=== PATIENT | male | born 1960 | race Caucasian/White ===

== ENCOUNTER → 2017-07-11 07:56 | Outpatient (CLI) | payer OTHER, SELFPAY ==
--- NOTE | 2017-07-11 07:59 | US_ITS ---
STUDY: ABDOMINAL ULTRASOUND - RIGHT UPPER QUADRANT REASON FOR VISIT: Male, 57 years old. Epigastric pain. History of prior cholecystectomy in 2007. TECHNIQUE: Ultrasound evaluation of the right upper quadrant was performed with real-time and static borden-scale imaging. TECHNICAL QUALITY: Adequate. COMPARISON: None. FINDINGS: Liver: The liver measures 15.4 cm. There is normal echogenicity of the liver. The bile ducts are within normal limits. There is hepatic color flow. The direction of portal flow is hepatopetal. There is no demonstrated mass lesion. Gallbladder: The patient is status post cholecystectomy. Common Bile Duct (C.B.D.): The common bile duct measures 4.1 mm. Pancreas: Normal size of the head, body and tail of the pancreas. Fatty pancreas. There is no demonstrated pancreatic mass or cyst. Right Kidney: Normal size of the right kidney. The right kidney measures 11.6 x 6.0 x 6.2 cm. Normal renal cortex. The right cortex measures 2 cm. There is a 3.1 x 2.7 x 2.5 cm simple cyst of the right kidney. There is no right hydronephrosis. US/Abdomen Limited IMPRESSION: Normal liver. Status post cholecystectomy. Nondistended common bile duct. Normal sized fatty pancreas. 3.1 x 2.7 x 2.5 cm simple cyst of the right kidney. Otherwise normal right kidney. Electronically Signed: Kusum Jc MD at 0:01 EST , Service support ,
== END ==
PROVIDERS: Family Provider Family Medicine; PCP Family Medicine; Visit Provider Family Medicine
DX: R10.13 Epigastric pain (principal)
CPT/HCPCS: 76705

== ENCOUNTER → 2019-04-05 | Outpatient (CLI) | payer OTHER, SELFPAY ==
[2019-04-05 16:24] LABS: Bacteria 0 SEEN /hpf (None Seen); Mucous, Urine 0 SEEN /hpf (<or=2+); Red Blood Cells-Urine 0 SEEN /hpf (0-5); Squamous Epithelial Cells - UA 0 SEEN /hpf (0-5); White Blood Cells 0 SEEN /hpf (0-5)
[2019-04-05 17:39] LABS: Color, Urine Yellow (Yellow); Glucose, Dipstick Normal (Normal); Ketone-Dipstick 5 mg/dl (Negative); Leukocyte Esterase-Dipstick Negative /ul (Negative); Nitrite-Dipstick Negative (Negative); Occult Blood-Urine Negative /ul (Negative); Protein-Dipstick Negative (Negative); Specific Gravity, Urine 1.015 (1.002-1.030); Urine Bilirubin Dipstick Negative (Negative); Urine Clarity Clear (Clear); Urine Urobilinogen Normal (Normal); Urine pH 6.5 (5.0 - 8.0)
[2019-04-05 17:42] LABS: Absolute Lymphocyte Count 1.38 X10^3/uL (0.83-4.51); Absolute Neutrophil Count 4.1 X10^3/uL (2.0-7.7); Basophil# 0.04 X10^3/uL; Basophil% 0.7 % (0-1); Eosinophil# 0.01 X10^3/uL; Eosinophils% 0.2 % (0-5); Hematocrit 41.6 % (40-54); Hemoglobin 13.6 g/dL (13.0-16.5); Lymphocyte # 1.38 X10^3/ul (4.0); Lymphocyte % 22.7 % (19-41); Mean Corp Hgb Conc 32.7 g/dL (32-36); Mean Corpuscular Hgb 30.8 pg (27.0-32.0); Mean Corpuscular Volume 94.1 fL (80-94); Mean Platelet Vol. 11.7 fl (6.2-12.0); Monocyte# 0.57 X10^3/uL; Monocyte% 9.4 % (0-10); NRBC Flagged by Analyzer 0 % (0-5); Neutrophil # 4.07 X10^3/uL (2.7-7.7); Neutrophil % 66.7 % (47-70); Platelet Count 240 K/mm3 (150-450); RBC Distribution Width CV 12.4 % (11.6-14.6); Red Blood Count 4.42 M/mm3 (4.6-6.2); White Blood Count 6.1 K/mm3 (4.4-11.0)
[2019-04-05 18:01] LABS: ALB/GLOB Ratio 1.4 RATIO (0.9-2.4); AST(SGOT) 16 U/L (15-37); Alanine Aminotransfer ALT/SGPT 30 U/L (16-61); Albumin, Serum 4.1 g/dL (3.2-5.0); Alkaline Phosphatase 44 U/L (45-117); Anion Gap 6 (5-15); BUN 17 mg/dL (7-18); BUN/Creat Ratio 16.2 RATIO (10-20); Chloride 108 mmol/L (98-107); Creatinine, Serum 1.05 mg/dL (0.70-1.30); EST Glomerular Filtration Rate 77 mL/min (>60); Est Glom Filt Rate - Afr Amer 93 mL/min (>60); Globulin 2.9 g/dL (2.2-4.2); Glucose 89 mg/dL (74-106); Potassium 3.9 mmol/L (3.5-5.1); Sodium Level 140 mmol/L (136-145); Thyroid Stim Hormone (TSH) 1.15 uIU/mL (0.358-3.74)
== END | disposition home or self-care (01) ==
LOC: MFPLAB 16:21
PROVIDERS: Family Provider Family Medicine; PCP Family Medicine; Visit Provider Family Medicine
DX: I10 Essential (primary) hypertension (principal)
CPT/HCPCS: 36415; 80053; 81001; 84443; 85025

== ENCOUNTER → 2019-04-30 10:33 | Outpatient (CLI) | payer OTHER, SELFPAY ==
[2019-04-30 12:53] LABS: Anion Gap 4 (5-15); BUN 20 mg/dL (7-18); BUN/Creat Ratio 16.9 RATIO (10-20); Calcium,Total 9.1 mg/dL (8.5-10.1); Chloride 105 mmol/L (98-107); Creatinine, Serum 1.18 mg/dL (0.70-1.30); EST Glomerular Filtration Rate 67 mL/min (>60); Est Glom Filt Rate - Afr Amer 82 mL/min (>60); Glucose 88 mg/dL (74-106); Potassium 3.9 mmol/L (3.5-5.1); Sodium Level 140 mmol/L (136-145)
== END ==
PROVIDERS: Family Provider Family Medicine; PCP Family Medicine; Referring Provider Family Medicine; Visit Provider Family Medicine
DX: I10 Essential (primary) hypertension (principal)
CPT/HCPCS: 36415; 80048

== ENCOUNTER → 2019-05-18 11:05 | Outpatient (CLI) | payer OTHER, SELFPAY ==
[2019-05-18 12:21] LABS: Anion Gap 5 (5-15); BUN 25 mg/dL (7-18); BUN/Creat Ratio 27.7 RATIO (10-20); Calcium,Total 8.8 mg/dL (8.5-10.1); Chloride 107 mmol/L (98-107); EST Glomerular Filtration Rate 92 mL/min (>60); Est Glom Filt Rate - Afr Amer 111 mL/min (>60); Glucose 87 mg/dL (74-106); PSA,Total - Annual Screen 2.12 ng/mL (0.00-4.00); Potassium 3.9 mmol/L (3.5-5.1); Sodium Level 140 mmol/L (136-145)
[2019-05-18 12:24] LABS: Hemoglobin A1c 5.4 % (4.2-6.3)
== END ==
PROVIDERS: Family Provider Family Medicine; PCP Family Medicine; Visit Provider Family Medicine
DX: I10 Essential (primary) hypertension (principal); R73.09 Other abnormal glucose; Z12.5 Encounter for screening for malignant neoplasm of prostate
CPT/HCPCS: 36415; 80048; 83036; 84153; G0103

== ENCOUNTER → 2019-09-28 08:57 | Outpatient (CLI) | payer OTHER, SELFPAY ==
[2019-09-28 10:26] LABS: Vitamin D,25 Hydroxy 87.6 ng/mL
[2019-09-28 10:44] LABS: ALB/GLOB Ratio 1.4 RATIO (0.9-2.4); AST(SGOT) 21 U/L (15-37); Alanine Aminotransfer ALT/SGPT 31 U/L (16-61); Albumin, Serum 4.1 g/dL (3.2-5.0); Alkaline Phosphatase 34 U/L (45-117); Anion Gap 6 (5-15); BUN 25 mg/dL (7-18); BUN/Creat Ratio 20.8 RATIO (10-20); Calcium,Total 9.2 mg/dL (8.5-10.1); Chloride 102 mmol/L (98-107); EST Glomerular Filtration Rate 66 mL/min (>60); Est Glom Filt Rate - Afr Amer 80 mL/min (>60); Glucose 104 mg/dL (74-106); Potassium 4.1 mmol/L (3.5-5.1); Protein, Total 7.1 g/dL (6.4-8.2); Sodium Level 138 mmol/L (136-145)
== END ==
PROVIDERS: PCP Family Medicine; Referring Provider Family Medicine; Visit Provider Family Medicine
DX: I10 Essential (primary) hypertension (principal); E55.9 Vitamin D deficiency, unspecified; R73.09 Other abnormal glucose
CPT/HCPCS: 36415; 80053; 82306; 83036

== ENCOUNTER → 2020-04-24 13:40 | Outpatient (CLI) | payer OTHER, SELFPAY ==
[2020-04-24 15:21] LABS: Vitamin D,25 Hydroxy 60.6 ng/mL
[2020-04-24 15:25] LABS: ALB/GLOB Ratio 1.5 RATIO (0.9-2.4); AST(SGOT) 12 U/L (15-37); Alanine Aminotransfer ALT/SGPT 29 U/L (16-61); Albumin, Serum 4.3 g/dL (3.2-5.0); Alkaline Phosphatase 41 U/L (45-117); Anion Gap 5 (5-15); BUN 23 mg/dL (7-18); BUN/Creat Ratio 22.1 RATIO (10-20); Calcium,Total 9.4 mg/dL (8.5-10.1); Chloride 104 mmol/L (98-107); Creatinine, Serum 1.04 mg/dL (0.70-1.30); EST Glomerular Filtration Rate 78 mL/min (>60); Est Glom Filt Rate - Afr Amer 94 mL/min (>60); Globulin 2.9 g/dL (2.2-4.2); Glucose 89 mg/dL (74-106); Potassium 3.8 mmol/L (3.5-5.1); Protein, Total 7.2 g/dL (6.4-8.2); Sodium Level 139 mmol/L (136-145)
== END ==
PROVIDERS: PCP Family Medicine; Referring Provider Family Medicine; Visit Provider Family Medicine
DX: I10 Essential (primary) hypertension (principal); E55.9 Vitamin D deficiency, unspecified
CPT/HCPCS: 36415; 80053; 82306; 87635; U0003

== ENCOUNTER 2020-08-01 11:16 | Outpatient (RCR) | payer OTHER, SELFPAY ==
[2020-08-01] MEDS: COVID-19 VACC, MRNA(PFIZER)/PF 30 MCG/0.3 ML SYRINGE IM (16:14)
[2020-08-22] MEDS: COVID-19 VACC, MRNA(PFIZER)/PF 30 MCG/0.3 ML SYRINGE IM (16:06)
== END 2020-10-24 23:59 ==
LOC: IMMUN 11:16
PROVIDERS: PCP Family Medicine; Visit Provider Family Medicine
DX: Z23 Encounter for immunization (principal)
CPT/HCPCS: 0001A; 0002A; 91300

== ENCOUNTER → 2020-10-26 09:24 | Outpatient (CLI) | payer OTHER, SELFPAY ==
[2020-10-26 09:26] LABS: Bacteria 0 SEEN /hpf (None Seen); Mucous, Urine 0 SEEN /hpf (<or=2+); Red Blood Cells-Urine 0 SEEN /hpf (0-5); Squamous Epithelial Cells - UA 0 SEEN /hpf (0-5); White Blood Cells 0 SEEN /hpf (0-5)
[2020-10-26 10:07] LABS: Color, Urine Yellow (Yellow); Glucose, Dipstick Normal (Normal); Ketone-Dipstick Negative (Negative); Leukocyte Esterase-Dipstick Negative /ul (Negative); Nitrite-Dipstick Negative (Negative); Occult Blood-Urine Negative /ul (Negative); Protein-Dipstick Negative (Negative); Urine Bilirubin Dipstick Negative (Negative); Urine Clarity Clear (Clear); Urine Urobilinogen Normal (Normal)
[2020-10-26 10:12] LABS: Absolute Lymphocyte Count 1.23 X10^3/uL (0.83-4.51); Absolute Neutrophil Count 2.9 X10^3/uL (2.0-7.7); Basophil# 0.04 X10^3/uL; Basophil% 0.9 % (0-1); Eosinophil# 0.04 X10^3/uL; Eosinophils% 0.9 % (0-5); Hematocrit 39.8 % (40-54); Hemoglobin 13.2 g/dL (13.0-16.5); Lymphocyte # 1.23 X10^3/ul (0.83-4.51); Lymphocyte % 26.3 % (19-41); Mean Corp Hgb Conc 33.2 g/dL (32-36); Mean Corpuscular Volume 93.4 fL (80-94); Mean Platelet Vol. 10.8 fl (6.2-12.0); Monocyte# 0.47 X10^3/uL; NRBC Flagged by Analyzer 0 % (0-5); Neutrophil # 2.88 X10^3/uL (2.7-7.7); Neutrophil % 61.5 % (47-70); Platelet Count 247 K/mm3 (150-450); RBC Distribution Width CV 12.8 % (11.6-14.6); RBC Distribution Width SD 43.8 fl (35.1-43.9); Red Blood Count 4.26 M/mm3 (4.6-6.2); White Blood Count 4.7 K/mm3 (4.4-11.0)
[2020-10-26 10:35] LABS: Vitamin D,25 Hydroxy 60.8 ng/mL
[2020-10-26 10:41] LABS: ALB/GLOB Ratio 1.2 RATIO (0.9-2.4); AST(SGOT) 15 U/L (15-37); Alanine Aminotransfer ALT/SGPT 29 U/L (16-61); Alkaline Phosphatase 37 U/L (45-117); Anion Gap 6 (5-15); BUN 38 mg/dL (7-18); BUN/Creat Ratio 30.2 RATIO (10-20); Calcium,Total 9.6 mg/dL (8.5-10.1); Chloride 104 mmol/L (98-107); Cholesterol 191 mg/dL (200); Creatinine, Serum 1.26 mg/dL (0.70-1.30); EST Glomerular Filtration Rate 62 mL/min (>60); Est Glom Filt Rate - Afr Amer 75 mL/min (>60); Globulin 3.2 g/dL (2.2-4.2); Glucose 96 mg/dL (74-106); High Density Lipoprotein 80 mg/dL; PSA,Total - Annual Screen 3.19 ng/mL (0.00-4.00); Potassium 3.8 mmol/L (3.5-5.1); Protein, Total 7.2 g/dL (6.4-8.2); Sodium Level 138 mmol/L (136-145); Triglycerides 50 mg/dL; Very Low Density Lipoprotein 10 mg/dL (5-40)
== END ==
PROVIDERS: PCP Family Medicine; Referring Provider Family Medicine; Visit Provider Family Medicine
DX: I10 Essential (primary) hypertension (principal); E55.9 Vitamin D deficiency, unspecified; Z12.5 Encounter for screening for malignant neoplasm of prostate
CPT/HCPCS: 36415; 80053; 80061; 81001; 82306; 84153; 84443; 85025; G0103

== ENCOUNTER → 2020-11-10 09:44 | Outpatient (CLI) | payer OTHER, SELFPAY ==
[2020-11-10 12:55] LABS: Anion Gap 6 (5-15); BUN 25 mg/dL (7-18); BUN/Creat Ratio 19.2 RATIO (10-20); Calcium,Total 9.6 mg/dL (8.5-10.1); Chloride 104 mmol/L (98-107); EST Glomerular Filtration Rate 60 mL/min (>60); Est Glom Filt Rate - Afr Amer 73 mL/min (>60); Glucose 109 mg/dL (74-106); Sodium Level 139 mmol/L (136-145)
== END ==
PROVIDERS: PCP Family Medicine; Referring Provider Family Medicine; Visit Provider Family Medicine
DX: R94.4 Abnormal results of kidney function studies (principal)
CPT/HCPCS: 36415; 80048

== ENCOUNTER → 2021-05-08 11:22 | Outpatient (CLI) | payer OTHER, SELFPAY ==
[2021-05-08 11:24] LABS: Bacteria 0 SEEN /hpf (None Seen); Mucous, Urine 0 SEEN /hpf (<or=2+); Red Blood Cells-Urine 0 SEEN /hpf (0-5); Squamous Epithelial Cells - UA 0 SEEN /hpf (0-5); White Blood Cells 0 SEEN /hpf (0-5)
[2021-05-08 15:15] LABS: Absolute Lymphocyte Count 1.44 X10^3/uL (0.83-4.51); Absolute Neutrophil Count 3.1 X10^3/uL (2.0-7.7); Basophil# 0.04 X10^3/uL; Basophil% 0.8 % (0-1); Eosinophil# 0.02 X10^3/uL; Eosinophils% 0.4 % (0-5); Hematocrit 39.9 % (40-54); Hemoglobin 13.2 g/dL (13.0-16.5); Lymphocyte # 1.44 X10^3/ul (0.83-4.51); Lymphocyte % 28.6 % (19-41); Mean Corp Hgb Conc 33.1 g/dL (32-36); Mean Corpuscular Hgb 30.8 pg (27.0-32.0); Mean Corpuscular Volume 93.2 fL (80-94); Monocyte# 0.44 X10^3/uL; Monocyte% 8.7 % (0-10); NRBC Flagged by Analyzer 0 % (0-5); Neutrophil # 3.09 X10^3/uL (2.7-7.7); Neutrophil % 61.3 % (47-70); Platelet Count 298 K/mm3 (150-450); RBC Distribution Width CV 12.5 % (11.6-14.6); RBC Distribution Width SD 42.9 fl (35.1-43.9); Red Blood Count 4.28 M/mm3 (4.6-6.2)
[2021-05-08 15:16] LABS: Color, Urine Yellow (Yellow); Glucose, Dipstick Normal (Normal); Ketone-Dipstick Negative (Negative); Leukocyte Esterase-Dipstick Negative /ul (Negative); Nitrite-Dipstick Negative (Negative); Occult Blood-Urine Negative /ul (Negative); Protein-Dipstick Negative (Negative); Specific Gravity, Urine 1.015 (1.002-1.030); Urine Bilirubin Dipstick Negative (Negative); Urine Clarity Clear (Clear); Urine Urobilinogen Normal (Normal)
[2021-05-08 15:31] LABS: Vitamin D,25 Hydroxy 51.6 ng/mL
[2021-05-08 15:35] LABS: ALB/GLOB Ratio 1.3 RATIO (0.9-2.4); AST(SGOT) 16 U/L (15-37); Alanine Aminotransfer ALT/SGPT 36 U/L (16-61); Albumin, Serum 4.3 g/dL (3.2-5.0); Alkaline Phosphatase 42 U/L (45-117); Anion Gap 9 (5-15); BUN 23 mg/dL (7-18); BUN/Creat Ratio 20.2 RATIO (10-20); Calcium,Total 9.8 mg/dL (8.5-10.1); Chloride 100 mmol/L (98-107); Cholesterol 179 mg/dL (200); Creatinine, Serum 1.14 mg/dL (0.70-1.30); EST Glomerular Filtration Rate 70 mL/min (>60); Est Glom Filt Rate - Afr Amer 84 mL/min (>60); Globulin 3.4 g/dL (2.2-4.2); Glucose 103 mg/dL (74-106); High Density Lipoprotein 84 mg/dL; Magnesium 2.2 mg/dL (1.6-2.6); Potassium 3.7 mmol/L (3.5-5.1); Protein, Total 7.7 g/dL (6.4-8.2); Sodium Level 138 mmol/L (136-145); Thyroid Stim Hormone (TSH) 0.93 uIU/mL (0.358-3.74); Triglycerides 49 mg/dL; Very Low Density Lipoprotein 10 mg/dL (5-40)
== END ==
PROVIDERS: PCP Family Medicine; Referring Provider Family Medicine; Visit Provider Family Medicine
DX: I10 Essential (primary) hypertension (principal); E55.9 Vitamin D deficiency, unspecified
CPT/HCPCS: 36415; 80053; 80061; 81001; 82306; 83735; 84443; 85025

== ENCOUNTER 2021-06-07 09:46 | Outpatient (CLI) | payer OTHER, SELFPAY ==
--- NOTE | 2021-06-07 16:56 | PFTCOMP_ITS ---
COMPLETE PULMONARY FUNCTION TEST INTERPRETATION Brief HPI: Patient is a 61 year old male, currently under the care of myself, who presents to [facility] for complete pulmonary function tests secondary to diagnosis of cough. Respiratory therapist reports good effort and reproducible results. Interpretation: Forced expiration spirometry shows no large airways obstructive ventilatory defect with an FEV1 of 108% predicted. There is no significant bronchodilator response by strict ATS criteria. Spirograms are of good quality and plateau normally. The respiratory flow volume loop shows a normal pattern. Lung volumes by body plethysmography show a normal total lung capacity at 6.49 L, 109% predicted. All other lung volumes are within normal limits. Diffusion capacity by carbon monoxide is normal at 116% predicted. The airway resistance is normal. No previous pulmonary function tests were available for review. Impression: These pulmonary function tests are within normal limits
== END 2021-06-07 23:59 | disposition short-term general hospital (02) ==
PROVIDERS: PCP Family Medicine; Referring Provider Internal Medicine Critical Care Medicine; Visit Provider Internal Medicine Critical Care Medicine
DX: R05.3 Chronic cough (principal)
CPT/HCPCS: 94060; 94726; 94729

== ENCOUNTER → 2021-11-20 | Outpatient (CLI) | payer OTHER, SELFPAY ==
[2021-11-20 16:38] LABS: Lyme Ab Screen Interpretation REF LAB
[2021-11-20 18:02] LABS: Absolute Lymphocyte Count 0.82 X10^3/uL (0.83-4.51); Absolute Neutrophil Count 6.2 X10^3/uL (2.0-7.7); Basophil# 0.05 X10^3/uL; Basophil% 0.6 % (0-1); Eosinophil# 0.06 X10^3/uL; Eosinophils% 0.8 % (0-5); Hematocrit 35.9 % (40-54); Hemoglobin 11.6 g/dL (13.0-16.5); Lymphocyte # 0.82 X10^3/ul (0.83-4.51); Lymphocyte % 10.5 % (19-41); Mean Corp Hgb Conc 32.3 g/dL (32-36); Mean Corpuscular Hgb 29.9 pg (27.0-32.0); Mean Corpuscular Volume 92.5 fL (80-94); Mean Platelet Vol. 11.8 fl (6.2-12.0); Monocyte# 0.72 X10^3/uL; Monocyte% 9.2 % (0-10); NRBC Flagged by Analyzer 0 % (0-5); Neutrophil # 6.15 X10^3/uL (2.7-7.7); Neutrophil % 78.4 % (47-70); Platelet Count 311 K/mm3 (150-450); RBC Distribution Width CV 12.4 % (11.6-14.6); RBC Distribution Width SD 42.3 fl (35.1-43.9); Red Blood Count 3.88 M/mm3 (4.6-6.2); White Blood Count 7.8 K/mm3 (4.4-11.0)
[2021-11-20 18:15] LABS: Erythrocyte Sedimentation Rate 20 mm/hr (0-20)
[2021-11-20 18:48] LABS: Vitamin D,25 Hydroxy 52.4 ng/mL
[2021-11-20 18:58] LABS: AST(SGOT) 15 U/L (15-37); Alanine Aminotransfer ALT/SGPT 28 U/L (16-61); Albumin, Serum 3.5 g/dL (3.2-5.0); Alkaline Phosphatase 55 U/L (45-117); Anion Gap 8 (5-15); BUN 13 mg/dL (7-18); BUN/Creat Ratio 13.4 RATIO (10-20); Calcium,Total 9.6 mg/dL (8.5-10.1); Chloride 104 mmol/L (98-107); Creatinine, Serum 0.97 mg/dL (0.70-1.30); EST Glomerular Filtration Rate 84 mL/min (>60); Est Glom Filt Rate - Afr Amer 101 mL/min (>60); Globulin 3.6 g/dL (2.2-4.2); Glucose 87 mg/dL (74-106); Potassium 3.1 mmol/L (3.5-5.1); Protein, Total 7.1 g/dL (6.4-8.2); Sodium Level 140 mmol/L (136-145); Thyroid Stim Hormone (TSH) 1.29 uIU/mL (0.358-3.74)
== END | disposition home or self-care (01) ==
LOC: MFPLAB 16:36
PROVIDERS: PCP Family Medicine; Visit Provider Family Medicine
DX: M79.10 Myalgia, unspecified site (principal); E55.9 Vitamin D deficiency, unspecified
CPT/HCPCS: 36415; 80053; 82306; 83735; 84443; 85025; 85652; 86618

== ENCOUNTER → 2021-11-26 | Outpatient (CLI) | payer OTHER, SELFPAY ==
[2021-11-26 14:49] LABS: Absolute Lymphocyte Count 0.74 X10^3/uL (0.83-4.51); Absolute Neutrophil Count 6.3 X10^3/uL (2.0-7.7); Basophil# 0.04 X10^3/uL; Basophil% 0.5 % (0-1); Eosinophil# 0.04 X10^3/uL; Eosinophils% 0.5 % (0-5); Hematocrit 31.7 % (40-54); Hemoglobin 10.3 g/dL (13.0-16.5); Lymphocyte # 0.74 X10^3/ul (0.83-4.51); Lymphocyte % 9.1 % (19-41); Mean Corp Hgb Conc 32.5 g/dL (32-36); Mean Corpuscular Volume 92.4 fL (80-94); Mean Platelet Vol. 13.2 fl (6.2-12.0); Monocyte% 12.3 % (0-10); NRBC Flagged by Analyzer 0 % (0-5); Neutrophil # 6.32 X10^3/uL (2.7-7.7); Neutrophil % 77.4 % (47-70); Platelet Count 303 K/mm3 (150-450); RBC Distribution Width CV 12.5 % (11.6-14.6); RBC Distribution Width SD 42.6 fl (35.1-43.9); Red Blood Count 3.43 M/mm3 (4.6-6.2); White Blood Count 8.2 K/mm3 (4.4-11.0)
[2021-11-26 15:06] LABS: Vitamin B12 252 pg/mL (211-911)
[2021-11-26 15:14] LABS: Ferritin 258 ng/mL (26-388); Iron 23 ug/dL (65-175); Iron Binding Capacity,Total 274 ug/dL (250-450)
== END | disposition home or self-care (01) ==
LOC: MFPLAB 11:42
PROVIDERS: PCP Family Medicine; Visit Provider Family Medicine
DX: D64.9 Anemia, unspecified (principal)
CPT/HCPCS: 36415; 82607; 82728; 82746; 83540; 83550; 85025

== ENCOUNTER → 2021-12-06 | Outpatient (CLI) | payer OTHER, SELFPAY ==
[2021-12-06 10:10] LABS: Absolute Lymphocyte Count 0.81 X10^3/uL (0.83-4.51); Absolute Neutrophil Count 7.6 X10^3/uL (2.0-7.7); Basophil# 0.04 X10^3/uL; Basophil% 0.4 % (0-1); Eosinophil# 0.09 X10^3/uL; Hematocrit 33.6 % (40-54); Hemoglobin 10.7 g/dL (13.0-16.5); Lymphocyte # 0.81 X10^3/ul (0.83-4.51); Lymphocyte % 8.6 % (19-41); Mean Corp Hgb Conc 31.8 g/dL (32-36); Mean Corpuscular Hgb 29.3 pg (27.0-32.0); Mean Corpuscular Volume 92.1 fL (80-94); Monocyte# 0.86 X10^3/uL; Monocyte% 9.1 % (0-10); NRBC Flagged by Analyzer 0 % (0-5); Neutrophil # 7.62 X10^3/uL (2.7-7.7); Neutrophil % 80.5 % (47-70); Platelet Count 370 K/mm3 (150-450); RBC Distribution Width SD 43.5 fl (35.1-43.9); Red Blood Count 3.65 M/mm3 (4.6-6.2); White Blood Count 9.5 K/mm3 (4.4-11.0)
[2021-12-06 10:35] LABS: Anion Gap 5 (5-15); BUN 20 mg/dL (7-18); BUN/Creat Ratio 18.9 RATIO (10-20); Calcium,Total 9.3 mg/dL (8.5-10.1); Chloride 103 mmol/L (98-107); Creatinine, Serum 1.06 mg/dL (0.70-1.30); EST Glomerular Filtration Rate 76 mL/min (>60); Est Glom Filt Rate - Afr Amer 92 mL/min (>60); Ferritin 197 ng/mL (26-388); Glucose 99 mg/dL (74-106); Iron 30 ug/dL (65-175); Iron Binding Capacity,Total 333 ug/dL (250-450); Potassium 3.5 mmol/L (3.5-5.1); Sodium Level 137 mmol/L (136-145)
== END | disposition home or self-care (01) ==
LOC: MFPLAB 09:31
PROVIDERS: PCP Family Medicine; Referring Provider Family Medicine; Visit Provider Family Medicine
DX: E87.6 Hypokalemia (principal); D50.9 Iron deficiency anemia, unspecified
CPT/HCPCS: 36415; 80048; 82728; 83540; 83550; 85025

== ENCOUNTER → 2022-01-23 | Outpatient (CLI) | payer OTHER, SELFPAY ==
[2022-01-23 08:39] LABS: Bacteria 0 SEEN /hpf (None Seen); Mucous, Urine 0 SEEN /hpf (<or=2+); Red Blood Cells-Urine 0 SEEN /hpf (0-5); Squamous Epithelial Cells - UA 0 SEEN /hpf (0-5); White Blood Cells 0 SEEN /hpf (0-5)
[2022-01-23 10:19] LABS: Absolute Neutrophil Count 4.8 X10^3/uL (2.0-7.7); Basophil# 0.04 X10^3/uL; Basophil% 0.6 % (0-1); Eosinophil# 0.05 X10^3/uL; Eosinophils% 0.8 % (0-5); Hematocrit 39.2 % (40-54); Hemoglobin 12.5 g/dL (13.0-16.5); Lymphocyte % 18.3 % (19-41); Mean Corp Hgb Conc 31.9 g/dL (32-36); Mean Corpuscular Hgb 29.9 pg (27.0-32.0); Mean Corpuscular Volume 93.8 fL (80-94); Mean Platelet Vol. 11.2 fl (6.2-12.0); Monocyte# 0.45 X10^3/uL; Monocyte% 6.9 % (0-10); NRBC Flagged by Analyzer 0 % (0-5); Neutrophil # 4.78 X10^3/uL (2.7-7.7); Neutrophil % 73.1 % (47-70); Platelet Count 313 K/mm3 (150-450); RBC Distribution Width CV 14.7 % (11.6-14.6); RBC Distribution Width SD 50.9 fl (35.1-43.9); Red Blood Count 4.18 M/mm3 (4.6-6.2); White Blood Count 6.5 K/mm3 (4.4-11.0)
[2022-01-23 10:36] LABS: Color, Urine Yellow (Yellow); Glucose, Dipstick Normal (Normal); Ketone-Dipstick Negative (Negative); Leukocyte Esterase-Dipstick Negative /ul (Negative); Nitrite-Dipstick Negative (Negative); Occult Blood-Urine Negative /ul (Negative); Protein-Dipstick Negative (Negative); Urine Bilirubin Dipstick Negative (Negative); Urine Clarity Clear (Clear); Urine Urobilinogen Normal (Normal)
[2022-01-23 10:57] LABS: ALB/GLOB Ratio 1.1 RATIO (0.9-2.4); AST(SGOT) 21 U/L (15-37); Alanine Aminotransfer ALT/SGPT 40 U/L (16-61); Albumin, Serum 3.8 g/dL (3.2-5.0); Alkaline Phosphatase 38 U/L (45-117); Anion Gap 6 (5-15); BUN 24 mg/dL (7-18); BUN/Creat Ratio 21.4 RATIO (10-20); Calcium,Total 9.3 mg/dL (8.5-10.1); Chloride 107 mmol/L (98-107); Cholesterol 185 mg/dL (200); Creatinine, Serum 1.12 mg/dL (0.70-1.30); EST Glomerular Filtration Rate 71 mL/min (>60); Est Glom Filt Rate - Afr Amer 86 mL/min (>60); Ferritin 165 ng/mL (26-388); Globulin 3.4 g/dL (2.2-4.2); Glucose 101 mg/dL (74-106); High Density Lipoprotein 74 mg/dL; Iron 80 ug/dL (65-175); Iron Binding Capacity,Total 323 ug/dL (250-450); PSA,Total - Annual Screen 2.57 ng/mL (0.00-4.00); Potassium 4.1 mmol/L (3.5-5.1); Protein, Total 7.2 g/dL (6.4-8.2); Sodium Level 140 mmol/L (136-145); Triglycerides 50 mg/dL; Very Low Density Lipoprotein 10 mg/dL (5-40)
== END | disposition home or self-care (01) ==
LOC: MFPLAB 08:36
PROVIDERS: PCP Family Medicine; Visit Provider Family Medicine
DX: D50.9 Iron deficiency anemia, unspecified (principal); I10 Essential (primary) hypertension; Z12.5 Encounter for screening for malignant neoplasm of prostate
CPT/HCPCS: 80053; 80061; 81001; 82728; 83540; 83550; 84153; 85025; G0103

== ENCOUNTER → 2022-05-22 | Outpatient (CLI) | payer OTHER, SELFPAY ==
[2022-05-22 08:44] LABS: Bacteria 0 SEEN /hpf (None Seen); Mucous, Urine 0 SEEN /hpf (<or=2+); Red Blood Cells-Urine 0 SEEN /hpf (0-5); Squamous Epithelial Cells - UA 0 SEEN /hpf (0-5); White Blood Cells 0 SEEN /hpf (0-5)
[2022-05-22 10:11] LABS: Absolute Lymphocyte Count 0.99 X10^3/uL (0.83-4.51); Absolute Neutrophil Count 1.8 X10^3/uL (2.0-7.7); Basophil# 0.03 X10^3/uL; Basophil% 0.9 % (0-1); Color, Urine Yellow (Yellow); Eosinophil# 0.07 X10^3/uL; Eosinophils% 2.1 % (0-5); Glucose, Dipstick Normal (Normal); Hematocrit 39.6 % (40-54); Hemoglobin 13.2 g/dL (13.0-16.5); Ketone-Dipstick Negative (Negative); Leukocyte Esterase-Dipstick Negative /ul (Negative); Lymphocyte # 0.99 X10^3/ul (0.83-4.51); Lymphocyte % 30.3 % (19-41); Mean Corp Hgb Conc 33.3 g/dL (32-36); Mean Corpuscular Hgb 31.4 pg (27.0-32.0); Mean Corpuscular Volume 94.1 fL (80-94); Mean Platelet Vol. 11.8 fl (6.2-12.0); Monocyte% 12.2 % (0-10); NRBC Flagged by Analyzer 0 % (0-5); Neutrophil # 1.77 X10^3/uL (2.7-7.7); Neutrophil % 54.2 % (47-70); Nitrite-Dipstick Negative (Negative); Occult Blood-Urine Negative /ul (Negative); Platelet Count 239 K/mm3 (150-450); Protein-Dipstick Negative (Negative); RBC Distribution Width CV 12.9 % (11.6-14.6); RBC Distribution Width SD 44.7 fl (35.1-43.9); Red Blood Count 4.21 M/mm3 (4.6-6.2); Urine Bilirubin Dipstick Negative (Negative); Urine Clarity Clear (Clear); Urine Urobilinogen Normal (Normal); White Blood Count 3.3 K/mm3 (4.4-11.0)
[2022-05-22 10:36] LABS: ALB/GLOB Ratio 1.3 RATIO (0.9-2.4); AST(SGOT) 20 U/L (15-37); Alanine Aminotransfer ALT/SGPT 38 U/L (16-61); Albumin, Serum 3.9 g/dL (3.2-5.0); Alkaline Phosphatase 39 U/L (45-117); Anion Gap 5 (5-15); BUN 24 mg/dL (7-18); BUN/Creat Ratio 20.5 RATIO (10-20); Calcium,Total 9.3 mg/dL (8.5-10.1); Chloride 104 mmol/L (98-107); Cholesterol 177 mg/dL (200); Creatinine, Serum 1.17 mg/dL (0.70-1.30); EST Glomerular Filtration Rate 67 mL/min (>60); Est Glom Filt Rate - Afr Amer 82 mL/min (>60); Ferritin 168 ng/mL (26-388); Globulin 2.9 g/dL (2.2-4.2); Glucose 103 mg/dL (74-106); High Density Lipoprotein 88 mg/dL; Iron 66 ug/dL (65-175); Iron Binding Capacity,Total 296 ug/dL (250-450); Potassium 4.3 mmol/L (3.5-5.1); Protein, Total 6.8 g/dL (6.4-8.2); Sodium Level 139 mmol/L (136-145); Thyroid Stim Hormone (TSH) 1.14 uIU/mL (0.358-3.74); Triglycerides 29 mg/dL; Very Low Density Lipoprotein 6 mg/dL (5-40)
== END | disposition home or self-care (01) ==
LOC: MFPLAB 08:38
PROVIDERS: PCP Family Medicine; Visit Provider Family Medicine
DX: I10 Essential (primary) hypertension (principal); E55.9 Vitamin D deficiency, unspecified; D50.9 Iron deficiency anemia, unspecified
CPT/HCPCS: 36415; 80053; 80061; 81001; 82306; 82728; 83540; 83550; 84443; 85025

== ENCOUNTER → 2022-05-28 | Outpatient (CLI) | payer OTHER, SELFPAY ==
--- NOTE | 2022-05-28 13:51 | ECHOD_ITS ---
Reason For Study: Murmur Procedure This was a 2D Doppler, Color Flow transthoracic echocardiogram. The exam was of adequate technical quality. Exam performed in department. Left Ventricle Normal LV size. Left ventricular systolic function is normal. The estimated ejection fraction is 65 %. No evidence for diastolic dysfunction. No regional wall motion abnormalities noted. Right Ventricle Normal RV size. Normal systolic function. Atria The left atrium is mildly enlarged. Normal right atrium. No doppler evidence for ASD. Mitral Valve There is no mitral annular calcification. Mild focal mitral valve calcification of the anterior leaflet. Mild mitral valve prolapse, posterior leaflet. Mild-Moderate (1-2+) eccentric mitral valve insufficiency. Tricuspid Valve Normal tricuspid valve. Trivial tricuspid valve insufficiency. Right ventricular systolic pressure estimated to be 32 mmHg. Aortic Valve Trisinus/trileaflet aortic valve. Normal aortic valve. Pulmonic Valve The pulmonic valve is not well visualized. Great Vessels Normal sized aortic root. Pericardium/Pleural No pericardial effusion. MMode/2D Measurements & Calculations LVIDd: 5.3 cm IVSd: 1.2 cm Ao root diam: 3.5 cm LVIDs: 3.3 cm LVPWd: 1.0 cm LA dimension: 4.7 cm RVDd: 4.3 cm FS: 37.3 % LAV(MOD-bp): 122.8 ml LA A4 area: 31.1 cm2 LAV(MOD-bp) Indexed: 63.1 ml/m2 LAV(MOD-sp2): 115.4 ml LAV(MOD-sp4): 105.6 ml Time Measurements MV dec time: 0.31 sec Doppler Measurements & Calculations MV E max tonny: 97.0 cm/sec Lat Peak E' Tonny: 13.6 cm/sec Med Peak E' Tonny: 10.3 cm/sec MV A max tonny: 80.2 cm/sec E/E' lat: 7.1 E/E' med: 9.4 MV E/A: 1.2 MV V2 max: 123.4 cm/sec MV P1/2t max tonny: 126.5 cm/sec Ao V2 max: 141.3 cm/sec MV max P.1 mmHg MV P1/2t: 109.7 msec Ao max P.0 mmHg MV V2 mean: 64.5 cm/sec MV dec slope: 337.7 cm/sec2 MV mean P.0 mmHg MVA(P1/2t): 2.0 cm2 MV V2 VTI: 34.7 cm LV V1 max: 109.9 cm/sec MR max tonny: 533.3 cm/sec PA V2 max: 86.6 cm/sec LV V1 max P.8 mmHg MR max P.7 mmHg LV V1 mean P.5 mmHg MR mean tonny: 417.2 cm/sec LV V1 mean: 74.1 cm/sec MR mean P.0 mmHg LV V1 VTI: 19.6 cm MR VTI: 175.8 cm TR max tonny: 267.7 cm/sec TR max P.7 mmHg ECHO/Echo Complete Interpretation Summary Left ventricular systolic function is normal. The estimated ejection fraction is 65 %. The left atrium is mildly enlarged. Mild focal mitral valve calcification of the anterior leaflet. Mild mitral valve prolapse, posterior leaflet Mild-Moderate (1-2+) eccentric mitral valve insufficiency. Trivial tricuspid valve insufficiency. Right ventricular systolic pressure estimated to be 32 mmHg. No evidence for diastolic dysfunction. Ordering Physician: Praful Frankel Referring Physician: Praful Frankel Performed By: Oswaldo Pemberton RCS
== END | disposition home or self-care (01) ==
PROVIDERS: PCP Family Medicine; Referring Provider Family Medicine; Visit Provider Family Medicine
DX: R01.1 Cardiac murmur, unspecified (principal)
CPT/HCPCS: 93306

== ENCOUNTER → 2022-07-02 | Outpatient (CLI) | payer OTHER, SELFPAY ==
[2022-07-02 10:07] LABS: Absolute Lymphocyte Count 1.07 X10^3/uL (0.83-4.51); Basophil# 0.03 X10^3/uL; Basophil% 0.7 % (0-1); Eosinophil# 0.05 X10^3/uL; Eosinophils% 1.1 % (0-5); Hematocrit 40.2 % (40-54); Hemoglobin 12.9 g/dL (13.0-16.5); Lymphocyte # 1.07 X10^3/ul (0.83-4.51); Lymphocyte % 23.2 % (19-41); Mean Corp Hgb Conc 32.1 g/dL (32-36); Mean Corpuscular Hgb 30.4 pg (27.0-32.0); Mean Corpuscular Volume 94.8 fL (80-94); Mean Platelet Vol. 11.5 fl (6.2-12.0); Monocyte# 0.41 X10^3/uL; Monocyte% 8.9 % (0-10); NRBC Flagged by Analyzer 0 % (0-5); Neutrophil # 3.04 X10^3/uL (2.7-7.7); Neutrophil % 65.9 % (47-70); Platelet Count 234 K/mm3 (150-450); RBC Distribution Width CV 12.8 % (11.6-14.6); RBC Distribution Width SD 44.1 fl (35.1-43.9); Red Blood Count 4.24 M/mm3 (4.6-6.2); White Blood Count 4.6 K/mm3 (4.4-11.0)
[2022-07-02 10:50] LABS: Ferritin 183 ng/mL (26-388)
== END | disposition home or self-care (01) ==
LOC: MFPLAB 09:25
PROVIDERS: PCP Family Medicine; Referring Provider Family Medicine; Visit Provider Family Medicine
DX: D50.9 Iron deficiency anemia, unspecified (principal)
CPT/HCPCS: 36415; 82728; 85025

== ENCOUNTER → 2023-06-26 | Outpatient (CLI) | payer OTHER, SELFPAY ==
[2023-06-26 16:00] LABS: Bacteria 0 SEEN /hpf (None Seen); Mucous, Urine 0 SEEN /hpf (<or=2+); Red Blood Cells-Urine 0 SEEN /hpf (0-5); Squamous Epithelial Cells - UA 0 SEEN /hpf (0-5); White Blood Cells 0 SEEN /hpf (0-5)
[2023-06-26 17:37] LABS: Absolute Lymphocyte Count 1.38 X10^3/uL (0.83-4.51); Absolute Neutrophil Count 2.5 X10^3/uL (2.0-7.7); Basophil# 0.03 X10^3/uL; Basophil% 0.7 % (0-1); Eosinophil# 0.03 X10^3/uL; Eosinophils% 0.7 % (0-5); Hematocrit 38.4 % (40-54); Hemoglobin 12.5 g/dL (13.0-16.5); Lymphocyte # 1.38 X10^3/ul (0.83-4.51); Lymphocyte % 31.5 % (19-41); Mean Corp Hgb Conc 32.6 g/dL (32-36); Mean Corpuscular Hgb 30.4 pg (27.0-32.0); Mean Corpuscular Volume 93.4 fL (80-94); Mean Platelet Vol. 12.1 fl (6.2-12.0); Monocyte# 0.42 X10^3/uL; Monocyte% 9.6 % (0-10); NRBC Flagged by Analyzer 0 % (0-5); Neutrophil # 2.52 X10^3/uL (2.7-7.7); Neutrophil % 57.5 % (47-70); Platelet Count 232 K/mm3 (150-450); RBC Distribution Width CV 12.7 % (11.6-14.6); RBC Distribution Width SD 43.5 fl (35.1-43.9); Red Blood Count 4.11 M/mm3 (4.6-6.2); White Blood Count 4.4 K/mm3 (4.4-11.0)
[2023-06-26 18:02] LABS: Color, Urine Yellow (Yellow); Glucose, Dipstick Normal (Normal); Ketone-Dipstick 50 mg/dl (Negative); Leukocyte Esterase-Dipstick Negative /ul (Negative); Nitrite-Dipstick Negative (Negative); Occult Blood-Urine Negative /ul (Negative); Protein-Dipstick Negative (Negative); Urine Bilirubin Dipstick Negative (Negative); Urine Clarity Clear (Clear); Urine Urobilinogen Normal (Normal)
[2023-06-26 18:04] LABS: Vitamin D,25 Hydroxy 51.3 ng/mL
[2023-06-26 18:26] LABS: ALB/GLOB Ratio 1.4 RATIO (0.9-2.4); AST(SGOT) 16 U/L (15-37); Alanine Aminotransfer ALT/SGPT 34 U/L (16-61); Albumin, Serum 4.2 g/dL (3.2-5.0); Alkaline Phosphatase 37 U/L (45-117); Anion Gap 10 (5-15); BUN 17 mg/dL (7-18); BUN/Creat Ratio 14.3 RATIO (10-20); Calcium,Total 9.7 mg/dL (8.5-10.1); Chloride 101 mmol/L (98-107); Cholesterol 191 mg/dL (200); Creatinine, Serum 1.19 mg/dL (0.70-1.30); EST Glomerular Filtration Rate 66 mL/min (>60); Est Glom Filt Rate - Afr Amer 80 mL/min (>60); Ferritin 287 ng/mL (26-388); Globulin 3.1 g/dL (2.2-4.2); Glucose 74 mg/dL (74-106); High Density Lipoprotein 76 mg/dL; Iron 92 ug/dL (65-175); Iron Binding Capacity,Total 277 ug/dL (250-450); PSA,Total - Annual Screen 3.96 ng/mL (0.00-4.00); Protein, Total 7.3 g/dL (6.4-8.2); Sodium Level 138 mmol/L (136-145); Thyroid Stim Hormone (TSH) 0.78 uIU/mL (0.358-3.74); Triglycerides 58 mg/dL; Very Low Density Lipoprotein 12 mg/dL (5-40)
== END | disposition home or self-care (01) ==
LOC: MFPLAB 15:59
PROVIDERS: PCP Family Medicine; Visit Provider Family Medicine
DX: I10 Essential (primary) hypertension (principal); D50.9 Iron deficiency anemia, unspecified; E55.9 Vitamin D deficiency, unspecified; Z12.5 Encounter for screening for malignant neoplasm of prostate
CPT/HCPCS: 36415; 80053; 80061; 81001; 82306; 82728; 83540; 83550; 84153; 84443; 85025; G0103

== ENCOUNTER → 2023-08-08 | Outpatient (CLI) | payer OTHER, SELFPAY ==
--- NOTE | 2023-08-08 15:46 | STRESSREP_ITS ---
Stress Test Report Exercise myocardial perfusion stress test. 63-year-old male with a history of shortness of breath Stress protocol: Resting EKG demonstrates normal sinus rhythm with a rate of 80 bpm resting blood pressure is 134/62 mmHg. The patient exercised according to the regular Nate protocol for a total duration of 9 minutes and 45 seconds attaining a maximum heart rate of 137 bpm which was 86% of maximum predicted heart rate; the maximum workload was 12.5 metabolic equivalents. At rest there were no ST or T wave changes noted to suggest ischemia and at peak exercise upsloping ST changes only were noted which did not meet the criteria for ischemia. No clinical angina was noted the test was terminated due to the target heart rate being achi eved/fatigue. The peak blood pressure was 168/50 mmHg. Rate-pressure product was 21,600. Myocardial perfusion protocol. 11.5 mCi of technetium 99m sestamibi was injected at rest. The patient exerc ised according to regular Nate protocol for total duration of 9 minutes and 45 seconds and at peak exercise 34.5 mCi of technetium 99m sestamibi was injected stress images were obtained stress and rest images were reconstructed in comparing the short axis vertical long and horizontal long axis. Gated images were also obtained. Perfusion SPECT analysis: Review of the stress images demonstrate normal uptake of tracer noted in all areas of the myocardium. The resting images similarly demonstrate normal uptake of tracer noted in all areas of the myocardium. No areas of reversibility are noted to suggest ischemia no previous infarct was noted. Gated SPECT analysis: The gated ejection fraction is 69%. Conclusion: Normal exercise myocardial perfusion stress test at a high workload Preserved ejection fraction.
== END | disposition home or self-care (01) ==
LOC: CVS 06:53
PROVIDERS: PCP Family Medicine; Referring Provider Family Medicine; Visit Provider Family Medicine
DX: R06.02 Shortness of breath (principal); I10 Essential (primary) hypertension
CPT/HCPCS: 78452; 93017; A9500; A4216

== ENCOUNTER → 2024-01-21 | Outpatient (CLI) | payer OTHER, SELFPAY ==
[2024-01-21 10:32] LABS: Bacteria 0 SEEN /hpf (None Seen); Mucous, Urine 0 SEEN /hpf (<or=2+); Red Blood Cells-Urine 0 SEEN /hpf (0-5); Squamous Epithelial Cells - UA 0 SEEN /hpf (0-5); White Blood Cells 0 SEEN /hpf (0-5)
[2024-01-21 12:07] LABS: Color, Urine Yellow (Yellow); Glucose, Dipstick Normal (Normal); Ketone-Dipstick 50 mg/dl (Negative); Leukocyte Esterase-Dipstick Negative /ul (Negative); Nitrite-Dipstick Negative (Negative); Occult Blood-Urine Negative /ul (Negative); Protein-Dipstick Negative (Negative); Specific Gravity, Urine 1.015 (1.002-1.030); Urine Bilirubin Dipstick Negative (Negative); Urine Clarity Clear (Clear); Urine Urobilinogen Normal (Normal)
[2024-01-21 12:19] LABS: Absolute Lymphocyte Count 1.03 X10^3/uL (0.83-4.51); Absolute Neutrophil Count 5.2 X10^3/uL (2.0-7.7); Basophil# 0.03 X10^3/uL; Basophil% 0.4 % (0-1); Eosinophil# 0.03 X10^3/uL; Eosinophils% 0.4 % (0-5); Hematocrit 40.5 % (40-54); Lymphocyte # 1.03 X10^3/ul (0.83-4.51); Lymphocyte % 15.3 % (19-41); Mean Corp Hgb Conc 32.1 g/dL (32-36); Mean Corpuscular Hgb 30.1 pg (27.0-32.0); Mean Corpuscular Volume 93.8 fL (80-94); Mean Platelet Vol. 12.2 fl (6.2-12.0); Monocyte# 0.43 X10^3/uL; Monocyte% 6.4 % (0-10); NRBC Flagged by Analyzer 0 % (0-5); Neutrophil # 5.21 X10^3/uL (2.7-7.7); Neutrophil % 77.2 % (47-70); Platelet Count 226 K/mm3 (150-450); RBC Distribution Width SD 44.4 fl (35.1-43.9); Red Blood Count 4.32 M/mm3 (4.6-6.2); White Blood Count 6.8 K/mm3 (4.4-11.0)
[2024-01-21 12:53] LABS: ALB/GLOB Ratio 1.4 RATIO (0.9-2.4); AST(SGOT) 21 U/L (15-37); Alanine Aminotransfer ALT/SGPT 33 U/L (16-61); Albumin, Serum 4.2 g/dL (3.2-5.0); Alkaline Phosphatase 44 U/L (45-117); Anion Gap 9 (5-15); BUN 23 mg/dL (7-18); BUN/Creat Ratio 18.7 RATIO (10-20); Calcium,Total 9.5 mg/dL (8.5-10.1); Chloride 101 mmol/L (98-107); Cholesterol 184 mg/dL (200); Creatinine, Serum 1.23 mg/dL (0.70-1.30); EST Glomerular Filtration Rate 63 mL/min (>60); Est Glom Filt Rate - Afr Amer 77 mL/min (>60); Ferritin 191 ng/mL (26-388); Globulin 3.1 g/dL (2.2-4.2); Glucose 81 mg/dL (74-106); High Density Lipoprotein 74 mg/dL; Iron 80 ug/dL (65-175); Iron Binding Capacity,Total 367 ug/dL (250-450); Potassium 4.1 mmol/L (3.5-5.1); Protein, Total 7.3 g/dL (6.4-8.2); Sodium Level 136 mmol/L (136-145); Triglycerides 69 mg/dL; Very Low Density Lipoprotein 14 mg/dL (5-40)
[2024-01-21 12:58] LABS: Vitamin D,25 Hydroxy 48.5 ng/mL
[2024-01-22 13:08] LABS: PSA, Free 0.82 ng/mL; PSA, Free % 25.9 % (.)
== END | disposition home or self-care (01) ==
LOC: MFPLAB 10:29
PROVIDERS: PCP Family Medicine; Visit Provider Family Medicine
DX: D50.9 Iron deficiency anemia, unspecified (principal); I10 Essential (primary) hypertension; E55.9 Vitamin D deficiency, unspecified; R97.20 Elevated prostate specific antigen [PSA]
CPT/HCPCS: 36415; 80053; 80061; 81001; 82306; 82728; 83540; 83550; 84153; 84154; 85025

== ENCOUNTER → 2024-01-26 | Outpatient (CLI) | payer OTHER, SELFPAY ==
[2024-01-26 18:21] LABS: PSA,Total- Diagnostic 3.63 ng/mL (0.0-4.0)
== END | disposition home or self-care (01) ==
LOC: MFPLAB 14:52
PROVIDERS: PCP Family Medicine; Visit Provider Nurse Practitioner
DX: R97.20 Elevated prostate specific antigen [PSA] (principal)
CPT/HCPCS: 36415; 84153

== ENCOUNTER 2024-07-12 09:17 | Day surgery (SDC) | payer OTHER, SELFPAY ==
--- NOTE | 2024-06-29 12:48 | EKG12_ITS ---
Test Reason : PRE OP Blood Pressure : */* mmHG Vent. Rate : 76 BPM Atrial Rate : 76 BPM P-R Int : 190 ms QRS Dur : 98 ms QT Int : 380 ms P-R-T Axes : 67 47 30 degrees QTcB Int : 427 ms Normal sinus rhythm Normal ECG Confirmed by Rudy Pickens ([id number]), editor at large LAN GAMINO ([id number]) on 06/30/2024 6:56:29 AM Referred By: Lev Sarah Confirmed By: Rudy Pickens
[2024-06-29 14:22] LABS: Anion Gap 8 (5-15); BUN 26 mg/dL (7-18); BUN/Creat Ratio 21.3 RATIO (10-20); Calcium,Total 9.6 mg/dL (8.5-10.1); Chloride 104 mmol/L (98-107); Creatinine, Serum 1.22 mg/dL (0.70-1.30); EST Glomerular Filtration Rate 64 mL/min (>60); Est Glom Filt Rate - Afr Amer 77 mL/min (>60); Glucose 88 mg/dL (74-106); Potassium 3.5 mmol/L (3.5-5.1); Sodium Level 138 mmol/L (136-145)
--- NOTE | 2024-06-30 10:01 | PAT.ANESEVAL ---
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 When Was Last Pacemaker Check QUESTION #4 FULL TEXT: You/Your Family Experience fever (hyperthermia) with Anesthesia Last Oral Intake Last Oral intake: Last Oral Intake NPO since Meds taken in AM with sips of water? Meds patient instructed to take am of surgery PONV PONV - fire claims adjuster: PONV - fire claims adjuster Female No 06/28/24 10:10 HX of Motion Sickness No 06/28/24 10:10 HX of N/V After Surgery No 06/28/24 10:10 Non-Smoker Yes 06/28/24 10:10 Duration of Surgery greater Yes 06/28/24 10:10 than 60 minutes Number of Risk Factors 2 06/28/24 10:10 PONV Score Moderate Risk 06/28/24 10:10 Height & Weight Height & Weight: Anesthesia: Height & Weight Height 5 ft 7 in 09/08/23 13:11 Respiratory Assessment Respiratory Assessment - fire claims adjuster: Respiratory Tract Infection Hx - fire claims adjuster Hx Respiratory Tract Infection No 06/28/24 10:10 STOP Sleep Apnea STOP Sleep Apnea - fire claims adjuster: STOP Sleep Apnea - fire claims adjuster Hx Hypertension Yes: CONTROLLED ON MED 06/28/24 10:10 Hx Sleep Apnea No 06/28/24 10:10 CPAP BIPAP Do you snore loudly (louder No 06/28/24 10:10 than talking or can be heard Do you often feel tired/ No 06/28/24 10:10 fatigued/ sleepy during daytime? Has anyone observed you stop No 06/28/24 10:10 breathing during sleep? STOP Results Negative 06/28/24 10:10 QUESTION #5 FULL TEXT : Do you snore loudly (louder than talking or can be heard through closed doors)? 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 Specify any problems Hx of Preganancy in last 3 N/A 06/28/24 10:10 Months Nurse Filling Out Transfusion VCHRISTIN 06/28/24 10:10 & Questions: Date: 06/28/24 06/28/24 10:10 Time: 10:11 06/28/24 10:10 Patient unable to answer at this time (ie. confused, unrespo /Reproduction History /Reproductive History - fire claims adjuster: /Reproductive Hx- fire claims adjuster Hx Now Gestational Age (in weeks): EDC: Hx Hx Para Hx Section SAB PFSH Medical History (Updated 06/28/24 @ 10:09 by Laurie Sutherland) Wears glasses Alcohol use Anemia Non-smoker History of echocardiogram History of stress test History of irregular heartbeat HTN (hypertension) Heart murmur Home Medications ?Medication ?Instructions ?Recorded ?Last Taken ?Type ergocalciferol (vitamin D2) 50 mcg 50 mcg PO DAILY 05/30/21 Unknown History (2,000 unit) capsule hydrochlorothiazide 25 mg tablet 25 mg PO DAILY 05/30/21 Unknown History lisinopril 20 mg tablet 20 mg PO BID 09/17/21 Unknown History Allergy/AdvReac Type Severity Reaction Status Date / Time Penicillins Allergy Other Verified 06/28/24 09:59 Family History Grandfather Myocardial infarction Mother Myocardial infarction CVA (cerebral vascular accident) Father Heart disease Surgical History H/O adenoidectomy Hx of tonsillectomy Hx of cholecystectomy Social History (Updated 09/08/23 @ 13:11 by Hazel Dominique) Smoking Status: Never smoker alcohol intake: current substance use type: does not use Audit: Pertinent Findings Pertinent Findings EKG Perinent findings: 06/29/2024 normal sinus rhythm 76 bpm Stress test pertinent findings: 08/08/2023 normal EF 65% Echo (EF%) pertinent findings: 05/28/2022 EF 65% pulmonary artery pressure 32 Recommendation Anesthesia Recommendation Anesthesia recommendation: OPTIMIZED for anesthesia
[2024-07-12] VITALS (9 sets, daily range): BP systolic 122–138; BP diastolic 66–77; PULSE 66–74; RESP 16–18; TEMP 37.1–37.4; O2SAT 94–100; BMI 29.3
--- NOTE | 2024-07-12 09:40 | PCM.HP.BLA ---
History and Physical Date of Admission: 07/12/24 Intake Vital Signs 09/07/2412:11 07/05/2512:03 Height 5 ft 7 in 5 ft 7 in Weight: 189 lb BMI 29.6 BP 158/88 H Blood Pressure Location Rt brachial Position Sitting Respiration 17 Pulse 63 Pulse Source Monitor Temp 97.2 F L Temp Source Temporal Pulse Oximetry (%) 100 Oxygen Delivery Method room air Intake Visit Reasons: UPDATE H&P - HERNIA Chief Complaint: update H&P for hernia Is patient in pain?: No Allergies Penicillins Allergy (Verified 07/05/24 13:05) Other Medications ?Medication ?Instructions ?Recorded ?Confirmed ?Type ergocalciferol (vitamin D2) 50 mcg 50 mcg PO DAILY 05/30/21 07/05/24 History (2,000 unit) capsule hydrochlorothiazide 25 mg tablet 25 mg PO DAILY 05/30/21 07/05/24 History lisinopril 20 mg tablet 20 mg PO BID 09/17/21 07/05/24 History PFSH Medical History Wears glasses Alcohol use Anemia Non-smoker History of echocardiogram History of stress test History of irregular heartbeat HTN (hypertension) Heart murmur Surgical History H/O adenoidectomy Hx of tonsillectomy Hx of cholecystectomy Family History Grandfather Myocardial infarctionMother Myocardial infarction CVA (cerebral vascular accident)Father Heart disease Social History Smoking Status: Never smoker alcohol intake: current substance use type: does not use HPI HPI HPI: Patient is a 64-year-old male with a right inguinal hernia. He is here to update his H&P and is scheduled for surgery next week. He has no changes since the last time he saw me. He reports that the hernia has mildly enlarged. ROS General General: No weight change, appetite, fatigue, colon cancer, breast cancer or weakness HEENT HEENT: No difficulty swallowing, eye injury, eye surgery, swollen glands or hoarseness Endo Endocrine: No thyroid disease, diabetes mellitus, thyroid cancer, Hair loss, heat intolerance or cold intolerance Skin Skin: No rash or changing moles Musc Musculoskeletal: No back problems, arthritis, rheumatoid arthritis, gout or joint pain Cardio Cardiovascular: Yes murmur and high blood pressure; No pacemaker, heart disease, atrial fibrillation, heart attack, heart stent, palpitations, shortness of breat with exertion or chest pain Psych Psychiatric: No depression, anxiety or hearing voices Resp Respiratory: No shortness of breath, No sleep apnea, No cough, No COPD, No asthma, No emphysema and No wheezing Gastro Gastrointestinal: Yes abdominal pain, No nausea or vomiting, No diarrhea, No constipation, No blood in stool, No acid reflux, No hemorrhoids, No ulcers, No gallbladder problem and No black,tarry stools Tay Hematologic: No blood thinners, No blood disorders, No bleeding, No anemia and No blood clots Neuro Neurologic: No system reviewed and no additional complaints, except as documented, No as per HPI, No abnormal gait, No abnormal hearing, No abnormal movements, No abnormal speech, No behavioral changes, No burning sensations, No confusion, No convulsions, No disequilibrium, No dizziness, No localized weakness, No frequent falls, No headache(s), No lack of coordination, No loss of vision, No memory loss, No numbness, No other visual disturbances, No radicular pain, No restless legs, No sensory deficit, No syncope, No tingling, No tremor(s), No weakness and No other Exam Const General: cooperative Orientation: alert and oriented x3 HENIA Head: normal to inspection Neck Neck: normal visual inspection and full ROM Chest Chest palpation & inspection: normal inspection of the chest Resp Effort & Inspection: normal respiratory effort Auscultation: clear to auscultation bilaterally Cardio Rate: regular rate Rhythm: regular rhythm GI Inspection: non-distended Palpation: soft, hernia indirect inguinal on the right and nontender Skin General: no rashes or lesions noted Neuro General: patient alert and patient oriented x3 Extrem General: full ROM Psych Appearance: grossly normal Mental Status: mental status grossly normal Assessment and Plan Assessment and Plan (1) Right inguinal hernia: Status: Acute Plan: Patient has right inguinal hernia. I discussed robotic assisted laparoscopic inguinal hernia repair with mesh. I discussed the procedure as well as the risks of bleeding, infection, chronic groin pain, injury to surrounding vessels or organs. Patient understands the risks and is willing to proceed. Lev Sarah MD Pager: [facility] [address] [place] [address], [address] [place] [address] Office: I have examined the patient and the H&P has been reviewed. There are no clinical changes since date of exam.
--- NOTE | 2024-07-12 10:03 | PCM.PRE.AN2 ---
ASA Classification* ASA Classification ASA Classification: 3 Assessment & Plan Anesthesia* Anesthesia Assessment Anesthesia Assessment: Discussed sedation and/or anesthesia options, risks, benefits, and alternatives with patient/parents/legal guardian/POA. Questions invited. The patient/parents/legal guardian/POA seems to understand and agrees to proceed with anesthesia plan. Reviewed the physical assessment, medical history, allergy history and patient home medications list prior to surgery/procedure/anesthetic and documented any changes. Performed airway and anesthesia risk assessments. Anesthesia Type Anesthesia Type: General (patient with recent viral illness, covid/flu negative, no productive cough, no fevers, patient reporting minor clear nasal discharge. Discussed higher risk of postop pulmonary complications, and discussed with patient and surgeon. Patient agree to move forward with higher risk of pulm complications.) History Source History Obtained from:: Patient and Chart Anesthesia Focused Assessment* Temperature: 99.1 F Pulse Rate: 74 Blood Pressure: 138/72 Respiratory Rate: 16 Pulse Ox: 100 Oxygen Delivery Method: Room Air Airway Assessment Mouth opens: 2 cm Mallampati Score: II Teeth Condition: Intact Neck Range of motion (ROM): Full ROM Focused Labs Anesthesia Preop lab: CBC WBC 6.8 K/mm3 (4.4-11.0) 01/21/24 10:01/21/24 RBC 4.32 M/mm3 (4.6-6.2) L 01/21/24 10:01/21/24 Hgb 13.0 g/dL (13.0-16.5) 01/21/24 10:01/21/24 Hct 40.5 % (40-54) 01/21/24 10:01/21/24 Plt Count 226 K/mm3 (150-450) 01/21/24 10:29 01/21/24 CHEMISTRY Potassium 3.5 mmol/L (3.5-5.1) 06/29/24 12:57 06/29/24 Sodium 138 mmol/L (136-145) 06/29/24 12:57 06/29/24 Magnesium 2.0 mg/dL (1.6-2.6) 11/20/21 16:37 11/20/21 Phosphorus 2.2 mg/dL (2.5-4.9) L 11/05/13 08:48 11/05/13 BUN 26 mg/dL (7-18) H 06/29/24 12:57 06/29/24 Creatinine 1.22 mg/dL (0.70-1.30) 06/29/24 12:57 06/29/24 Glucose 88 mg/dL (74-106) 06/29/24 12:57 06/29/24 TSH 0.78 uIU/mL (0.358-3.74) 06/26/23 15:59 06/26/23 COAG Pre-Assessment Diagnosis/Proposed Procedure Planned Operative Procedure(s): (R) Lap Robotic Inguinal Hernia w/mesh Anesthesia History 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 When Was Last Pacemaker Check QUESTION #4 FULL TEXT: You/Your Family Experience fever (hyperthermia) with Anesthesia Last Oral Intake Last Oral intake: Last Oral Intake NPO since 05:30 07/12/24 09:40 Meds taken in AM with sips of No 07/12/24 09:40 water? Meds patient instructed to take am of surgery PONV PONV - television station manager: PONV - television station manager Female No 06/28/24 10:10 HX of Motion Sickness No 06/28/24 10:10 HX of N/V After Surgery No 06/28/24 10:10 Non-Smoker Yes 06/28/24 10:10 Duration of Surgery greater Yes 06/28/24 10:10 than 60 minutes Number of Risk Factors 2 06/28/24 10:10 PONV Score Moderate Risk 06/28/24 10:10 Height & Weight Height & Weight: Anesthesia: Height & Weight Height 5 ft 7 in 07/12/24 09:40 Weight: 85 kg 07/12/24 09:40 Body Mass Index (BMI) 29.3 07/12/24 09:40 Respiratory Assessment Respiratory Assessment - television station manager: Respiratory Tract Infection Hx - television station manager Hx Respiratory Tract Infection No 06/28/24 10:10 STOP Sleep Apnea STOP Sleep Apnea - television station manager: STOP Sleep Apnea - television station manager Hx Hypertension Yes: CONTROLLED ON MED 06/28/24 10:10 Hx Sleep Apnea No 06/28/24 10:10 CPAP BIPAP Do you snore loudly (louder No 06/28/24 10:10 than talking or can be heard Do you often feel tired/ No 06/28/24 10:10 fatigued/ sleepy during daytime? Has anyone observed you stop No 06/28/24 10:10 breathing during sleep? STOP Results Negative 06/28/24 10:10 QUESTION #5 FULL TEXT : Do you snore loudly (louder than talking or can be heard through closed doors)? 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 Specify any problems Hx of Preganancy in last 3 N/A 06/28/24 10:10 Months Nurse Filling Out Transfusion VCHRISTIN 06/28/24 10:10 & Questions: Date: 06/28/24 06/28/24 10:10 Time: 10:11 06/28/24 10:10 Patient unable to answer at this time (ie. confused, unrespo /Reproduction History /Reproductive History - television station manager: /Reproductive Hx- television station manager Hx Now Gestational Age (in weeks): EDC: Hx Hx Para Hx Section SAB Active Medications Active Medications: Current Medications Generic Name Dose Route Start Last Admin Trade Name Freq PRN Reason Stop Dose Admin Clindamycin Phosphate 900 mg in 50 mls @ 75 mls/hr 07/12/24 11:00 Cleocin IV 07/12/24 11:39 PREOP ONE Sodium Chloride 1,000 mls @ 15 mls/hr 07/12/24 09:25 IV 07/17/24 22:44 .Q48H [facility] Protocol PFSH Medical History Wears glasses Alcohol use Anemia Non-smoker History of echocardiogram History of stress test History of irregular heartbeat HTN (hypertension) Heart murmur Home Medications ?Medication ?Instructions ?Recorded ?Last Taken ?Type ergocalciferol (vitamin D2) 50 mcg 50 mcg PO DAILY 05/30/21 Unknown History (2,000 unit) capsule hydrochlorothiazide 25 mg tablet 25 mg PO DAILY 05/30/21 Unknown History lisinopril 20 mg tablet 20 mg PO BID 09/17/21 Unknown History Allergy/AdvReac Type Severity Reaction Status Date / Time Penicillins Allergy Other Verified 07/12/24 09:39 Family History Grandfather Myocardial infarction Mother Myocardial infarction CVA (cerebral vascular accident) Father Heart disease Surgical History H/O adenoidectomy Hx of tonsillectomy Hx of cholecystectomy Social History Smoking Status: Never smoker alcohol intake: current substance use type: does not use Review of Systems (Anesthesia) ROS Narrative System reviewed and no additional complaints, except as documented. Physical Exam Const alert and oriented x3 HEENT dentition normal Neck full ROM Resp normal respiratory effort, normal air movement and clear to auscultation bilaterally Neuro oriented x3 and moves all extremities
[2024-07-12] MEDS: 0.9% Normal Saline (1000mL) 1,000 ML 15 ML IV (10:12)
[2024-07-12] MEDS: Clindamycin 900 MG/50 ML BAG 75 MG IV (10:40)
[2024-07-12] MEDS: Bupivacaine Mpf 0.5% 30 ML VIAL (11:25)
--- NOTE | 2024-07-12 11:37 | OP.PCM_ITS ---
Operative Report (Standard) Operative Information Date of Procedure: 07/12/24 Pre-Operative Diagnosis: Right inguinal hernia Post-Operative Diagnosis: Right inguinal hernia Surgery/Procedure Performed: Robotic assisted laparoscopic right inguinal hernia repair with mesh publications distribution clerk: Yes Drilling Foreman: Norbert Mcgrath Tasks completed by assistant banquet manager: Opening & closing Type of Anesthesia: General/Regional RN Documented Start/Stop Times: Operation Date: 07/12/24 11:00 Case Time Into Pre-Op 07/12/24 09:21 Out of Pre-Op 07/12/24 10:20 Anesthesia Start 07/12/24 10:23 Into Room 07/12/24 10:23 Procedure Start 07/12/24 10:41 Procedure End 07/12/24 11:29 Procedure Start Time: : Procedure Stop Time: : Select all DRAINS/GRAFTS/IMPLANTS that apply: Implanted device Implanted device details: Progrip mesh Estimated Blood Loss: 5 Specimen collected: No Description of surgery: Patient was brought back to the operating room and general anesthesia was induced. The abdomen was prepped and draped in usual sterile fashion. A midline incision was made superior to the umbilicus and the fascia was grasped and elevated. A Veress needle was placed into the abdomen and a drop test was performed. The abdomen is insufflated to 15 mmHg and the Veress needle was removed. Port was placed in the abdomen and a camera was placed into the abdomen to inspect for injuries and there were none. The patient was placed in steep Trendelenburg position. Next under direct visualization an 8 mm port was placed in the right lateral abdomen and left lateral abdomen and then the robot was docked. Using electrocautery scissors the peritoneum was incised in the right lower quadrant and then dissection was carried inferiorly until the hernia sac was encountered. The hernia was reduced using electrocautery and sharp dissection. Once the hernia was reduced a large piece of ProGrip mesh was placed over the hernia defect and then the peritoneum was reapproximated using a running 3 OV lock suture. This completely covered the mesh at the end of the procedure. Next the abdomen was allowed to desufflate and the ports were rem alix. The incisions were injected with local anesthetic and closed with interrupted 4-0 Monocryl sutures and Steri-Strips and bandages were applied. Patient was taken to PACU in stable condition and tolerated the procedure well. Scrotum was checked at the end of the case contained both testicles. Surgical Findings: Indirect right inguinal hernia Complications Complications: No Admit VTE Documentation VTE Mechan Device Prophylaxis: SCD's
--- NOTE | 2024-07-12 11:41 | DCINST_ITS ---
Discharge Instructions Procedure Hernia Diet Discharge Diet: Light diet - advance as tolerated Activity Discharge Activity: May Not Drive (for 2-3 days or while taking narcotic pain meds.) and May Shower (with the bandage in place 1-2 days after surgery.) Lifting Restrictions: 20 pounds for 4 weeks. Additional Activity Instructions:: Climbing stairs is fine, walking is encouraged. Sitting in bed may be uncomfortable. Sitting up using your lateral muscles (sitting up sideways) is usually more comfortable. Do not drive, work heavy equipment of sign legal documents for 24 hours. If your hernia repair was an inguinal repair, you may have scrotal swelling, an ice pack and/or athletic support can provide more comfort. Pain medications may cause nausea, you should typically eat light foods as you take your pain medications. Pain medications may also cause constipation. If you have difficulty with this, discuss with your doctor. Alternate ibuprofen and Tylenol for pain control, oxycodone for breakthrough pain Dressing / Incision Call your doctor if your incision/area has: Continuous Slow Oozing, Sudden Increased Bleeding, Increased Pain/ Swelling, Increased Redness and Foul Smelling Discharge Call your doctor if you observe: Fever of 101 or Higher Suture Line Care: Avoid Pulling/Pushing and Avoid Pinching/Bending Remove Dressing in: 2 days (Remove clear bandages in 2 days, remove Steri-Strips in 7 to 10 days.) Follow Up Care Please Follow Up With: Lev Sarah MD When: Please call to schedule 2 week follow up appointment. [phone] Test Results: Test results from this visit will be discussed in further detail at your follow- up appointment, if applicable. Discharge Plan Admission Attending Provider: Lev Sarah Primary Care Provider: Praful Frankel Instructions Print Language: Kinyarwanda Discharge Orders/Prescriptions Prescriptions: New oxycodone 5 mg Tablet 5 - 10 mg PO Q4H PRN PRN (Reason: Pain Score 4-10) 5 Days Qty: 10 0RF No Action hydrochlorothiazide 25 mg tablet 25 mg PO DAILY ergocalciferol (vitamin D2) 50 mcg (2,000 unit) capsule 50 mcg PO DAILY lisinopril 20 mg tablet 20 mg PO BID Patient Comments: TAKE ONE TABLET BY MOUTH TWICE DAILY Referrals / Follow Up: Praful Frankel MD [Primary Care Provider] - Disposition Disposition (needs filled in before D/C Order can be placed): Home, Self Care
--- NOTE | 2024-07-12 11:46 | PCM.POST.ANE ---
Anesthesia: Postop Eval I Current Vital Signs Temperature: 99.1 F Pulse Rate: 68 Blood Pressure: 123/66 Respiratory Rate: 18 Pulse Ox: 100 Oxygen Delivery Method: Room Air Assessment Airway patent: Yes Spontaneous unlabored respirations: Yes Mental status: Awake and Calm nausea: No Vomiting: No Anesthesia Complication: No Fluid Hydration Crystalloid volume administer (ml): 700 Total IV fluid infused: 700 Progress Note Anesthesia document: Postop Eval 1 completed: Yes
[2024-07-12] MEDS: Acetaminophen 325 MG Tablet 650 MG PO (12:42)
[2024-07-12] MEDS: oxyCODONE 5 MG Tablet PO (12:42)
--- NOTE | 2024-07-12 15:24 | POSTOPAN2_ITS ---
Anesthesia Postop Eval I Sum Postop Eval Completion status Anesthesia document: Postop Eval 1 completed: Yes Anesthesia Postop Eval I Summary Anesthesia Postop Eval I Summary: Anesthesia Postop Eval I: Assessment Summary Airway patent Yes 07/12/24 11:46 FIBERGLASS INSULATION INSTALLER.JHONNYOBTorsten Spontaneous unlabored Yes 07/12/24 11:46 FIBERGLASS INSULATION INSTALLER.DEVENDRA respirations Mental status Awake,Calm 07/12/24 11:46 FIBERGLASS INSULATION INSTALLER.DEVENDRA nausea No 07/12/24 11:46 FIBERGLASS INSULATION INSTALLER.DEVENDRA Vomiting No 07/12/24 11:46 FIBERGLASS INSULATION INSTALLER.DEVENDRA Anesthesia Postop Eval I: Fluid Summary Crystalloid volume administer 700 07/12/24 11:46 FIBERGLASS INSULATION INSTALLER.JHONNYOBY (ml) Colloids volume administered ( ml) Blood Product volume administered (ml) Total IV fluid infused 700 07/12/24 11:46 FIBERGLASS INSULATION INSTALLER.DEVENDRA Anesthesia Postop Eval I: Summary Notes Anesthesia Complication No 07/12/24 11:46 FIBERGLASS INSULATION INSTALLER.DEVENDRA Anesthesia Complication Comment: Post-operative progress note Anesthesia: Postop Eval II Evaluation Mental status: Awake and Calm Pain Level: 2 nausea: No Vomiting: No Complications Anesthesia Complication: No
--- NOTE | 2024-07-12 15:24 | PCM.POSTANE2 ---
Anesthesia Postop Eval I Sum Postop Eval Completion status Anesthesia document: Postop Eval 1 completed: Yes Anesthesia Postop Eval I Summary Anesthesia Postop Eval I Summary: Anesthesia Postop Eval I: Assessment Summary Airway patent Yes 07/12/24 11:46 PERSONAL INVESTMENT ADVISER.JHONNYOBTorsten Spontaneous unlabored Yes 07/12/24 11:46 PERSONAL INVESTMENT ADVISER.DEVENDRA respirations Mental status Awake,Calm 07/12/24 11:46 PERSONAL INVESTMENT ADVISER.DEVENDRA nausea No 07/12/24 11:46 PERSONAL INVESTMENT ADVISER.DEVENDRA Vomiting No 07/12/24 11:46 PERSONAL INVESTMENT ADVISER.DEVENDRA Anesthesia Postop Eval I: Fluid Summary Crystalloid volume administer 700 07/12/24 11:46 PERSONAL INVESTMENT ADVISER.JHONNYOBY (ml) Colloids volume administered ( ml) Blood Product volume administered (ml) Total IV fluid infused 700 07/12/24 11:46 PERSONAL INVESTMENT ADVISER.DEVENDRA Anesthesia Postop Eval I: Summary Notes Anesthesia Complication No 07/12/24 11:46 PERSONAL INVESTMENT ADVISER.DEVENDRA Anesthesia Complication Comment: Post-operative progress note Anesthesia: Postop Eval II Evaluation Mental status: Awake and Calm Pain Level: 2 nausea: No Vomiting: No Complications Anesthesia Complication: No
== END 2024-07-12 14:14 | disposition home or self-care (01) ==
LOC: SDC 09:18 → AC 09:19
PROVIDERS: PCP Family Medicine; Referring Provider Surgery; Visit Provider Surgery
PROC: (CPT 49650; principal; 2024-07-12 10:40)
DX: K40.90 Unilateral inguinal hernia, without obstruction or gangrene, not specified as recurrent (principal); I10 Essential (primary) hypertension; Z79.899 Other long term (current) drug therapy
CPT/HCPCS: 49650; S2900; 00840; 36415; 80048; 93005; J2405

== ENCOUNTER → 2024-07-20 | Outpatient (CLI) | payer OTHER, SELFPAY ==
[2024-07-20 12:23] LABS: Absolute Neutrophil Count 3.8 X10^3/uL (2.0-7.7); Basophil# 0.08 X10^3/uL; Basophil% 1.3 % (0-1); Eosinophils% 4.7 % (0-5); Hematocrit 37.5 % (40-54); Hemoglobin 12.1 g/dL (13.0-16.5); Lymphocyte % 21.9 % (19-41); Mean Corp Hgb Conc 32.3 g/dL (32-36); Mean Corpuscular Volume 92.8 fL (80-94); Mean Platelet Vol. 11.8 fl (6.2-12.0); Monocyte# 0.73 X10^3/uL; Monocyte% 11.4 % (0-10); NRBC Flagged by Analyzer 0 % (0-5); Neutrophil # 3.82 X10^3/uL (2.7-7.7); Neutrophil % 59.6 % (47-70); Platelet Count 318 K/mm3 (150-450); RBC Distribution Width CV 12.5 % (11.6-14.6); RBC Distribution Width SD 42.5 fl (35.1-43.9); Red Blood Count 4.04 M/mm3 (4.6-6.2); White Blood Count 6.4 K/mm3 (4.4-11.0)
[2024-07-20 13:10] LABS: ALB/GLOB Ratio 1.5 RATIO (0.9-2.4); AST(SGOT) 24 U/L (<=37); Alanine Aminotransfer ALT/SGPT 35 U/L (<=46); Albumin, Serum 4.1 g/dL (3.4-4.8); Alkaline Phosphatase 52 U/L (40-129); Anion Gap 12 (5-15); BUN 27 mg/dL (4-19); BUN/Creat Ratio 21.3 RATIO (10-20); Calcium,Total 9.5 mg/dL (7.6-11.0); Carbon Dioxide 25.9 mmol/L (21.0-32.0); Chloride 101 mmol/L (98-108); Creatinine, Serum 1.26 mg/dL (0.70-1.20); EST Glomerular Filtration Rate 64 (>60); Globulin 2.8 g/dL (2.2-4.2); Glucose 90 mg/dL (70-99); Potassium 4.5 mmol/L (3.3-5.1); Protein, Total 6.9 g/dL (5.9-8.4); Sodium Level 138 mmol/L (133-145); Total Bilirubin 0.41 mg/dL (0.00-1.30)
[2024-07-20 14:36] LABS: Cholesterol 171 mg/dL (<=200); High Density Lipoprotein 61 mg/dL; Low Density Lipoprotein Calc. 100 mg/dL; Triglycerides 50 mg/dL; Very Low Density Lipoprotein 10 mg/dL (5-40); Vitamin D,25 Hydroxy 46.2 ng/mL (30-100); cholesterol:hdl ratio screen 2.83
[2024-07-20 19:29] LABS: Microalbumin,Random Urine < 12.0 mg/L (NO RANGE EST.)
== END | disposition home or self-care (01) ==
LOC: MFPLAB 09:20
PROVIDERS: PCP Family Medicine; Referring Provider Family Medicine; Visit Provider Family Medicine
DX: I10 Essential (primary) hypertension (principal)
CPT/HCPCS: 36415; 80053; 80061; 82043; 82306; 83735; 84443; 85025

== ENCOUNTER → 2025-01-11 | Outpatient (CLI) | payer OTHER, SELFPAY ==
--- NOTE | 2025-01-11 10:56 | ECHOD_ITS ---
Reason For Study Reason For Study: Mitral Valve Prolapse Procedure This was a 2D Doppler, Color Flow transthoracic echocardiogram. Exam performed in department. Left Ventricle Normal LV size. The left ventricular ejection fraction is 65 %. No regional wall motion abnormalities noted. Right Ventricle Normal RV size. Normal systolic function. Atria The left atrium is moderately enlarged. The right atrium is mildly enlarged. Mitral Valve Posterior leaflet mitral valve prolapse. Moderate (2+) anteriorly directed mitral valve insufficiency. Tricuspid Valve Normal tricuspid valve. Mild tricuspid valve insufficiency. Pulmonary artery systolic pressure is 24 mmHg. Aortic Valve Trisinus/trileaflet aortic valve. Pulmonic Valve Normal pulmonic valve. Great Vessels Normal aortic root. The pulmonary artery is normal size. Inferior vena cava collapse with respiration. Pericardium/Pleural No pericardial effusion. MMode/2D Measurements & Calculations LVIDd: 5.8 cm IVSd: 1.2 cm CO(Teich): 7.3 l/min LVIDs: 3.5 cm LVPWd: 1.1 cm RVDd: 3.9 cm FS: 39.6 % Ao root diam: 3.5 cm LAV(MOD-bp): 120.5 ml LVAd ap4: 37.3 cm2 LAV(MOD-bp) Indexed: 62.2 ml/m2 LVLd ap4: 9.3 cm LAV(MOD-sp2): 105.2 ml EDV(MOD-sp4): 126.0 ml LAV(MOD-sp4): 113.9 ml EDV(sp4-el): 126.9 ml LVAs ap4: 19.8 cm2 LVLs ap4: 7.4 cm ESV(MOD-sp4): 45.7 ml ESV(sp4-el): 44.9 ml EF(MOD-sp4): 63.8 % EF(sp4-el): 64.6 % CO(MOD-sp4): 5.1 l/min SV(sp4-el): 82.0 ml LA A4 area: 32.9 cm2 SV(MOD-sp4): 80.3 ml SI(MOD-sp4): 41.4 ml/m2 LA dimension(2D): 4.9 cm RA A4 area: 21.6 cm2 TAPSE: 2.4 cm Time Measurements MV dec time: 0.21 sec Doppler Measurements & Calculations MV E max tonny: 143.1 cm/sec Lat Peak E' Tonny: 11.5 cm/sec Med Peak E' Tonny: 11.4 cm/sec MV A max tonny: 60.3 cm/sec E/E' lat: 12.4 E/E' med: 12.5 MV E/A: 2.4 MV V2 max: 166.9 cm/sec MV P1/2t max tonny: 166.0 cm/sec Ao V2 max: 119.9 cm/sec MV max P.1 mmHg MV P1/2t: 70.6 msec Ao max P.8 mmHg MV V2 mean: 69.8 cm/sec Ao V2 mean: 87.7 cm/sec MV mean P.6 mmHg MV dec slope: 688.6 cm/sec2 Ao mean P.4 mmHg MV V2 VTI: 46.2 cm MVA(P1/2t): 3.1 cm2 Ao V2 VTI: 22.4 cm AV (velocity ratio): 0.74 LV V1 max: 88.4 cm/sec MR max tonny: 503.9 cm/sec PA V2 max: 75.1 cm/sec LV V1 max P.1 mmHg MR max P.5 mmHg LV V1 mean P.6 mmHg MR mean tonny: 389.1 cm/sec LV V1 mean: 58.4 cm/sec MR mean P.8 mmHg LV V1 VTI: 16.6 cm MR VTI: 180.1 cm TR max tonny: 226.9 cm/sec TR max P.6 mmHg ECHO/Echo Complete Interpretation Summary Normal LV size. The left ventricular ejection fraction is 65 %. The left atrium is moderately enlarged. Posterior leaflet mitral valve prolapse. Moderate (2+) anteriorly directed mitral valve insufficiency. Ordering Physician: Jeremi Walters Referring Physician: Jeremi Walters Performed By: Oswaldo Pemberton RCS
== END | disposition home or self-care (01) ==
LOC: CVS 10:55
PROVIDERS: PCP Family Medicine; Referring Provider Internal Medicine Cardiovascular Disease; Visit Provider Internal Medicine Cardiovascular Disease
DX: R01.1 Cardiac murmur, unspecified (principal)
CPT/HCPCS: 93306

== ENCOUNTER 2025-01-27 09:33 | Outpatient (CLI) | payer OTHER, SELFPAY ==
[2025-01-27 09:35] LABS: Mucous, Urine 0 SEEN /hpf (<or=2+); Red Blood Cells-Urine 0 SEEN /hpf (0-5); Squamous Epithelial Cells - UA 0 SEEN /hpf (0-5)
[2025-01-27 12:25] LABS: Color, Urine Yellow (Yellow); Glucose, Dipstick Normal (Normal); Ketone-Dipstick Negative (Negative); Leukocyte Esterase-Dipstick Negative /ul (Negative); Nitrite-Dipstick Negative (Negative); Occult Blood-Urine Negative /ul (Negative); Protein-Dipstick Negative (Negative); Specific Gravity, Urine 1.010 (1.002-1.030); Urine Bilirubin Dipstick Negative (Negative)
[2025-01-27 12:27] LABS: Hematocrit 39.5 % (40-54); Hemoglobin 13.0 g/dL (13.0-16.5); Immature Granulocytes Count 0.020 X10^3/uL (0.0-0.0); Mean Corp Hgb Conc 32.9 g/dL (32-36); Mean Corpuscular Volume 94.3 fL (80-94); Mean Platelet Vol. 13.4 fl (6.2-12.0); NRBC Flagged by Analyzer 0 % (0-5); Platelet Count 190 K/mm3 (150-450); RBC Distribution Width CV 13.0 % (11.6-14.6); RBC Distribution Width SD 44.8 fl (35.1-43.9); Red Blood Count 4.19 M/mm3 (4.6-6.2); White Blood Count 6.4 K/mm3 (4.4-11.0)
[2025-01-27 13:13] LABS: AST(SGOT) 31 U/L (<=37); Alanine Aminotransfer ALT/SGPT 52 U/L (<=46); Albumin, Serum 4.4 g/dL (3.4-4.8); Alkaline Phosphatase 43 U/L (40-129); Anion Gap 12 (5-15); BUN 24 mg/dL (4-19); BUN/Creat Ratio 21.3 RATIO (10-20); Calcium,Total 10.1 mg/dL (7.6-11.0); Carbon Dioxide 26.2 mmol/L (21.0-32.0); Chloride 101 mmol/L (98-108); Cholesterol 145 mg/dL (<=200); Globulin 2.4 g/dL (2.2-4.2); Glucose 93 mg/dL (70-99); Low Density Lipoprotein Calc. 65 mg/dL; PSA,Total - Annual Screen 2.75 ng/mL (0.02-4.00); Potassium 4.6 mmol/L (3.3-5.1); Triglycerides 56 mg/dL; Very Low Density Lipoprotein 11 mg/dL (5-40); Vitamin D,25 Hydroxy 50.6 ng/mL (30-100); cholesterol:hdl ratio screen 2.11
== END 2025-01-27 23:59 | disposition home or self-care (01) ==
LOC: MFPLAB 09:34
PROVIDERS: PCP Family Medicine; Visit Provider Family Medicine
DX: I10 Essential (primary) hypertension (principal); Z12.5 Encounter for screening for malignant neoplasm of prostate; E55.9 Vitamin D deficiency, unspecified
CPT/HCPCS: 36415; 80053; 80061; 81001; 82306; 84153; 85025; G0103

== ENCOUNTER 2025-04-11 10:07 | Observation (INO) | payer OTHER, SELFPAY ==
[2025-03-30 14:09] LABS: Hematocrit 39.3 % (40-54); Hemoglobin 12.9 g/dL (13.0-16.5); Immature Granulocytes Count 0.020 X10^3/uL (0.0-0.0); Mean Corp Hgb Conc 32.8 g/dL (32-36); Mean Corpuscular Volume 90.1 fL (80-94); Mean Platelet Vol. 10.8 fl (6.2-12.0); NRBC Flagged by Analyzer 0 % (0-5); Platelet Count 223 K/mm3 (150-450); RBC Distribution Width CV 12.6 % (11.6-14.6); RBC Distribution Width SD 41.8 fl (35.1-43.9); Red Blood Count 4.36 M/mm3 (4.6-6.2); White Blood Count 7.4 K/mm3 (4.4-11.0)
[2025-03-30 14:51] LABS: Anion Gap 11 (5-15); BUN 23 mg/dL (4-19); BUN/Creat Ratio 21.1 RATIO (10-20); Calcium,Total 9.6 mg/dL (7.6-11.0); Carbon Dioxide 27.1 mmol/L (21.0-32.0); Chloride 103 mmol/L (98-108); Glucose 90 mg/dL (70-99); Potassium 3.8 mmol/L (3.3-5.1)
[2025-04-08 09:18] VITALS: BMI 28.4
--- NOTE | 2025-04-08 10:50 | HP.PCM_ITS ---
History and Physical Pleasant 64-year-old man who is here for evaluation of abnormal diagnostic findings noted on the imaging of the heart. He is here today for a diagnostic heart catheterization to further evaluate his mitral valve for possible mitral valve surgery. He says that he has been proactive about his health due to her family history and underwent a coronary calcium score which demonstrated a total score of 564 with 278 in the LAD distribution, 170 in the left circumflex and 112 in the right coronary artery distribution. He had previously undergone a stress test in 2023 where he exercised to a high metabolic workload with no evidence of ischemia he remains very active denying any chest pain or shortness of breath or paroxysmal nocturnal dyspnea or pedal edema he has had no neck arm or jaw discomfort suggest angina. His most recent lipid profile on no medications demonstrates a total cholesterol 171 HDL of 61 LDL of 100. His most recent electrocardiogram from today demonstrates sinus rhythm with a rate of 72 bpm and no acute changes. His physical exam is significant for a 3/6 holosystolic murmur noted at the apex radiating to the axilla. [facility] Medical History Vitamin D deficiency Abnormal findings diagnostic imaging of heart and coronary circulation Right inguinal hernia Chronic cough Alcohol use Anemia History of irregular heartbeat HTN (hypertension) Heart murmur Surgical History S/P right inguinal hernia repair H/O adenoidectomy Hx of tonsillectomy Hx of cholecystectomy Family History Grandfather Myocardial infarction Mother Myocardial infarction CVA (cerebral vascular accident) Father Heart disease Grandfather Myocardial infarction Social History Smoking Status: Never smoker alcohol intake: current Alcohol type: beer and wine substance use type: does not use ROS Const Const: Negative for fatigue, weakness, daytime sleepiness or difficulty sleeping ENT ENT: Negative for dizziness or Nosebleed/epistaxis Cardio Chest Pain: No Palpitations: No Edema: None Resp Respiratory: Negative for SOB with activity, SOB at rest, SOB orthopnea\SOB lying down or Cough GI GI: Negative nausea, vomiting or heartburn Neuro Neuro: Negative for dizziness, lightheadedness, near syncope or weakness Endo Endo: Negative for fatigue Cardiology Exam Const Appearance: cooperative, healthy appearing, no acute distress, well developed and well groomed Nutritional Appearance: average body habitus and well nourished Orientation: alert, awake and oriented x3 Head Head: normal to inspection, normocephalic and atraumatic Ears: hearing grossly normal bilaterally and external ears normal Nose: external nose normal, nares normal, nasal mucous membranes and turbinates normal, septum normal and no nasal discharge Face and Sinus: face symmetric Mouth: oral mucosae normal, tongue normal, oropharynx normal and moist mucous membranes Teeth and gingiva: dentition normal Throat: posterior oropharynx normal, tonsils normal and uvula midline Eyes General: appearance normal, both eyes and all related structures Eyelids: eyelids normal Conjunctivae: conjunctivae normal Pupils: PERRL, normal by confrontation and accommodation normal EOM: EOM intact bilaterally Neck Neck: normal visual inspection, trachea midline and no JVD JVD: +5 Carotids: normal carotid upstroke and bounding pulses Chest Chest inspection: normal inspection of the chest, symmetric chest movement and normal respiratory effort Auscultation: Bilateral: Clear to Auscultation Cardio Palpation: normal PMI Rate: regular rate Rhythm: regular rhythm Heart sounds: S1 normal, S2 normal, murmur and normal, physiologic split S2; Negative rub or gallop Murmur: Grade 3/6, harsh and holosystolic GI GI: normal to inspection, soft, no hepatosplenomegaly and bowel sounds present Neuro General: patient alert, patient awake, patient oriented x3, gait normal, moves all extremities and no focal sensory deficit Skin Skin: no rashes or lesions noted Extremities Pulses: Normal: Right Femoral Pulse, Left Femoral Pulse, Right Dorsalis Pedis Pulse, Left Dorsalis Pedis Pulse, Right Posterior Tibial Pulse, Left Posterior Tibial Pulse, Right Radial Pulse and Left Radial Pulse Lower Extremity Edema: None: Bilateral Musculoskel Musculoskeletal: No joint tenderness Psych Psychological: normal affect Assessment & Plan Assessment/Plan (1) Abnormal findings diagnostic imaging of heart and coronary circulation: (2) Mitral valve prolapse: PLAN: Plan 1) Abnormal findings diagnostic imaging of heart and coronary circulation: Status: Acute Plan: He does have evidence of elevated coronary calcium of 564 noted on coronary calcium test. You remember he underwent a stress test in July 2023 where he exercised to a high metabolic workload. In addition he is quite active and therefore I do not think that this represents obstructive disease. We will perform a cardiac catheterization prior to him having mitral valve evaluation. (2) Mitral valve prolapse: Status: Acute Plan: He does have evidence of mitral valve prolapse which appears to be in the moderate range. His most recent echocardiogram from December 2024 demonstrates posterior mitral valve leaflet prolapse with moderate anteriorly directed mitral regurgitation. My recommendation is for him to consider mitral valve repair. With his benefits alternatives have been explained to him he understands and agrees to proceed.
[2025-04-11] VITALS (8 sets, daily range): BP systolic 91–139; BP diastolic 69–88; PULSE 68–86; RESP 14–16; TEMP 36.6; O2SAT 96–99; BMI 28.4
--- OUTSIDE RECORDS SUMMARY | 2025-04-11 07:01 | XMS RPT_ITS | CCD ---
Author Organization [facility] Care Team Providers Care Cardiac Care Nurse Name Role Phone Dr. Sven Cotter Primary Care Provider Dr. Sven Cotter Referring Provider Amalia WELDING MACHINE OPERATOR HELPER GAS, WELDING MACHINE OPERATOR HELPER GAS-C Mylene Attending Provider [phone] Dr. Sven Cotter Primary Care Provider [phone] Dr. Raji Coello Attending Provider [phone] Sven Cotter Primary Care Provider Dr. Sven Cotter Referring Provider Dr. Sven Cotter Other Provider Dr. Jeremi Walters Attending Provider Dr. Sven Cotter MD Primary Care Provider Dr. Rudy Pickens MD Attending Provider Dr. Lev Sarah MD Referring Provider Dr. Sven Cotter MD Referring Provider [phone] Dr. Lev Sarah MD Attending Provider [phone] Dr. Lev Sarah MD Other Provider [phone] Dr. Sven Cotter MD Attending Provider [phone] Lan Lama PA-C Attending Provider Cyndee AGUILAR, Sven Calles Primary Care Provider [facility] Primary Care Provider [phone] Dr. Sven Cotter MD Referring Provider Dr. Jeremi Walters MD Attending Provider Selena AGUILAR, Dr. Blood Referring Provider Dr. Sven Cotter MD Primary Care Physician Selena AGUILAR, Dr. Blood Attending Physician Dr. Sven Cotter MD Attending Physician Jeremi Walters Attending Unavailable Schinner, Sven E Referring Unavailable Schinner, Sven E Primary Care Unavailable Schinner, Sven E Primary Care Unavailable CalabrettaLev Attending Unavailable Calabretta, Lev Referring Unavailable Schinner, Sven E Attending Unavailable Schinner, Sven E Referring Unavailable Schinner, Sven E Primary Care Unavailable Selena, Jeremi Referring Unavailable Selena, Jeremi Attending Unavailable Schinner, Sven E Primary Care Unavailable Schinner, Sven E Attending Unavailable Schinner, Sven E Referring Unavailable Schinner, Sven E Primary Care Unavailable Selena, Jeremi Attending Unavailable Selena, Jeremi Referring Unavailable Schinner, Sven E Primary Care Unavailable Schinner, Sven E Attending Unavailable Schinner, Sven E Primary Care Unavailable Selena, Jeremi Attending Unavailable Schinner, Sven E Primary Care Unavailable Schinner, Sven E Primary Care Unavailable Rudy Pickens Attending Unavailable CarlosabrLev morrison Referring Unavailable Lev Sarah Consulting Unavailable Lev Sarah Attending Unavailable CalabrLev morrison Referring Unavailable Schinner, Sven E Primary Care Unavailable Selena, Jeremi Attending Unavailable Schinner, Sven E Referring Unavailable Schinner, Sven E Primary Care Unavailable Schinner, Sven E Primary Care Unavailable CarlosabrLev morrison Attending Unavailable Schinner, Sven E Referring Unavailable Lan Gibbs Attending Unavailable Schinner, Sven E Referring Unavailable Schinner, Sven E Primary Care Unavailable Allergies Allergy Classification Reported Allergen(s) Allergy Type Date of Onset Reaction(s) Facility (15 sources) Penicillins; Translations: [Penicillins] Allergy to substance 2 [facility] Comment on above: unknown (1 source) ALLERGIES NOT ON FILE; Translations: [ALLERGIES NOT ON FILE] Propensity to adverse reactions (disorder) [facility] 2 Repository Medications Current Medications Medication Drug Class(es) Dates Sig (Normalized) Sig (Original) atorvastatin 10 mg oral tablet (3 sources) HMG-CoA Reductase Inhibitor Start: 12-15-2024 take 1 tablet by mouth once daily ergocalciferol 0.05 mg oral capsule (14 sources) Provitamin D2 Compound Start: 05-30-2021 hydroCHLOROthiazide 25 mg oral tablet (14 sources) Thiazide Diuretic Start: 05-30-2021 take 1 tablet by mouth once daily lisinopril 20 mg oral tablet (14 sources) Angiotensin Converting Enzyme Inhibitor Start: 09-17-2021 take 1 tablet by mouth twice daily Completed/Discontinued Medications Medication Drug Class(es) Dates Sig (Normalized) Sig (Original) omeprazole 20 mg delayed release oral capsule (14 sources) Proton Pump Inhibitor Start: 05-30-2021 End: 09-17-2021 take 1 capsule by mouth once daily Omeprazole 20 mg capsule,delayed release(DR/EC) Discontinued 20 mg PO DAILY May 30, 2021 1:00am September 17, 2021 8:49am oxyCODONE hydrochloride 5 mg oral tablet (5 sources) Opioid Agonist Start: 07-12-2024 End: 07-26-2024 take 5-10 mg by mouth every four hours as needed for pain Oxycodone 5 mg Tablet Discontinued 5 - 10 mg PO EVERY 4 HOURS NEEDED as needed for Pain Score 4-10 10 5 0 July 12, 2024 July 26, 2024 2:21pm Right inguinal hernia valsartan 160 mg oral tablet (14 sources) Angiotensin 2 Receptor Fifi Start: 05-30-2021 End: 09-17-2021 take 1 tablet by mouth once daily Valsartan 160 mg tablet Discontinued 160 mg PO DAILY May 30, 2021 1:00am September 17, 2021 8:49am Problems Active Problems Problem Classification Problem Date Documented Date Episodic/Chronic Deficiency and other anemia (4 sources) Anemia; Translations: [Anemia, unspecified] 11-26-2024 Episodic Comment on above: HX OF Essential hypertension (5 sources) Hypertensive disorder; Translations: [Essential (primary) hypertension] Onset: 02-08-2025 11-26-2024 Chronic Comment on above: CONTROLLED ON MED Heart valve disorders (10 sources) Mitral valve prolapse; Translations: [Nonrheumatic mitral (valve) prolapse] Onset: 02-08-2025 5 Chronic Heart valve disorders (5 sources) Heart murmur; Translations: [Cardiac murmur, unspecified] Onset: 01-19-2025 11-26-2024 Episodic Nutritional deficiencies (4 sources) Vitamin D deficiency; Translations: [Vitamin D deficiency, unspecified] 11-26-2024 Chronic Other circulatory disease (4 sources) History of cardiac arrhythmia; Translations: [Personal history of other diseases of the circulatory system] 11-26-2024 Episodic Other lower respiratory disease (17 sources) Chronic cough; Translations: [Chronic cough] Episodic Other screening for suspected conditions (not mental disorders or infectious disease) (1 source) Abnormal findings on diagnostic imaging of other specified body structures; Translations: [Abnormal findings on diagnostic imaging of other specified body structures] Onset: 03-23-2025 Chronic Other screening for suspected conditions (not mental disorders or infectious disease) (10 sources) Abnormal findings diagnostic imaging heart+coronary circulat; Translations: [Abnormal findings on diagnostic imaging of heart and coronary circulation] Onset: 02-08-2025 11-26-2024 Episodic Residual codes; unclassified (3 sources) FH: Cardiovascular disease; Translations: [Family history of ischemic heart disease and other diseases of the circulatory system] Onset: 10-13-2024 10-13-2024 Episodic Residual codes; unclassified (4 sources) Current drinker; Translations: [Other specified health status] 11-26-2024 Episodic Comment on above: WINE COUPLE DRINKS D AILY Past or Other Problems Problem Classification Problem Date Documented Da te Episodic/Chronic Abdominal hernia (9 sources) Right inguinal hernia ; Translations: [Unilateral inguinal hernia, without obstruction or gangrene, not specified as recurrent] Onset: 07-20-2024 09-08-2023 Episodic Other circulatory disease (1 source) Personal history of other diseases of the circulatory system; Translations: [Personal history of other diseases of the circulatory system] Onset: 12-15-2024 Episodic Residual codes; unclassified (2 sources) Family history of ischemic heart disease and other diseases of the circulatory system; Translations: [Family history of ischemic heart disease and other diseases of the circulatory system] Onset: 09-10-2024 Episodic Results Test Name Value Interpretation Reference Range Facility Cardiology Visit Reporton Cardiology Visit Report [facility] [address] [place] [address] OFFICE VISIT Date of Service: 02/08/25 MR#: [id number] Acct: [id number] Name: KRIS MORA Rep #: [id number] : 1960 Provider: Dr. Jeremi Walters MD Age/Sex: 64/M Location: [facility] Status: Signed HPI HPI History of Present Illness Details: Pleasant 64-year-old man who is here for evaluation of abnormal diagnostic findings noted on the imaging of the heart. He says that he has been proactive about his health due to her family history and underwent a coronary calcium score which demonstrated a total score of 564 with 278 in the LAD distribution, 170 in the left circumflex and 112 in the right coronary artery distribution. He had previously undergone a stress test in 2023 where he exercised to a high metabolic workload with no evidence of ischemia he remains very active denying any chest pain or shortness of breath or paroxysmal nocturnal dyspnea or pedal edema he has had no neck arm or jaw discomfort suggest angina. His most recent lipid profile on no medications demonstrates a total cholesterol 171 HDL of 61 LDL of 100. His most recent electrocardiogram from today demonstrates sinus rhythm with a rate of 72 bpm and no acute changes. His physical exam is significant for a 3/6 holosystolic murmur noted at the apex radiating to the axilla. Intake Vital Signs 12/15/24 13:02 02/08/25 09:52 Height 5 ft 7 in 5 ft 7 in Weight: 181 lb 181 lb BMI 28.3 28.3 BP 114/65 127/81 H Blood Pressure Location Lt brachial Lt brachial Position Sitting Sitting Respiration 16 16 Pulse 72 68 Pulse Source Monitor Monitor Intake Visit Reasons: 6-8 W FU Costumed Character Required: No Accompanied by: Self Is patient in pain?: No Allergies Penicillins Allergy (Verified 02/08/25 09:53) Other Medications ???Medication ???Instructions ???Recorded ???Confirmed ???Type ergocalciferol (vitamin D2) 50 mcg 50 mcg PO DAILY 05/30/21 5 History (2,000 unit) capsule hydrochlorothiazide 25 mg tablet 25 mg PO DAILY 05/30/21 02/08/25 H istory lisinopril 20 mg tablet 20 mg PO BID 09/17/21 02/08/25 His tory atorvastatin 10 mg tablet (Lipitor) 10 mg PO QDAY #90 tabs 12/15/24 02/08/25 Rx Ejection fraction %: 65 Have you fallen in the past year?: No PFSH Medical History Vitamin D deficiency Abnormal findings diagnostic imaging of heart and coronary circulation Right inguinal hernia Chronic cough Alcohol use Anemia History of irregular heartbeat HTN (hypertension) Heart murmur Surgical History S/P right inguinal hernia repair H/O adenoidectomy Hx of tonsillectomy Hx of cholecystectomy Family History Grandfather Myocardial infarction Mother Myocardial infarction CVA (cerebral vascular accident) Father Heart disease Grandfather Myocardial infarction Social History Smoking Status: Never smoker alcohol intake: current Alcohol type: beer and wine substance use type: does not use ROS Const Const: Negative for fatigue, weakness, daytime sleepiness or difficulty sleeping ENT ENT: Negative for dizziness or Nosebleed/epistaxis Cardio Chest Pain: No Palpitations: No Edema: None Resp Respiratory: Negative for SOB with activity, SOB at rest, SOB orthopnea SOB lying down or Cough GI GI: Negative nausea, vomiting or heartburn Neuro Neuro: Negative for dizziness, lightheadedness, near syncope or weakness Endo Endo: Negative for fatigue Cardiology Exam Const Appearance: cooperative, healthy appearing, no acute distress, well developed and well groomed Nutritional Appearance: average body habitus and well nourished Orientation: alert, awake and oriented x3 Head Head: normal to inspection, normocephalic and atraumatic Ears: hearing grossly normal bilaterally and external ears normal Nose: external nose normal, nares normal, nasal mucous membranes and turbinates normal, septum normal and no nasal discharge Face and Sinus: face symmetric Mouth: oral mucosae normal, tongue normal, oropharynx normal and moist mucous membranes Teeth and gingiva: dentition normal Throat: posterior oropharynx normal, tonsils normal and uvula midline Eyes General: appearance normal, both eyes and all related structures Eyelids: eyelids normal Conjunctivae: conjunctivae normal Pupils: PERRL, normal by confrontation and accommodation normal EOM: EOM intact bilaterally Neck Neck: normal visual inspection, trachea midline and no JVD JVD: +5 Carotids: normal carotid upstroke and bounding pulses Chest Chest inspection: no (more content not included)... Normal [facility] Absolute lymphocyte countOrd ered By: Sven Cotter on 01-27-2025 Lymphocytes Auto (Unsp spec) [#/Vol] 1.12 10*3/uL 0.83-4.51 [facility] Absolute neutrophil countOrd ered By: Sven Cotter on 01-27-2025 Neutrophils (Bld) [#/Vol] 4.6 10*3/uL 2.0-7.7 [facility] Anion gap in Serum or Plasma Ordered By: Sven Cotter on 01-27-2025 Anion gap [Moles/Vol] 12 mmol/L 5-15 [facility] Automated lymphocyte count a s percentage of total leukocytesOrdered By: Sven Cotter on 01-27-2025 Lymphocytes/100 WBC Auto (Unsp spec) 17.5 % Low 19-41 [facility] BUN/creatinine ratioOrdered By: vSen Cotter on 01-27-2025 Urea nitrogen/Creatinine [Mass ratio] 21.3 mg/mg High 10-20 [facility] Basophil percentageOrdered B y: Sven Cotter on 01-27-2025 Basophils/100 WBC (Bld) 0.6 % 0-1 [facility] Bilirubin Test strip Ql (U)O rdered By: Sven Cotter on 01-27-2025 Bilirubin Ql (U) Negative Negative [facility] Bilirubin, totalOrdered By: Sven Cotter on 01-27-2025 Bilirubin [Mass/Vol] 0.71 mg/dL 0.00-1.30 [facility] CBC W/Diff, Automatedon 01-17 Absolute Lymph 1.12 X10 3/uL Normal 0.83-4.51 [facility] Comment on above: Order Comment: Order Date: 01/27/25 Order Info: 0184-1 - CBCD Performed By: #### L 501.9910, L500.4050, L500.4100, L100.0100 #### [facility] [address] [place], [address] Absolute Neut 4.6 X10 3/uL Normal 2.0-7.7 [facility] Comment on above: Order Comment: Order Date: 01/27/25 Order Info: 0184-1 - CBCD Performed By: #### L 501.9910, L500.4050, L500.4100, L100.0100 #### [facility] [address] [place], [address] Basophils/100 WBC (Bld) 0.6 % Normal 0-1 [facility] Comment on above: Order Comment: Order Date: 01/27/25 Order Info: 0184- - CBCD Performed By: #### L 501.9910, L500.4050, L500.4100, L100.0100 #### [facility] [address] [place], [address] Eosinophils/100 WBC (Bld) 1.6 % Normal 0-5 [facility] Comment on above: Order Comment: Order Date: 01/27/25 Order Info: 0184-1 - CBCD Performed By: #### L 501.9910, L500.4050, L500.4100, L100.0100 #### [facility] [address] [place], [address] Erythrocyte distribution width (RBC) [Ratio] 13.0 % Normal 11.6-14.6 [facility] Comment on above: Order Comment: Order Date: 01/27/25 Order Info: 0184-1 - CBCD Performed By: #### L 501.9910, L500.4050, L500.4100, L100.0100 #### [facility] [address] [place], [address] Hematocrit (Bld) [Volume fraction] 39.5 % Low 40-54 [facility] Comment on above: Order Comment: Order Date: 01/27/25 Order Info: 0184-1 - CBCD Performed By: #### L 501.9910, L500.4050, L500.4100, L100.0100 #### [facility] [address] [place], [address] Hemoglobin (Bld) [Mass/Vol] 13.0 g/dL Normal 13.0-16.5 [facility] Comment on above: Order Comment: Order Date: 01/27/25 Order Info: 0184- - CBCD Performed By: #### L 501.9910, L500.4050, L500.4100, L100.0100 #### [facility] [address] [place], [address] IG% 0.300 Normal 0.0-0.9 [facility] Comment on above: Order Comment: Order Date: 01/27/25 Order Info: 0184- - CBCD Result Comment: IG% - Immature Granulocytes (promyelocytes, myelocytes and metamyelocytes) > 1% indicates that a LEFT SHIFT is Present. Performed By: #### L 501.9910, L500.4050, L500.4100, L100.0100 #### [facility] [address] [place], [address] Lymphocytes/100 WBC (Bld) 17.5 % Low 19-41 [facility] Comment on above: Order Comment: Order Date: 01/27/25 Order Info: 0184-1 - CBCD Performed By: #### L 501.9910, L500.4050, L500.4100, L100.0100 #### [facility] [address] [place], [address] MCH (RBC) [Entitic mass] 31.0 pg Normal 27.0-32.0 [facility] Comment on above: Order Comment: Order Date: 01/27/25 Order Info: 0184-1 - CBCD Performed By: #### L 501.9910, L500.4050, L500.4100, L100.0100 #### [facility] [address] [place], [address] MCHC (RBC) [Mass/Vol] 32.9 g/dL Normal 32-36 [facility] Comment on above: Order Comment: Order Date: 01/27/25 Order Info: 0184-1 - CBCD Performed By: #### L 501.9910, L500.4050, L500.4100, L100.0100 #### [facility] [address] [place], [address] MCV (RBC) [Entitic vol] 94.3 fL High 80-94 [facility] Comment on above: Order Comment: Order Date: 01/27/25 Order Info: 018- - CBCD Performed By: #### L 501.9910, L500.4050, L500.4100, L100.0100 #### [facility] [address] [place], [address] Monocytes/100 WBC (Bld) 7.7 % Normal 0-10 [facility] Comment on above: Order Comment: Order Date: 01/27/25 Order Info: 018- - CBCD Performed By: #### L 501.9910, L500.4050, L500.4100, L100.0100 #### [facility] [address] [place], [address] Neutrophils/100 WBC (Bld) 72.3 % High 47-70 [facility] Comment on above: Order Comment: Order Date: 01/27/25 Order Info: 0184-1 - CBCD Performed By: #### L 501.9910, L500.4050, L500.4100, L100.0100 #### [facility] [address] [place], [address] Nucleated RBC (Bld) [#/Vol] 0 10*3/uL Normal 0-5 [facility] Comment on above: Order Comment: Order Date: 01/27/25 Order Info: 0184-1 - CBCD Performed By: #### L 501.9910, L500.4050, L500.4100, L100.0100 #### [facility] [address] [place], [address] Platelet mean volume (Bld) [Entitic vol] 13.4 fL High 6.2-12.0 [facility] Comment on above: Order Comment: Order Date: 01/27/25 Order Info: 0184- - CBCD Performed By: #### L 501.9910, L500.4050, L500.4100, L100.0100 #### [facility] [address] [place], [address] Platelets (Bld) [#/Vol] 190 10*3/uL Normal 150-450 [facility] Comment on above: Order Comment: Order Date: 01/27/25 Order Info: 0184- - CBCD Performed By: #### L 501.9910, L500.4050, L500.4100, L100.0100 #### [facility] [address] [place], [address] RBC (Bld) [#/Vol] 4.19 10*6/uL Low 4.6-6.2 [facility] Comment on above: Order Comment: Order Date: 01/27/25 Order Info: 0184-1 - CBCD Performed By: #### L 501.9910, L500.4050, L500.4100, L100.0100 #### [facility] [address] [place], [address] RDW SD 44.8 fl High 35.1-43.9 [facility] Comment on above: Order Comment: Order Date: 01/27/25 Order Info: 0184-1 - CBCD Performed By: #### L 501.9910, L500.4050, L500.4100, L100.0100 #### [facility] [address] [place], [address] WBC (Bld) [#/Vol] 6.4 10*3/uL Normal 4.4-11.0 [facility] Comment on above: Order Comment: Order Date: 01/27/25 Order Info: 0184-1 - CBCD Performed By: #### L 501.9910, L500.4050, L500.4100, L100.0100 #### [facility] [address] [place], [address] Calculated very low density lipoprotein (VLDL) cholesterol measurementOrdered By: Sven Cotter on 01-27-2025 Calculated very low density lipoprotein (VLDL) cholesterol measurement 11 mg/dL 5-40 [facility] Carbon dioxide, total [Moles /volume] in Central venous bloodOrdered By: Sven Cotter on 01-27-2025 CO2 [Moles/Vol] 26.2 mmol/L 21.0-32.0 [facility] Chloride assayOrdered By: Jeanine Cotter on 01-27-2025 Chloride [Moles/Vol] 101 mmol/L 98-108 [facility] Comprehensive Metabolic Prof ilon 01-27-2025 Albumin [Mass/Vol] 4.4 g/dL Normal 3.4-4.8 [facility] Comment on above: Order Comment: Order Date: 01/27/25 Order Info: [id number] - CMP Order Info: [id number] - LIPID Order Info: [id number] - PSA Performed By: #### L 501.9910, L500.4050, L500.4100, L100.0100 #### [facility] [address] [place], [address] Albumin/Globulin [Mass ratio] 1.8 {ratio} Normal 0.9-2.4 [facility] Comment on above: Order Comment: Order Date: 01/27/25 Order Info: [id number] - CMP Order Info: [id number] - LIPID Order Info: [id number] - PSA Performed By: #### L 501.9910, L500.4050, L500.4100, L100.0100 #### [facility] [address] [place], [address] ALK PHOS 43 U/L Normal 40-129 [facility] Comment on above: Order Comment: Order Date: 01/27/25 Order Info: 07- - CMP Order Info: [id number] - LIPID Order Info: [id number] - PSA Performed By: #### L 501.9910, L500.4050, L500.4100, L100.0100 #### [facility] [address] [place], [address] ALT [Catalytic activity/Vol] 52 U/L High <=46 [facility] Comment on above: Order Comment: Order Date: 01/27/25 Order Info: 0786 - CMP Order Info: [id number] - LIPID Order Info: [id number] - PSA Performed By: #### L 501.9910, L500.4050, L500.4100, L100.0100 #### [facility] [address] [place], [address] AST [Catalytic activity/Vol] 31 U/L Normal <=37 [facility] Comment on above: Order Comment: Order Date: 01/27/25 Order Info: 0786- - CMP Order Info: [id number] - LIPID Order Info: [id number] - PSA Performed By: #### L 501.9910, L500.4050, L500.4100, L100.0100 #### [facility] [address] [place], [address] Bilirubin [Mass/Vol] 0.71 mg/dL Normal 0.00-1.30 [facility] Comment on above: Order Comment: Order Date: 01/27/25 Order Info: 0786- - CMP Order Info: [id number] - LIPID Order Info: [id number] - PSA Performed By: #### L 501.9910, L500.4050, L500.4100, L100.0100 #### [facility] [address] [place], [address] BUN/CRE 21.3 RATIO High 10-20 [facility] Comment on above: Order Comment: Order Date: 01/27/25 Order Info: 0786- - CMP Order Info: [id number] - LIPID Order Info: [id number] - PSA Performed By: #### L 501.9910, L500.4050, L500.4100, L100.0100 #### [facility] [address] [place], [address] Calcium [Mass/Vol] 10.1 mg/dL Normal 7.6-11.0 [facility] Comment on above: Order Comment: Order Date: 01/27/25 Order Info: 07 - CMP Order Info: [id number] - LIPID Order Info: [id number] - PSA Performed By: #### L 501.9910, L500.4050, L500.4100, L100.0100 #### [facility] [address] [place], [address] Chloride [Moles/Vol] 101 mmol/L Normal 98-108 [facility] Comment on above: Order Comment: Order Date: 01/27/25 Order Info: 0786- - CMP Order Info: [id number] - LIPID Order Info: [id number] - PSA Performed By: #### L 501.9910, L500.4050, L500.4100, L100.0100 #### [facility] [address] [place], [address] CO2 [Moles/Vol] 26.2 mmol/L Normal 21.0-32.0 [facility] Comment on above: Order Comment: Order Date: 01/27/25 Order Info: 0786- - CMP Order Info: [id number] - LIPID Order Info: [id number] - PSA Performed By: #### L 501.9910, L500.4050, L500.4100, L100.0100 #### [facility] [address] [place], [address] Creatinine [Mass/Vol] 1.12 mg/dL Normal 0.70-1.20 [facility] Comment on above: Order Comment: Order Date: 01/27/25 Order Info: 0786- - CMP Order Info: [id number] - LIPID Order Info: [id number] - PSA Performed By: #### L 501.9910, L500.4050, L500.4100, L100.0100 #### [facility] [address] [place], [address] GAP 12 Normal 5-15 [facility] Comment on above: Order Comment: Order Date: 01/27/25 Order Info: 0786 - CMP Order Info: [id number] - LIPID Order Info: [id number] - PSA Performed By: #### L 501.9910, L500.4050, L500.4100, L100.0100 #### [facility] [address] [place], [address] GFR/1.73 sq M.predicted among non-blacks MDRD (S/P/Bld) [Vol rate/Area] 74 mL/min/{1.73_m2} Normal >60 [facility] Comment on above: Order Comment: Order Date: 01/27/25 Order Info: 0786- - CMP Order Info: [id number] - LIPID Order Info: [id number] - PSA Result Comment: mL/m in/1.73m2 CKD-EPI Creatinine Equation (2020) Performed By: #### L 501.9910, L500.4050, L500.4100, L100.0100 #### [facility] [address] [place], [address] Globulin (S) [Mass/Vol] 2.4 g/dL Normal 2.2-4.2 [facility] Comment on above: Order Comment: Order Date: 01/27/25 Order Info: [id number]- - CMP Order Info: [id number] - LIPID Order Info: [id number] - PSA Performed By: #### L 501.9910, L500.4050, L500.4100, L100.0100 #### [facility] [address] [place], [address] Glucose [Mass/Vol] 93 mg/dL Normal 70-99 [facility] Comment on above: Order Comment: Order Date: 01/27/25 Order Info: 0786- - CMP Order Info: [id number] - LIPID Order Info: [id number] - PSA Performed By: #### L 501.9910, L500.4050, L500.4100, L100.0100 #### [facility] [address] [place], [address] Potassium [Moles/Vol] 4.6 mmol/L Normal 3.3-5.1 [facility] Comment on above: Order Comment: Order Date: 01/27/25 Order Info: [id number] - CMP Order Info: [id number] - LIPID Order Info: [id number] - PSA Performed By: #### L 501.9910, L500.4050, L500.4100, L100.0100 #### [facility] [address] [place], [address] Sodium [Moles/Vol] 139 mmol/L Normal 133-145 [facility] Comment on above: Order Comment: Order Date: 01/27/25 Order Info: 0786- - CMP Order Info: [id number] - LIPID Order Info: [id number] - PSA Performed By: #### L 501.9910, L500.4050, L500.4100, L100.0100 #### [facility] [address] [place], [address] T PROT 6.8 g/dL Normal 5.9-8.4 [facility] Comment on above: Order Comment: Order Date: 01/27/25 Order Info: [id number] - CMP Order Info: [id number] - LIPID Order Info: [id number] - PSA Performed By: #### L 501.9910, L500.4050, L500.4100, L100.0100 #### [facility] [address] [place], [place], [address] Urea nitrogen [Mass/Vol] 24 mg/dL High 4-19 [facility] Comment on above: Order Comment: Order Date: 01/27/25 Order Info: [id number] - CMP Order Info: [id number] - LIPID Order Info: [id number] - PSA Performed By: #### L 501.9910, L500.4050, L500.4100, L100.0100 #### [facility] [address] [place], [address] Eosinophil percentageOrdered By: Sven Cotter on 01-27-2025 Eosinophils/100 WBC (Bld) 1.6 % 0-5 [facility] Erythrocyte distribution wid th ratioOrdered By: Sven Cotter on 01-27-2025 Erythrocyte distribution width (RBC) [Ratio] 13.0 % 11.6-14.6 [facility] Erythrocyte distribution wid th standard deviationOrdered By: Sven Cotter on 01-27-2025 Erythrocyte distribution width (RBC) [Ratio] 44.8 fl High 35.1-43.9 [facility] Glomerular filtration rate ( GFR) estimation/1.73 sq m using serum, plasma, or whole bOrdered By: Sven Ctoter on 01-27-2025 GFR/1.73 sq M.predicted among non-blacks MDRD (S/P/Bld) [Vol rate/Area] 74 mL/min/{1.73_m2} >60 [facility] Comment on above: mL/min/1.73m2 CKD-EP I Creatinine Equation (2020) Hematocrit Auto (Bld) [Volum e fraction]Ordered By: Sven Cotter on 01-27-2025 Hematocrit (Bld) [Volume fraction] 39.5 % Low 40-54 [facility] Hemoglobin measurementOrdere d By: Sven Cotter on 01-27-2025 Hemoglobin (Bld) [Mass/Vol] 13.0 g/dL 13.0-16.5 [facility] Immature granulocytes/100 WB C Auto (Bld)Ordered By: Sven Cotter on 01-27-2025 Immature granulocytes/100 WBC (Bld) 0.300 % 0.0-0.9 [facility] Comment on above: IG% - Immature Granu locytes (promyelocytes, myelocytes and metamyelocytes) > 1% indicates that a LEFT SHIFT is Present. Ketones Test strip Ql (U)Ord ered By: Sven Cotter on 01-27-2025 Ketones Ql (U) Negative Negative [facility] LDL calc ser/plasOrdered By: Sven Cotter on 01-27-2025 Cholesterol in LDL [Mass/Vol] 65 mg/dL [facility] Comment on above: Runhkswezb=256-075 m g/dL & Higher Vdbu=442 mg/dL or greaterFriedwald Equation for LDL-C Laboratory - Chemistry and C hemistry - challengeOrdered By: Sven Cotter on 01-27-2025 AST [Catalytic activity/Vol] 31 U/L <38 [facility] Lipid Profileon 01-27-2025 CHOL:HDL 2.11 Normal [facility] Comment on above: Order Comment: Order Date: 01/27/25 Order Info: [id number] - CMP Order Info: [id number] - LIPID Order Info: [id number] - PSA Performed By: #### L 501.9910, L500.4050, L500.4100, L100.0100 #### [facility] [address] [facility] [place], [place], [address] Cholesterol [Mass/Vol] 145 mg/dL Normal <=200 [facility] Comment on above: Order Comment: Order Date: 01/27/25 Order Info: [id number] - CMP Order Info: [id number] - LIPID Order Info: [id number] - PSA Result Comment: Chol esterol level, Desirable <200 mg/dL Borderline high cholesterol 200-239 mg/dL High cholesterol >=240 mg/dL Recommendations of the NCEP Adult Treatment Panel for the following risk-cutoff thresholds for the [place] population. Performed By: #### L 501.9910, L500.4050, L500.4100, L100.0100 #### [facility] [address] [place], [address] Cholesterol in HDL [Mass/Vol] 69 mg/dL Normal [facility] Comment on above: Order Comment: Order Date: 01/27/25 Order Info: [id number] - CMP Order Info: - LIPID Order Info: [id number] - PSA Result Comment: Fior onal Cholesterol Education Program (NCEP) guidelines: <40 mg/dL: Low HDL-cholesterol (major risk factor for CHD) >= 60 mg/dL: High HDL-cholesterol (negative risk factor for CHD) HDL-cholesterol is affected by a number of factors, e.g. smoking, exercise, hormones, sex and age. Performed By: #### L 501.9910, L500.4050, L500.4100, L100.0100 #### [facility] [address] [place], [address] Cholesterol in LDL [Mass/Vol] 65 mg/dL Normal [facility] Comment on above: Order Comment: Order Date: 01/27/25 Order Info: [id number] - CMP Order Info: - LIPID Order Info: [id number] - PSA Result Comment: Bord rovseu=334-900 mg/dL Higher Yfof=256 mg/dL or greater Friedwald Equation for LDL-C Performed By: #### L 501.9910, L500.4050, L500.4100, L100.0100 #### [facility] [address] [place], [address] Cholesterol in VLDL [Mass/Vol] 11 mg/dL Normal 5-40 [facility] Comment on above: Order Comment: Order Date: 01/27/25 Order Info: 07 - CMP Order Info: - LIPID Order Info: [id number] - PSA Performed By: #### L 501.9910, L500.4050, L500.4100, L100.0100 #### [facility] [address] [place], [address] Triglyceride [Mass/Vol] 56 mg/dL Normal [facility] Comment on above: Order Comment: Order Date: 01/27/25 Order Info: [id number] - CMP Order Info: [id number] - LIPID Order Info: [id number] - PSA Result Comment: The drugs N-Acetylcysteine and Metamizole may falsely depress this assay. Normal range: <150 mg/dL Borderline High: 150-199 mg/dL High: 200-499 mg/dL Very High: >500 mg/dL Performed By: #### L 501.9910, L500.4050, L500.4100, L100.0100 #### [facility] [address] [place], [address] MCV (mean corpuscular volume ) determinationOrdered By: Sven Cotter on 01-27-2025 MCV (RBC) [Entitic vol] 94.3 fL High 80-94 [facility] Mean corpuscular hemoglobin (MCH) determinationOrdered By: Sven Cotter on 01-27-2025 MCH (RBC) [Entitic mass] 31.0 pg 27.0-32.0 [facility] Mean corpuscular hemoglobin concentration (MCHC) determinationOrdered By: Sven Cotter on 01-27-2025 MCHC (RBC) [Mass/Vol] 32.9 g/dL 32-36 [facility] Mean platelet volume determi nationOrdered By: Sven Cotter on 01-27-2025 Platelet mean volume (Bld) [Entitic vol] 13.4 fL High 6.2-12.0 [facility] Microscopic analysis of urin e for red blood cells (RBC)Ordered By: Sven Cotter on 01-27-2025 Microscopic analysis of urine for red blood cells (RBC) 0 SEEN /hpf 0-5 [facility] Monocyte percentageOrdered B y: Sven Cotter on 01-27-2025 Monocytes/100 WBC (Bld) 7.7 % 0-10 [facility] Mucus LM Ql (Urine sed)Order ed By: Sven Cotter on 01-27-2025 Mucus Ql (Urine sed) 0 SEEN /hpf [facility] Neutrophil percentageOrdered By: Sven Cotter on 01-27-2025 Neutrophils/100 WBC (Bld) 72.3 % High 47-70 [facility] Nitrite Test strip Ql (U)Ord ered By: Sven Cotter on 01-27-2025 Nitrite Ql (U) Negative Negative [facility] Nucleated red blood cell per centageOrdered By: Sven Cotter on 01-27-2025 Nucleated RBC/100 WBC (Bld) [Ratio] 0 % 0-5 [facility] PSA,Total - Annual Screenon 01-27-2025 PSA,TOT SCREEN 2.75 ng/mL Normal 0.02-4.00 [facility] Comment on above: Order Comment: Order Date: 01/27/25 Order Info: [id number] - CMP Order Info: [id number] - LIPID Order Info: [id number] - PSA Result Comment: This test was performed using the [employer] tPSA method. Measured values of a patient??sample can vary depending on the testing procedure used. PSA values determined on patient samples by different testing procedures cannot be used interchangeably. If there is a change in PSA assays while monitoring therapy, sequential testing should be performed to confirm baseline values. Performed By: #### L 501.9910, L500.4050, L500.4100, L100.0100 #### [facility] [address] [place], [place], [id number] Platelet countOrdered By: Jeanine Cotter on 01-27-2025 Platelets (Bld) [#/Vol] 190 10*3/uL 150-450 [facility] Potassium measurement (mass/ volume)Ordered By: Sven Cotter on 01-27-2025 Potassium (Unsp spec) [Mass/Vol] 4.6 mmol/L 3.3-5.1 [facility] Protein Test strip Ql (U)Ord ered By: Sven Cotter on 01-27-2025 Protein Ql (U) Negative Negative [facility] RBC Auto (Bld) [#/Vol]Ordere d By: Sven Cotter on 01-27-2025 RBC (Bld) [#/Vol] 4.19 10*6/uL Low 4.6-6.2 [facility] Screening total cholesterol/ high density lipoprotein (HDL) cholesterol ratioOrdered By: Sven Cotter on 01-27-2025 Cholesterol.total/Choles terol in HDL [Mass ratio] 2.11 {ratio} [facility] Serum creatinine measurement (mass/volume)Ordered By: Sven Cotter on 01-27-2025 Creatinine [Mass/Vol] 1.12 mg/dL 0.70-1.20 [facility] Serum globulin measurementOr dered By: Sven Cotter on 01-27-2025 Globulin (S) [Mass/Vol] 2.4 g/dL 2.2-4.2 [facility] Serum glucose measurement (m ass/volume)Ordered By: Sven Cotter on 01-27-2025 Glucose [Mass/Vol] 93 mg/dL 70-99 [facility] Serum or plasma alanine zayas otransferase (ALT) measurementOrdered By: Sven Cotter on 01-27-2025 ALT [Catalytic activity/Vol] 52 U/L High <47 [facility] Serum or plasma albumin elaine urement (mass/volume)Ordered By: Sven Cotter on 01-27-2025 Albumin [Mass/Vol] 4.4 g/dL 3.4-4.8 [facility] Serum or plasma albumin/glob ulin mass ratioOrdered By: Sven Cotter on 01-27-2025 Albumin/Globulin [Mass ratio] 1.8 {ratio} 0.9-2.4 [facility] Serum or plasma alkaline zaida sphatase measurementOrdered By: Sven Cotter on 01-27-2025 ALP [Catalytic activity/Vol] 43 U/L 40-129 [facility] Serum or plasma calcium elaine urement (mass/volume)Ordered By: Sven Cotter on 01-27-2025 Calcium [Mass/Vol] 10.1 mg/dL 7.6-11.0 [facility] Serum or plasma cholesterol in HDL measurement (mass/volume)Ordered By: Sven Cotter on 01-27-2025 Cholesterol in HDL [Mass/Vol] 69 mg/dL >40 [facility] Comment on above: National Cholesterol Education Program (NCEP) guidelines:<40 mg/dL: Low HDL-cholesterol (major risk factor for CHD)>= 60 mg/dL: High HDL-cholesterol (negative risk factor for CHD)HDL-cholesterol is affected by a number of factors, e.g. smoking, exercise, hormones, sex and age. Serum or plasma cholesterol measurement (mass/volume)Ordered By: Sven Cotter on 01-27-2025 Cholesterol [Mass/Vol] 145 mg/dL <201 [facility] Comment on above: Cholesterol level, D esirable <200 mg/dLBorderline high cholesterol 200-239 mg/dLHigh cholesterol >=240 mg/dLRecommendations of the NCEP Adult Treatment Panel for the following risk-cutoff thresholds for the [place] population. Serum or plasma urea nitroge n measurement (mass/volume)Ordered By: Sven Cotter on 01-27-2025 Urea nitrogen [Mass/Vol] 24 mg/dL High 4-19 [facility] Sodium levelOrdered By: Sven Cotter on 01-27-2025 Sodium [Moles/Vol] 139 mmol/L 133-145 [facility] Squamous epithelial cells de tection in urine sediment by light microscopyOrdered By: Sven Cotter on 01-27-2025 Epithelial cells.squamous LM Ql (Urine sed) 0 SEEN /hpf 0-5 [facility] Total proteinOrdered By: Sumit Cotter on 01-27-2025 Protein [Mass/Vol] 6.8 g/dL 5.9-8.4 [facility] Triglycerides measurementOrd ered By: Sven Cotter on 01-27-2025 Triglyceride [Mass/Vol] 56 mg/dL <199 [facility] Comment on above: The drugs N-Acetylcy steine and Metamizole may falsely depress this assay. Normal range: <150 mg/dLBorderline High: 150-199 mg/dLHigh: 200-499 mg/dLVery High: >500 mg/dL Urinalysis, Completeon 01-27 BACTERIA 0 SEEN Normal None Seen [facility] Comment on above: Order Comment: Order Date: 01/27/25 Order Info: [id number] - CMP Order Info: [id number] - LIPID Order Info: [id number] - PSA Performed By: #### L 501.9910, L500.4050, L500.4100, L100.0100 #### [facility] [address] [place], [address] EPI,SQUAMOUS 0 SEEN Normal 0-5 [facility] Comment on above: Order Comment: Order Date: 01/27/25 Order Info: [id number] - CMP Order Info: - LIPID Order Info: [id number] - PSA Performed By: #### L 501.9910, L500.4050, L500.4100, L100.0100 #### [facility] [address] [place], [address] Mucus Ql (Urine sed) 0 SEEN Normal [facility] Comment on above: Order Comment: Order Date: 01/27/25 Order Info: [id number] - CMP Order Info: [id number] - LIPID Order Info: [id number] - PSA Performed By: #### L 501.9910, L500.4050, L500.4100, L100.0100 #### [facility] [address] [place], [address] RBC 0 SEEN Normal 0-5 [facility] Comment on above: Order Comment: Order Date: 01/27/25 Order Info: [id number] - CMP Order Info: [id number] - LIPID Order Info: [id number] - PSA Performed By: #### L 501.9910, L500.4050, L500.4100, L100.0100 #### [facility] [address] [place], [address] WBC 0 SEEN Normal 0-5 [facility] Comment on above: Order Comment: Order Date: 01/27/25 Order Info: 07 - CMP Order Info: [id number] - LIPID Order Info: [id number] - PSA Performed By: #### L 501.9910, L500.4050, L500.4100, L100.0100 #### [facility] [address] [place], [address] Urine clarityOrdered By: Sumit Cotter on 01-27-2025 Clarity (U) Clear Clear [facility] Urine color determinationOrd ered By: Sven Cotter on 01-27-2025 Color (U) Yellow Yellow [facility] Urine glucose detectionOrder ed By: Sven Cotter on 01-27-2025 Glucose Ql (U) Normal mg/dl Normal [facility] Urine leukocyte esterase det ection by dipstickOrdered By: Sven Cotter on 01-27-2025 Leukocyte esterase Test strip Ql (U) Negative Negative [facility] Urine pHOrdered By: Sven myers on 01-27-2025 pH (U) 6.0 [pH] 5.0 - 8.0 [facility] Urine sediment bacteria coun t by microscopy (number/high power field)Ordered By: Sven Cotter on 01-27-2025 Bacteria LM.HPF (Urine sed) [#/Area] 0 /[HPF] None Seen [facility] Urine specific gravity measu rementOrdered By: Sven Cotter on 01-27-2025 Specific gravity (U) [Rel density] 1.010 1.002-1.030 [facility] Urine urobilinogen measureme ntOrdered By: Sven Cotter on 01-27-2025 Urobilinogen Ql (U) Normal mg/dl Normal [facility] Vitamin D,25 Hydroxyon 01-27 Vitamin D 25-OH 50.6 ng/mL Normal 30-100 [facility] Comment on above: Order Comment: Order Date: 01/27/25 Order Info: [id number] - CMP Order Info: [id number] - LIPID Order Info: [id number] - PSA Result Comment: Charmaine min D Status Deficiency: <20 ng/mL (50nmol/L) Insufficiency: 20-30 ng/mL (50-75 nmol/L) Sufficiency: 30-100 ng/mL (75-250 nmol/L) Toxicity: >100 ng/mL (>250 nmol/L) Performed By: #### L 501.9910, L500.4050, L500.4100, L100.0100 #### [facility] [address] [place], [address] White blood cell (WBC) count Ordered By: Sven Cotter on 01-27-2025 WBC (Bld) [#/Vol] 6.4 10*3/uL 4.4-11.0 [facility] White blood cell countOrdere d By: Sven Cotter on 01-27-2025 White blood cell count 0 SEEN /hpf 0-5 [facility] Echo Completeon 01-11-2025 Echo Complete [facility] [address] [place] [address] Echo Complete 01/11/25 1057 MR#: [id number] Acct: [id number] Name: KRIS MORA Rep #: [id number] : 1960 64 From: Jeremi Walters MD Attending Dr: Dr. Jeremi Walters MD Status: DAMIEN CARRERO Ordering Dr: Jeremi Walters MD Date: 01/11/25 Location: [facility] Sex: M C Admitted: Reason For Study Reason For Study: Mitral Valve Prolapse Procedure This was a 2D Doppler, Color Flow transthoracic echocardiogram. Exam performed in department. Left Ventricle Normal LV size. The left ventricular ejection fraction is 65 %. No regional wall motion abnormalities noted. Right Ventricle Normal RV size. Normal systolic function. Atria The left atrium is moderately enlarged. The right atrium is mildly enlarged. Mitral Valve Posterior leaflet mitral valve prolapse. Moderate (2+) anteriorly directed mitral valve insufficiency. Tricuspid Valve Normal tricuspid valve. Mild tricuspid valve insufficiency. Pulmonary artery systolic pressure is 24 mmHg. Aortic Valve Trisinus/trileaflet aortic valve. Pulmonic Valve Normal pulmonic valve. Great Vessels Normal aortic root. The pulmonary artery is normal size. Inferior vena cava collapse with respiration. Pericardium/Pleural No pericardial effusion. MMode/2D Measurements Calculations LVIDd: 5.8 cm IVSd: 1.2 cm CO(Teich): 7.3 l/min LVIDs: 3.5 cm LVPWd: 1.1 cm RVDd: 3.9 cm FS: 39.6 % Ao root diam: 3.5 cm LAV(MOD-bp): 120.5 ml LVAd ap4: 37.3 cm2 LAV(MOD-bp) Indexed: 62.2 ml/m2 LVLd ap4: 9.3 cm LAV(MOD-sp2): 105.2 ml EDV(MOD-sp4): 126.0 ml LAV(MOD-sp4): 113.9 ml EDV(sp4-el): 126.9 ml LVAs ap4: 19.8 cm2 LVLs ap4: 7.4 cm ESV(MOD-sp4): 45.7 ml ESV(sp4-el): 44.9 ml EF(MOD-sp4): 63.8 % EF(sp4-el): 64.6 % CO(MOD-sp4): 5.1 l/min SV(sp4-el): 82.0 ml LA A4 area: 32.9 cm2 SV(MOD-sp4): 80.3 ml SI(MOD-sp4): 41.4 ml/m2 LA dimension(2D): 4.9 cm RA A4 area: 21.6 cm2 TAPSE: 2.4 cm Time Measurements MV dec time: 0.21 sec Doppler Measurements Calculations MV E max tonny: 143.1 cm/sec Lat Peak E' Tonny: 11.5 cm/sec Med Peak E' Tonny: 11.4 cm/sec MV A max tonny: 60.3 cm/sec E/E' lat: 12.4 E/E' med: 12.5 MV E/A: 2.4 MV V2 max: 166.9 cm/sec MV P1/2t max tonny: 166.0 cm/sec Ao V2 max: 119.9 cm/sec MV max P.1 mmHg MV P1/2t: 70.6 msec Ao max P.8 mmHg MV V2 mean: 69.8 cm/sec Ao V2 mean: 87.7 cm/sec MV mean P.6 mmHg MV dec slope: 688.6 cm/sec2 Ao mean P.4 mmHg MV V2 VTI: 46.2 cm MVA(P1/2t): 3.1 cm2 Ao V2 VTI: 22.4 cm AV (velocity ratio): 0.74 LV V1 max: 88.4 cm/sec MR max tonny: 503.9 cm/sec PA V2 max: 75.1 cm/sec LV V1 max P.1 mmHg MR max P.5 mmHg LV V1 mean P.6 mmHg MR mean tonny: 389.1 cm/sec LV V1 mean: 58.4 cm/sec MR mean P.8 mmHg LV V1 VTI: 16.6 cm MR VTI: 180.1 cm TR max tonny: 226.9 cm/sec TR max P.6 mmHg ECHO/Echo Complete Interpretation Summary Normal LV size. The left ventricular ejection fraction is 65 %. The left atrium is moderately enlarged. Posterior leaflet mitral valve prolapse. Moderate (2+) anteriorly directed mitral valve insufficiency. Ordering Physician: Jeremi Walters Referring Physician: Jeremi Walters Performed By: Oswaldo Pemberton RCS 01/11/25 1252 Date Jeremi Walters MD CC: Dr. Jeremi Walters MD; Dr. Sven Cotter MD Date Dictated: 01/11/25 1057 Date Transcribed: 01/11/25 125 Market Editor: Signed Normal [facility] Echocardiogram study reportO rdered By: Jeremi Walters on 01-11-2025 Study report [facility] [address] [place] [address] Echo Complete 01/11/25 1057 MR#: [id number] Acct: [id number] Name: KRIS MORA Rep #:[id number] : 1960 64 From: Jeremi Iverson Attending Dr: MD Brionna Hinton tatus: REG CLI Ordering Dr: Jeremi Walters MD Date: Location: [facility] Sex: M C Admitted: Reason For Study Reason For Study: Mitral Valve Prolapse Procedure This was a 2D Doppler, Color Flow transthoracic echocardiogram. Exam performed in department. Left Ventricle Normal LV size. The left ventricular ejection fraction is 65 %. No regional wallmotion abnormalities noted. Right Ventricle Normal RV size. Normal systolic function. Atria The left atrium is moderately enlarged. The right atrium is mildly enlarged. Mitral Valve Posterior leaflet mitral valve prolapse. Moderate (2+) anteriorly directed mitral valve insufficiency. Tricuspid Valve Normal tricuspid valve. Mild tricuspid valve insufficiency. Pulmonary artery systolic pressure is 24 mmHg. Aortic Valve Trisinus/trileaflet aortic valve. Pulmonic Valve Normal pulmonic valve. Great Vessels Normal aortic root. The pulmonary artery is normal size. Inferior vena cava collapse with respiration. Pericardium/Pleural No pericardial effusion. MMode/2D Measurements & Calculations LVIDd: 5.8 cm IVSd: 1.2 cm CO(Teich): 7.3 l/min LVIDs: 3.5 cm LVPWd: 1.1 cm RVDd: 3.9 cm FS: 39.6 % Ao root diam: 3.5 cm LAV(MOD-bp): 120.5 ml LVAd ap4: 37.3 cm2 LAV(MOD-bp) Indexed: 62.2 ml/m2 LVLd ap4: 9.3 cm LAV(MOD-sp2): 105.2 ml EDV(MOD-sp4): 126.0 ml LAV(MOD-sp4): 113.9 ml EDV(sp4-el): 126.9 ml LVAs ap4: 19.8 cm2 LVLs ap4: 7.4 cm ESV(MOD-sp4): 45.7 ml ESV(sp4-el): 44.9 ml EF(MOD-sp4): 63.8 % EF(sp4-el): 64.6 % CO(MOD-sp4): 5.1 l/min SV(sp4-el): 82.0 ml LA A4 area: 32.9 cm2 SV(MOD-sp4): 80.3 ml SI(MOD-sp4): 41.4 ml/m2 LA dimension(2D): 4.9 cm RA A4 area: 21.6 cm2 TAPSE: 2.4 cm Time Measurements MV dec time: 0.21 sec Doppler Measurements & Calculations MV E max tonny: 143.1 cm/sec Lat Peak E' Tonny: 11.5 cm/sec Med Peak E' Tonny: 11.4 cm/sec MV A max tonny: 60.3 cm/sec E/E' lat: 12.4 E/E' med: 12.5 MV E/A: 2.4 MV V2 max: 166.9 cm/sec MV P1/2t max tonny: 166.0 cm/sec Ao V2 max: 119.9 cm/sec MV max P.1 mmHg MV P1/2t: 70.6 msec Ao max P.8 mmHg MV V2 mean: 69.8 cm/sec Ao V2 mean: 87.7 cm/sec MV mean P.6 mmHg MV dec slope: 688.6 cm/sec2 Ao mean P.4 mmHg MV V2 VTI: 46.2 cm MVA(P1/2t): 3.1 cm2 Ao V2 VTI: 22.4 cm AV (velocity ratio): 0.74 LV V1 max: 88.4 cm/sec MR max tonny: 503.9 cm/sec PA V2 max: 75.1 cm/sec LV V1 max P.1 mmHg MR max P.5 mmHg LV V1 mean P.6 mmHg MR mean tonny: 389.1 cm/sec LV V1 mean: 58.4 cm/sec MR mean P.8 mmHg LV V1 VTI: 16.6 cm MR VTI: 180.1 cm TR max tonny: 226.9 cm/sec TR max P.6 mmHg ECHO/Echo Complete Interpretation Summary Normal LV size. The left ventricular ejection fraction is 65 %. The left atrium is moderately enlarged. Posterior leaflet mitral valve prolapse. Moderate (2+) anteriorly directed mitral valve insufficiency. Ordering Physician: Jeremi Walters Referring Physician: Jeremi Walters Performed By: Oswaldo Pemberton RCS 01/11/25 1252 Date _ Jeremi Walters MD CC: Dr. Jeremi Walters MD; Dr. Sven Cotter MD ~ Date Dictated: 01/11/25 1057 Date Transcribed: 01/11/25 125 Market Editor: Signed [facility] Work Phone: Cardiology Visit Reporton Cardiology Visit Report [facility] [address] [place] [address]. [address] [place] [address] OFFICE VISIT Date of Service: 12/15/24 MR#: [id number] Acct: [id number] Name: COOKIEKRIS CALL Rep #: [id number] : 1960 Provider: Dr. Jeremi Walters MD Age/Sex: 64/M Location: [facility] Status: Signed HPI HPI History of Present Illness Details: Pleasant 64-year-old man who is here for evaluation of abnormal diagnostic findings noted on the imaging of the heart. He says that he has been proactive about his health due to her family history and underwent a coronary calcium score which demonstrated a total score of 564 with 278 in the LAD distribution, 170 in the left circumflex and 112 in the right coronary artery distribution. He had previously undergone a stress test in 2023 where he exercised to a high metabolic workload with no evidence of ischemia he remains very active denying any chest pain or shortness of breath or paroxysmal nocturnal dyspnea or pedal edema he has had no neck arm or jaw discomfort suggest angina. His most recent lipid profile on no medications demonstrates a total cholesterol 171 HDL of 61 LDL of 100. His most recent electrocardiogram from today demonstrates sinus rhythm with a rate of 72 bpm and no acute changes. His physical exam is significant for a 3/6 holosystolic murmur noted at the apex radiating to the axilla. Intake Vital Signs 07/12/24 09:40 12/15/24 13:02 Height 5 ft 7 in 5 ft 7 in Weight: 181 lb BMI 28.3 BP 114/65 Blood Pressure Location Lt brachial Position Sitting Respiration 16 Pulse 72 Pulse Source Monitor Intake Visit Reasons: ABN CCTA (CYNDEE) Costumed Character Required: No Accompanied by: Self Is patient in pain?: No Allergies Penicillins Allergy (Verified 12/15/24 13:02) Other Medications ???Medication ???Instructions ???Recorded ???Confirmed ???Type ergocalciferol (vitamin D2) 50 mcg 50 mcg PO DAILY 05/30/21 5 History (2,000 unit) capsule hydrochlorothiazide 25 mg tablet 25 mg PO DAILY 05/30/21 12/15/24 H istory lisinopril 20 mg tablet 20 mg PO BID 09/17/21 12/15/24 His tory atorvastatin 10 mg tablet (Lipitor) 10 mg PO QDAY #90 tabs 12/15/24 12/15/24 Rx Have you fallen in the past year?: No PFSH Medical History Vitamin D deficiency Abnormal findings diagnostic imaging of heart and coronary circulation Right inguinal hernia Chronic cough Alcohol use Anemia History of irregular heartbeat HTN (hypertension) Heart murmur Surgical History S/P right inguinal hernia repair H/O adenoidectomy Hx of tonsillectomy Hx of cholecystectomy Family History Grandfather Myocardial infarction Mother Myocardial infarction CVA (cerebral vascular accident) Father Heart disease Grandfather Myocardial infarction Social History Smoking Status: Never smoker alcohol intake: current Alcohol type: beer and wine substance use type: does not use ROS Const Const: Negative for fatigue or weakness Eyes Eyes: Negative for change in vision ENT ENT: Negative for dizziness or balance problems Cardio Chest Pain: No Palpitations: No Edema: None Resp Respiratory: Negative for SOB with activity, SOB at rest or SOB orthopnea SOB lying down GI GI: Negative nausea or heartburn Musc Musc: Negative for balance problems Neuro Neuro: Negative for dizziness, lightheadedness, near syncope, syncope or weakness Endo Endo: Negative for fatigue Cardiology Exam Const Appearance: cooperative, healthy appearing, no acute distress, well developed and well groomed Nutritional Appearance: average body habitus and well nourished Orientation: alert, awake and oriented x3 Head Head: normal to inspection, normocephalic and atraumatic Ears: hearing grossly normal bilaterally and external ears normal Nose: external nose normal, nares normal, nasal mucous membranes and turbinates normal, septum normal and no nasal discharge Face and Sinus: face symmetric Mouth: oral mucosae normal, tongue normal, oropharynx normal and moist mucous membranes Teeth and gingiva: dentition normal Throat: posterior oropharynx normal, tonsils normal and uvula midline Eyes General: appearance normal, both eyes and all related structures Eyelids: eyelids normal Conjunctivae: conjunctivae normal Pupils: PERRL, normal by confrontation and accommodation normal EOM: EOM intact bilaterally Neck Neck: normal visual inspection, trachea midline and no JVD JVD: +5 Carotids: normal carotid upstroke and bounding pulses Chest Chest inspection: normal inspection of the chest, sy (more content not included)... Normal [facility] CT CARDIAC SCORING WO IV CON TRASTon 10-13-2024 CT CARDIAC SCORING WO IV CONTRAST Interpreted By: Delvis Osei, STUDY: CT CARDIAC SCORING WO IV CONTRAST; 10/13/2024 10:56 am INDICATION: Signs/Symptoms:FAMILY HX OF CAD. PE ,Z82.49 Family history of ischemic heart disease and other diseases of the circulatory system COMPARISON: None. ACCESSION NUMBER(S): [id number] ORDERING CLINICIAN: SVEN COTTER TECHNIQUE: Using prospective ECG gating, CT scan of the coronary arteries was performed without intravenous contrast. Coronary calcium scoring was performed according to the method of Agatston. FINDINGS: The score and distribution of calcium in the coronary arteries is as follows: LM 3.3 LAD 278 LCx 170 RCA 112 Total 564 The visualized mid/lower ascending thoracic aorta measures 3.4 Cm in diameter. The heart is normal in size. No pericardial effusion is present. No gross evidence of mediastinal or hilar lymphadenopathy or masses is identified. The visualized segments of the lungs are normally expanded. The visualized subdiaphragmatic structures appear intact. IMPRESSION: 1. Coronary artery calcium score of 564*. *Coronary artery calcium scoring may be helpful in predicting the risk for future coronary heart disease events. According to the [employer] Clinical Expert Consensus Task Force, such testing provides important prognostic information in patients with more than one coronary heart disease risk factor. The coronary artery calcium score correlates with the annual risk of a non-fatal myocardial infarction or coronary heart disease . Coronary artery score Annual Risk 0-99 0.4% 100-399 1.3% >400 2.4% These three breakpoints correspond to lower, intermediate and high risk states for future coronary events. Such information should be used, along with appropriate clinical judgment, to make decisions regarding the intensity of risk factor management strategies to treat blood lipids and to modify other non-lipid coronary risk factors. Reference: [place] P et al. Circulation. 2007; 115:402-426 MACRO: None Signed by: Delvis Osei 10/14/2024 10:24 AM Dictation workstation: [id number] [facility] Surgery Visit Reporton 07-26 Surgery Visit Report [facility] [address] [place], [place] [address] OFFICE VISIT Date of Service: 07/26/24 MR#: [id number] Acct: [id number] Name: KRIS MORA Rep #: [id number] : [id number] Provider: JERROD carr Age/Sex: 64/M Location: [facility] Status: Signed Intake Vital Signs 07/12/24 09:40 Height 5 ft 7 in Intake Visit Reasons: HERNIA 2-24 Chief Complaint: rih f/u Costumed Character Required: No Is patient in pain?: No Allergies Penicillins Allergy (Verified 07/26/24 14:21) Other Medications ???Medication ???Instructions ???Recorded ???Confirmed ???Type ergocalciferol (vitamin D2) 50 mcg 50 mcg PO DAILY 05/30/21 5 History (2,000 unit) capsule hydrochlorothiazide 25 mg tablet 25 mg PO DAILY 05/30/21 07/26/24 H istory lisinopril 20 mg tablet 20 mg PO BID 09/17/21 07/26/24 His tory Have you fallen in the past year?: No Subjective Details: Patient is a 64 y/o M I am following s/p robotic-assisted laparoscopic right inguinal hernia repair with mesh by Dr. Sarah on 07/12/24. Patient tolerated the procedure. He denies any incisional discomfort or pain. He noted overdoing it on Friday which caused a little more generalized abdomen discomfort. Objective Details: Abdomen- soft, nontender. Incisions c/d/i. No erythema or infection noted. Coding Level of Care Code Global Post Op Diagnoses Right inguinal hernia K40.90 [facility] Medical History Wears glasses Alcohol use Anemia Non-smoker History of echocardiogram History of stress test History of irregular heartbeat HTN (hypertension) Heart murmur Surgical History (Updated 07/26/24 @ 14:23 by Tatiana Wei) S/P right inguinal hernia repair H/O adenoidectomy Hx of tonsillectomy Hx of cholecystectomy Family History Grandfather Myocardial infarction Mother Myocardial infarction CVA (cerebral vascular accident) Father Heart disease Social History Smoking Status: Never smoker alcohol intake: current substance use type: does not use Assessment and Plan (No Qualifiers) Assessment and Plan (1) Right inguinal hernia: Status: Acute Plan: Recommend no lifting greater than 20 pounds for an additional 4 weeks Discussed signs of infection Follow-up as needed 07/27/24 1435 Date Lan Daina Cheung Signature: Date (if applicable) CC: Dr. Sven Cotter MD Normal [facility] Absolute neutrophil countOrd ered By: Sven Cotter on 07-20-2024 Neutrophils (Bld) [#/Vol] 3.8 10*3/uL 2.0-7.7 [facility] Albumin DL <= 20 mg/L (U) [M ass/Vol]Ordered By: Sven Cotter on 07-20-2024 Urine Random Microalbumin < 12.0 mg/L NO RANGE EST. [facility] Anion gap in Serum or Plasma Ordered By: Sven Cotter on 07-20-2024 Anion gap [Moles/Vol] 12 mmol/L 5-15 [facility] BUN/creatinine ratioOrdered By: Sven Cotter on 07-20-2024 Urea nitrogen/Creatinine [Mass ratio] 21.3 mg/mg High 10-20 [facility] Basophil percentageOrdered B y: Sven Cotter on 07-20-2024 Basophils/100 WBC (Bld) 1.3 % High 0-1 [facility] Bilirubin, totalOrdered By: Sven Cotter on 07-20-2024 Bilirubin [Mass/Vol] 0.41 mg/dL 0.00-1.30 [facility] CBC W/Diff, Automatedon Absolute Lymph 1.40 X10 3/uL Normal 0.83-4.51 [facility] Comment on above: Order Comment: Order Date: 01/27/25 Order Info: [id number] - CBCD Performed By: #### L 501.9910, L500.4050, L500.4100, L100.0100 #### [facility] [address] [place], [address] Absolute Neut 3.8 X10 3/uL Normal 2.0-7.7 [facility] Comment on above: Order Comment: Order Date: 01/27/25 Order Info: 0184-1 - CBCD Performed By: #### L 501.9910, L500.4050, L500.4100, L100.0100 #### [facility] [address] [place], [address] Basophils/100 WBC (Bld) 1.3 % High 0-1 [facility] Comment on above: Order Comment: Order Date: 01/27/25 Order Info: 0184-1 - CBCD Performed By: #### L 501.9910, L500.4050, L500.4100, L100.0100 #### [facility] [address] [place], [address] Eosinophils/100 WBC (Bld) 4.7 % Normal 0-5 [facility] Comment on above: Order Comment: Order Date: 01/27/25 Order Info: 0184-1 - CBCD Performed By: #### L 501.9910, L500.4050, L500.4100, L100.0100 #### [facility] [address] [place], [address] Erythrocyte distribution width (RBC) [Ratio] 12.5 % Normal 11.6-14.6 [facility] Comment on above: Order Comment: Order Date: 01/27/25 Order Info: 0184-1 - CBCD Performed By: #### L 501.9910, L500.4050, L500.4100, L100.0100 #### [facility] [address] [place], [address] Hematocrit (Bld) [Volume fraction] 37.5 % Low 40-54 [facility] Comment on above: Order Comment: Order Date: 01/27/25 Order Info: 0184-1 - CBCD Performed By: #### L 501.9910, L500.4050, L500.4100, L100.0100 #### [facility] [address] [place], [address] Hemoglobin (Bld) [Mass/Vol] 12.1 g/dL Low 13.0-16.5 [facility] Comment on above: Order Comment: Order Date: 01/27/25 Order Info: 018- - CBCD Performed By: #### L 501.9910, L500.4050, L500.4100, L100.0100 #### [facility] [address] [place], [address] IG% 1.100 High 0.0-0.9 [facility] Comment on above: Order Comment: Order Date: 01/27/25 Order Info: [id number] - CBCD Result Comment: IG% - Immature Granulocytes (promyelocytes, myelocytes and metamyelocytes) > 1% indicates that a LEFT SHIFT is Present. Performed By: #### L 501.9910, L500.4050, L500.4100, L100.0100 #### [facility] [address] [place], [address] Lymphocytes/100 WBC (Bld) 21.9 % Normal 19-41 [facility] Comment on above: Order Comment: Order Date: 01/27/25 Order Info: [id number] - CBCD Performed By: #### L 501.9910, L500.4050, L500.4100, L100.0100 #### [facility] [address] [place], [address] MCH (RBC) [Entitic mass] 30.0 pg Normal 27.0-32.0 [facility] Comment on above: Order Comment: Order Date: 01/27/25 Order Info: [id number] - CBCD Performed By: #### L 501.9910, L500.4050, L500.4100, L100.0100 #### [facility] [address] [place], [address] MCHC (RBC) [Mass/Vol] 32.3 g/dL Normal 32-36 [facility] Comment on above: Order Comment: Order Date: 01/27/25 Order Info: 0184-1 - CBCD Performed By: #### L 501.9910, L500.4050, L500.4100, L100.0100 #### [facility] [address] [place], [address] MCV (RBC) [Entitic vol] 92.8 fL Normal 80-94 [facility] Comment on above: Order Comment: Order Date: 01/27/25 Order Info: 0184-1 - CBCD Performed By: #### L 501.9910, L500.4050, L500.4100, L100.0100 #### [facility] [address] [place], [address] Monocytes/100 WBC (Bld) 11.4 % High 0-10 [facility] Comment on above: Order Comment: Order Date: 01/27/25 Order Info: 0184- - CBCD Performed By: #### L 501.9910, L500.4050, L500.4100, L100.0100 #### [facility] [address] [place], [address] Neutrophils/100 WBC (Bld) 59.6 % Normal 47-70 [facility] Comment on above: Order Comment: Order Date: 01/27/25 Order Info: 0184-1 - CBCD Performed By: #### L 501.9910, L500.4050, L500.4100, L100.0100 #### [facility] [address] [place], [address] Nucleated RBC (Bld) [#/Vol] 0 10*3/uL Normal 0-5 [facility] Comment on above: Order Comment: Order Date: 01/27/25 Order Info: 0184-1 - CBCD Performed By: #### L 501.9910, L500.4050, L500.4100, L100.0100 #### [facility] [address] [place], [address] Platelet mean volume (Bld) [Entitic vol] 11.8 fL Normal 6.2-12.0 [facility] Comment on above: Order Comment: Order Date: 01/27/25 Order Info: 0184-1 - CBCD Performed By: #### L 501.9910, L500.4050, L500.4100, L100.0100 #### [facility] [address] [place], [address] Platelets (Bld) [#/Vol] 318 10*3/uL Normal 150-450 [facility] Comment on above: Order Comment: Order Date: 01/27/25 Order Info: 0184- - CBCD Performed By: #### L 501.9910, L500.4050, L500.4100, L100.0100 #### [facility] [address] [place], [address] RBC (Bld) [#/Vol] 4.04 10*6/uL Low 4.6-6.2 [facility] Comment on above: Order Comment: Order Date: 01/27/25 Order Info: 0184-1 - CBCD Performed By: #### L 501.9910, L500.4050, L500.4100, L100.0100 #### [facility] [address] [place], [address] RDW SD 42.5 fl Normal 35.1-43.9 [facility] Comment on above: Order Comment: Order Date: 01/27/25 Order Info: 0184-1 - CBCD Performed By: #### L 501.9910, L500.4050, L500.4100, L100.0100 #### [facility] [address] [place], [place], [address] WBC (Bld) [#/Vol] 6.4 10*3/uL Normal 4.4-11.0 [facility] Comment on above: Order Comment: Order Date: 01/27/25 Order Info: 0184-1 - CBCD Performed By: #### L 501.9910, L500.4050, L500.4100, L100.0100 #### [facility] [address] [place], [place], [id number] Calculated very low density lipoprotein (VLDL) cholesterol measurementOrdered By: Sven Cotter on 07-20-2024 VLDL Cholesterol 10 mg/dL 5-40 [facility] Carbon dioxide, total [Moles /volume] in Central venous bloodOrdered By: Sven Cotter on 07-20-2024 CO2 [Moles/Vol] 25.9 mmol/L 21.0-32.0 [facility] Chloride assayOrdered By: Jeanine Cotter on 07-20-2024 Chloride [Moles/Vol] 101 mmol/L 98-108 [facility] Comprehensive Metabolic Prof ilon 07-20-2024 Albumin [Mass/Vol] 4.1 g/dL Normal 3.4-4.8 [facility] Comment on above: Order Comment: Order Date: 01/27/25 Order Info: 0786-1 - CMP Order Info: [id number] - LIPID Order Info: [id number] - PSA Performed By: #### L 501.9910, L500.4050, L500.4100, L100.0100 #### [facility] [address] [place], [place], [id number] Albumin/Globulin [Mass ratio] 1.5 {ratio} Normal 0.9-2.4 [facility] Comment on above: Order Comment: Order Date: 01/27/25 Order Info: [id number] - CMP Order Info: [id number] - LIPID Order Info: [id number] - PSA Performed By: #### L 501.9910, L500.4050, L500.4100, L100.0100 #### [facility] [address] [place], [address] ALK PHOS 52 U/L Normal 40-129 [facility] Comment on above: Order Comment: Order Date: 01/27/25 Order Info: [id number] - CMP Order Info: [id number] - LIPID Order Info: [id number] - PSA Performed By: #### L 501.9910, L500.4050, L500.4100, L100.0100 #### [facility] [address] [place], [address] ALT [Catalytic activity/Vol] 35 U/L Normal <=46 [facility] Comment on above: Order Comment: Order Date: 01/27/25 Order Info: [id number] - CMP Order Info: [id number] - LIPID Order Info: [id number] - PSA Performed By: #### L 501.9910, L500.4050, L500.4100, L100.0100 #### [facility] [address] [place], [address] AST [Catalytic activity/Vol] 24 U/L Normal <=37 [facility] Comment on above: Order Comment: Order Date: 01/27/25 Order Info: [id number] - CMP Order Info: [id number] - LIPID Order Info: [id number] - PSA Performed By: #### L 501.9910, L500.4050, L500.4100, L100.0100 #### [facility] [address] [place], [address] Bilirubin [Mass/Vol] 0.41 mg/dL Normal 0.00-1.30 [facility] Comment on above: Order Comment: Order Date: 01/27/25 Order Info: 0786 - CMP Order Info: [id number] - LIPID Order Info: [id number] - PSA Performed By: #### L 501.9910, L500.4050, L500.4100, L100.0100 #### [facility] [address] [place], [address] BUN/CRE 21.3 RATIO High 10-20 [facility] Comment on above: Order Comment: Order Date: 01/27/25 Order Info: 0786- - CMP Order Info: [id number] - LIPID Order Info: [id number] - PSA Performed By: #### L 501.9910, L500.4050, L500.4100, L100.0100 #### [facility] [address] [place], [address] Calcium [Mass/Vol] 9.5 mg/dL Normal 7.6-11.0 [facility] Comment on above: Order Comment: Order Date: 01/27/25 Order Info: 07 - CMP Order Info: [id number] - LIPID Order Info: [id number] - PSA Performed By: #### L 501.9910, L500.4050, L500.4100, L100.0100 #### [facility] [address] [place], [address] Chloride [Moles/Vol] 101 mmol/L Normal 98-108 [facility] Comment on above: Order Comment: Order Date: 01/27/25 Order Info: 0786- - CMP Order Info: [id number] - LIPID Order Info: [id number] - PSA Performed By: #### L 501.9910, L500.4050, L500.4100, L100.0100 #### [facility] [address] [place], [address] CO2 [Moles/Vol] 25.9 mmol/L Normal 21.0-32.0 [facility] Comment on above: Order Comment: Order Date: 01/27/25 Order Info: 0786- - CMP Order Info: [id number] - LIPID Order Info: [id number] - PSA Performed By: #### L 501.9910, L500.4050, L500.4100, L100.0100 #### [facility] [address] [place], [address] Creatinine [Mass/Vol] 1.26 mg/dL High 0.70-1.20 [facility] Comment on above: Order Comment: Order Date: 01/27/25 Order Info: 785- - CMP Order Info: [id number] - LIPID Order Info: [id number] - PSA Performed By: #### L 501.9910, L500.4050, L500.4100, L100.0100 #### [facility] [address] [place], [address] GAP 12 Normal 5-15 [facility] Comment on above: Order Comment: Order Date: 01/27/25 Order Info: [id number] - CMP Order Info: - LIPID Order Info: [id number] - PSA Performed By: #### L 501.9910, L500.4050, L500.4100, L100.0100 #### [facility] [address] [place], [address] GFR/1.73 sq M.predicted among non-blacks MDRD (S/P/Bld) [Vol rate/Area] 64 mL/min/{1.73_m2} Normal >60 [facility] Comment on above: Order Comment: Order Date: 01/27/25 Order Info: [id number] - CMP Order Info: [id number] - LIPID Order Info: [id number] - PSA Result Comment: mL/m in/1.73m2 CKD-EPI Creatinine Equation (2020) Performed By: #### L 501.9910, L500.4050, L500.4100, L100.0100 #### [facility] [address] [place], [address] Globulin (S) [Mass/Vol] 2.8 g/dL Normal 2.2-4.2 [facility] Comment on above: Order Comment: Order Date: 01/27/25 Order Info: [id number] - CMP Order Info: [id number] - LIPID Order Info: [id number] - PSA Performed By: #### L 501.9910, L500.4050, L500.4100, L100.0100 #### [facility] [address] [place], [address] Glucose [Mass/Vol] 90 mg/dL Normal 70-99 [facility] Comment on above: Order Comment: Order Date: 01/27/25 Order Info: 0786- - CMP Order Info: [id number] - LIPID Order Info: [id number] - PSA Performed By: #### L 501.9910, L500.4050, L500.4100, L100.0100 #### [facility] [address] [place], [address] Potassium [Moles/Vol] 4.5 mmol/L Normal 3.3-5.1 [facility] Comment on above: Order Comment: Order Date: 01/27/25 Order Info: 07 - CMP Order Info: [id number] - LIPID Order Info: [id number] - PSA Performed By: #### L 501.9910, L500.4050, L500.4100, L100.0100 #### [facility] [address] [place], [address] Sodium [Moles/Vol] 138 mmol/L Normal 133-145 [facility] Comment on above: Order Comment: Order Date: 01/27/25 Order Info: 0786 - CMP Order Info: [id number] - LIPID Order Info: [id number] - PSA Performed By: #### L 501.9910, L500.4050, L500.4100, L100.0100 #### [facility] [address] [place], [address] T PROT 6.9 g/dL Normal 5.9-8.4 [facility] Comment on above: Order Comment: Order Date: 01/27/25 Order Info: 0786- - CMP Order Info: [id number] - LIPID Order Info: [id number] - PSA Performed By: #### L 501.9910, L500.4050, L500.4100, L100.0100 #### [facility] [address] [place], [place], [address] Urea nitrogen [Mass/Vol] 27 mg/dL High 4-19 [facility] Comment on above: Order Comment: Order Date: 01/27/25 Order Info: [id number] - CMP Order Info: [id number] - LIPID Order Info: [id number] - PSA Performed By: #### L 501.9910, L500.4050, L500.4100, L100.0100 #### [facility] [address] [place], [place], [address] Eosinophil percentageOrdered By: Sven Cotter on 07-20-2024 Eosinophils/100 WBC (Bld) 4.7 % 0-5 [facility] Erythrocyte distribution wid th ratioOrdered By: Sven Cotter on 07-20-2024 Erythrocyte distribution width (RBC) [Ratio] 12.5 % 11.6-14.6 [facility] Erythrocyte distribution wid th standard deviationOrdered By: Sven Cotter on 07-20-2024 Erythrocyte distribution width (RBC) [Entitic vol] 42.5 fL 35.1-43.9 [facility] GFR/1.73 sq M.predicted ignacio g non-blacks MDRD (S/P/Bld) [Vol rate/Area]Ordered By: Sven Cotter on 07-20-2024 Estimated GFR (MDRD) Non-Af Amer 64 >60 [facility] Comment on above: mL/min/1.73m2 CKD-EP I Creatinine Equation (2020) Hematocrit Auto (Bld) [Volum e fraction]Ordered By: Sven Cotter on 07-20-2024 Hematocrit (Bld) [Volume fraction] 37.5 % Low 40-54 [facility] Hemoglobin measurementOrdere d By: Sven Cotter on 07-20-2024 Hemoglobin (Bld) [Mass/Vol] 12.1 g/dL Low 13.0-16.5 [facility] Immature granulocytes/100 WB C Auto (Bld)Ordered By: Sven Cotter on 07-20-2024 Immature granulocytes/100 WBC (Bld) 1.100 % High 0.0-0.9 [facility] Comment on above: IG% - Immature Granu locytes (promyelocytes, myelocytes and metamyelocytes) > 1% indicates that a LEFT SHIFT is Present. L506.1001on 07-20-2024 Vitamin D 25-OH 46.2 ng/mL Normal 30-100 [facility] Comment on above: Order Comment: Order Date: 01/27/25 Order Info: [id number] - CBCD Result Comment: Charmaine min D Status Deficiency: <20 ng/mL (50nmol/L) Insufficiency: 20-30 ng/mL (50-75 nmol/L) Sufficiency: 30-100 ng/mL (75-250 nmol/L) Toxicity: >100 ng/mL (>250 nmol/L) Performed By: #### L 501.9910, L500.4050, L500.4100, L100.0100 #### [facility] [address] [place], [address] LDL calc ser/plasOrdered By: Sven Cotter on 07-20-2024 LDL Cholesterol, Calculated 100 mg/dL [facility] Comment on above: Kerooukbnb=747-629 m g/dL & Higher Yety=791 mg/dL or greater Laboratory - Chemistry and C hemistry - challengeOrdered By: Sven Cotter on 07-20-2024 AST [Catalytic activity/Vol] 24 U/L <38 [facility] Lipid Profileon 07-20-2024 CHOL:HDL 2.83 Normal [facility] Comment on above: Order Comment: Order Date: 01/27/25 Order Info: 0786-1 - CMP Order Info: [id number] - LIPID Order Info: [id number] - PSA Performed By: #### L 501.9910, L500.4050, L500.4100, L100.0100 #### [facility] [address] [place], [address] Cholesterol [Mass/Vol] 171 mg/dL Normal <=200 [facility] Comment on above: Order Comment: Order Date: 01/27/25 Order Info: 0786- - CMP Order Info: [id number] - LIPID Order Info: [id number] - PSA Result Comment: Chol esterol level, Desirable <200 mg/dL Borderline high cholesterol 200-239 mg/dL High cholesterol >=240 mg/dL Recommendations of the NCEP Adult Treatment Panel for the following risk-cutoff thresholds for the [place] population. Performed By: #### L 501.9910, L500.4050, L500.4100, L100.0100 #### [facility] [address] [place], [address] Cholesterol in HDL [Mass/Vol] 61 mg/dL Normal [facility] Comment on above: Order Comment: Order Date: 01/27/25 Order Info: 0786 - CMP Order Info: [id number] - LIPID Order Info: [id number] - PSA Result Comment: Fior onal Cholesterol Education Program (NCEP) guidelines: <40 mg/dL: Low HDL-cholesterol (major risk factor for CHD) >= 60 mg/dL: High HDL-cholesterol (negative risk factor for CHD) HDL-cholesterol is affected by a number of factors, e.g. smoking, exercise, hormones, sex and age. Performed By: #### L 501.9910, L500.4050, L500.4100, L100.0100 #### [facility] [address] [place], [address] Cholesterol in LDL [Mass/Vol] 100 mg/dL Normal [facility] Comment on above: Order Comment: Order Date: 01/27/25 Order Info: 0786- - CMP Order Info: [id number] - LIPID Order Info: [id number] - PSA Result Comment: Bord dsmwft=715-776 mg/dL Higher Htxi=721 mg/dL or greater Performed By: #### L 501.9910, L500.4050, L500.4100, L100.0100 #### [facility] [address] [place], [address] Cholesterol in VLDL [Mass/Vol] 10 mg/dL Normal 5-40 [facility] Comment on above: Order Comment: Order Date: 01/27/25 Order Info: 0786- - CMP Order Info: [id number] - LIPID Order Info: [id number] - PSA Performed By: #### L 501.9910, L500.4050, L500.4100, L100.0100 #### [facility] [address] [place], [address] Triglyceride [Mass/Vol] 50 mg/dL Normal [facility] Comment on above: Order Comment: Order Date: 01/27/25 Order Info: 07 - CMP Order Info: [id number] - LIPID Order Info: [id number] - PSA Result Comment: The drugs N-Acetylcysteine and Metamizole may falsely depress this assay. Normal range: <150 mg/dL Borderline High: 150-199 mg/dL High: 200-499 mg/dL Very High: >500 mg/dL Performed By: #### L 501.9910, L500.4050, L500.4100, L100.0100 #### [facility] [address] [place], [address] Lymphocytes Auto (Unsp spec) [#/Vol]Ordered By: Sven Cotter on 07-20-2024 Lymphocytes (Bld) [#/Vol] 1.40 10*3/uL 0.83-4.51 [facility] Lymphocytes/100 WBC Auto (Un sp spec)Ordered By: Sven Cotter on 07-20-2024 Lymphocytes/100 WBC (Bld) 21.9 % 19-41 [facility] MCV (mean corpuscular volume ) determinationOrdered By: Sven Cotter on 07-20-2024 MCV (RBC) [Entitic vol] 92.8 fL 80-94 [facility] Magnesiumon 07-20-2024 Magnesium [Mass/Vol] 2.0 mg/dL Normal 1.5-2.2 [facility] Comment on above: Order Comment: Order Date: 01/27/25 Order Info: 0786- - CMP Order Info: [id number] - LIPID Order Info: [id number] - PSA Performed By: #### L 501.9910, L500.4050, L500.4100, L100.0100 #### [facility] [address] [place], [place], [id number] Magnesium (Unsp spec) [Mass/ Vol]Ordered By: Sven Cotter on 07-20-2024 Magnesium [Mass/Vol] 2.0 mg/dL 1.5-2.2 [facility] Mean corpuscular hemoglobin (MCH) determinationOrdered By: Sven Cotter on 07-20-2024 MCH (RBC) [Entitic mass] 30.0 pg 27.0-32.0 [facility] Mean corpuscular hemoglobin concentration (MCHC) determinationOrdered By: Sven Cotter on 07-20-2024 MCHC (RBC) [Mass/Vol] 32.3 g/dL 32-36 [facility] Mean platelet volume determi nationOrdered By: Sven Cotter on 07-20-2024 Platelet mean volume (Bld) [Entitic vol] 11.8 fL 6.2-12.0 [facility] Microalbumin,Random Urineon 07-20-2024 MICROALBUMIN,UR < 12.0 Normal NO RANGE EST. [facility] Comment on above: Performed By: #### L 501.9910, L500.4050, L500.4100, L100.0100 #### [facility] [address] [place], [place], [id number] Monocyte percentageOrdered B y: Sven Cotter on 07-20-2024 Monocytes/100 WBC (Bld) 11.4 % High 0-10 [facility] Neutrophil percentageOrdered By: Sven Cotter on 07-20-2024 Neutrophils/100 WBC (Bld) 59.6 % 47-70 [facility] Nucleated red blood cell per centageOrdered By: Sven Cotter on 07-20-2024 Nucleated RBC/100 WBC (Bld) [Ratio] 0 % 0-5 [facility] Platelet countOrdered By: Jeanine Cotter on 07-20-2024 Platelets (Bld) [#/Vol] 318 10*3/uL 150-450 [facility] Potassium (Unsp spec) [Mass/ Vol]Ordered By: Sven Cotter on 07-20-2024 Potassium [Moles/Vol] 4.5 mmol/L 3.3-5.1 [facility] RBC Auto (Bld) [#/Vol]Ordere d By: Sven Cotter on 07-20-2024 RBC (Bld) [#/Vol] 4.04 10*6/uL Low 4.6-6.2 [facility] Screening total cholesterol/ high density lipoprotein (HDL) cholesterol ratioOrdered By: Sven Cotter on 07-20-2024 Cholesterol.total/Choles terol in HDL [Mass ratio] 2.83 {ratio} [facility] Serum creatinine measurement (mass/volume)Ordered By: Sven Cotter on 07-20-2024 Creatinine [Mass/Vol] 1.26 mg/dL High 0.70-1.20 [facility] Serum globulin measurementOr dered By: Sven Cotter on 07-20-2024 Globulin (S) [Mass/Vol] 2.8 g/dL 2.2-4.2 [facility] Serum glucose measurement (m ass/volume)Ordered By: Sven Cotter on 07-20-2024 Glucose [Mass/Vol] 90 mg/dL 70-99 [facility] Serum or plasma alanine zayas otransferase (ALT) measurementOrdered By: Sven Cotter on 07-20-2024 ALT [Catalytic activity/Vol] 35 U/L <47 [facility] Serum or plasma albumin elaine urement (mass/volume)Ordered By: Sven Cotter on 07-20-2024 Albumin [Mass/Vol] 4.1 g/dL 3.4-4.8 [facility] Serum or plasma albumin/glob ulin mass ratioOrdered By: Sven Cotter on 07-20-2024 Albumin/Globulin [Mass ratio] 1.5 {ratio} 0.9-2.4 [facility] Serum or plasma alkaline zaida sphatase measurementOrdered By: Sven Cotter on 07-20-2024 ALP [Catalytic activity/Vol] 52 U/L 40-129 [facility] Serum or plasma calcium elaine urement (mass/volume)Ordered By: Sven Cotter on 07-20-2024 Calcium [Mass/Vol] 9.5 mg/dL 7.6-11.0 [facility] Serum or plasma cholesterol in HDL measurement (mass/volume)Ordered By: Sven Cotter on 07-20-2024 Cholesterol in HDL [Mass/Vol] 61 mg/dL >40 [facility] Comment on above: National Cholesterol Education Program (NCEP) guidelines:<40 mg/dL: Low HDL-cholesterol (major risk factor for CHD)>= 60 mg/dL: High HDL-cholesterol (negative risk factor for CHD)HDL-cholesterol is affected by a number of factors, e.g. smoking, exercise, hormones, sex and age. Serum or plasma cholesterol measurement (mass/volume)Ordered By: Sven Cotter on 07-20-2024 Cholesterol [Mass/Vol] 171 mg/dL <201 [facility] Comment on above: Cholesterol level, D esirable <200 mg/dLBorderline high cholesterol 200-239 mg/dLHigh cholesterol >=240 mg/dLRecommendations of the NCEP Adult Treatment Panel for the following risk-cutoff thresholds for the [place] population. Serum or plasma urea nitroge n measurement (mass/volume)Ordered By: Sven Cotter on 07-20-2024 Urea nitrogen [Mass/Vol] 27 mg/dL High 4-19 [facility] Sodium levelOrdered By: Sven Cotter on 07-20-2024 Sodium [Moles/Vol] 138 mmol/L 133-145 [facility] TSH DL <= 0.005 mIU/L QnOrde red By: Sven Cotter on 07-20-2024 Thyroid Stimulating Hormone (TSH) 1.410 uIU/mL 0.300-4.200 [facility] Thyroid Stim Hormone (TSH)on 07-20-2024 TSH 1.410 uIU/mL Normal 0.300-4.200 [facility] Comment on above: Order Comment: Order Date: 01/27/25 Order Info: [id number] - CMP Order Info: [id number] - LIPID Order Info: [id number] - PSA Performed By: #### L 501.9910, L500.4050, L500.4100, L100.0100 #### [facility] [address] [place], [address] Total proteinOrdered By: Sumit Cotter on 07-20-2024 Protein [Mass/Vol] 6.9 g/dL 5.9-8.4 [facility] Triglycerides measurementOrd ered By: Sven Cotter on 07-20-2024 Triglyceride [Mass/Vol] 50 mg/dL <199 [facility] Comment on above: The drugs N-Acetylcy steine and Metamizole may falsely depress this assay. Normal range: <150 mg/dLBorderline High: 150-199 mg/dLHigh: 200-499 mg/dLVery High: >500 mg/dL Vitamin D, 25-hydroxyOrdered By: Sven Cotter on 07-20-2024 Vitamin D 25-Hydroxy 46.2 ng/mL 30-100 [facility] Comment on above: Vitamin D StatusDefi ciency: <20 ng/mL (50nmol/L)Insufficiency: 20-30 ng/mL (50-75 nmol/L)Sufficiency: 30-100 ng/mL (75-250 nmol/L)Toxicity: >100 ng/mL (>250 nmol/L) White blood cell (WBC) count Ordered By: Sven Cotter on 07-20-2024 WBC (Bld) [#/Vol] 6.4 10*3/uL 4.4-11.0 [facility] Discharge Instructionon 06-20 Discharge Instruction [facility] Medical Records Department [address] [place] [address] Instructions for Home/Discharge Instructions 07/12/24 1141 MR#: [id number] Acct: [id number] Name: KRIS MORA Rep #: [id number] : 1960 64 From: Lev Sarah MD PCP: Dr. Sven Cotter MD Status:REG [facility] Discharge Instructions Procedure Hernia Diet Discharge Diet: Light diet - advance as tolerated Activity Discharge Activity: May Not Drive (for 2-3 days or while taking narcotic pain meds.) and May Shower (with the bandage in place 1-2 days after surgery.) Lifting Restrictions: 20 pounds for 4 weeks. Additional Activity Instructions:: Climbing stairs is fine, walking is encouraged. Sitting in bed may be uncomfortable. Sitting up using your lateral muscles (sitting up sideways) is usually more comfortable. Do not drive, work heavy equipment of sign legal documents for 24 hours. If your hernia repair was an inguinal repair, you may have scrotal swelling, an ice pack and/or athletic support can provide more comfort. Pain medications may cause nausea, you should typically eat light foods as you take your pain medications. Pain medications may also cause constipation. If you have difficulty with this, discuss with your doctor. Alternate ibuprofen and Tylenol for pain control, oxycodone for breakthrough pain Dressing / Incision Call your doctor if your incision/area has: Continuous Slow Oozing, Sudden Increased Bleeding, Increased Pain/ Swelling, Increased Redness and Foul Smelling Discharge Call your doctor if you observe: Fever of 101 or Higher Suture Line Care: Avoid Pulling/Pushing and Avoid Pinching/Bending Remove Dressing in: 2 days (Remove clear bandages in 2 days, remove Steri-Strips in 7 to 10 days.) Follow Up Care Please Follow Up With: Lev Sarah MD When: Please call to schedule 2 week follow up appointment. [phone] Test Results: Test results from this visit will be discussed in further detail at your follow-up appointment, if applicable. Discharge Plan Admission Attending Provider: Lev Sarah Primary Care Provider: Sven Cotter Instructions Print Language: Indonesian Discharge Orders/Prescriptions Prescriptions: New oxycodone 5 mg Tablet 5 - 10 mg PO Q4H PRN PRN (Reason: Pain Score 4-10) 5 Days Qty: 10 0RF No Action hydrochlorothiazide 25 mg tablet 25 mg PO DAILY ergocalciferol (vitamin D2) 50 mcg (2,000 unit) capsule 50 mcg PO DAILY lisinopril 20 mg tablet 20 mg PO BID Patient Comments: TAKE ONE TABLET BY MOUTH TWICE DAILY Referrals / Follow Up: Sven Cotter MD [Primary Care Provider] - Disposition Disposition (needs filled in before D/C Order can be placed): Home, Self Care 07/12/24 3294 Lev Sarah MD CC: Dr. Sven Cotter MD Signed Normal [facility] MR/POSTOP.ANEon 07-12-2024 MR/POSTOP.[facility] Medical Records Department [address] [place] [address] Anesthesia Postop Eval I 07/12/24 1146 MR#: [id number] Acct: [id number] Name: KRIS MORA Rep #: [id number] : 1960 64 From: Magi Samuel CRNA PCP: Dr. Sven Cotter MD Status:[facility] Y Race: C Location: [place] [address] Anesthesia: Postop Eval I Current Vital Signs Temperature: 99.1 F Pulse Rate: 68 Blood Pressure: 123/66 Respiratory Rate: 18 Pulse Ox: 100 Oxygen Delivery Method: Room Air Assessment Airway patent: Yes Spontaneous unlabored respirations: Yes Mental status: Awake and Calm nausea: No Vomiting: No Anesthesia Complication: No Fluid Hydration Crystalloid volume administer (ml): 700 Total IV fluid infused: 700 Progress Note Anesthesia document: Postop Eval 1 completed: Yes 07/12/24 1146 Date Magi Frankignaguila Signature: Date CC: Signed Normal [facility] MR/[id number] 07-12-2024 [facility] Medical Records Department [facility] [place] [address] Anesthesia Postop Eval II 07/12/24 1524 MR#: [id number] Acct: [id number] Name: KRIS MORA Rep #: [id number] : 1960 64 From: Louie Dallas MD PCP: Dr. 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.JHONNYOBY Spontaneous unlabored Yes 07/12/24 11:46 FLAVORING OIL FILTERER.JHONNYOBDiana respirations Mental status Awake,Calm 07/12/24 11:46 FLAVORING OIL FILTERER.SKOBY nausea No 07/12/24 11:46 FLAVORING OIL FILTERER.SKOBY Vomiting No 07/12/24 11:46 FLAVORING OIL FILTERER.SKOBY Anesthesia Postop Eval I: Fluid Summary Crystalloid volume administer 700 07/12/24 11:46 FLAVORING OIL FILTERER.SKOBY (ml) Colloids volume administered ( ml) Blood Product volume administered (ml) Total IV fluid infused 700 07/12/24 11:46 FLAVORING OIL FILTERER.JHONNYOBDiana Anesthesia Postop Eval I: Summary Notes Anesthesia Complication No 07/12/24 11:46 FLAVORING OIL FILTERER.JHONNYOBDiana Anesthesia Complication Comment: Post-operative progress note Anesthesia: Postop Eval II Evaluation Mental status: Awake and Calm Pain Level: 2 nausea: No Vomiting: No Complications Anesthesia Complication: No 07/12/24 1524 Date Louie Dallas MD Cosigner Signature: Date CC: Signed Normal [facility] Operative Reporton 5 Operative Report [facility] Medical Records Department [address] [place] [address] Operative Report 07/12/24 1137 MR#: [id number] Acct: [id number] Name: COOKIE,DAVID HARLAN Rep #: [id number] : 1960 64 From: Lev Sarah MD PCP: Dr. Sven Cotter MD Status:REG [facility] Location: [place] [address] Operative Report (Standard) Operative Information Date of Procedure: 07/12/24 Pre-Operative Diagnosis: Right inguinal hernia Post-Operative Diagnosis: Right inguinal hernia Surgery/Procedure Performed: Robotic assisted laparoscopic right inguinal hernia repair with mesh hand mexican food maker: Yes Plateman: Norbert Mcgrath Tasks completed by medical office assistant: Opening closing Type of Anesthesia: General/Regional RN Documented Start/Stop Times: Operation Date: 07/12/24 11:00 Case Time Into Pre-Op 07/12/24 09:21 Out of Pre-Op 07/12/24 10:20 Anesthesia Start 07/12/24 10:23 Into Room 07/12/24 10:23 Procedure Start 07/12/24 10:41 Procedure End 07/12/24 11:29 Procedure Start Time: 10:41 Procedure Stop Time: 11: Select all DRAINS/GRAFTS/IMPLANT S that apply: Implanted device Implanted device details: Progrip mesh Estimated Blood Loss: 5 Specimen collected: No Description of surgery: Patient was brought back to the operating room and general anesthesia was induced. The abdomen was prepped and draped in usual sterile fashion. A midline incision was made superior to the umbilicus and the fascia was grasped and elevated. A Veress needle was placed into the abdomen and a drop test was performed. The abdomen is insufflated to 15 mmHg and the Veress needle was removed. Port was placed in the abdomen and a camera was placed into the abdomen to inspect for injuries and there were none. The patient was placed in steep Trendelenburg position. Next under direct visualization an 8 mm port was placed in the right lateral abdomen and left lateral abdomen and then the robot was docked. Using electrocautery scissors the peritoneum was incised in the right lower quadrant and then dissection was carried inferiorly until the hernia sac was encountered. The hernia was reduced using electrocautery and sharp dissection. Once the hernia was reduced a large piece of ProGrip mesh was placed over the hernia defect and then the peritoneum was reapproximated using a running 3 OV lock suture. This completely covered the mesh at the end of the procedure. Next the abdomen was allowed to desufflate and the ports were removed. The incisions were injected with local anesthetic and closed with interrupted 4-0 Monocryl sutures and Steri-Strips and bandages were applied. Patient was taken to PACU in stable condition and tolerated the procedure well. Scrotum was checked at the end of the case contained both testicles. Surgical Findings: Indirect right inguinal hernia Complications Complications: No Admit VTE Documentation VTE Mechan Device Prophylaxis: SCD's 07/12/24 1141 Cosigner Signature (if applicable): CC: Dr. Lev Sarah MD; Dr. Sven Cotter MD Signed Normal [facility] Surgery Visit Reporton 07-05 Surgery Visit Report [facility] [address] [place] [address] OFFICE VISIT Date of Service: 07/05/24 MR#: [id number] Acct: [id number] Name: KRIS MORA Rep #: [id number] : 1960 Provider: Dr. Lev gordon MD Age/Sex: 64/M Location: [facility] Status: Signed Intake Vital Signs 09/08/23 13:11 07/05/24 13:03 Height 5 ft 7 in 5 ft 7 in Weight: 189 lb BMI 29.6 BP 158/88 H Blood Pressure Location Rt brachial Position Sitting Respiration 17 Pulse 63 Pulse Source Monitor Temp 97.2 F L Temp Source Temporal Pulse Oximetry (%) 100 Oxygen Delivery Method room air Intake Visit Reasons: UPDATE H P - HERNIA Chief Complaint: update H P for hernia Is patient in pain?: No Allergies Penicillins Allergy (Verified 07/05/24 13:05) Other Medications ???Medication ???Instructions ???Recorded ???Confirmed ???Type ergocalciferol (vitamin D2) 50 mcg 50 mcg PO DAILY 05/30/21 5 History (2,000 unit) capsule hydrochlorothiazide 25 mg tablet 25 mg PO DAILY 05/30/21 07/05/24 H istory lisinopril 20 mg tablet 20 mg PO BID 09/17/21 07/05/24 His tory PFSH Medical History Wears glasses Alcohol use Anemia Non-smoker History of echocardiogram History of stress test History of irregular heartbeat HTN (hypertension) Heart murmur Surgical History H/O adenoidectomy Hx of tonsillectomy Hx of cholecystectomy Family History Grandfather Myocardial infarction Mother Myocardial infarction CVA (cerebral vascular accident) Father Heart disease Social History Smoking Status: Never smoker alcohol intake: current substance use type: does not use HPI HPI HPI: Patient is a 64-year-old male with a right inguinal hernia. He is here to update his H P and is scheduled for surgery next week. He has no changes since the last time he saw me. He reports that the hernia has mildly enlarged. ROS General General: No weight change, appetite, fatigue, colon cancer, breast cancer or weakness HEENT HEENT: No difficulty swallowing, eye injury, eye surgery, swollen glands or hoarseness Endo Endocrine: No thyroid disease, diabetes mellitus, thyroid cancer, Hair loss, heat intolerance or cold intolerance Skin Skin: No rash or changing moles Musc Musculoskeletal: No back problems, arthritis, rheumatoid arthritis, gout or joint pain Cardio Cardiovascular: Yes murmur and high blood pressure; No pacemaker, heart disease, atrial fibrillation, heart attack, heart stent, palpitations, shortness of breat with exertion or chest pain Psych Psychiatric: No depression, anxiety or hearing voices Resp Respiratory: No shortness of breath, No sleep apnea, No cough, No COPD, No asthma, No emphysema and No wheezing Gastro Gastrointestinal: Yes abdominal pain, No nausea or vomiting, No diarrhea, No constipation, No blood in stool, No acid reflux, No hemorrhoids, No ulcers, No gallbladder problem and No black,tarry stools Tay Hematologic: No blood thinners, No blood disorders, No bleeding, No anemia and No blood clots Neuro Neurologic: No system reviewed and no additional complaints, except as documented, No as per HPI, No abnormal gait, No abnormal hearing, No abnormal movements, No abnormal speech, No behavioral changes, No burning sensations, No confusion, No convulsions, No disequilibrium, No dizziness, No localized weakness, No frequent falls, No headache(s), No lack of coordination, No loss of vision, No memory loss, No numbness, No other visual disturbances, No radicular pain, No restless legs, No sensory deficit, No syncope, No tingling, No tremor(s), No weakness and No other Exam Const General: cooperative Orientation: alert and oriented x3 HENMT Head: normal to inspection Neck Neck: normal visual inspection and full ROM Chest Chest palpation inspection: normal inspection of the chest Resp Effort Inspection: normal respiratory effort Auscultation: clear to auscultation bilaterally Cardio Rate: regular rate Rhythm: regular rhythm GI Inspection: non-distended Palpation: soft, hernia indirect inguinal on the right and nontender Skin General: no rashes or lesions noted Neuro General: patient alert and patient oriented x3 Extrem General: full ROM Psych Appearance: grossly normal Mental Status: mental status grossly normal Assessment and Plan Assessment and Plan (1) Right inguinal hernia: Status: Acute Plan: Patient has right inguinal hernia. I discussed robotic assisted laparoscopic inguinal hernia repair with mesh. I discussed the p (more content not included)... Normal [facility] MR/PAT.ANEon 06-30-2024 MR/PAT.ANE [facility] Medical Records Department [address] [place] [address] PAT - Anesthesia 06/30/24 1001 MR#: [id number] Acct: [id number] Name: KRIS MORA Rep #: [id number] : 1960 64 From: Leoncio Loya MD PCP: Dr. Sven Cotter MD Status:PRE [facility] Y Race: C Location: [facility] Pre-Assessment Diagnosis/Proposed Procedure Planned Operative Procedure(s): (R) Lap Robotic Inguinal Hernia w/mesh Anesthesia History Anesthesia History - cma: Anesthesia History - cma Hx Hospitalization No 06/28/24 10:10 Any Problems With Anesthesia No 06/28/24 10:10 Cholinesterase deficiency No 06/28/24 10:10 You/Your Family Experience No 06/28/24 10:10 fever (hyperthermia) with Relationship Recent Exposure to Contagious Disease Does patient have nerve No 06/28/24 10:10 stimulator Patient instructed to have device shut off --Does patient have Pacemaker or ICD? When Was Last Pacemaker Check QUESTION #4 FULL TEXT: You/Your Family Experience fever (hyperthermia) with Anesthesia Last Oral Intake Last Oral intake: Last Oral Intake NPO since Meds taken in AM with sips of water? Meds patient instructed to take am of surgery PONV PONV - cma: PONV - cma Female No 06/28/24 10:10 HX of Motion Sickness No 06/28/24 10:10 HX of N/V After Surgery No 06/28/24 10:10 Non-Smoker Yes 06/28/24 10:10 Duration of Surgery greater Yes 06/28/24 10:10 than 60 minutes Number of Risk Factors 2 06/28/24 10:10 PONV Score Moderate Risk 06/28/24 10:10 Height Weight Height Weight: Anesthesia: Height Weight Height 5 ft 7 in 09/08/23 13:11 Respiratory Assessment Respiratory Assessment - cma: Respiratory Tract Infection Hx - cma Hx Respiratory Tract Infection No 06/28/24 10:10 STOP Sleep Apnea STOP Sleep Apnea - cma: STOP Sleep Apnea - cma Hx Hypertension Yes: CONTROLLED ON MED 06/28/24 10:10 Hx Sleep Apnea No 06/28/24 10:10 CPAP BIPAP Do you snore loudly (louder No 06/28/24 10:10 than talking or can be heard Do you often feel tired/ No 06/28/24 10:10 fatigued/ sleepy during daytime? Has anyone observed you stop No 06/28/24 10:10 breathing during sleep? STOP Results Negative 06/28/24 10:10 QUESTION #5 FULL TEXT : Do you snore loudly (louder than talking or can be heard through closed doors)? 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 Specify any problems Hx of Preganancy in last 3 N/A 06/28/24 10:10 Months Nurse Filling Out Transfusion VCHRISTIN 06/28/24 10:10 Questions: Date: 06/28/24 06/28/24 10:10 Time: 10:11 06/28/24 10:10 Patient unable to answer at this time (ie. confused, unrespo /Reproductio n History /Reproductiv e History - cma: /Reproductiv e Hx- cma Hx Now Gestational Age (in weeks): EDC: Hx Hx Para [facility] History (Updated 06/28/24 @ 10:09 by Laurie Sutherland) Wears glasses Alcohol use Anemia Non-smoker History of echocardiogram History of stress test History of irregular heartbeat HTN (hypertension) Heart murmur Home Medications ???Medication ???Instructions ???Recorded ???Last Taken ???Type ergocalciferol (vitamin D2) 50 mcg 50 mcg PO DAILY 05/30/21 Unknown History (2,000 unit) capsule hydrochlorothiazide 25 mg tablet 25 mg PO DAILY 05/30/21 Unknown Hi story lisinopril 20 mg tablet 20 mg PO BID 09/17/21 Unknown Hist ory Allergy/AdvReac Type Severity Reaction Status Date / Time Penicillins Allergy Other Verified 06/28/24 09:59 Family History Grandfather Myocardial infarction Mother Myocardial infarction CVA (cerebral vascular accident) Father Heart disease Surgical History H/O adenoidectomy Hx of tonsi (more content not included)... Normal [facility] 12 Lead EKGon 06-29-2024 12 Lead EKG [facility] Cardi[facility] [address] [place] [address] 12 Lead EKG 06/29/24 1250 MR#: [id number] Acct: [id number] Name: KRIS MORA Rep #: [id number] : 1960 64 From: Rudy Pickens MD Attending Dr: Dr. Lev Sarah MD Status: PRE PAC Ordering Dr: Leoncio Loya MD Date: 06/29/24 Location: [facility] Sex: M C Admitted: Test Reason : PRE OP Blood Pressure : */* mmHG Vent. Rate : 76 BPM Atrial Rate : 76 BPM P-R Int : 190 ms QRS Dur : 98 ms QT Int : 380 ms P-R-T Axes : 67 47 30 degrees QTcB Int : 427 ms Normal sinus rhythm Normal ECG Confirmed by Rudy Pickens ([id number]), loan expeditor LAN GAMINO ([id number]) on 06/30/2024 6:56:29 AM Referred By: Lev Sarah Confirmed By: Rudy Pickens 06/30/24 0656 Date Rudy Pickens MD CC: Dr. Lev Sarah MD; Dr. Leoncio Loya MD; Dr. Sven Cotter MD Signed Normal [facility] Basic Metabolic Profile (BMP )on 06-29-2024 BUN/CRE 21.3 RATIO High 10-20 [facility] Comment on above: Performed By: #### L 500.2500 #### [facility] [address] [place], [address] CA,Total 9.6 mg/dL Normal 8.5-10.1 [facility] Comment on above: Performed By: #### L [id number] #### [facility] [address] [place], [address] Chloride [Moles/Vol] 104 mmol/L Normal 98-107 [facility] Comment on above: Performed By: #### L [id number] #### [facility] [address] [place], [address] CO2 [Moles/Vol] 27.0 mmol/L Normal 21.0-32.0 [facility] Comment on above: Performed By: #### L [id number] #### [facility] [address] [place], [address] Creatinine [Mass/Vol] 1.22 mg/dL Normal 0.70-1.30 [facility] Comment on above: Result Comment: The validity of the calculated GFR GFRAA in patients over 70 years has not been determined. Clinical correlation is essential. Performed By: #### L 500.2500 #### [facility] [address] [place], [address] EST GFR - AA 77 mL/min Normal >60 [facility] Comment on above: Result Comment: Afri can [place] GFR Calc Performed By: #### L [id number] #### [facility] [address] [place], [address] GAP 8 Normal 5-15 [facility] Comment on above: Performed By: #### L [id number] #### [facility] [address] [place], [address] GFR/1.73 sq M.predicted among non-blacks MDRD (S/P/Bld) [Vol rate/Area] 64 mL/min/{1.73_m2} Normal >60 [facility] Comment on above: Result Comment: Non- GFR Calc Performed By: #### L 500.2500 #### [facility] [address] [place], [address] Glucose [Mass/Vol] 88 mg/dL Normal 74-106 [facility] Comment on above: Performed By: #### L [id number] #### [facility] [address] [place], [address] Potassium [Moles/Vol] 3.5 mmol/L Normal 3.5-5.1 [facility] Comment on above: Performed By: #### L [id number] #### [facility] [address] [place], [address] Sodium [Moles/Vol] 138 mmol/L Normal 136-145 [facility] Comment on above: Performed By: #### L [id number] #### [facility] [address] [place], [address] Urea nitrogen [Mass/Vol] 26 mg/dL High 7-18 [facility] Comment on above: Performed By: #### L [id number] #### [facility] [address] [place], [address] Blood urea nitrogen (BUN)/cr eatinine ratioOrdered By: Lev Sarah on 06-29-2024 Urea nitrogen/Creatinine [Mass ratio] 21.3 mg/mg High 10-20 [facility] Carbon dioxide measurementOr dered By: Lev Sarah on 06-29-2024 CO2 [Moles/Vol] 27.0 mmol/L 21.0-32.0 [facility] Chloride measurementOrdered By: Lev Sarah on 06-29-2024 Chloride [Moles/Vol] 104 mmol/L 98-107 [facility] Estimated glomerular filtrat ion rate (GFR) AmericanOrdered By: Lev Sarah on 06-29-2024 Estimated GFR (MDRD) Amer 77 mL/min >60 [facility] Comment on above: GFR Calc Glomerular filtration rate ( GFR) estimationOrdered By: Lev Sarah on 06-29-2024 Estimated GFR (MDRD) Non-Af Amer 64 mL/min >60 [facility] Comment on above: Non- GFR Calc Glucose measurementOrdered B y: Lev Sarah on 06-29-2024 Glucose [Mass/Vol] 88 mg/dL 74-106 [facility] Potassium measurementOrdered By: Lev Sarah on 06-29-2024 Potassium [Moles/Vol] 3.5 mmol/L 3.5-5.1 [facility] Serum anion gap measurementO rdered By: Lev Sarah on 06-29-2024 Anion gap [Moles/Vol] 8 mmol/L 5-15 [facility] Serum or plasma calcium elaine urement (mass/volume)Ordered By: Lev Sarah on 06-29-2024 Calcium [Mass/Vol] 9.6 mg/dL 8.5-10.1 [facility] Serum or plasma creatinine m easurement (mass/volume)Ordered By: Lev Sarah on 06-29-2024 Creatinine [Mass/Vol] 1.22 mg/dL 0.70-1.30 [facility] Comment on above: The validity of the calculated GFR & GFRAA in patients over 70 years has not been determined. Clinical correlation is essential. Serum or plasma urea nitroge n measurement (mass/volume)Ordered By: Lev Sarah on 06-29-2024 Urea nitrogen [Mass/Vol] 26 mg/dL High 7-18 [facility] Sodium levelOrdered By: Greg lakshmidiana Sarah on 06-29-2024 Sodium [Moles/Vol] 138 mmol/L 136-145 [facility] Absolute lymphocyte countOrd ered By: Sven Cotter on 06-26-2023 Lymphocytes Auto (Unsp spec) [#/Vol] 1.38 10*3/uL 0.83-4.51 [facility] Automated lymphocyte count a s percentage of total leukocytesOrdered By: Sven Cotter on 06-26-2023 Lymphocytes/100 WBC Auto (Unsp spec) 31.5 % 19-41 [facility] Basophil percentageOrdered B y: Sven Cotter on 06-26-2023 Basophil percentage 0 SEEN /hpf 0-5 [facility] Basophils/100 WBC (Bld) 0.7 % 0-1 [facility] Bilirubin [Mass/Vol] 1.00 mg/dL 0.20-1.00 [facility] Comment on above: For patients on eltr ombopag therapy, use of Dimension [place] TBIL is not recommended. Chloride [Moles/Vol] 101 mmol/L 98-107 [facility] Cholesterol [Mass/Vol] 191 mg/dL <200 [facility] Comment on above: <200 mg/dL Desirable 200-240 mg/dL Borderline >240 mg/dL High Risk Eosinophils/100 WBC (Bld) 0.7 % 0-5 [facility] Glucose [Mass/Vol] 74 mg/dL 74-106 [facility] Hemoglobin (Bld) [Mass/Vol] 12.5 g/dL 13.0-16.5 [facility] Monocytes/100 WBC (Bld) 9.6 % 0-10 [facility] Neutrophils (Bld) [#/Vol] 2.5 10*3/uL 2.0-7.7 [facility] Neutrophils/100 WBC (Bld) 57.5 % 47-70 [facility] Potassium [Moles/Vol] 4.0 mmol/L 3.5-5.1 [facility] Protein [Mass/Vol] 7.3 g/dL 6.4-8.2 [facility] Sodium [Moles/Vol] 138 mmol/L 136-145 [facility] Triglyceride [Mass/Vol] 58 mg/dL <199 [facility] Comment on above: The drugs N-Acetylcy steine and Metamizole may falsely depress this assay.Serum Triglycerides Reference Interval Normal <150 mg/dL Borderline high 150 - 199 mg/dL High 200 - 499 mg/dL Very High > or = 500 mg/dL WBC (Bld) [#/Vol] 4.4 10*3/uL 4.4-11.0 [facility] Bilirubin Test strip Ql (U)O rdered By: Sven Cotter on 06-26-2023 Bilirubin Ql (U) Negative Negative [facility] Determination of erythrocyte mean corpuscular volume (MCV)Ordered By: Sven Cotter on 06-26-2023 MCV (RBC) [Entitic vol] 93.4 fL 80-94 [facility] Erythrocyte distribution wid th ratioOrdered By: Sven Cotter on 06-26-2023 Erythrocyte distribution width (RBC) [Ratio] 12.7 % 11.6-14.6 [facility] Erythrocyte distribution wid th standard deviationOrdered By: Sven Cotter on 06-26-2023 Erythrocyte distribution width (RBC) [Entitic vol] 43.5 fL 35.1-43.9 [facility] Hematocrit Auto (Bld) [Volum e fraction]Ordered By: Sven Cotter on 06-26-2023 Hematocrit (Bld) [Volume fraction] 38.4 % 40-54 [facility] Immature granulocytes/100 WB C Auto (Bld)Ordered By: Sven Cotter on 06-26-2023 Immature granulocytes/100 WBC (Bld) 0.000 % 0.0-0.9 [facility] Comment on above: IG% - Immature Granu locytes (promyelocytes, myelocytes and metamyelocytes) > 1% indicates that a LEFT SHIFT is Present. Iron measurement (mass/mass) Ordered By: Sven Cotter on 06-26-2023 Iron (Unsp spec) [Mass/Mass] 92 ug/dL 65-175 [facility] Ketones Test strip Ql (U)Ord ered By: Sven Cotter on 06-26-2023 Ketones Ql (U) 50 mg/dl Negative [facility] Laboratory - Chemistry and C hemistry - challengeOrdered By: Sven Cotter on 06-26-2023 Albumin/Globulin [Mass ratio] 1.4 {ratio} 0.9-2.4 [facility] ALP [Catalytic activity/Vol] 37 U/L 45-117 [facility] ALT [Catalytic activity/Vol] 34 U/L 16-61 [facility] Cholesterol in HDL [Mass/Vol] 76 mg/dL >40 [facility] Comment on above: The drugs N-Acetylcy steine and Metamizole may falsely depress this assay. Reference Range HDL <40 mg/dL Low HDL Cholesterol HDL >or= 60 mg/dL High HDL Cholesterol Cholesterol in LDL [Mass/Vol] 103 mg/dL 0-130 [facility] CO2 [Moles/Vol] 27.0 mmol/L 21.0-32.0 [facility] Ferritin [Mass/Vol] 287 ng/mL 26-388 [facility] Globulin (S) [Mass/Vol] 3.1 g/dL 2.2-4.2 [facility] Urea nitrogen/Creatinine [Mass ratio] 14.3 mg/mg 10-20 [facility] - Hematology and Cell countsOrdered By: Sven Cotter on 06-26-2023 MCH (RBC) [Entitic mass] 30.4 pg 27.0-32.0 [facility] MCHC (RBC) [Mass/Vol] 32.6 g/dL 32-36 [facility] Nucleated RBC/100 WBC (Bld) [Ratio] 0 % 0-5 [facility] Platelet mean volume (Bld) [Entitic vol] 12.1 fL 6.2-12.0 [facility] Platelets (Bld) [#/Vol] 232 10*3/uL 150-450 [facility] Mucus LM Ql (Urine sed)Order ed By: Sven Cotter on 06-26-2023 Mucus Ql (Urine sed) 0 SEEN /hpf [facility] Nitrite Test strip Ql (U)Ord ered By: Sven Cotter on 06-26-2023 Nitrite Ql (U) Negative Negative [facility] No Panel InformationOrdered By: Sven Cotter on 06-26-2023 Urine RBC 0 SEEN /hpf 0-5 [facility] Estimated GFR (MDRD) Amer 80 mL/min >60 [facility] Comment on above: GFR Calc Estimated GFR (MDRD) Non-Af Amer 66 mL/min >60 [facility] Comment on above: Non- GFR Calc Prostate Specific Antigen Screen 3.96 ng/mL 0.00-4.00 [facility] Comment on above: This test was perfor med using the TPSA assay method for theDuolingo chemistry system. Values obtained with differentassay methods cannot be used interchangably.When changing PSA assays in the course of monitoring apatient, additional sequential testing should be carriedout to confirm baseline values. Total Iron Binding Capacity 277 ug/dL 250-450 [facility] Vitamin D 25-Hydroxy 51.3 ng/mL [facility] Comment on above: Vitamin D 25(OH) Sta tus Range Deficiency <20 ng/mL (50nmol/L) Insufficiency 20 - 30 ng/mL (50 - 75 nmol/L) Sufficiency 30 - 100 ng/mL (75 - 250 nmol/L) Toxicity >100 ng/mL (>250 nmol/L) VLDL Cholesterol 12 mg/dL 5-40 [facility] Protein Test strip Ql (U)Ord ered By: Sven Cotter on 06-26-2023 Protein Ql (U) Negative Negative [facility] RBC Auto (Bld) [#/Vol]Ordere d By: Sven Cotter on 06-26-2023 RBC (Bld) [#/Vol] 4.11 10*6/uL 4.6-6.2 [facility] Serum or plasma calcium elaine urement (mass/volume)Ordered By: Sven Cotter on 06-26-2023 Calcium [Mass/Vol] 9.7 mg/dL 8.5-10.1 [facility] Serum or plasma creatinine m easurement (mass/volume)Ordered By: Sven Cotter on 06-26-2023 Creatinine [Mass/Vol] 1.19 mg/dL 0.70-1.30 [facility] Comment on above: The validity of the calculated GFR & GFRAA in patients over 70 years has not been determined. Clinical correlation is essential. Serum or plasma thyroid stim ulating hormone (TSH) measurement (units/volume)Ordered By: Sven Cotter on 06-26-2023 TSH Qn 0.78 uIU/mL 0.358-3.74 [facility] Serum or plasma urea nitroge n measurement (mass/volume)Ordered By: Sven Cotter on 06-26-2023 Urea nitrogen [Mass/Vol] 17 mg/dL 7-18 [facility] Squamous epithelial cells de tection in urine sediment by light microscopyOrdered By: Sven Cotter on 06-26-2023 Epithelial cells.squamous LM Ql (Urine sed) 0 SEEN /hpf 0-5 [facility] Thin prep Papanicolaou smear with manual screeningOrdered By: Sven Cotter on 06-26-2023 Thin prep Papanicolaou smear with manual screening 4.2 g/dL 3.2-5.0 [facility] Thin prep Papanicolaou smear with manual screening 16 U/L 15-37 [facility] Thin prep Papanicolaou smear with manual screening 10 5-15 [facility] Urine blood detectionOrdered By: Sven Cotter on 06-26-2023 RBC Ql (U) Negative Negative [facility] Urine clarityOrdered By: Sumit Cotter on 06-26-2023 Clarity (U) Clear Clear [facility] Urine color determinationOrd ered By: Sven Cotter on 06-26-2023 Color (U) Yellow Yellow [facility] Urine glucose detectionOrder ed By: Sven Cotter on 06-26-2023 Glucose Ql (U) Normal mg/dl Normal [facility] Urine leukocyte esterase det ection by dipstickOrdered By: Sven Cotter on 06-26-2023 Leukocyte esterase Test strip Ql (U) Negative Negative [facility] Urine pHOrdered By: Sven myers on 06-26-2023 pH (U) 5.0 [pH] 5.0 - 8.0 [facility] Urine sediment bacteria coun t by microscopy (number/high power field)Ordered By: Sven Cotter on 06-26-2023 Bacteria LM.HPF (Urine sed) [#/Area] 0 /[HPF] None Seen [facility] Urine specific gravity measu rementOrdered By: Sven Cotter on 06-26-2023 Specific gravity (U) [Rel density] 1.020 1.002-1.030 [facility] Urine urobilinogen measureme ntOrdered By: Sven Cotter on 06-26-2023 Urobilinogen Ql (U) Normal mg/dl Normal [facility] Absolute lymphocyte countOrd ered By: Dr. Cotter on 07-02-2022 Lymphocytes Auto (Unsp spec) [#/Vol] 1.07 10*3/uL 0.83-4.51 [facility] Basophil percentageOrdered B y: Dr. Cotter on 07-02-2022 Basophils/100 WBC (Bld) 0.7 % 0-1 [facility] Eosinophils/100 WBC (Bld) 1.1 % 0-5 [facility] Neutrophils (Bld) [#/Vol] 3.0 10*3/uL 2.0-7.7 [facility] Neutrophils/100 WBC (Bld) 65.9 % 47-70 [facility] WBC (Bld) [#/Vol] 4.6 10*3/uL 4.4-11.0 [facility] Blood erythrocytes count (nu mber/volume)Ordered By: Dr. Cotter on 07-02-2022 RBC (Bld) [#/Vol] 4.24 10*6/uL 4.6-6.2 [facility] Blood hemoglobin measurement (mass/volume)Ordered By: Dr. Cotter on 07-02-2022 Hemoglobin (Bld) [Mass/Vol] 12.9 g/dL 13.0-16.5 [facility] Blood lymphocytes/100 leukoc ytesOrdered By: Dr. Cotter on 07-02-2022 Lymphocytes/100 WBC (Bld) 23.2 % 19-41 [facility] Blood monocytes/100 leukocyt esOrdered By: Dr. Cotter on 07-02-2022 Monocytes/100 WBC (Bld) 8.9 % 0-10 [facility] Blood platelet mean volumeOr dered By: Dr. Cotter on 07-02-2022 Platelet mean volume (Bld) [Entitic vol] 11.5 fL 6.2-12.0 [facility] Determination of erythrocyte mean corpuscular volume (MCV)Ordered By: Dr. Cotter on 07-02-2022 MCV (RBC) [Entitic vol] 94.8 fL 80-94 [facility] Hematocrit Auto (Bld) [Volum e fraction]Ordered By: Dr. Cotter on 07-02-2022 Hematocrit (Bld) [Volume fraction] 40.2 % 40-54 [facility] - Hematology and Cell countsOrdered By: Dr. Cotter on 07-02-2022 Erythrocyte distribution width (RBC) [Entitic vol] 44.1 fL 35.1-43.9 [facility] Erythrocyte distribution width (RBC) [Ratio] 12.8 % 11.6-14.6 [facility] Immature granulocytes/100 WBC (Bld) 0.200 % 0.0-0.9 [facility] Comment on above: IG% - Immature Granu locytes (promyelocytes, myelocytes and metamyelocytes) > 1% indicates that a LEFT SHIFT is Present. MCH (RBC) [Entitic mass] 30.4 pg 27.0-32.0 [facility] Nucleated RBC/100 WBC (Bld) [Ratio] 0 % 0-5 [facility] MCHC Auto (RBC) [Mass/Vol]Or dered By: Dr. Cotter on 07-02-2022 MCHC (RBC) [Mass/Vol] 32.1 g/dL 32-36 [facility] Platelets bldOrdered By: Dr. Cotter on 07-02-2022 Platelets (Bld) [#/Vol] 234 10*3/uL 150-450 [facility] Serum or plasma ferritin ric surement (mass/volume)Ordered By: Dr. Cotter on 07-02-2022 Ferritin [Mass/Vol] 183 ng/mL 26-388 [facility] Absolute lymphocyte countOrd ered By: Dr. Cotter on 2022 Lymphocytes Auto (Unsp spec) [#/Vol] 0.99 10*3/uL 0.83-4.51 [facility] Basophil percentageOrdered B y: Dr. Cotter on 2022 Basophil percentage 0 SEEN /hpf 0-5 [facility] Basophils/100 WBC (Bld) 0.9 % 0-1 [facility] Bilirubin [Mass/Vol] 0.60 mg/dL 0.20-1.00 [facility] Comment on above: For patients on eltr ombopag therapy, use of Dimension [place] TBIL is not recommended. Chloride [Moles/Vol] 104 mmol/L 98-107 [facility] Cholesterol [Mass/Vol] 177 mg/dL <200 [facility] Comment on above: <200 mg/dL Desirable 200-240 mg/dL Borderline >240 mg/dL High Risk Eosinophils/100 WBC (Bld) 2.1 % 0-5 [facility] Glucose [Mass/Vol] 103 mg/dL 74-106 [facility] Comment on above: Fasting Glucose resu lt from 100 to 125 mg/dL suggests IMPAIRED HOMEOSTASIS per A.D.A. criteria. Neutrophils (Bld) [#/Vol] 1.8 10*3/uL 2.0-7.7 [facility] Neutrophils/100 WBC (Bld) 54.2 % 47-70 [facility] Potassium [Moles/Vol] 4.3 mmol/L 3.5-5.1 [facility] Protein [Mass/Vol] 6.8 g/dL 6.4-8.2 [facility] Sodium [Moles/Vol] 139 mmol/L 136-145 [facility] Triglyceride [Mass/Vol] 29 mg/dL <199 [facility] Comment on above: The drugs N-Acetylcy steine and Metamizole may falsely depress this assay.Serum Triglycerides Reference Interval Normal <150 mg/dL Borderline high 150 - 199 mg/dL High 200 - 499 mg/dL Very High > or = 500 mg/dL WBC (Bld) [#/Vol] 3.3 10*3/uL 4.4-11.0 [facility] Bilirubin Test strip Ql (U)O rdered By: Dr. Cotter on 2022 Bilirubin Ql (U) Negative Negative [facility] Blood erythrocytes count (nu mber/volume)Ordered By: Dr. Cotter on 2022 RBC (Bld) [#/Vol] 4.21 10*6/uL 4.6-6.2 [facility] Blood hemoglobin measurement (mass/volume)Ordered By: Dr. Cotter on 2022 Hemoglobin (Bld) [Mass/Vol] 13.2 g/dL 13.0-16.5 [facility] Blood lymphocytes/100 leukoc ytesOrdered By: Dr. Cotter on 2022 Lymphocytes/100 WBC (Bld) 30.3 % 19-41 [facility] Blood monocytes/100 leukocyt esOrdered By: Dr. Cotter on 2022 Monocytes/100 WBC (Bld) 12.2 % 0-10 [facility] Blood platelet mean volumeOr dered By: Dr. Cotter on 2022 Platelet mean volume (Bld) [Entitic vol] 11.8 fL 6.2-12.0 [facility] Determination of erythrocyte mean corpuscular volume (MCV)Ordered By: Dr. Cotter on 2022 MCV (RBC) [Entitic vol] 94.1 fL 80-94 [facility] Hematocrit Auto (Bld) [Volum e fraction]Ordered By: Dr. Cotter on 2022 Hematocrit (Bld) [Volume fraction] 39.6 % 40-54 [facility] Iron measurement (mass/mass) Ordered By: Dr. Cotter on 2022 Iron (Unsp spec) [Mass/Mass] 66 ug/dL 65-175 [facility] Ketones Test strip Ql (U)Ord ered By: Dr. Cotter on 2022 Ketones Ql (U) Negative Negative [facility] Laboratory - Chemistry and C hemistry - challengeOrdered By: Dr. Cotter on 2022 ALP [Catalytic activity/Vol] 39 U/L 45-117 [facility] ALT [Catalytic activity/Vol] 38 U/L 16-61 [facility] CO2 [Moles/Vol] 30.0 mmol/L 21.0-32.0 [facility] Globulin (S) [Mass/Vol] 2.9 g/dL 2.2-4.2 [facility] Urea nitrogen/Creatinine [Mass ratio] 20.5 mg/mg 10-20 [facility] - Hematology and Cell countsOrdered By: Dr. Cotter on 2022 Erythrocyte distribution width (RBC) [Entitic vol] 44.7 fL 35.1-43.9 [facility] Erythrocyte distribution width (RBC) [Ratio] 12.9 % 11.6-14.6 [facility] Immature granulocytes/100 WBC (Bld) 0.300 % 0.0-0.9 [facility] Comment on above: IG% - Immature Granu locytes (promyelocytes, myelocytes and metamyelocytes) > 1% indicates that a LEFT SHIFT is Present. MCH (RBC) [Entitic mass] 31.4 pg 27.0-32.0 [facility] Nucleated RBC/100 WBC (Bld) [Ratio] 0 % 0-5 [facility] MCHC Auto (RBC) [Mass/Vol]Or dered By: Dr. Cotter on 2022 MCHC (RBC) [Mass/Vol] 33.3 g/dL 32-36 [facility] Mucus LM Ql (Urine sed)Order ed By: Dr. Cotter on 2022 Mucus Ql (Urine sed) 0 SEEN /hpf [facility] Nitrite Test strip Ql (U)Ord ered By: Dr. Cotter on 2022 Nitrite Ql (U) Negative Negative [facility] No Panel InformationOrdered By: Dr. Cotter on 2022 Estimated GFR (MDRD) Amer 82 mL/min >60 [facility] Comment on above: GFR Calc Estimated GFR (MDRD) Non-Af Amer 67 mL/min >60 [facility] Comment on above: Non- GFR Calc Thyroid Stimulating Hormone (TSH) 1.14 uIU/mL 0.358-3.74 [facility] Total Iron Binding Capacity 296 ug/dL 250-450 [facility] Vitamin D 25-Hydroxy 50.0 ng/mL [facility] Comment on above: Vitamin D 25(OH) Sta tus Range Deficiency <20 ng/mL (50nmol/L) Insufficiency 20 - 30 ng/mL (50 - 75 nmol/L) Sufficiency 30 - 100 ng/mL (75 - 250 nmol/L) Toxicity >100 ng/mL (>250 nmol/L) Platelets bldOrdered By: Dr. Cotter on 2022 Platelets (Bld) [#/Vol] 239 10*3/uL 150-450 [facility] Protein Test strip Ql (U)Ord ered By: Dr. Cotter on 2022 Protein Ql (U) Negative Negative [facility] Serum or plasma albumin elaine urement (mass/volume)Ordered By: Dr. Cotter on 2022 Albumin [Mass/Vol] 3.9 g/dL 3.2-5.0 [facility] Serum or plasma albumin/glob ulin mass ratioOrdered By: Dr. Cotter on 2022 Albumin/Globulin [Mass ratio] 1.3 {ratio} 0.9-2.4 [facility] Serum or plasma calcium elaine urement (mass/volume)Ordered By: Dr. Cotter on 2022 Calcium [Mass/Vol] 9.3 mg/dL 8.5-10.1 [facility] Serum or plasma cholesterol in HDL measurement (mass/volume)Ordered By: Dr. Cotter on 2022 Cholesterol in HDL [Mass/Vol] 88 mg/dL >40 [facility] Comment on above: The drugs N-Acetylcy steine and Metamizole may falsely depress this assay. Reference Range HDL <40 mg/dL Low HDL Cholesterol HDL >or= 60 mg/dL High HDL Cholesterol Serum or plasma cholesterol in VLDL measurement (mass/volume)Ordered By: Dr. Cotter on 2022 Cholesterol in VLDL [Mass/Vol] 6 mg/dL 5-40 [facility] Serum or plasma creatinine m easurement (mass/volume)Ordered By: Dr. Cotter on 2022 Creatinine [Mass/Vol] 1.17 mg/dL 0.70-1.30 [facility] Comment on above: The validity of the calculated GFR & GFRAA in patients over 70 years has not been determined. Clinical correlation is essential. Serum or plasma ferritin ric surement (mass/volume)Ordered By: Dr. Cotter on 2022 Ferritin [Mass/Vol] 168 ng/mL 26-388 [facility] Serum or plasma low density lipoprotein (LDL) cholesterol measurement (mass/volume)Ordered By: Dr. Cotter on 2022 Cholesterol in LDL [Mass/Vol] 83 mg/dL 0-130 [facility] Serum or plasma urea nitroge n measurement (mass/volume)Ordered By: Dr. Cotter on 2022 Urea nitrogen [Mass/Vol] 24 mg/dL 7-18 [facility] Squamous epithelial cells de tection in urine sediment by light microscopyOrdered By: Dr. Cotter on 2022 Epithelial cells.squamous LM Ql (Urine sed) 0 SEEN /hpf 0-5 [facility] Thin prep Papanicolaou smear with manual screeningOrdered By: Dr. Cotter on 2022 Thin prep Papanicolaou smear with manual screening 20 U/L 15-37 [facility] Thin prep Papanicolaou smear with manual screening 5 5-15 [facility] Urine blood detectionOrdered By: Dr. Cotter on 2022 RBC Ql (U) Negative Negative [facility] RBC Ql (U) 0 SEEN /hpf 0-5 [facility] Urine clarityOrdered By: Dr. Cotter on 2022 Clarity (U) Clear Clear [facility] Urine color determinationOrd ered By: Dr. Cotter on 2022 Color (U) Yellow Yellow [facility] Urine glucose detectionOrder ed By: Dr. Cotter on 2022 Glucose Ql (U) Normal mg/dl Normal [facility] Urine leukocyte esterase det ection by dipstickOrdered By: Dr. Cotter on 2022 Leukocyte esterase Test strip Ql (U) Negative Negative [facility] Urine pHOrdered By: Dr. William villa on 2022 pH (U) 6.0 [pH] 5.0 - 8.0 [facility] Urine sediment bacteria coun t by microscopy (number/high power field)Ordered By: Dr. Cotter on 2022 Bacteria LM.HPF (Urine sed) [#/Area] 0 /[HPF] None Seen [facility] Urine specific gravity measu rementOrdered By: Dr. Cotter on 2022 Specific gravity (U) [Rel density] 1.020 1.002-1.030 [facility] Urobilinogen Auto test strip Ql (U)Ordered By: Dr. Cotter on 2022 Urobilinogen Ql (U) Normal mg/dl Normal [facility] Absolute lymphocyte counton 01-23-2022 Lymphocytes Auto (Unsp spec) [#/Vol] 1.20 10*3/uL 0.83-4.51 [facility] Work Phone: Basophil percentageon 2021 Basophil percentage 0 SEEN /hpf 0-5 [facility] Work Phone: Basophils/100 WBC (Bld) 0.6 % 0-1 [facility] Work Phone: Bilirubin [Mass/Vol] 0.50 mg/dL 0.20-1.00 [facility] Work Phone: Comment on above: For patients on eltr ombopag therapy, use of Dimension [place] TBIL is not recommended. Chloride [Moles/Vol] 107 mmol/L 98-107 [facility] Work Phone: Cholesterol [Mass/Vol] 185 mg/dL <200 [facility] Work Phone: Comment on above: <200 mg/dL Desirable 200-240 mg/dL Borderline >240 mg/dL High Risk Eosinophils/100 WBC (Bld) 0.8 % 0-5 [facility] Work Phone: Glucose [Mass/Vol] 101 mg/dL 74-106 [facility] Work Phone: Comment on above: Fasting Glucose resu lt from 100 to 125 mg/dL suggests IMPAIRED HOMEOSTASIS per A.D.A. criteria. Neutrophils (Bld) [#/Vol] 4.8 10*3/uL 2.0-7.7 [facility] Work Phone: Neutrophils/100 WBC (Bld) 73.1 % 47-70 [facility] Work Phone: Potassium [Moles/Vol] 4.1 mmol/L 3.5-5.1 [facility] Work Phone: Protein [Mass/Vol] 7.2 g/dL 6.4-8.2 [facility] Work Phone: Sodium [Moles/Vol] 140 mmol/L 136-145 [facility] Work Phone: Triglyceride [Mass/Vol] 50 mg/dL <199 [facility] Work Phone: Comment on above: The drugs N-Acetylcy steine and Metamizole may falsely depress this assay.Serum Triglycerides Reference Interval Normal <150 mg/dL Borderline high 150 - 199 mg/dL High 200 - 499 mg/dL Very High > or = 500 mg/dL WBC (Bld) [#/Vol] 6.5 10*3/uL 4.4-11.0 [facility] Work Phone: Bilirubin Test strip Ql (U)o n 01-23-2022 Bilirubin Ql (U) Negative Negative [facility] Work Phone: Blood erythrocytes count (nu mber/volume)on 01-23-2022 RBC (Bld) [#/Vol] 4.18 10*6/uL 4.6-6.2 [facility] Work Phone: Blood hemoglobin measurement (mass/volume)on 01-23-2022 Hemoglobin (Bld) [Mass/Vol] 12.5 g/dL 13.0-16.5 [facility] Work Phone: Blood lymphocytes/100 leukoc yteson 01-23-2022 Lymphocytes/100 WBC (Bld) 18.3 % 19-41 [facility] Work Phone: Blood monocytes/100 leukocyt eson 01-23-2022 Monocytes/100 WBC (Bld) 6.9 % 0-10 [facility] Work Phone: Blood platelet mean volumeon 01-23-2022 Platelet mean volume (Bld) [Entitic vol] 11.2 fL 6.2-12.0 [facility] Work Phone: Determination of erythrocyte mean corpuscular volume (MCV)on 01-23-2022 MCV (RBC) [Entitic vol] 93.8 fL 80-94 [facility] Work Phone: Hematocrit Auto (Bld) [Volum e fraction]on 01-23-2022 Hematocrit (Bld) [Volume fraction] 39.2 % 40-54 [facility] Work Phone: Iron measurement (mass/mass) on 01-23-2022 Iron (Unsp spec) [Mass/Mass] 80 ug/dL 65-175 [facility] Work Phone: Ketones Test strip Ql (U)on 01-23-2022 Ketones Ql (U) Negative Negative [facility] Work Phone: Laboratory - Chemistry and C hemistry - challengeon 01-23-2022 ALP [Catalytic activity/Vol] 38 U/L 45-117 [facility] Work Phone: ALT [Catalytic activity/Vol] 40 U/L 16-61 [facility] Work Phone: CO2 [Moles/Vol] 27.0 mmol/L 21.0-32.0 [facility] Work Phone: Globulin (S) [Mass/Vol] 3.4 g/dL 2.2-4.2 [facility] Work Phone: Urea nitrogen/Creatinine [Mass ratio] 21.4 mg/mg 10-20 [facility] Work Phone: Laboratory - Hematology and Cell countson 01-23-2022 Erythrocyte distribution width (RBC) [Entitic vol] 50.9 fL 35.1-43.9 [facility] Work Phone: Erythrocyte distribution width (RBC) [Ratio] 14.7 % 11.6-14.6 [facility] Work Phone: Immature granulocytes/100 WBC (Bld) 0.300 % 0.0-0.9 [facility] Work Phone: Comment on above: IG% - Immature Granu locytes (promyelocytes, myelocytes and metamyelocytes) > 1% indicates that a LEFT SHIFT is Present. MCH (RBC) [Entitic mass] 29.9 pg 27.0-32.0 [facility] Work Phone: Nucleated RBC/100 WBC (Bld) [Ratio] 0 % 0-5 [facility] Work Phone: MCHC Auto (RBC) [Mass/Vol]on 01-23-2022 MCHC (RBC) [Mass/Vol] 31.9 g/dL 32-36 [facility] Work Phone: Mucus LM Ql (Urine sed)on Mucus Ql (Urine sed) 0 SEEN /hpf [facility] Work Phone: Nitrite Test strip Ql (U)on 01-23-2022 Nitrite Ql (U) Negative Negative [facility] Work Phone: No Panel Informationon 01-23 Estimated GFR (MDRD) Amer 86 mL/min >60 [facility] Work Phone: Comment on above: GFR Calc Estimated GFR (MDRD) Non-Af Amer 71 mL/min >60 [facility] Work Phone: Comment on above: Non- GFR Calc Prostate Specific Antigen Screen 2.57 ng/mL 0.00-4.00 [facility] Work Phone: Comment on above: This test was perfor med using the TPSA assay method for the[facility] chemistry [facility]. Values obtained with differentassay methods cannot be used interchangably.When changing PSA assays in the course of monitoring apatient, additional sequential testing should be carriedout to confirm baseline values. Total Iron Binding Capacity 323 ug/dL 250-450 [facility] Work Phone: Platelets bldon 01-23-2022 Platelets (Bld) [#/Vol] 313 10*3/uL 150-450 [facility] Work Phone: Protein Test strip Ql (U)on 01-23-2022 Protein Ql (U) Negative Negative [facility] Work Phone: Serum or plasma albumin elaine urement (mass/volume)on 01-23-2022 Albumin [Mass/Vol] 3.8 g/dL 3.2-5.0 [facility] Work Phone: Serum or plasma albumin/glob ulin mass ratioon 01-23-2022 Albumin/Globulin [Mass ratio] 1.1 {ratio} 0.9-2.4 [facility] Work Phone: Serum or plasma calcium elaine urement (mass/volume)on 01-23-2022 Calcium [Mass/Vol] 9.3 mg/dL 8.5-10.1 [facility] Work Phone: Serum or plasma cholesterol in HDL measurement (mass/volume)on 01-23-2022 Cholesterol in HDL [Mass/Vol] 74 mg/dL >40 [facility] Work Phone: Comment on above: The drugs N-Acetylcy steine and Metamizole may falsely depress this assay. Reference Range HDL <40 mg/dL Low HDL Cholesterol HDL >or= 60 mg/dL High HDL Cholesterol Serum or plasma cholesterol in VLDL measurement (mass/volume)on 01-23-2022 Cholesterol in VLDL [Mass/Vol] 10 mg/dL 5-40 [facility] Work Phone: Serum or plasma creatinine m easurement (mass/volume)on 01-23-2022 Creatinine [Mass/Vol] 1.12 mg/dL 0.70-1.30 [facility] Work Phone: Comment on above: The validity of the calculated GFR & GFRAA in patients over 70 years has not been determined. Clinical correlation is essential. Serum or plasma ferritin ric surement (mass/volume)on 01-23-2022 Ferritin [Mass/Vol] 165 ng/mL 26-388 [facility] Work Phone: Serum or plasma low density lipoprotein (LDL) cholesterol measurement (mass/volume)on 01-23-2022 Cholesterol in LDL [Mass/Vol] 101 mg/dL 0-130 [facility] Work Phone: Serum or plasma urea nitroge n measurement (mass/volume)on 01-23-2022 Urea nitrogen [Mass/Vol] 24 mg/dL 7-18 [facility] Work Phone: Squamous epithelial cells de tection in urine sediment by light microscopyon 01-23-2022 Epithelial cells.squamous LM Ql (Urine sed) 0 SEEN /hpf 0-5 [facility] Work Phone: Thin prep Papanicolaou smear with manual screeningon 01-23-2022 Thin prep Papanicolaou smear with manual screening 21 U/L 15-37 [facility] Work Phone: Thin prep Papanicolaou smear with manual screening 6 5-15 [facility] Work Phone: Urine blood detectionon RBC Ql (U) Negative Negative [facility] Work Phone: RBC Ql (U) 0 SEEN /hpf 0-5 [facility] Work Phone: Urine clarityon 01-23-2022 Clarity (U) Clear Clear [facility] Work Phone: Urine color determinationon 01-23-2022 Color (U) Yellow Yellow [facility] Work Phone: Urine glucose detectionon Glucose Ql (U) Normal mg/dl Normal [facility] Work Phone: Urine leukocyte esterase det ection by dipstickon 01-23-2022 Leukocyte esterase Test strip Ql (U) Negative Negative [facility] Work Phone: Urine pHon 01-23-2022 pH (U) 5.0 [pH] 5.0 - 8.0 [facility] Work Phone: Urine sediment bacteria coun t by microscopy (number/high power field)on 01-23-2022 Bacteria LM.HPF (Urine sed) [#/Area] 0 /[HPF] None Seen [facility] Work Phone: Urine specific gravity measu rementon 01-23-2022 Specific gravity (U) [Rel density] 1.020 1.002-1.030 [facility] Work Phone: Urobilinogen Auto test strip Ql (U)on 01-23-2022 Urobilinogen Ql (U) Normal mg/dl Normal [facility] Work Phone: Absolute lymphocyte counton 12-06-2021 Lymphocytes Auto (Unsp spec) [#/Vol] 0.81 10*3/uL 0.83-4.51 [facility] Work Phone: [phone] Basophil percentageon 2021 Basophils/100 WBC (Bld) 0.4 % 0-1 [facility] Work Phone: Chloride [Moles/Vol] 103 mmol/L 98-107 [facility] Work Phone: Eosinophils/100 WBC (Bld) 1.0 % 0-5 [facility] Work Phone: Glucose [Mass/Vol] 99 mg/dL 74-106 [facility] Work Phone: [phone] Neutrophils (Bld) [#/Vol] 7.6 10*3/uL 2.0-7.7 [facility] Work Phone: Neutrophils/100 WBC (Bld) 80.5 % 47-70 [facility] Work Phone: Potassium [Moles/Vol] 3.5 mmol/L 3.5-5.1 [facility] Work Phone: Sodium [Moles/Vol] 137 mmol/L 136-145 [facility] Work Phone: [phone] WBC (Bld) [#/Vol] 9.5 10*3/uL 4.4-11.0 [facility] Work Phone: Blood erythrocytes count (nu mber/volume)on 12-06-2021 RBC (Bld) [#/Vol] 3.65 10*6/uL 4.6-6.2 [facility] Work Phone: Blood hemoglobin measurement (mass/volume)on 12-06-2021 Hemoglobin (Bld) [Mass/Vol] 10.7 g/dL 13.0-16.5 [facility] Work Phone: Blood lymphocytes/100 leukoc yteson 12-06-2021 Lymphocytes/100 WBC (Bld) 8.6 % 19-41 [facility] Work Phone: Blood monocytes/100 leukocyt eson 12-06-2021 Monocytes/100 WBC (Bld) 9.1 % 0-10 [facility] Work Phone: Blood platelet mean volumeon 12-06-2021 Platelet mean volume (Bld) [Entitic vol] 11.0 fL 6.2-12.0 [facility] Work Phone: Determination of erythrocyte mean corpuscular volume (MCV)on 12-06-2021 MCV (RBC) [Entitic vol] 92.1 fL 80-94 [facility] Work Phone: Hematocrit Auto (Bld) [Volum e fraction]on 12-06-2021 Hematocrit (Bld) [Volume fraction] 33.6 % 40-54 [facility] Work Phone: Iron measurement (mass/mass) on 12-06-2021 Iron (Unsp spec) [Mass/Mass] 30 ug/dL 65-175 [facility] Work Phone: Laboratory - Chemistry and C hemistry - challengeon 12-06-2021 CO2 [Moles/Vol] 29.0 mmol/L 21.0-32.0 [facility] Work Phone: Urea nitrogen/Creatinine [Mass ratio] 18.9 mg/mg 10-20 [facility] Work Phone: Laboratory - Hematology and Cell countson 12-06-2021 Erythrocyte distribution width (RBC) [Entitic vol] 43.5 fL 35.1-43.9 [facility] Work Phone: Erythrocyte distribution width (RBC) [Ratio] 13.0 % 11.6-14.6 [facility] Work Phone: Immature granulocytes/100 WBC (Bld) 0.400 % 0.0-0.9 [facility] Work Phone: Comment on above: IG% - Immature Granu locytes (promyelocytes, myelocytes and metamyelocytes) > 1% indicates that a LEFT SHIFT is Present. MCH (RBC) [Entitic mass] 29.3 pg 27.0-32.0 [facility] Work Phone: Nucleated RBC/100 WBC (Bld) [Ratio] 0 % 0-5 [facility] Work Phone: MCHC Auto (RBC) [Mass/Vol]on 12-06-2021 MCHC (RBC) [Mass/Vol] 31.8 g/dL 32-36 [facility] Work Phone: No Panel Informationon 12-06 Estimated GFR (MDRD) Amer 92 mL/min >60 [facility] Work Phone: Comment on above: GFR Calc Estimated GFR (MDRD) Non-Af Amer 76 mL/min >60 [facility] Work Phone: Comment on above: Non- GFR Calc Total Iron Binding Capacity 333 ug/dL 250-450 [facility] Work Phone: Platelets bldon 12-06-2021 Platelets (Bld) [#/Vol] 370 10*3/uL 150-450 [facility] Work Phone: Serum or plasma calcium elaine urement (mass/volume)on 12-06-2021 Calcium [Mass/Vol] 9.3 mg/dL 8.5-10.1 [facility] Work Phone: Serum or plasma creatinine m easurement (mass/volume)on 12-06-2021 Creatinine [Mass/Vol] 1.06 mg/dL 0.70-1.30 [facility] Work Phone: Comment on above: The validity of the calculated GFR & GFRAA in patients over 70 years has not been determined. Clinical correlation is essential. Serum or plasma ferritin ric surement (mass/volume)on 12-06-2021 Ferritin [Mass/Vol] 197 ng/mL 26-388 [facility] Work Phone: Serum or plasma urea nitroge n measurement (mass/volume)on 12-06-2021 Urea nitrogen [Mass/Vol] 20 mg/dL 7-18 [facility] Work Phone: Thin prep Papanicolaou smear with manual screeningon 12-06-2021 Thin prep Papanicolaou smear with manual screening 5 5-15 [facility] Work Phone: Basophil percentageon 2021 Cholesterol [Mass/Vol] 106 mg/dL <200 [facility] Work Phone: Comment on above: <200 mg/dL Desirable 200-240 mg/dL Borderline >240 mg/dL High Risk Glucose [Mass/Vol] 116 mg/dL 74-106 [facility] Work Phone: Comment on above: Fasting Glucose resu lt from 100 to 125 mg/dL suggests IMPAIRED HOMEOSTASIS per A.D.A. criteria. Triglyceride [Mass/Vol] 117 mg/dL <199 [facility] Work Phone: Comment on above: The drugs N-Acetylcy steine and Metamizole may falsely depress this assay.Serum Triglycerides Reference Interval Normal <150 mg/dL Borderline high 150 - 199 mg/dL High 200 - 499 mg/dL Very High > or = 500 mg/dL Serum or plasma cholesterol in HDL measurement (mass/volume)on 11-27-2021 Cholesterol in HDL [Mass/Vol] 21 mg/dL >40 [facility] Work Phone: Comment on above: The drugs N-Acetylcy steine and Metamizole may falsely depress this assay. Reference Range HDL <40 mg/dL Low HDL Cholesterol HDL >or= 60 mg/dL High HDL Cholesterol Serum or plasma cholesterol in VLDL measurement (mass/volume)on 11-27-2021 Cholesterol in VLDL [Mass/Vol] 23 mg/dL 5-40 [facility] Work Phone: Serum or plasma low density lipoprotein (LDL) cholesterol measurement (mass/volume)on 11-27-2021 Cholesterol in LDL [Mass/Vol] 62 mg/dL 0-130 [facility] Work Phone: Absolute lymphocyte counton 11-26-2021 Lymphocytes Auto (Unsp spec) [#/Vol] 0.74 10*3/uL 0.83-4.51 [facility] Work Phone: Basophil percentageon 2021 Basophils/100 WBC (Bld) 0.5 % 0-1 [facility] Work Phone: Eosinophils/100 WBC (Bld) 0.5 % 0-5 [facility] Work Phone: Neutrophils (Bld) [#/Vol] 6.3 10*3/uL 2.0-7.7 [facility] Work Phone: [phone] Neutrophils/100 WBC (Bld) 77.4 % 47-70 [facility] Work Phone: WBC (Bld) [#/Vol] 8.2 10*3/uL 4.4-11.0 [facility] Work Phone: Blood erythrocytes count (nu mber/volume)on 11-26-2021 RBC (Bld) [#/Vol] 3.43 10*6/uL 4.6-6.2 [facility] Work Phone: Blood hemoglobin measurement (mass/volume)on 11-26-2021 Hemoglobin (Bld) [Mass/Vol] 10.3 g/dL 13.0-16.5 [facility] Work Phone: Blood lymphocytes/100 leukoc yteson 11-26-2021 Lymphocytes/100 WBC (Bld) 9.1 % 19-41 [facility] Work Phone: Blood monocytes/100 leukocyt eson 11-26-2021 Monocytes/100 WBC (Bld) 12.3 % 0-10 [facility] Work Phone: Blood platelet mean volumeon 11-26-2021 Platelet mean volume (Bld) [Entitic vol] 13.2 fL 6.2-12.0 [facility] Work Phone: Determination of erythrocyte mean corpuscular volume (MCV)on 11-26-2021 MCV (RBC) [Entitic vol] 92.4 fL 80-94 [facility] Work Phone: Hematocrit Auto (Bld) [Volum e fraction]on 11-26-2021 Hematocrit (Bld) [Volume fraction] 31.7 % 40-54 [facility] Work Phone: Iron measurement (mass/mass) on 11-26-2021 Iron (Unsp spec) [Mass/Mass] 23 ug/dL 65-175 [facility] Work Phone: Laboratory - Chemistry and C hemistry - challengeon 11-26-2021 Cobalamin (Vitamin B12) [Mass/Vol] 252 pg/mL 211-911 [facility] Work Phone: Laboratory - Hematology and Cell countson 11-26-2021 Erythrocyte distribution width (RBC) [Entitic vol] 42.6 fL 35.1-43.9 [facility] Work Phone: Erythrocyte distribution width (RBC) [Ratio] 12.5 % 11.6-14.6 [facility] Work Phone: Immature granulocytes/100 WBC (Bld) 0.200 % 0.0-0.9 [facility] Work Phone: Comment on above: IG% - Immature Granu locytes (promyelocytes, myelocytes and metamyelocytes) > 1% indicates that a LEFT SHIFT is Present. MCH (RBC) [Entitic mass] 30.0 pg 27.0-32.0 [facility] Work Phone: Nucleated RBC/100 WBC (Bld) [Ratio] 0 % 0-5 [facility] Work Phone: MCHC Auto (RBC) [Mass/Vol]on 11-26-2021 MCHC (RBC) [Mass/Vol] 32.5 g/dL 32-36 [facility] Work Phone: No Panel Informationon 11-26 Total Iron Binding Capacity 274 ug/dL 250-450 [facility] Work Phone: Platelets bldon 11-26-2021 Platelets (Bld) [#/Vol] 303 10*3/uL 150-450 [facility] Work Phone: [phone] Serum or plasma ferritin ric surement (mass/volume)on 11-26-2021 Ferritin [Mass/Vol] 258 ng/mL 26-388 [facility] Work Phone: Serum or plasma folate measu rement (mass/volume)on 11-26-2021 Folate [Mass/Vol] 7.80 ng/mL 3.1-55.4 [facility] Work Phone: Absolute lymphocyte counton 11-20-2021 Lymphocytes Auto (Unsp spec) [#/Vol] 0.82 10*3/uL 0.83-4.51 [facility] Work Phone: Basophil percentageon 2021 Basophils/100 WBC (Bld) 0.6 % 0-1 [facility] Work Phone: Bilirubin [Mass/Vol] 0.80 mg/dL 0.20-1.00 [facility] Work Phone: Comment on above: For patients on eltr ombopag therapy, use of Dimension [place] TBIL is not recommended. Chloride [Moles/Vol] 104 mmol/L 98-107 [facility] Work Phone: Eosinophils/100 WBC (Bld) 0.8 % 0-5 [facility] Work Phone: [phone] Glucose [Mass/Vol] 87 mg/dL 74-106 [facility] Work Phone: Neutrophils (Bld) [#/Vol] 6.2 10*3/uL 2.0-7.7 [facility] Work Phone: Neutrophils/100 WBC (Bld) 78.4 % 47-70 [facility] Work Phone: Potassium [Moles/Vol] 3.1 mmol/L 3.5-5.1 [facility] Work Phone: Protein [Mass/Vol] 7.1 g/dL 6[facility]4-[facility]: Sodium [Moles/Vol] 140 mmol/L 136-145 [facility] Work Phone: WBC (Bld) [#/Vol] 7.8 10*3/uL 4.4-11.0 [facility] Work Phone: Blood erythrocytes count (nu mber/volume)on 11-20-2021 RBC (Bld) [#/Vol] 3.88 10*6/uL 4.6[facility] Phone: Blood hemoglobin measurement (mass/volume)on 11-20-2021 Hemoglobin (Bld) [Mass/Vol] 11.6 g/dL 13.0-16.5 [facility] Work Phone: Blood lymphocytes/100 leukoc yteson 11-20-2021 Lymphocytes/100 WBC (Bld) 10.5 % 19-41 [facility] Work Phone: Blood monocytes/100 leukocyt eson 11-20-2021 Monocytes/100 WBC (Bld) 9.2 % 0-10 [facility] Work Phone: Blood platelet mean volumeon 11-20-2021 Platelet mean volume (Bld) [Entitic vol] 11.8 fL 6.2-12.0 [facility] Work Phone: Determination of erythrocyte mean corpuscular volume (MCV)on 11-20-2021 MCV (RBC) [Entitic vol] 92.5 fL 80-94 [facility] Work Phone: Erythrocyte sedimentation ra ruth 11-20-2021 ESR (Bld) [Velocity] 20 mm/h 0-20 [facility] Work Phone: [phone] Hematocrit Auto (Bld) [Volum e fraction]on 11-20-2021 Hematocrit (Bld) [Volume fraction] 35.9 % 40-54 [facility] Work Phone: Interpretation of Borrelia b urgdorferi antibody assayon 11-20-2021 B. burgdorferi Ab (S) [Interp] REF LAB [facility] Work Phone: [phone] Laboratory - Chemistry and C hemistry - challengeon 11-20-2021 ALP [Catalytic activity/Vol] 55 U/L 45-117 [facility] Work Phone: [phone] ALT [Catalytic activity/Vol] 28 U/L 16-61 [facility] Work Phone: CO2 [Moles/Vol] 28.0 mmol/L 21.0-32.0 [facility] Work Phone: [phone] Globulin (S) [Mass/Vol] 3.6 g/dL 2.2-4.2 [facility] Work Phone: [phone] Magnesium [Mass/Vol] 2.0 mg/dL 1.6-2.6 [facility] Work Phone: [phone] Urea nitrogen/Creatinine [Mass ratio] 13.4 mg/mg 10-20 [facility] Work Phone: Laboratory - Hematology and Cell countson 11-20-2021 Erythrocyte distribution width (RBC) [Entitic vol] 42.3 fL 35.1-43.9 [facility] Work Phone: [phone] Erythrocyte distribution width (RBC) [Ratio] 12.4 % 11.6-14.6 [facility] Work Phone: Immature granulocytes/100 WBC (Bld) 0.500 % 0.0-0.9 [facility] Work Phone: [phone] Comment on above: IG% - Immature Granu locytes (promyelocytes, myelocytes and metamyelocytes) > 1% indicates that a LEFT SHIFT is Present. MCH (RBC) [Entitic mass] 29.9 pg 27.0-32.0 [facility] Work Phone: Nucleated RBC/100 WBC (Bld) [Ratio] 0 % 0-5 [facility] Work Phone: MCHC Auto (RBC) [Mass/Vol]on 11-20-2021 MCHC (RBC) [Mass/Vol] 32.3 g/dL 32-36 [facility] Work Phone: No Panel Informationon 11-20 Estimated GFR (MDRD) Amer 101 mL/min >60 [facility] Work Phone: Comment on above: GFR Calc Estimated GFR (MDRD) Non-Af Amer 84 mL/min >60 [facility] Work Phone: Comment on above: Non- GFR Calc Thyroid Stimulating Hormone (TSH) 1.29 uIU/mL 0.358-3.74 [facility] Work Phone: Vitamin D 25-Hydroxy 52.4 ng/mL [facility] Work Phone: Comment on above: Vitamin D 25(OH) Sta tus Range Deficiency <20 ng/mL (50nmol/L) Insufficiency 20 - 30 ng/mL (50 - 75 nmol/L) Sufficiency 30 - 100 ng/mL (75 - 250 nmol/L) Toxicity >100 ng/mL (>250 nmol/L) Platelets bldon 11-20-2021 Platelets (Bld) [#/Vol] 311 10*3/uL 150-450 [facility] Work Phone: Serum or plasma albumin elaine urement (mass/volume)on 11-20-2021 Albumin [Mass/Vol] 3.5 g/dL 3.2-5.0 [facility] Work Phone: Serum or plasma albumin/glob ulin mass ratioon 11-20-2021 Albumin/Globulin [Mass ratio] 1.0 {ratio} 0.9-2.4 [facility] Work Phone: Serum or plasma calcium elaine urement (mass/volume)on 11-20-2021 Calcium [Mass/Vol] 9.6 mg/dL 8.5-10.1 [facility] Work Phone: Serum or plasma creatinine m easurement (mass/volume)on 11-20-2021 Creatinine [Mass/Vol] 0.97 mg/dL 0.70-1.30 [facility] Work Phone: Comment on above: The validity of the calculated GFR & GFRAA in patients over 70 years has not been determined. Clinical correlation is essential. Serum or plasma urea nitroge n measurement (mass/volume)on 11-20-2021 Urea nitrogen [Mass/Vol] 13 mg/dL 7-18 [facility] Work Phone: Thin prep Papanicolaou smear with manual screeningon 11-20-2021 Thin prep Papanicolaou smear with manual screening 15 U/L 15-37 [facility] Work Phone: Thin prep Papanicolaou smear with manual screening 8 5-15 [facility] Work Phone: Thin prep Papanicolaou smear with manual screening See comment [facility] Work Phone: Comment on above: TEST RESULT LIMITSLy me Disease Serology w/ReflexLyme Total Antibody EIA Positive NegativeLyme IgG EIA Positive NegativeLyme IgM EIA Positive NegativeLyme Interpretation AbnormalLyme IgM/IgG Abs DetectedResults are consistent with B. burgdorferi infection (Lyme disease)in the recent or remote past. IgG-class antibodies may remain detectable for months to years following resolution of infection.Results should not be used to monitor or establish adequate response to therapy. Response to therapy is confirmed through resolution of clinical symptoms; additional laboratory testing should not be performed. If both tests are equivocal consider repeat testing in 7 to 14 days if clinically warranted. TESTING PERFORMED AT [facility]. ORIGINAL REPORT ON FILE IN LAB CONTAINS ADDITIONAL TEST SITE INFORMATION. Vital Signs Date Time Vital Sign Value Performing Clinician Faci lity 02-08-2025 09:52-0400 Body height 170.[address] Sven Cotter MD Work Phone: [facility] 02-08-2025 09:52-0400 Body mass index (BMI) [Ratio] 28.3 kg/m2 Dr. Sven Cotter MD Work Phone: [facility] 02-08-2025 09:52-0400 Body weight 82.[address] Sven Cotter MD Work Phone: [facility] 02-08-2025 09:52-0400 Diastolic blood pressure 81 mm[Hg] Dr. Sven Cotter MD Work Phone: [facility] 02-08-2025 09:52-0400 Heart rate 68 /min Dr. Sven Cotter MD Work Phone: [facility] 02-08-2025 09:52-0400 Respiratory rate 16 /min Dr. Sven Cotter MD Work Phone: [facility] 02-08-2025 09:52-0400 Systolic blood pressure 127 mm[Hg] Dr. Sven Cotter MD Work Phone: [facility] 12-15-2024 13:02-0400 Body height 170.[address] Sven Cottre MD Work Phone: [facility] 12-15-2024 13:02-0400 Body mass index (BMI) [Ratio] 28.3 kg/m2 Dr. Sven Cotter MD Work Phone: [facility] 12-15-2024 13:02-0400 Body weight 82.[address] Sven Cotter MD Work Phone: [facility] 12-15-2024 13:02-0400 Diastolic blood pressure 65 mm[Hg] Dr. Sven Cotter MD Work Phone: [facility] 12-15-2024 13:02-0400 Heart rate 72 /min Dr. Sven Cotter MD Work Phone: [facility] 12-15-2024 13:02-0400 Respiratory rate 16 /min Dr. Sven Cotter MD Work Phone: [facility] 12-15-2024 13:02-0400 Systolic blood pressure 114 mm[Hg] Dr. Sven Cotter MD Work Phone: [phone] [address] 07-12-2024 13:58-0500 Body temperature 99.3 [degF] Dr. Sven Cotter MD Work Phone: [phone] [address] 07-12-2024 13:58-0500 Diastolic blood pressure 73 mm[Hg] Dr. Sven Cotter MD Work Phone: [facility] 07-12-2024 13:58-0500 Heart rate 73 /min Dr. Sven Cotter MD Work Phone: [phone] [place] [address] 07-12-2024 13:58-0500 Respiratory rate 16 /min Dr. Sven Cotter MD Work Phone: [phone] [place] [address] 07-12-2024 13:58-0500 SaO2% (BldA) [Mass fraction] 97 % Dr. Sven Cotter MD Work Phone: [facility] 07-12-2024 13:58-0500 Systolic blood pressure 133 mm[Hg] Dr. Sven Cotter MD Work Phone: [facility] 07-12-2024 09:40-0500 Body height 170.[address] Sven Cotter MD Work Phone: [facility] 07-12-2024 09:40-0500 Body mass index (BMI) [Ratio] 29.3 kg/m2 Dr. Sven Cotter MD Work Phone: [facility] 07-12-2024 09:40-0500 Body weight [address] Sven Cotter MD Work Phone: [facility] 07-05-2024 13:03-0500 Body mass index (BMI) [Ratio] 29.6 kg/m2 Dr. Sven Cotter MD Work Phone: [facility] 07-05-2024 13:03-0500 Body temperature 97.2 [degF] Dr. Sven Cotter MD Work Phone: [facility] 07-05-2024 13:03-0500 Body weight 85.[address] Sven Cotter MD Work Phone: [facility] 07-05-2024 13:03-0500 Diastolic blood pressure 88 mm[Hg] Dr. Sven Cotter MD Work Phone: [facility] 07-05-2024 13:03-0500 Heart rate 63 /min Dr. Sven Cotter MD Work Phone: [facility] 07-05-2024 13:03-0500 Respiratory rate 17 /min Dr. Sven Cotter MD Work Phone: [facility] 07-05-2024 13:03-0500 SaO2% (BldA) [Mass fraction] 100 % Dr. Sven Cotter MD Work Phone: [facility] 07-05-2024 13:03-0500 Systolic blood pressure 158 mm[Hg] Dr. Sven Cotter MD Work Phone: [facility] 09-17-2021 08:46-0400 Body height 170.[address] Sven Cotter Work Phone: [facility] Work Phone: 09-17-2021 08:46-0400 Body mass index (BMI) [Ratio] 28.6 kg/m2 Dr. Sven Cotter Work Phone: [facility] Work Phone: 09-17-2021 08:46-0400 Body temperature 98.2 [degF] Dr. Sven Cotter Work Phone: [facility] Work Phone: 09-17-2021 08:46-0400 Body weight [address] Sven Cotter Work Phone: [facility] Work Phone: 09-17-2021 08:46-0400 Diastolic blood pressure 77 mm[Hg] Dr. Sven Cotter Work Phone: [facility] Work Phone: 09-17-2021 08:46-0400 Heart rate 73 /min Dr. Sven Cotter Work Phone: [facility] Work Phone: 09-17-2021 08:46-0400 Respiratory rate 17 /min Dr. Sven Cotter Work Phone: [facility] Work Phone: 09-17-2021 08:46-0400 SaO2% (BldA) [Mass fraction] 99 % Dr. Sven Cotter Work Phone: [facility] Work Phone: 09-17-2021 08:46-0400 Systolic blood pressure 160 mm[Hg] Dr. Sven Cotter Work Phone: [facility] Work Phone: Encounters Encounter Date Encounter Type Care Provider Facility Start: 04-11-2025 ambulatory Jeremi Walters Facility:[facility] Start: 02-08-2025 End: 02-08-[address] Jeremi Walters MD -[facility] Work Phone: Start: 02-08-2025 End: 02-08-[address] Sven Cotter MD Work Phone: -[facility] Start: 01-27-2025 End: 01-27-[address] Sven Cotter MD Work Phone: -Laboratory [facility] Start: 01-27-2025 End: 01-27-[address] Sven Cotter MD -Laboratory [facility] Start: 01-27-2025 End: 01-27-2025 ambulatory vSen Cotter Facility:[facility] Start: 01-11-2025 Non-patient / Non-visit Dr. Mason AGUILAR -[facility] Start: 01-11-2025 End: 01-11-[address] Sven Cotter MD Work Phone: -Cardiovascular Services Start: 01-11-2025 End: 01-11-[address] Jeremi Walters MD -Card[facility]ovascular Services Work Phone: Start: 01-11-2025 End: 01-11-2025 ambulatory Jeremi Walters Facility:[facility] Start: 12-15-2024 End: 12-15-[address] Jeremi Walters MD -[facility] Work Phone: Start: 12-15-2024 End: 12-15-[address] Sven Cotter MD Work Phone: -[facility] Start: 10-13-2024 End: 10-13-2024 Subsequent hospital visit by physician [address] Comment on above: Family history of is chemic heart disease and other diseases of the circulatory system Start: 10-13-2024 End: 10-13-2024 ambulatory SVEN COTTER [facility] Start: 09-07-2024 ambulatory Sven Cotter Facilit y:[facility] Start: 07-26-2024 End: 07-26-2024 Patient encounter procedure Lan Lama PA-C -[facility] Work Phone: Start: 07-26-2024 End: 07-26-2024 ambulatory Lan KRISHNAN Facility:[facility] Start: 07-20-2024 Encounter for other preprocedural examination Lev Sarah [facility] Start: 07-20-2024 End: 07-20-[address] Sven Cotter MD Work Phone: [facility] Work Phone: Start: 07-20-2024 End: 07-20-[address] Sven Cotter MD -Laboratory, [facility] Start: 07-20-2024 End: 07-20-2024 ambulatory Sven Cotter Facility:[facility] Start: 07-12-2024 Non-patient / Non-visit Dr. Ana Sarah MD -[facility] Start: 07-12-2024 End: 07-12-2024 Admission to same day surgery center Dr. Lev Sarah MD -[facility] Start: 07-12-2024 End: 07-12-2024 ambulatory Sven Cotter Facility:[facility] Start: 07-05-2024 End: 07-05-[address] Lev Sarah MD -[facility] Work Phone: Start: 07-05-2024 End: 07-05-2024 ambulatory Sven Cotter Facility:[facility] Start: 06-29-2024 End: 06-29-2024 ambulatory Sven Cotter Facility:[facility] Start: 06-29-2024 End: 06-29-2024 Non-patient / Non-visit Dr. Rudy Pickens MD -[facility] Work Phone: Start: 08-08-2023 Non-patient / Non-visit Dr. Jeanine Cotter Work Phone: [facility] Start: 08-08-2023 End: 08-08-[address] Sven Cotter Work Phone: [facility] Work Phone: Start: 08-08-2023 End: 08-08-[address] Sven Cotter Work Phone: [facility] Work Phone: Start: 06-26-2023 End: 06-26-2023 ambulatory [facility] Work Phone: Start: 06-26-2023 End: 06-26-2023 Patient encounter procedure [facility] Start: 07-02-2022 End: 07-02-[address] Sven Cotter Work Phone: [facility] Work Phone: Start: 07-02-2022 End: 07-02-[address] Sven Cotter Work Phone: [facility] Start: 05-28-2022 Non-patient / Non-visit Dr. Jeanine Cotter Work Phone: [facility] Start: 05-28-2022 End: 05-28-[address] Sven Cotter Work Phone: [facility] Work Phone: Start: 05-28-2022 End: 05-28-[address] Sven Cotter Work Phone: [facility] Start: 2022 End: [address] Sven Cotter Work Phone: [facility] Work Phone: Start: 2022 End: [address] Sven Cotter Work Phone: [facility] Start: 01-23-2022 End: 01-23-2022 ambulatory [facility] Work Phone: Start: 01-23-2022 End: 01-23-2022 Patient encounter procedure [facility] Start: 12-06-2021 End: 12-06-[address] Sven Cotter Work Phone: [facility] Start: 11-27-[address] Sven quintero Work Phone: [facility] Start: 11-26-2021 End: 11-26-[address] [facility] Start: 11-20-2021 End: 11-20-[address] Sven Cotter Work Phone: [facility] Start: 09-17-2021 End: 09-17-[address] Sven Cotter Work Phone: [facility]-Pulmonary [facility] Procedures Date Procedure Procedure Detail Performing Clinician Start: 01-27-2025 Urnls dip stick/tabl et reagent auto microscopy Dr. Sven Cotter MD Work Phone: Start: 01-27-2025 Prostate specific an tigen measurement Dr. Sven Cotter MD Work Phone: Comment on above: This test was perfor med using the [employer] tPSA method. Measured values of a patient sample can vary depending on the testing procedure used. PSA values determined on patient samples by different testing procedures cannot be used interchangeably. If there is a change in PSA assays while monitoring therapy, sequential testing should be performed to confirm baseline values. Start: 01-27-2025 Vitamin D, 25-hydrox y measurement Dr. Sven Cotter MD Work Phone: Comment on above: Vitamin D StatusDefi ciency: <20 ng/mL (50nmol/L)Insufficiency: 20-30 ng/mL (50-75 nmol/L)Sufficiency: 30-100 ng/mL (75-250 nmol/L)Toxicity: >100 ng/mL (>250 nmol/L) Start: 08-08-2023 Radionuclide imaging of perfusion of myocardium under exercise stress Dr. Sven Cotter Work Phone: Plan of Treatment Date Care Activity Detail Author Start: 2036 RSV High Risk: (Elde rly (60+) or Population) (1 - 1-dose 75+ series) RSV High Risk: (Elderly (60+) or Population) (1 - 1-dose 75+ series) [facility] Start: 05-18-2029 DTaP/Tdap/Td Vaccine s (2 - Td or Tdap) DTaP/Tdap/Td Vaccines (2 - Td or Tdap) [facility] Start: 04-11-2025 Catheterization of l eft heart [facility] Start: 01-17-2025 Influenza vaccination Influenz a Vaccine (Season Ended) [facility] Start: 12-15-2024 End: 12-15-2024 Evaluation of diagnostic study results [facility] Start: 07-12-2024 Anesthesia intraperitoneal lower abd w/laps nos ANESTH SURG LOWER ABDOMEN [facility] Start: 07-12-2024 Laparoscopy surg rpr initial inguinal hernia LAP ING HERNIA REPAIR INIT [facility] Start: 07-12-2024 Patient discharge [facility] Start: 01-18-2024 COVID-19 Vaccine ( season) COVID-19 Vaccine ( season) [facility] Start: 2011 Pneumococcal vaccination Pneum ococcal Vaccine (1 of 1 - PCV) [facility] Start: 05-25-2007 IPV Vaccines (2 of 3 - Adult catch-up series) IPV Vaccines (2 of 3 - Adult catch-up series) [facility] Start: 1979 Hepatitis C screening Hepatitis C Sc [facility] Start: 1962 MMR Vaccines (1 of 1 - Standard series) MMR Vaccines (1 of 1 - Standard series) [facility] Start: 1961 HIV screening HIV Screening [facility] Start: 1961 Lipid panel Lipid Panel [facility] Start: 1961 Screening for malign ant neoplasm of colon [facility] Start: 1961 Yearly Adult Physical Yearly Adult P hysical [facility] Basic metabolic 2008 panel with ionized calcium - Serum or Plasma [facility] CBC W Auto Different ial panel - Blood [facility] End: 10-13-2024 CT for calcium scoring WO contrast and CTA W contrast IV Heart and coronary arteries [facility] Service Area Work Phone: Comment on above: Once for 1 Occurrenc es starting 10/13/2024 until 10/13/2024 Laboratory data interpretation [facility] Work Phone: Measurement of Borre zhou burgdorferi antibody [facility] Work Phone: Patient referral [facility] Work Phone: Immunizations Immunization Date Immunization Notes Care Provider Jamar dueñas 05-10-2021 influenza virus vaccine, unspecified formulation [address] Work Phone: 08-22-2020 Covid (Pfizer) [facility] Work Phone: [facility] 08-01-2020 Covid (Pfizer) Dr. [facility] Work Phone: [facility] 04-27-2007 poliovirus vaccine, unspecified formulation [address] Work Phone: Payers Date Payer Category Payer Unknown [id number] 2024 Managed Care (Private) [employer] H[employer] [id number] 2024 Unknown [id number] 2024 Self-pay [id number] 2014 Unknown [id number] 1961 Unknown [id number] Unknown [id number]. 462 Unknown [id number]. 462 Unknown [id number]. 462 Unknown [id number] [id number]. 462 Unknown [id number] [id number]. 462 Unknown [id number] [id number]. 462 Unknown [id number] [id number]. 462 Unknown [id number] [id number]. 462 Unknown [id number] [id number]. 462 Unknown [id number] [id number]. 462 Unknown [id number] [id number]. 462 Unknown [id number]. 462 Unknown [id number]. 462 Social History Date Type Detail Facility Start: 09-17-2021 End: 09-17-2021 Tobacco smoking status NHIS Unknown if ever smoked [facility] Start: 1960 Sex Assigned At Male [facility] Start: 06-28-2024 End: 11-26-2024 Tobacco smoking status NHIS Never smoked tobacco (finding) [facility] Start: 07-30-2024 Sex Male (finding) [facility] Start: 1960 Sex assigned at Not on file [facility] Work Phone: Gender identity Not on file [facility] Start: 10-03-2024 End: 10-13-2024 Exposure to SARS-CoV-2 (event) Not sure [facility] Medical Equipment Procedure Code Equipment Code Equipment Origin al Text Equipment Identifier Dates Extra-gynaecolog ical surgical mesh, composite-polymer [id number] FDA Start: 07-12-2024 Goals Date Patient Goal Desired Activity /State Mental Status Date Assessment Result Facility 07-12-2024 Cognitive function Voice/Name [facility] Work Phone: Clinical Notes 07-05-2024 to 02-08-2025 Note Date & Type Note Facility 02-08-2025 Progress note [facility] 12-15-2024 Evaluation note Diagnosis Onset Date Resolution Abnormal findings diagnostic imaging of heart and coronary circulation acute December 15, 2024 12:57pm Mitral valve prolapse acute Nov 12:57pm [facility] Work Phone: 1(422) 358-235007-30-2025 Evaluation note* Diagnosis Onset Date Resolution Status Admit Date Abnormal findings diagnostic imaging of heart and coronary circulation acute December 15, 2024 12:57pm Mitral valve prolapse acute Nov 12:57pm Abnormal findings diagnostic imaging of heart and coronary circulation acute February 08, 2025 9:42am Mitral valve prolapse acute Jan 9:42am [facility] Work Phone: 1(207) 214-913002-24-2025 [facility] Medical Records Department [address] [place] [address] History Physical Exam 07/12/24 0940 MR#: [id number] Acct: [id number] Name: KRIS MORA Rep #: [id number] : 1960 64 From: Lev Sarah MD PCP: Dr. Sven Cotter MD Status:[facility] Location: [place] [address] History and Physical Date of Admission: 07/12/24 Intake Vital Signs 09/07/2412:11 07/05/2512:03 Height 5 ft 7 in 5 ft 7 in Weight: 189 lb BMI 29.6 BP 158/88 H Blood Pressure Location Rt brachial Position Sitting Respiration 17 Pulse 63 Pulse Source Monitor Temp 97.2 F L Temp Source Temporal Pulse Oximetry (%) 100 Oxygen Delivery Method room air Intake Visit Reasons: UPDATE H P - HERNIA Chief Complaint: update H P for hernia Is patient in pain?: No Allergies Penicillins Allergy (Verified 07/05/24 13:05) Other Medications ???Medication ???Instructions ???Recorded ???Confirmed ???Type ergocalciferol (vitamin D2) 50 mcg 50 mcg PO DAILY 05/30/21 07/05/24 History (2,000 unit) capsule hydrochlorothiazide 25 mg tablet 25 mg PO DAILY 05/30/21 07/05/24 History lisinopril 20 mg tablet 20 mg PO BID 09/17/21 07/05/24 History PFSH Medical History Wears glasses Alcohol use Anemia Non-smoker History of echocardiogram History of stress test History of irregular heartbeat HTN (hypertension) Heart murmur Surgical History H/O adenoidectomy Hx of tonsillectomy Hx of cholecystectomy Family History Grandfather Myocardial infarctionMother Myocardial infarction CVA (cerebral vascular accident)Father Heart disease Social History Smoking Status: Never smoker alcohol intake: current substance use type: does not use HPI HPI HPI: Patient is a 64-year-old male with a right inguinal hernia. He is here to update his H P and is scheduled for surgery next week. He has no changes since the last time he saw me. He reports that the hernia has mildly enlarged. ROS General General: No weight change, appetite, fatigue, colon cancer, breast cancer or weakness HEENT HEENT: No difficulty swallowing, eye injury, eye surgery, swollen glands or hoarseness Endo Endocrine: No thyroid disease, diabetes mellitus, thyroid cancer, Hair loss, heat intolerance or cold intolerance Skin Skin: No rash or changing moles Musc Musculoskeletal: No back problems, arthritis, rheumatoid arthritis, gout or joint pain Cardio Cardiovascular: Yes murmur and high blood pressure; No pacemaker, heart disease, atrial fibrillation, heart attack, heart stent, palpitations, shortness of breat with exertion or chest pain Psych Psychiatric: No depression, anxiety or hearing voices Resp Respiratory: No shortness of breath, No sleep apnea, No cough, No COPD, No asthma, No emphysema and No wheezing Gastro Gastrointestinal: Yes abdominal pain, No nausea or vomiting, No diarrhea, No constipation, No blood in stool, No acid reflux, No hemorrhoids, No ulcers, No gallbladder problem and No black,tarry stools Tay Hematologic: No blood thinners, No blood disorders, No bleeding, No anemia and No blood clots Neuro Neurologic: No system reviewed and no additional complaints, except as documented, No as per HPI, No abnormal gait, No abnormal hearing, No abnormal movements, No abnormal speech, No behavioral changes, No burning sensations, No confusion, No convulsions, No disequilibrium, No dizziness, No localized weakness, No frequent falls, No headache(s), No lack of coordination, No loss of vision, No memory loss, No numbness, No other visual disturbances, No radicular pain, No restless legs, No sensory deficit, No syncope, No tingling, No tremor(s), No weakness and No other Exam Const General: cooperative Orientation: alert and oriented x3 HENMT Head: normal to inspection Neck Neck: normal visual inspection and full ROM Chest Chest palpation inspection: normal inspection of the chest Resp Effort Inspection: normal respiratory effort Auscultation: clear to auscultation bilaterally Cardio Rate: regular rate Rhythm: regular rhythm GI Inspection: non-distended Palpation: soft, hernia indirect inguinal on the right and nontender Skin General: no rashes or lesions noted Neuro General: patient alert and patient oriented x3 Extrem General: full ROM Psych Appearance: grossly normal Mental Status: mental status grossly normal Assessment and Plan Assessment and Plan (1) Right inguinal hernia: Status: Acute Plan: Patient has right inguinal hernia. I discussed robotic assisted laparoscopic inguinal hernia repair with mesh. I juan (more content not included)...[facility] 07-05-2024 Evaluation note* Diagnosis Onset Date Resolution Status Admit Date Right inguinal hernia acute Feb ruary 2024 12:55pm Right inguinal hernia acute Mar ch 2024 1:59pm [facility] Work Phone: Evaluation note* Diagnosis Onset Date Resolution Status Chronic cough chronic [facility] Work Phone: Evaluation noteNo assessment information available [facility] Work Phone: Evaluation note* Diagnosis Family history of ischemic heart disease and other diseases of the circulatory system documented in this encounter [facility] Work Phone: Progress note Author Jeremi Walters [facility] Services Note Date/Time February 08, 2025 10:19am [facility] [address] [place] [address] OFFICE VISIT Date of Service: 02/08/25 MR#: [id number] Acct: [id number] Name: KRIS MORA Rep #: [id number] : 1960 Provider: Dr. Clarence Walters MD Age/Sex: 64/M Location: [facility] Status: Signed HPI HPI History of Present Illness Details: Pleasant 64-year-old man who is here for evaluation of abnormal diagnostic findings noted on the imaging of the heart. He says that he has been proactive about his health due to her family history and underwent a coronary calcium score which demonstrated a total score of 564 with 278 in the LAD distribution, 170 in the left circumflex and 112 in the right coronary artery distribution. He had previously undergone a stress test in 2023 where he exercised to a high metabolic workload with no evidence of ischemia he remains very active denying any chest pain or shortness of breath or paroxysmal nocturnal dyspnea or pedal edema he has had no neck arm or jaw discomfort suggest angina. His most recent lipid profile on no medications demonstrates a total cholesterol 171 HDL of 61 LDL of 100. His most recent electrocardiogram from today demonstrates sinus rhythm with a rate of 72 bpm and no acute changes. His physical exam is significant for a 3/6 holosystolic murmur noted at the apex radiating to the axilla. Intake Vital Signs 12/15/24 13:02 02/08/25 09:52 Height 5 ft 7 in 5 ft 7 in Weight: 181 lb 181 lb BMI 28.3 28.3 BP 114/65 127/81 H Blood Pressure Location Lt brachial Lt brachial Position Sitting Sitting Respiration 16 16 Pulse 72 68 Pulse Source Monitor Monitor Intake Visit Reasons: 6-8 W FU Costumed Character Required: No Accompanied by: Self Is patient in pain?: No Allergies Penicillins Allergy (Verified 02/08/25 09:53) Other Medications ?Medication ?Instructions ?Recorded ?Confirmed ?Type ergocalciferol (vitamin D2) 50 mcg 50 mcg PO DAILY 05/0902/08/25 History (2,000 unit) capsule hydrochlorothiazide 25 mg tablet 25 mg PO DAILY 02/08/25 History lisinopril 20 mg tablet 20 mg PO BID 09/17/21 History atorvastatin 10 mg tablet (Lipitor) 10 mg PO QDAY #90 tabs 12/15/24 02/08/25 Rx Ejection fraction %: 65 Have you fallen in the past year?: No PFSH Medical History Vitamin D deficiency Abnormal findings diagnostic imaging of heart and coronary circulation Right inguinal hernia Chronic cough Alcohol use Anemia History of irregular heartbeat HTN (hypertension) Heart murmur Surgical History S/P right inguinal hernia repair H/O adenoidectomy Hx of tonsillectomy Hx of cholecystectomy Family History Grandfather Myocardial infarction Mother Myocardial infarction CVA (cerebral vascular accident) Father Heart disease Grandfather Myocardial infarction Social History Smoking Status: Never smoker alcohol intake: current Alcohol type: beer and wine substance use type: does not use ROS Const Const: Negative for fatigue, weakness, daytime sleepiness or difficulty sleeping ENT ENT: Negative for dizziness or Nosebleed/epistaxis Cardio Chest Pain: No Palpitations: No Edema: None Resp Respiratory: Negative for SOB with activity, SOB at rest, SOB orthopnea\SOB lying down or Cough GI GI: Negative nausea, vomiting or heartburn Neuro Neuro: Negative for dizziness, lightheadedness, near syncope or weakness Endo Endo: Negative for fatigue Cardiology Exam Const Appearance: cooperative, healthy appearing, no acute distress, well developed and well groomed Nutritional Appearance: average body habitus and well nourished Orientation: alert, awake and oriented x3 Head Head: normal to inspection, normocephalic and atraumatic Ears: hearing grossly normal bilaterally and external ears normal Nose: external nose normal, nares normal, nasal mucous membranes and turbinates normal, septum normal and no nasal discharge Face and Sinus: face symmetric Mouth: oral mucosae normal, tongue normal, oropharynx normal and moist mucous membranes Teeth and gingiva: dentition normal Throat: posterior oropharynx normal, tonsils normal and uvula midline Eyes General: appearance normal, both eyes and all related structures Eyelids: eyelids normal Conjunctivae: conjunctivae normal Pupils: PERRL, normal by confrontation and accommodation normal EOM: EOM intact bilaterally Neck Neck: normal visual inspection, trachea midline and no JVD JVD: +5 Carotids: normal carotid upstroke and bounding pulses Chest Chest inspection: normal inspection of the chest, symmetric chest movement and normal respiratory effort Auscultation: Bilateral: Clear to Auscultation Cardio Palpation: normal PMI Rate: regular rate Rhythm: regular rhythm Heart sounds: S1 normal, S2 normal, murmur and normal, physiologic split S2; Negative rub or gallop Murmur: Grade 3/6, harsh and holosystolic GI GI: normal to inspection, soft, no hepatosplenomegaly and bowel sounds present Neuro General: patient alert, patient awake, patient oriented x3, gait normal, moves all extremities and no focal sensory deficit Skin Skin: no rashes or lesions noted Extremities Pulses: Normal: Right Femoral Pulse, Left Femoral Pulse, Right Dorsalis Pedis Pulse, Left Dorsalis Pedis Pulse, Right Posterior Tibial Pulse, Left Posterior Tibial Pulse, Right Radial Pulse and Left Radial Pulse Lower Extremity Edema: None: Bilateral Musculoskel Musculoskeletal: No joint tenderness Psych Psychological: normal affect Supplemental Info Supplemental Information Echo Complete 01/11/2025 Interpretation Summary Normal LV size. The left ventricular ejection fraction is 65 %. The left atrium is moderately enlarged. Posterior leaflet mitral valve prolapse. Moderate (2+) anteriorly directed mitral valve insufficiency. Echocardiogram 05/28/22 Interpretation Summary Left ventricular systolic function is normal. The estimated ejection fraction is 65 %. The left atrium is mildly enlarged. Mild focal mitral valve calcification of the anterior leaflet. Mild mitral valve prolapse, posterior leaflet Mild-Moderate (1-2+) eccentric mitral valve insufficiency. Trivial tricuspid valve insufficiency. Right ventricular systolic pressure estimated to be 32 mmHg. No evidence for diastolic dysfunction. Stress Test 08/08/23 Conclusion: Normal exercise myocardial perfusion stress test at a high workload Preserved ejection fraction. CT Cardiac Scoring 10/13/24 Findings LM 3.3 LAD 278 LCx 170 RCA 112 Total: 564 Labs: LDL Cholesterol, (0-130) 96 mg/dL HDL Cholesterol, (40-) 69 mg/dL Cholesterol, (<=200) 145 mg/dL Triglycerides, (-199) 56 mg/dL Diagnostics: Electrocardiogram Echocardiogram Stress Test Stress Test Nuclear Medicine Abdomen Ultrasound Pulmonary: Pulmonary Function Test Past Visits: Cardiology Visit Today Assessment and Plan Assessment and Plan (1) Abnormal findings diagnostic imaging of heart and coronary circulation: Status: Acute Plan: He does have evidence of elevated coronary calcium of 564 noted on coronary calcium test. You remember he underwent a stress test in July 2023 where he exercised to a high metabolic workload. In addition he is quite active and therefore I do not think that this represents obstructive disease. At some point we will perform a cardiac catheterization prior to him having mitral valveevaluation. He is going on a trip and after he gets back we will perform the above. (2) Mitral valve prolapse: Status: Acute Plan: He does have evidence of mitral valve prolapse which appears to be in the moderate range. His most recent echocardiogram from December 2024 demonstrates posterior mitral valve leaflet prolapse with moderate anteriorly directed mitralregurgitation. My recommendation is for him to consider mitral valve repair. He will undergo an angiogram prior to the above and will do this after he returns from his trip to [place]. With his benefits alternatives have been explained to him he understands and agrees to proceed. Thank you for allowing me to participate in the care of your patient. Please don't hesitate to call if any issues arise. Coding Level of Care Code Off vis,est,level 4 Diagnoses Abnormal findings diagnostic imaging of heart and coronary circulation R93.1 Mitral valve prolapse I34.1 Coding Level of Care Code Off vis,est,level 4 Diagnoses Abnormal findings diagnostic imaging of heart and coronary circulation R93.1 Mitral valve prolapse I34.1 Clinical Quality Measures Falls Risk Screening/Assistive Devices Have you fallen in the past year?: No Cardiac Ejection fraction %: 65 02/08/25 1019 <Electronically signed by Jeremi Iverson> Date _ Jeremi Cheung Signature: Date (if applicable) CC: Dr. Sven Cotter MD ~ [facility] Work Phone: Reason for referral (narrative)No reason for referral information [facility]er[facility] Work Phone: Reason for visit Narrative* Imaging (Routine) - Pending Review Specialty Diagnoses / Procedures Referred By Brad jones Referred To Contact Radiology Diagnoses Family history of ischemic heart disease and other diseases of the circulatory system Procedures CT cardiac scoring wo IV contrast [address] [address] Phone: tel: fax: Referral ID Status Reason Start Date Expiration Date Visits Requested Visits Authorized [id number] Pending Review Perform Procedure 09/07/2024 09/07/2025 1 1 [facility] Work Phone: Chief Complaint and Reason for Visit Chief Complaint 3 M FU Reason for Visit Chronic cough Chief Complaint MURMUR Chief Complaint SOB Shortness of breath Chief Complaint Admit Date PREOP June 29, 2024 12:50pm UPDATE H&P - HERNIA July 05, 2024 12:55pm Lap Robotic Inguinal Hernia w/mesh Febru [email or web address] 9:17am Lap Robotic Inguinal Hernia w/mesh Febru [email or web address] 9:40am HERNIA 2-July 26, 2024 1:5 9pm Reason for Visit Admit Date Right inguinal hernia July 05 12:55pm Right inguinal hernia July 26, 2024 1 :59pm Chief Complaint Admit Date ABN CCTA (CYNDEE) December 15, 2024 12:5 7pm Chief Complaint Admit Date ABN CCTA (CYNDEE) December 15, 2024 12:5 7pm CARDIAC MURMUR, UNSPECIFIED January 11, 2025 10:50am Reason for Visit Admit Date Abnormal findings diagnostic imaging of heart and coronary circulation December 15, 2024 12:57pm Mitral valve prolapse December 15, 2024 12 :57pm Chief Complaint Admit Date ABN CCTA (CYNDEE) December 15, 2024 12:5 7pm CARDIAC MURMUR, UNSPECIFIED January 11, 2025 10:50am 6-8 W FU February 08, 2025 9:42am Reason for Visit Admit Date Abnormal findings diagnostic imaging of heart and coronary circulation December 15, 2024 12:57pm Mitral valve prolapse December 15, 2024 12 :57pm Abnormal findings diagnostic imaging of heart and coronary circulation February 08, 2025 9:42am Mitral valve prolapse February 08 9:42am Family History No Family History Records Found Relationship Condition Age at Onset Recorded Date/T cesia grandfather Myocardial infarction Unknown mother Myocardial infarction Unknown Cerebrovascular accident (CVA) Unknown Relationship Condition Age at Onset Recorded Date/T cesia grandfather Myocardial infarction Unknown mother Myocardial infarction Unknown Cerebrovascular accident (CVA) Unknown father Cardiac disease Unknown Advance Directives No Advanced Directives Records Found Advance Directive Response Recorded Date/ Time Living Will No June 28 025 11:10am Power of Transit Mechanic No June 28, 2024 11:10am Summary Purpose Additional Source Comments Goals (unrecognized section and content) Goals may be documented in a n alternate sectionGoals may be documented in an alternate sectionGoals may be documented in an alternate sectionGoals may be documented in an alternate sectionGoals may be documented in an alternate sectionGoals may be documented in an alternate sectionGoals may be documented in an alternate sectionGoals may be documented in an alternate sectionGoals may be documented in an alternate sectionGoals may be documented in an alternate sectionGoals may be documented in an alternate sectionGoals may be documented in an alternate sectionGoals may be documented in an alternate section Care Teams (unrecognized sec tion and content) Team Status: Active Member Role Status Dates Dr. Sven Cotter MD Family Provider Active Dr. Sven Cotter MD Primary Care Provider Active Team Status: Active Member Role Status Dates Dr. Sven Cotter MD Primary Care Provider Active Dr. Raji Coello MD Attending Provider Active Team Status: Inactive Member Role Status Dates Dr. Sven Cotter MD Primary Care Provider, Attend ing Provider Active Team Status: Active Member Role Status Dates Dr. Sven Cotter MD Primary Care Pr ovider, Attending Provider, Referring Provider Active Team Status: Inactive Member Role Status Dates Dr. Sven Cotter MD Primary Care Pr ovider, Attending Provider, Referring Provider Active Team Status: Active Member Role Status Dates Dr. Sven Cotter MD Primary Care Pr ovider, Referring Provider, Other Provider Active Dr. Jeremi Walters MD Attending Provider Active Team Status: Active Member Role Status Dates Dr. Sven Cotter MD Primary Care Provider Active Team Status: Active Member Role Status Dates Dr. Sven Cotter MD Primary Care Provider Active Start: June 29, 2024 End: June 29, 2024 Dr. Rudy Pickens MD Attending Provider Active Start: June 29, 2024 End: June 29, 2024 Dr. Lev Sarah MD Referring Provider Active Start: June 29, 2024 End: June 29, 2024 Team Status: Inactive Member Role Status Dates Dr. Sven Cotter MD Primary Care Provider Active Start: July 05, 2024 End: July 05, 2024 Dr. Sven Cotter MD Referring Provider Active Start: July 05, 2024 End: July 05, 2024 Dr. Lev Sarah MD Attending Provider Active Start: July 05, 2024 End: July 05, 2024 Team Status: Inactive Member Role Status Dates Dr. Sven Cotter MD Primary Care Provider Active Start: July 12, 2024 End: July 12, 2024 Dr. Lev Sarah MD Attending Provider Active Start: July 12, 2024 End: July 12, 2024 Dr. Lev Sarah MD Referring Provider Active Start: July 12, 2024 End: July 12, 2024 Team Status: Active Member Role Status Dates Dr. Sven Cotter MD Primary Care Provider Active Start: July 12, 2024 Dr. Lev Sarah MD Attending Provider Active Start: July 12, 2024 Dr. Lev Sarah MD Referring Provider Active Start: July 12, 2024 Dr. Lev Sarah MD Other Provider Active Start: July 12, 2024 Team Status: Inactive Member Role Status Dates Dr. Sven Cotter MD Primary Care Provider Active Start: July 20, 2024 End: July 20, 2024 Dr. Sven Cotter MD Attending Provider Active Start: July 20, 2024 End: July 20, 2024 Dr. Sven Cotter MD Referring Provider Active Start: July 20, 2024 End: July 20, 2024 Team Status: Inactive Member Role Status Dates Dr. Sven Cotter MD Primary Care Provider Active Start: July 26, 2024 End: July 26, 2024 Dr. Sven Cotter MD Referring Provider Active Start: July 26, 2024 End: July 26, 2024 Lan KRISHNAN PA-C Attending Provider Active Start: July 26, 2024 End: July 26, 2024 Cardiac Care Nurse Relationship Specialty Start Date End Date Sven Cotter MD [address] [place] [address] PCP - General Family Medicine 10/13/24 Team Status: Active Member Role/Relationship Status Dates Dr. Sven Cotter MD Primary Care Provider Active Team Status: Inactive Member Role/Relationship Status Dates Dr. Sven Cotter MD Primary Care Provider Active Start: December 15, 2024 End: December 15, 2024 Dr. Sven Cotter MD Referring Provider Active Start: December 15, 2024 End: December 15, 2024 Dr. Jeremi Walters MD Attending Provider Active S tart: December 15, 2024 End: December 15, 2024 Team Status: Inactive Member Role/Relationship Status Dates Dr. Sven Cotter MD Primary Care Provider Active Start: January 11, 2025 End: January 11, 2025 Dr. Jeremi Walters MD Attending Provider Active S tart: January 11, 2025 End: January 11, 2025 Dr. Jeremi Walters MD Referring Provider Active S tart: January 11, 2025 End: January 11, 2025 Team Status: Active Member Role/Relationship Status Dates Dr. Sven Cotter MD Primary Care Provider Active Start: January 11, 2025 Dr. Jeremi Walters MD Attending Provider Active S tart: January 11, 2025 Team Status: Active Member Role/Relationship Status Dates Dr. Sven Cotter MD Primary care physician Active Team Status: Inactive Member Role/Relationship Status Dates Dr. Sven Cotter MD Primary care physician Active Start: December 15, 2024 End: December 15, 2024 Dr. Sven Cotter MD Referring Provider Active Start: December 15, 2024 End: December 15, 2024 Dr. Jeremi Walters MD Attending physician Active Start: December 15, 2024 End: December 15, 2024 Team Status: Inactive Member Role/Relationship Status Dates Dr. Sven Cotter MD Primary care physician Active Start: January 11, 2025 End: January 11, 2025 Dr. Jeremi Walters MD Attending physician Active Start: January 11, 2025 End: January 11, 2025 Dr. Jeremi Walters MD Referring Provider Active S tart: January 11, 2025 End: January 11, 2025 Team Status: Active Member Role/Relationship Status Dates Dr. Sven Cotter MD Primary care physician Active Start: January 11, 2025 Dr. Jeremi Walters MD Attending physician Active Start: January 11, 2025 Team Status: Inactive Member Role/Relationship Status Dates Dr. Sven Cotter MD Primary care physician Active Start: January 27, 2025 End: January 27, 2025 Dr. Sven Cotter MD Attending physician Active Start: January 27, 2025 End: January 27, 2025 Team Status: Inactive Member Role/Relationship Status Dates Dr. Sven Cotter MD Primary care physician Active Start: February 08, 2025 End: February 08, 2025 Dr. Sven Cotter MD Referring Provider Active Start: February 08, 2025 End: February 08, 2025 Dr. Jeremi Walters MD Attending physician Active Start: February 08, 2025 End: February 08, 2025 (unrecognized sect ion and content) No Status Records FoundNo Status Records Found INFORMATION SOURCE (unrecogn ized section and content) DATE CREATED AUTHOR 10/19/2024 [facility] DATE CREATED AUTHOR AUTHOR'S ORGANIZ ATION 03/24/2025 [facility] FOR RECORDS PERTAINING TO PATIENTS WHO ARE OR HAVE BEEN ENROLLED IN A CHEMICAL DEPENDENCY/SUBSTANCEABUSE PROGRAM, SOME INFORMATION MAY BE OMITTED. This clinical summary was aggregated from multiple sources. Caution should be exercised in using it in the provision of clinical care. This summary normalizes information from multiple sources, and as a consequence, information in this document may materially change the coding, format and clinical context of patient data. In addition, data may be omitted in some cases. CLINICAL DECISIONS SHOULD BE BASED ON THE PRIMARY CLINICAL RECORDS. [facility] [facility]. provides no warranty or guarantee of the accuracy or completeness of information in this document.
--- NOTE | 2025-04-11 08:30 | CL.D_ITS ---
Patient Name: KRIS GARY Study Date: 04/11/2025 Performing: Jeremi Walters MD Ht: 66.92 inches 170 cm : 1960 Wt: 181 lbs 82.1 kg Age: 64 Gender: male BSA: 1.94 PROCEDURE(S) PERFORMED DC01-(80289)LHC/COR/LV CLINICAL PROFILE AND INDICATIONS Indications: Valvular Disease, Suspected CAD Heart Failure: None Stress/Imaging Coronary Calcium Score: Yes Calcium Score: 500Calcium Score: 500 CONCLUSIONS Moderately severe disease involving an obtuse marginal branch, moderate disease of the posterior descending artery, mitral valve prolapse with 3+ regurgitation and preserved ejection fraction. RECOMMENDATIONS Referred for immediate PCI Will eventually refer for mitral valve surgery. DESCRIPTION OF PROCEDURE The patient arrived to the procedure lab. The risks and benefits of the procedure as well as a full description of our services here and current unavailability of surgical backup were fully explained to the patient and/or their significant other prior to the catheterization. The Timeout was completed, verifying the correct patient and procedure. The patient's procedural site was prepped and draped in the usual fashion. Local anesthetic was given subcutaneously to right radial region with Lidocaine 2%. Using a modified Seldinger technique, arterial access was obtained via the right radial artery, a 6Fr sheath was inserted. han garza Left Coronary Artery selective angiography was performed in multiple views using a 5 Fr. 4.0 [place] catheter. Right Coronary Artery selective angiography was then performed in multiple views using a 5 Fr. 4.0 [place] catheter. Left Ventriculography was performed in THOMASON projection using a 5 Fr. Pigtail catheter. CORONARY ANGIOGRAPHY DOMINANCE: Right Dominant LEFT HEART ASSESSMENT Left Ventricular Ejection Fraction: by LV Gram 60 % Normal LV wall motion Normal Left Ventricular systolic function LEFT MAIN: Angiographically normal LEFT ANTERIOR DESCENDING ARTERY: Moderate calcification, Mild luminal irregularities less than 30% CIRCUMFLEX ARTERY: No significant disease noted OM 2: Proximal - 80 % Stenosis RIGHT CORONARY ARTERY: Mild calcification PROX RCA: Mild luminal irregularities less than 30% RT PDA: Proximal - Moderate luminal irregularities up to 50% VALVE FINDINGS: Mitral Valve Prolapse Moderate Mitral Valve Insufficiency - Grade 3 COMPLICATIONS No Complications PROCEDURE MEDICATIONS Fentanyl 50 mcg IV Versed 1 mg IV Versed 1 mg IV Versed 1 mg IV Oxygen: 2 L/min via nasal cannula Brilinta 180 mg PO @ 04/11/2025 08:22:07 Heparin given IA 04/11/2025 08:04:27 Verapamil 2.5mg, Ntg 200mcgs, 2000 units of Heparin given IA 04/11/2025 08:04:27 SUMMARY OF HEMODYNAMIC DATA Time AIR REST ECG 07:26:11 AO 119/67 (89) SA 08:07:41 LV 127/23, 36 08:14:36 LV 124/25, 35 08:14:43 Signed By Jeremi Walters MD On 04/11/2025 08:29:07 Jeremi Walters MD
--- NOTE | 2025-04-11 09:42 | CL.I_ITS ---
Patient Name: KRIS GARY Study Date: 04/11/2025 Performing: Luis Enrique Arndt MD Ht: 67 inches 170 cm : 1960 Wt: 181.2 lbs 82.1 kg Age: 64 Gender: male BSA: 1.94 PROCEDURE(S) PERFORMED IC12-(50621/[id number])ZENIA W/WO PTCA, SINGLE CORONARY ARTERY CLINICAL PROFILE AND CO-MORBIDITIES Indications: Valvular Disease, Suspected CAD Heart Failure: None Stress/Imaging Coronary Calcium Score: Yes Calcium Score: 500 Calcium Score: 500 CONCLUSIONS Successful ZENIA to pOM2 RECOMMENDATIONS DESCRIPTION OF PROCEDURE The patient arrived to the procedure lab. The risks and benefits of the procedure as well as a full description of our services here and current unavailability of surgical backup were fully explained to the patient and/or their significant other prior to the catheterization. The Timeout was completed, verifying the correct patient and procedure. The patient's procedural site was prepped and draped in the usual fashion. Local anesthetic was given subcutaneously to right radial region with Lidocaine 2% Using a modified Seldinger technique,arterial access was obtained via the right radial artery, a 6Fr sheath was inserted. han garza Left Coronary Artery selective angiography was performed in multiple views using a 5 Fr. 4.0 [place] catheter. Right Coronary Artery selective angiography was then performed in multiple views using a 5 Fr. 4.0 [place] catheter. Left Ventriculography was performed in THOMASON projection using a 5 Fr. Pigtail catheter.The images were reviewed and options discussed. A decision was then made to proceed with an Intervention, IVUS or other adjunct procedure. xb3 Guide catheter was inserted and engaged into the LCA. bmw Guide wire was advanced to the 2nd OM. emerge 2.5 x 12 Balloon catheter was advanced across lesion in the second obtuse marginal, proximal PTCA balloon inflated at 6 atms for 8 secs. PTCA balloon inflated at 8 atms for 11 secs. finesse 2.5 x 15 Drug Eluting stent was advanced across the lesion in the second obtuse marginal, proximal Angiogram performed post stent deployment. The arterial sheath was pulled and a TR Band was applied for hemostasis INTERVENTION INFORMATION LESION SITE: 2nd OM (Proximal) Lesion Complexity: High/C, chronic total occlusion: No, lesion at bifurcation: No, thrombus present: No, lesion length: 12 mm, culprit lesion: Yes, Previously treated lesion: No Pre Stenosis: 85 % Pre intervention ZAY flow: 3 PROCEDURE: Drug Eluting Stent with pre dilatation. Post Stenosis: 0 % Post intervention ZAY flow: 3 Lesion Devices: [place] .014 190cm BMW [place] Straight Cordis 6 Fr XB3.0 100cm Guide Catheter Hayes Sci EMERGE MR 2.50x12 BALLOON Medtronic 2.50 x 15 FINESSE FRONTIER ZENIA COMPLICATIONS No Complications PROCEDURE MEDICATIONS Fentanyl 50 mcg IV Versed 1 mg IV Versed 1 mg IV Versed 1 mg IV Oxygen: 2 L/min via nasal cannula Brilinta 180 mg PO @ 04/11/2025 08:22:07 Heparin given IA 04/11/2025 08:04:27 Heparin 5000 unit(s) IV 04/11/2025 08:58:10 Verapamil 2.5mg, Ntg 200mcgs, 2000 units of Heparin given IA 04/11/2025 08:04:27 SUMMARY OF HEMODYNAMIC DATA Time AIR REST ECG 07:26:11 AO 119/67 (89) SA 08:07:41 LV 127/23, 36 08:14:36 LV 124/25, 35 08:14:43 Signed By Luis Enrique Arndt MD On 04/11/2025 09:41:30 Luis Enrique Arndt MD
--- NOTE | 2025-04-11 10:15 | EKG12_ITS ---
Test Reason : POST PCI Blood Pressure : */* mmHG Vent. Rate : 70 BPM Atrial Rate : 70 BPM P-R Int : 214 ms QRS Dur : 94 ms QT Int : 386 ms P-R-T Axes : 43 -2 48 degrees QTcB Int : 416 ms Sinus rhythm with 1st degree A-V block Otherwise normal ECG When compared with ECG of 11-Apr-2025 07:18, MANUAL COMPARISON REQUIRED DATA IS UNCONFIRMED Confirmed by MARY JO AGUILAR, JEREMI ([id number]), editorial intern LAN GAMINO ([id number]) on 04/12/2025 10:23:03 AM Referred By: Jeremi Walters Confirmed By: JEREMI WALTERS MD
[2025-04-11] MEDS: 0.9% Normal Saline (1000mL) 1,000 ML 150 ML IV (11:48)
--- NOTE | 2025-04-11 14:37 | CRPHASE1 ---
Patient Communication Patient Information PHII Cardiac Rehab Discussed with Patient:: Yes Guide to Cardiac Rehab Given to Patient:: Yes Cardiac Rehab Facility Choice List Given to Patient:: Yes Communication to Cardiac Rehab Choice Program [facility] CR PHII:: Communication Given to CR Spout Liner Helper:: Kavya Arndt Phase II Cardiac Rehab:: Yes Sessions:: 36 sessions - 3 days/wk, 12 weeks Cardiac Rehabilitation Info Program Information Cardiac Rehabilitation Program Information: Cardiac Rehab The cardiac rehab team at [facility] consists of highly skilled exercise physiologists, nurses, respiratory therapists and physicians working together with you. Our purpose is to help you have a full recovery and achieve the goals you set for yourself. Over the years many of our patients have returned to activities they assumed they would never do again! We can help restore your confidence and motivation to make lifestyle changes that can have a significant impact on your health and quality of life! We can help answer questions and concerns you may have about exercise, lifestyle, medications, diet, stress and anxiety which are common following a hospitalization. WE monitor ECG and vital signs during exercise and discuss your progress with you and report to your physician(s). Cardiac Rehab is proven to help reduce readmissions, improve functional capacity and lower recurrence of problems with your heart. Our Cardiac Rehab program is Certified by the [place] [employer]-Vascular [employer] Pulmonary [employer] (AACVPR) and Accredited by the [place] [employer] through our [facility]. You can contact us at . We invite you to call us with your questions or to get started in our program. If you have other questions or concerns be sure to ask your physician/provider during your follow-up visit. WE look forward to seeing you!
--- NOTE | 2025-04-11 14:37 | CRPH1.INSTRU ---
General Education Discussed with Patient CAD and cardiac anatomy and function:: Patient communicates acknowledgment Explanation of diagnoses and procedures:: Patient communicates acknowledgment Sign/Symptoms of SC:: Patient communicates acknowledgment Antiplatelet therapy: Patient communicates acknowledgment Proper use of NTG-SL: Patient communicates acknowledgment Emergency procedures and activation of EMS: Patient communicates acknowledgment Compliance of all prescribed medications: Patient communicates acknowledgment Smoking Risk Factors Patient Nicotine/Smoking Risk Factors Are:: Never smoked Dyslipidemia Risk Factors Patient Dyslipidemia Risk Factors Are:: Total Cholesterol, Triglycerides and LDL Recommendations Recommendations Include:: Lipid profile provided, Reviewed NCEP/ATP guidelines and Therapeutic Lifestyle Change dietary guidelines Response Code Dyslipidemia Response Code:: Patient communicates acknowledgment Overweight/Obesity Risk Factors Patient Overweight/Obesity Risk Factors Are:: Overweight = 26-29 Recommendations Recommendations Include:: Weight loss of 5-10%, Reduced calorie diet and Exercise 5-7 times/week Response Code Overweight/Obesity:: Patient communicates acknowledgment Hypertension Recommendations Recommendations Include:: Maintain BP <130/85, DASH dietary guidelines, Decrease/maintain normal body weight and Moderation of ETOH Response Code Hypertension:: Patient communicates acknowledgment Diabetes Risk Factors Patient Diabetes Risk Factors Are:: No documented hx of diabetes Metabolic Syndrome Risk Factors Patient Metabolic Syndrome Risk Factors Are [3 of 5]:: Fasting blood sugar > 100 mg/dL, Waist circumference > 35 [female] or 40 [male], High triglyceride >150, Hypertension and Low HDL <40 [male] or < 50 [female] Recommendations Recommendations Include:: Reinforce compliance to risk factor modifications and Encouraged follow-up with Primary Care Physician Response Code Metabolic Syndrome Response Code:: Patient communicates acknowledgment Stress Recommendations Recommendations Include:: Identification of stressors, and assessment of coping skills and Stress management techniques Response Code Stress Response Code:: Patient communicates acknowledgment
[2025-04-11] MEDS: TICAGRELOR 90 MG TABLET PO (22:06)
[2025-04-12 04:00] VITALS: BP 139/84; PULSE 71; RESP 16; TEMP 36.6; O2SAT 99
[2025-04-12 06:09] LABS: Hematocrit 36.4 % (40-54); Hemoglobin 12.0 g/dL (13.0-16.5); Mean Corp Hgb Conc 33.0 g/dL (32-36); Mean Corpuscular Volume 91.2 fL (80-94); Mean Platelet Vol. 11.1 fl (6.2-12.0); Platelet Count 202 K/mm3 (150-450); RBC Distribution Width CV 13.1 % (11.6-14.6); RBC Distribution Width SD 43.5 fl (35.1-43.9); Red Blood Count 3.99 M/mm3 (4.6-6.2); White Blood Count 6.0 K/mm3 (4.4-11.0)
[2025-04-12 06:38] LABS: AST(SGOT) 25 U/L (<=37); Alanine Aminotransfer ALT/SGPT 30 U/L (<=46); Albumin, Serum 3.9 g/dL (3.4-4.8); Alkaline Phosphatase 38 U/L (40-129); Anion Gap 11 (5-15); BUN 20 mg/dL (4-19); BUN/Creat Ratio 18.7 RATIO (10-20); Calcium,Total 9.1 mg/dL (7.6-11.0); Carbon Dioxide 22.3 mmol/L (21.0-32.0); Chloride 104 mmol/L (98-108); Estimated Creatinine Clearance 72.44 ml/min (50-250); Globulin 2.1 g/dL (2.2-4.2); Glucose 86 mg/dL (70-99); Potassium 3.6 mmol/L (3.3-5.1)
--- NOTE | 2025-04-12 07:48 | PCM.PN.CARD ---
Subjective Subjective Patient seen and evaluated. No complaints Objective Data Vital Signs: Vital Signs Temp Pulse Resp BP Pulse Ox O2 Del Method 97.9 F 71 16 139/84 H 99 Room Air 04/12/25 04:00 04/12/25 04:00 04/12/25 04:00 04/12/25 04:00 04/12/25 04:00 04/12/25 04:01 Oxygen Delivery Method Room Air Weight: 181 lb Body Mass Index (BMI) 28.4 Intake & Output: Intake and Output for Last 24 Hours 04/10/25 04/11/25 04/12/25 23:59 23:59 23:59 Intake Total 1500 / 1500 Balance 1500 / 1500 Lab / Micro Data 04/12/25 05:23 04/12/25 05:23 Labs: Laboratory Results - last 24 hr 04/12/25 05:23: WBC 6.0, RBC 3.99 L, Hgb 12.0 L, Hct 36.4 L, MCV 91.2, MCH 30.1, MCHC 33.0, RDW Std Deviation 43.5, RDW Coeff of Jenniffer 13.1, Plt Count 202, MPV 11.1, Sodium 138, Potassium 3.6, Chloride 104, Carbon Dioxide 22.3, Anion Gap 11, BUN 20 H, Creatinine 1.05, Estim Creat Clear Calc 72.44, Est GFR (MDRD) Non-Af 80, BUN/Creatinine Ratio 18.7, Glucose 86, Calcium 9.1, Total Bilirubin 0.77, AST 25, ALT 30, Alkaline Phosphatase 38 L, Total Protein 6.0, Albumin 3.9, Globulin 2.1 L, Albumin/Globulin Ratio 1.9 Cardiology Labs/Tests 04/12/25 05:23: WBC 6.0, RBC 3.99 L, Hgb 12.0 L, Hct 36.4 L, MCV 91.2, MCH 30.1, MCHC 33.0, Plt Count 202, MPV 11.1, Sodium 138, Potassium 3.6, Chloride 104, Carbon Dioxide 22.3, Anion Gap 11, BUN 20 H, Creatinine 1.05, Est GFR (MDRD) Non-Af 80, BUN/Creatinine Ratio 18.7, Glucose 86, Calcium 9.1, Total Bilirubin 0.77 Rhythm: EKG: ECHO: Stress Test: Cardiac Cath: PCI: CT Surgery: Holter monitor: EPS: PPM: CXR: Chest CT Scan: Physical Exam Const alert and oriented x3 Eyes PERRL Neck Carotids: normal carotid upstroke Cardio regular rate and regular rhythm Extremity normal to inspection Assessment & Plan Assessment/Plan (1) Coronary artery disease: PLAN: Patient is status post PCI of the left circumflex artery. Patient is doing well. Be discharged for outpatient follow-up and also to follow-up for an appointment regarding his mitral valve. (2) Mitral valve prolapse: PLAN: Patient has mitral valve prolapse with moderate regurgitation. Arrangements will be made to send the patient to the [facility] for eventual surgery on the above.
--- NOTE | 2025-04-12 07:52 | PCM.DC ---
Discharge Instructions DC O2, CPAP, BIPAP needs Home O2 Discharge instructions: No Dressing / Incision Discharge Activity: Return to Normal Activity Lifting Restrictions: 10 pounds and also avoid any pushing or pulling for 3 days after your test. Additional Activity Instructions:: You must have someone drive you home. Do not drive until instructed by your doctor. You must have someone stay with you all night after your test. Rest in bed or on the couch until the next morning. Limit the number of times you go up and down stairs the day of your test. Apply pressure to the puncture site if you sneeze or cough. Dressing / Incision Call your doctor if your incision/area has: Increased Pain/ Swelling, Increased Redness, Foul Smelling Discharge and Swelling at the incision site Call your doctor if you observe: Fever of 101 or Higher Additional Dressing/Incision Instructions:: Keep the dressing (bandage) on until the next morning. You may then shower, but do not take a tub bath for 5 days after your test. It is normal to have some tenderness and discomfort at the puncture site. Sometimes bruising also occurs. However, if pain, numbness, or coldness occurs below the puncture site (in your leg, toes, arms or fingers) call your doctor at once. You may have a small, marble sized knot at the puncture site. This is normal. Do not rub it. It will go away in 4-6 weeks. Bleeding can occur from the area where the puncture was done. Blood may spurt or drip from the site. If blood spurts, apply pressure right away to stop bleeding and call 911. Although rare, bleeding into the tissue (hematoma) can also occur. If this happens, a large, firm area goose egg under the skin will appear. If any of these occur, lie down as flat as you can and have someone apply firm pressure to the cath site with a gauze pad or a clean washcloth for 10-15 minutes. Call 911 or go to the Emergency Department. Follow Up Care Test Results: Test results from this visit will be discussed in further detail at your follow-up appointment, if applicable. Patient will have an appointment at the [facility] Discharge Plan Admission Admit Date/Time: 04/11/25 10:07 Attending Provider: Jeremi Walters Primary Care Provider: Praful Frankel Discharge Orders/Prescriptions Prescriptions: New ticagrelor 90 mg Tablet 90 mg PO BID Qty: 180 3RF Continued hydrochlorothiazide 25 mg tablet 25 mg PO DAILY ergocalciferol (vitamin D2) 50 mcg (2,000 unit) capsule 50 mcg PO DAILY lisinopril 20 mg tablet 20 mg PO BID Patient Comments: TAKE ONE TABLET BY MOUTH TWICE DAILY atorvastatin [Lipitor] 10 mg tablet 10 mg PO QDAY Qty: 90 4RF Referrals / Follow Up: Praful Frankel MD [Primary Care Provider, Family Practice] Disposition Disposition (needs filled in before D/C Order can be placed): Home, Self Care
[2025-04-12 08:37] VITALS: BP 136/83; PULSE 67; RESP 14; TEMP 36.3; O2SAT 97
[2025-04-12] MEDS: FLU VACCINE 2025-26(6MOS UP) 45 MCG/0.5 ML SYRINGE IM (08:46)
[2025-04-12] MEDS: Cholecalciferol (VIT D3) 25 MCG TABLET (1,000 UNITS) 50 MCG PO (08:47)
[2025-04-12] MEDS: Aspirin E.C. 81 MG Tablet PO (08:47)
[2025-04-12] MEDS: TICAGRELOR 90 MG TABLET PO (08:48)
--- NOTE | 2025-04-12 10:00 | EKG12_ITS ---
Test Reason : pre-procedure Blood Pressure : */* mmHG Vent. Rate : 72 BPM Atrial Rate : 72 BPM P-R Int : 196 ms QRS Dur : 106 ms QT Int : 400 ms P-R-T Axes : 46 20 67 degrees QTcB Int : 438 ms Normal sinus rhythm Low voltage QRS Borderline ECG When compared with ECG of 15-Dec-2024 13:13, Nonspecific T wave abnormality no longer evident in Inferior leads Confirmed by MARY JO AGUILAR, JEREMI ([id number]), index editor LAN GAMINO ([id number]) on 04/13/2025 9:25:17 AM Referred By: Jeremi Walters Confirmed By: JEREMI WALTERS MD
--- NOTE | 2025-04-12 11:09 | PHA.DC_ITS ---
Pharmacy [facility] Counseling Pharmacy Service has performed discharge medication reconciliation and counseling for this patient. The patient's discharge medication list was reviewed for discrepancies and discrepancies were resolved. The patient was counseled on the following discharge medications and changes in medications for homegoing were reviewed. 1. ALEXANDRA The Reason for Use, instructions for use, and potential side effects were reviewed for all new medications. The patient's questions regarding all of their medications were answered. The patient was able to verbally demonstrate an understanding of their discharge medications. The patient was counselled by Richard Jordan PharmD Candidate Medications at Discharge Home Medications ergocalciferol (vitamin D2) 50 mcg (2,000 unit) capsule 50 mcg PO DAILY vitamin 05/30/21 hydrochlorothiazide 25 mg tablet 25 mg PO DAILY diuretic 05/30/21 lisinopril 20 mg tablet 20 mg PO BID blood pressure 09/17/21 atorvastatin 10 mg tablet (Lipitor) 10 mg PO QDAY cholesterol #90 tabs 12/15/24 ticagrelor 90 mg tablet 90 mg PO BID #180 tabs 04/12/25
--- NOTE | 2025-04-12 11:25 | CASEMGMT ---
Addendum entered by Kalpana Lion 04/12/25 12:11: Pt states he received a call from [facility], they have the Brilinta ready to be picked up, and he states there is no charge. Pt and deny having other discharge needs or concerns. Original Note: GEORGE WEI NOTE: Rx for Brilinta was e-scribed to [facility] in [place]. Call to [facility]. They state pt is not contracted w/pt's insurance plan. GEORGE WEI spoke w/pt and . They would like to try [facility] [place]. [facility] [place] They were made aware to transfer script to them from [facility]. After script transferred, [facility] in [place] informed this RN ERIBERTO they do not have any Brilinta in stock and will not be able to get it in until tomorrow. Pt and had informed this RN ERIBERTO that they would be interested [facility] retail pharmacy if unable to get from [facility]. Call to [facility] retail pharmacy. They only have enough in stock to do partial fill. Call placed to [facility]. They have plenty in stock and are pretty sure they are in-network w/pt's insurance. Pt and made aware and are okay with having Rx sent to [facility]. [facility] to call and transfer Rx from [facility] in [place] and they will call pt or pt's when it is ready to be picked up. Pt and made aware and voice appreciation. Sherwin DAVALOS RN, CM
== END 2025-04-12 07:51 | disposition home or self-care (01) ==
LOC: CLSP 10:11 → PCU 10:11
PROVIDERS: Specialist; Admitting Provider Internal Medicine Cardiovascular Disease; PCP Family Medicine; Referring Provider Internal Medicine Cardiovascular Disease; Visit Provider Internal Medicine Cardiovascular Disease
DX: I25.10 Atherosclerotic heart disease of native coronary artery without angina pectoris (principal); I34.1 Nonrheumatic mitral (valve) prolapse; I10 Essential (primary) hypertension; R94.39 Abnormal result of other cardiovascular function study; Z79.899 Other long term (current) drug therapy; R01.1 Cardiac murmur, unspecified; I34.0 Nonrheumatic mitral (valve) insufficiency; I44.0 Atrioventricular block, first degree
CPT/HCPCS: 36415; 80048; 80053; 85025; 85027; 92928; 93005; 93458; 96360; 96361; 99152; 99153; 99221; C1725; C1769; C1887; Q9967; C1874; C1894; C9600; G0378

== ENCOUNTER → 2025-04-22 | Outpatient (CLI) | payer OTHER, SELFPAY ==
--- OUTSIDE RECORDS SUMMARY | 2025-04-22 12:46 | XMS RPT_ITS | CCD ---
Author Organization [facility] Providers Care Re Recording Mixer Name Role Phone Dr. Sven Cotter Primary Care Provider [phone] Dr. Sven Cotter Referring Provider Amalia VERTICAL CONTOUR BAND SAW OPERATOR, VERTICAL CONTOUR BAND SAW OPERATOR-C Mylene Attending Provider [phone] Dr. Sven Cotter Primary Care Provider Dr. Raji Coello Attending Provider [phone] Sven Cotter Primary Care Provider Dr. Sven Cotter Referring Provider Dr. Sven Cotter Other Provider Dr. Jeremi Walters Attending Provider Dr. Sven Cotter MD Primary Care Provider [phone] Dr. Rudy Pickens MD Attending Provider Dr. Lev Sarah MD Referring Provider [phone] Dr. Sven Cotter MD Referring Provider Dr. Lev Sarah MD Attending Provider Dr. Lev Sarah MD Other Provider [phone] Dr. Sven Cotter MD Attending Provider [phone] Lan Lama PA-C Attending Provider Cyndee AGUILAR, Sven Calles Primary Care Provider [facility] Primary Care Provider [phone] Dr. Sven Cotter MD Referring Provider Dr. [...] Care Unavailable Selena, Jeremi Referring Unavailable Selena, Joppa Attending Unavailable Schinner, Sven E Primary Care Unavailable Schinner, Sven E Attending Unavailable Schinner, Sven E Referring Unavailable Schinner, Sven E Primary Care Unavailable Selena, Joppa Attending Unavailable Selena, Joppa Referring Unavailable Schinner, Sven E Primary Care Unavailable Schinner, Sven E Attending Unavailable Schinner, Sven E Primary Care Unavailable Selena, Jeremi Attending Unavailable Schinner, Sven E Primary Care Unavailable Schinner, Sven E Primary Care Unavailable Rudy Pickens Attending Unavailable CarlosabrLev morrison Referring Unavailable Lev Sarah Consulting Unavailable Lev Sarah Attending Unavailable CalabrLev morrison Referring Unavailable Schinner, Sven E Primary Care Unavailable Selena, Joppa Attending Unavailable Schinner, Sven E Referring Unavailable [...] Penicillins; Translations: [Penicillins] Allergy to substance 2 [facility] Comment on above: unknown (1 source) ALLERGIES NOT ON FILE; Translations: [ALLERGIES NOT ON FILE] Propensity to adverse reactions (disorder) [facility] 2 Repository Medications Current Medications Medication Drug [...] Facility Cardiology Visit Reporton Cardiology Visit Report [facility] [address] [place] [address] OFFICE VISIT Date of Service: 02/08/25 MR#: [id number] Acct: [id number] Name: KRIS MORA Rep #: [id number] : 1960 Provider: Dr. Jeremi Walters MD Age/Sex: 64/M Location: [facility] Status: Signed HPI HPI History of Present [...] Monitor Intake Visit Reasons: 6-8 W FU Group Counselor Required: No Accompanied by: Self Is patient [...] inspection: no (more content not included)... Normal [facility] Absolute lymphocyte countOrd ered By: Sven Cotter on 01-27-2025 Lymphocytes Auto (Unsp spec) [#/Vol] 1.12 10*3/uL 0.83-4.51 [facility] Absolute neutrophil countOrd ered By: Sven Cotter on 01-27-2025 Neutrophils (Bld) [#/Vol] 4.6 10*3/uL 2.0-7.7 [facility] Anion gap in Serum or Plasma Ordered By: Sven Cotter on 01-27-2025 Anion gap [Moles/Vol] 12 mmol/L 5-15 [facility] Automated lymphocyte count a s percentage of total leukocytesOrdered By: Sven Cotter on 01-27-2025 Lymphocytes/100 WBC Auto (Unsp spec) 17.5 % Low 19-41 [facility] BUN/creatinine ratioOrdered By: Sven Cotter on 01-27-2025 Urea nitrogen/Creatinine [Mass ratio] 21.3 mg/mg High 10-20 [facility] Basophil percentageOrdered B y: Sven Cotter on 01-27-2025 Basophils/100 WBC (Bld) 0.6 % 0-1 [facility] Bilirubin Test strip Ql (U)O rdered By: Sven Cotter on 01-27-2025 Bilirubin Ql (U) Negative Negative [facility] Bilirubin, totalOrdered By: Sven Cotter on 01-27-2025 Bilirubin [Mass/Vol] 0.71 mg/dL 0.00-1.30 [facility] CBC W/Diff, Automatedon 01-17 Absolute Lymph 1.12 X10 3/uL Normal 0.83-4.51 [facility] Comment on above: Order Comment: Order Date: 01/27/25 Order Info: 0184-1 - CBCD Performed By: #### L 501.9910, L500.4050, L500.4100, L100.0100 #### [facility] [address] [place], [address] Absolute Neut 4.6 X10 3/uL Normal 2.0-7.7 [facility] Comment on above: Order Comment: Order Date: 01/27/25 Order Info: 0184-1 - CBCD Performed By: #### L 501.9910, L500.4050, L500.4100, L100.0100 #### [facility] [address] [place], [address] Basophils/100 WBC (Bld) 0.6 % Normal 0-1 [facility] Comment on above: Order Comment: Order Date: 01/27/25 Order Info: 0184- - CBCD Performed By: #### L 501.9910, L500.4050, L500.4100, L100.0100 #### [facility] [address] [place], [address] Eosinophils/100 WBC (Bld) 1.6 % Normal 0-5 [facility] Comment on above: Order Comment: Order Date: 01/27/25 Order Info: 0184-1 - CBCD Performed By: #### L 501.9910, L500.4050, L500.4100, L100.0100 #### [facility] [address] [place], [address] Erythrocyte distribution width (RBC) [Ratio] 13.0 % Normal 11.6-14.6 [facility] Comment on above: Order Comment: Order Date: 01/27/25 Order Info: 0184-1 - CBCD Performed By: #### L 501.9910, L500.4050, L500.4100, L100.0100 #### [facility] [address] [place], [address] Hematocrit (Bld) [Volume fraction] 39.5 % Low 40-54 [facility] Comment on above: Order Comment: Order Date: 01/27/25 Order Info: 0184-1 - CBCD Performed By: #### L 501.9910, L500.4050, L500.4100, L100.0100 #### [facility] [address] [place], [address] Hemoglobin (Bld) [Mass/Vol] 13.0 g/dL Normal 13.0-16.5 [facility] Comment on above: Order Comment: Order Date: 01/27/25 Order Info: 0184- - CBCD Performed By: #### L 501.9910, L500.4050, L500.4100, L100.0100 #### [facility] [address] [place], [address] IG% 0.300 Normal 0.0-0.9 [facility] Comment on above: Order Comment: Order Date: 01/27/25 Order Info: 0184- - CBCD Result Comment: IG% - Immature Granulocytes (promyelocytes, myelocytes and metamyelocytes) > 1% indicates that a LEFT SHIFT is Present. Performed By: #### L 501.9910, L500.4050, L500.4100, L100.0100 #### [facility] [address] [place], [address] Lymphocytes/100 WBC (Bld) 17.5 % Low 19-41 [facility] Comment on above: Order Comment: Order Date: 01/27/25 Order Info: 0184-1 - CBCD Performed By: #### L 501.9910, L500.4050, L500.4100, L100.0100 #### [facility] [address] [place], [address] MCH (RBC) [Entitic mass] 31.0 pg Normal 27.0-32.0 [facility] Comment on above: Order Comment: Order Date: 01/27/25 Order Info: 0184-1 - CBCD Performed By: #### L 501.9910, L500.4050, L500.4100, L100.0100 #### [facility] [address] [place], [address] MCHC (RBC) [Mass/Vol] 32.9 g/dL Normal 32-36 [facility] Comment on above: Order Comment: Order Date: 01/27/25 Order Info: 0184-1 - CBCD Performed By: #### L 501.9910, L500.4050, L500.4100, L100.0100 #### [facility] [address] [place], [address] MCV (RBC) [Entitic vol] 94.3 fL High 80-94 [facility] Comment on above: Order Comment: Order Date: 01/27/25 Order Info: 018- - CBCD Performed By: #### L 501.9910, L500.4050, L500.4100, L100.0100 #### [facility] [address] [place], [address] Monocytes/100 WBC (Bld) 7.7 % Normal 0-10 [facility] Comment on above: Order Comment: Order Date: 01/27/25 Order Info: 018- - CBCD Performed By: #### L 501.9910, L500.4050, L500.4100, L100.0100 #### [facility] [address] [place], [address] Neutrophils/100 WBC (Bld) 72.3 % High 47-70 [facility] Comment on above: Order Comment: Order Date: 01/27/25 Order Info: 0184-1 - CBCD Performed By: #### L 501.9910, L500.4050, L500.4100, L100.0100 #### [facility] [address] [place], [address] Nucleated RBC (Bld) [#/Vol] 0 10*3/uL Normal 0-5 [facility] Comment on above: Order Comment: Order Date: 01/27/25 Order Info: 0184-1 - CBCD Performed By: #### L 501.9910, L500.4050, L500.4100, L100.0100 #### [facility] [address] [place], [address] Platelet mean volume (Bld) [Entitic vol] 13.4 fL High 6.2-12.0 [facility] Comment on above: Order Comment: Order Date: 01/27/25 Order Info: 0184- - CBCD Performed By: #### L 501.9910, L500.4050, L500.4100, L100.0100 #### [facility] [address] [place], [address] Platelets (Bld) [#/Vol] 190 10*3/uL Normal 150-450 [facility] Comment on above: Order Comment: Order Date: 01/27/25 Order Info: 0184- - CBCD Performed By: #### L 501.9910, L500.4050, L500.4100, L100.0100 #### [facility] [address] [place], [address] RBC (Bld) [#/Vol] 4.19 10*6/uL Low 4.6-6.2 [facility] Comment on above: Order Comment: Order Date: 01/27/25 Order Info: 0184-1 - CBCD Performed By: #### L 501.9910, L500.4050, L500.4100, L100.0100 #### [facility] [address] [place], [address] RDW SD 44.8 fl High 35.1-43.9 [facility] Comment on above: Order Comment: Order Date: 01/27/25 Order Info: 0184-1 - CBCD Performed By: #### L 501.9910, L500.4050, L500.4100, L100.0100 #### [facility] [address] [place], [address] WBC (Bld) [#/Vol] 6.4 10*3/uL Normal 4.4-11.0 [facility] Comment on above: Order Comment: Order Date: 01/27/25 Order Info: 0184-1 - CBCD Performed By: #### L 501.9910, L500.4050, L500.4100, L100.0100 #### [facility] [address] [place], [address] Calculated very low density lipoprotein (VLDL) cholesterol measurementOrdered By: Sven Cotter on 01-27-2025 Calculated very low density lipoprotein (VLDL) cholesterol measurement 11 mg/dL 5-40 [facility] Carbon dioxide, total [Moles /volume] in Central venous bloodOrdered By: Sven Cotter on 01-27-2025 CO2 [Moles/Vol] 26.2 mmol/L 21.0-32.0 [facility] Chloride assayOrdered By: Jeanine Cotter on 01-27-2025 Chloride [Moles/Vol] 101 mmol/L 98-108 [facility] Comprehensive Metabolic Prof ilon 01-27-2025 Albumin [Mass/Vol] 4.4 g/dL Normal 3.4-4.8 [facility] Comment on above: Order Comment: Order Date: 01/27/25 Order Info: 0786-1 - CMP Order Info: [id number] - LIPID Order Info: [id number] - PSA Performed By: #### L 501.9910, L500.4050, L500.4100, L100.0100 #### [facility] [address] [place], [address] Albumin/Globulin [Mass ratio] 1.8 {ratio} Normal 0.9-2.4 [facility] Comment on above: Order Comment: Order Date: 01/27/25 Order Info: 0786-1 - CMP Order Info: [id number] - LIPID Order Info: 2851 - PSA Performed By: #### L 501.9910, L500.4050, L500.4100, L100.0100 #### [facility] [address] [place], [address] ALK PHOS 43 U/L Normal 40-129 [facility] Comment on above: Order Comment: Order Date: 01/27/25 Order Info: 07- - CMP Order Info: [id number] - LIPID Order Info: [id number] - PSA Performed By: #### L 501.9910, L500.4050, L500.4100, L100.0100 #### [facility] [address] [place], [address] ALT [Catalytic activity/Vol] 52 U/L High <=46 [facility] Comment on above: Order Comment: Order Date: 01/27/25 Order Info: 0786 - CMP Order Info: [id number] - LIPID Order Info: [id number] - PSA Performed By: #### L 501.9910, L500.4050, L500.4100, L100.0100 #### [facility] [address] [place], [address] AST [Catalytic activity/Vol] 31 U/L Normal <=37 [facility] Comment on above: Order Comment: Order Date: 01/27/25 Order Info: 0786- - CMP Order Info: [id number] - LIPID Order Info: [id number] - PSA Performed By: #### L 501.9910, L500.4050, L500.4100, L100.0100 #### [facility] [address] [place], [address] Bilirubin [Mass/Vol] 0.71 mg/dL Normal 0.00-1.30 [facility] Comment on above: Order Comment: Order Date: 01/27/25 Order Info: 0786- - CMP Order Info: [id number] - LIPID Order Info: [id number] - PSA Performed By: #### L 501.9910, L500.4050, L500.4100, L100.0100 #### [facility] [address] [place], [address] BUN/CRE 21.3 RATIO High 10-20 [facility] Comment on above: Order Comment: Order Date: 01/27/25 Order Info: 0786- - CMP Order Info: [id number] - LIPID Order Info: [id number] - PSA Performed By: #### L 501.9910, L500.4050, L500.4100, L100.0100 #### [facility] [address] [place], [address] Calcium [Mass/Vol] 10.1 mg/dL Normal 7.6-11.0 [facility] Comment on above: Order Comment: Order Date: 01/27/25 Order Info: 07 - CMP Order Info: [id number] - LIPID Order Info: [id number] - PSA Performed By: #### L 501.9910, L500.4050, L500.4100, L100.0100 #### [facility] [address] [place], [address] Chloride [Moles/Vol] 101 mmol/L Normal 98-108 [facility] Comment on above: Order Comment: Order Date: 01/27/25 Order Info: 0786- - CMP Order Info: [id number] - LIPID Order Info: [id number] - PSA Performed By: #### L 501.9910, L500.4050, L500.4100, L100.0100 #### [facility] [address] [place], [address] CO2 [Moles/Vol] 26.2 mmol/L Normal 21.0-32.0 [facility] Comment on above: Order Comment: Order Date: 01/27/25 Order Info: 0786- - CMP Order Info: [id number] - LIPID Order Info: [id number] - PSA Performed By: #### L 501.9910, L500.4050, L500.4100, L100.0100 #### [facility] [address] [place], [address] Creatinine [Mass/Vol] 1.12 mg/dL Normal 0.70-1.20 [facility] Comment on above: Order Comment: Order Date: 01/27/25 Order Info: 0786- - CMP Order Info: [id number] - LIPID Order Info: 2851 - PSA Performed By: #### L 501.9910, L500.4050, L500.4100, L100.0100 #### [facility] [address] [place], [address] GAP 12 Normal 5-15 [facility] Comment on above: Order Comment: Order Date: 01/27/25 Order Info: 0786 - CMP Order Info: [id number] - LIPID Order Info: [id number] - PSA Performed By: #### L 501.9910, L500.4050, L500.4100, L100.0100 #### [facility] [address] [place], [address] GFR/1.73 sq M.predicted among non-blacks MDRD (S/P/Bld) [Vol rate/Area] 74 mL/min/{1.73_m2} Normal >60 [facility] Comment on above: Order Comment: Order Date: 01/27/25 Order Info: 0786- - CMP Order Info: [id number] - LIPID Order Info: 2851 - PSA Result Comment: mL/m in/1.73m2 CKD-EPI Creatinine Equation (2020) Performed By: #### L 501.9910, L500.4050, L500.4100, L100.0100 #### [facility] [address] [place], [address] Globulin (S) [Mass/Vol] 2.4 g/dL Normal 2.2-4.2 [facility] Comment on above: Order Comment: Order Date: 01/27/25 Order Info: 0786- - CMP Order Info: [id number] - LIPID Order Info: [id number] - PSA Performed By: #### L 501.9910, L500.4050, L500.4100, L100.0100 #### [facility] [address] [place], [address] Glucose [Mass/Vol] 93 mg/dL Normal 70-99 [facility] Comment on above: Order Comment: Order Date: 01/27/25 Order Info: 0786- - CMP Order Info: [id number] - LIPID Order Info: [id number] - PSA Performed By: #### L 501.9910, L500.4050, L500.4100, L100.0100 #### [facility] [address] [place], [address] Potassium [Moles/Vol] 4.6 mmol/L Normal 3.3-5.1 [facility] Comment on above: Order Comment: Order Date: 01/27/25 Order Info: 0786 - CMP Order Info: [id number] - LIPID Order Info: [id number] - PSA Performed By: #### L 501.9910, L500.4050, L500.4100, L100.0100 #### [facility] [address] [place], [address] Sodium [Moles/Vol] 139 mmol/L Normal 133-145 [facility] Comment on above: Order Comment: Order Date: 01/27/25 Order Info: 0786- - CMP Order Info: [id number] - LIPID Order Info: [id number] - PSA Performed By: #### L 501.9910, L500.4050, L500.4100, L100.0100 #### [facility] [address] [place], [address] T PROT 6.8 g/dL Normal 5.9-8.4 [facility] Comment on above: Order Comment: Order Date: 01/27/25 Order Info: 0786-1 - CMP Order Info: [id number] - LIPID Order Info: [id number] - PSA Performed By: #### L 501.9910, L500.4050, L500.4100, L100.0100 #### [facility] [address] [place], [place], [address] Urea nitrogen [Mass/Vol] 24 mg/dL High 4-19 [facility] Comment on above: Order Comment: Order Date: 01/27/25 Order Info: 0786-1 - CMP Order Info: [id number] - LIPID Order Info: [id number] - PSA Performed By: #### L 501.9910, L500.4050, L500.4100, L100.0100 #### [facility] [address] [place], [address] Eosinophil percentageOrdered By: Sven Cotter on 01-27-2025 Eosinophils/100 WBC (Bld) 1.6 % 0-5 [facility] Erythrocyte distribution wid th ratioOrdered By: Sven Cotter on 01-27-2025 Erythrocyte distribution width (RBC) [Ratio] 13.0 % 11.6-14.6 [facility] Erythrocyte distribution wid th standard deviationOrdered By: Sven Cotter on 01-27-2025 Erythrocyte distribution width (RBC) [Ratio] 44.8 fl High 35.1-43.9 [facility] Glomerular filtration rate ( GFR) estimation/1.73 sq m using serum, plasma, or whole bOrdered By: Sven Cotter on 01-27-2025 GFR/1.73 sq M.predicted among non-blacks MDRD (S/P/Bld) [Vol rate/Area] 74 mL/min/{1.73_m2} >60 [facility] Comment on above: mL/min/1.73m2 CKD-EP I Creatinine Equation (2020) Hematocrit Auto (Bld) [Volum e fraction]Ordered By: Sven Cotter on 01-27-2025 Hematocrit (Bld) [Volume fraction] 39.5 % Low 40-54 [facility] Hemoglobin measurementOrdere d By: Sven Cotter on 01-27-2025 Hemoglobin (Bld) [Mass/Vol] 13.0 g/dL 13.0-16.5 [facility] Immature granulocytes/100 WB C Auto (Bld)Ordered By: Sven Cotter on 01-27-2025 Immature granulocytes/100 WBC (Bld) 0.300 % 0.0-0.9 [facility] Comment on above: IG% - Immature Granu locytes (promyelocytes, myelocytes and metamyelocytes) > 1% indicates that a LEFT SHIFT is Present. Ketones Test strip Ql (U)Ord ered By: Sven Cotter on 01-27-2025 Ketones Ql (U) Negative Negative [facility] LDL calc ser/plasOrdered By: Sven Cotter on 01-27-2025 Cholesterol in LDL [Mass/Vol] 65 mg/dL [facility] Comment on above: Frpiuicavv=685-790 m g/dL & Higher Mznw=890 mg/dL or greaterFriedwald Equation for LDL-C Laboratory - Chemistry and C hemistry - challengeOrdered By: Sven Cotter on 01-27-2025 AST [Catalytic activity/Vol] 31 U/L <38 [facility] Lipid Profileon 01-27-2025 CHOL:HDL 2.11 Normal [facility] Comment on above: Order Comment: Order Date: 01/27/25 Order Info: 0786-1 - CMP Order Info: [id number] - LIPID Order Info: [id number] - PSA Performed By: #### L 501.9910, L500.4050, L500.4100, L100.0100 #### [facility] [address] [facility] [place], [place], [address] Cholesterol [Mass/Vol] 145 mg/dL Normal <=200 [facility] Comment on above: Order Comment: Order Date: 01/27/25 Order Info: 0786-1 - CMP Order Info: [id number] - LIPID Order Info: [id number] - PSA Result Comment: Chol esterol level, Desirable <200 mg/dL Borderline high cholesterol 200-239 mg/dL High cholesterol >=240 mg/dL Recommendations of the NCEP Adult Treatment Panel for the following risk-cutoff thresholds for the [place] population. Performed By: #### L 501.9910, L500.4050, L500.4100, L100.0100 #### [facility] [address] [place], [address] Cholesterol in HDL [Mass/Vol] 69 mg/dL Normal [facility] Comment on above: Order Comment: Order [...] #### L 501.9910, L500.4050, L500.4100, L100.0100 #### [facility] [address] [place], [address] Cholesterol in LDL [Mass/Vol] 65 mg/dL Normal [facility] Comment on above: Order Comment: Order Date: 01/27/25 Order Info: [id number] - CMP Order Info: - LIPID Order Info: [id number] - PSA Result Comment: Bord qiesuy=758-783 mg/dL Higher Iixp=432 mg/dL or greater Friedwald Equation for LDL-C Performed By: #### L 501.9910, L500.4050, L500.4100, L100.0100 #### [facility] [address] [place], [address] Cholesterol in VLDL [Mass/Vol] 11 mg/dL Normal 5-40 [facility] Comment on above: Order Comment: Order Date: 01/27/25 Order Info: 07 - CMP Order Info: - LIPID Order Info: [id number] - PSA Performed By: #### L 501.9910, L500.4050, L500.4100, L100.0100 #### [facility] [address] [place], [address] Triglyceride [Mass/Vol] 56 mg/dL Normal [facility] Comment on above: Order Comment: Order Date: 01/27/25 Order Info: 0786-1 - CMP Order Info: [id number] - LIPID Order Info: [id number] - PSA Result Comment: The drugs N-Acetylcysteine and Metamizole may falsely depress this assay. Normal range: <150 mg/dL Borderline High: 150-199 mg/dL High: 200-499 mg/dL Very High: >500 mg/dL Performed By: #### L 501.9910, L500.4050, L500.4100, L100.0100 #### [facility] [address] [place], [address] MCV (mean corpuscular volume ) determinationOrdered By: Sven Cotter on 01-27-2025 MCV (RBC) [Entitic vol] 94.3 fL High 80-94 [facility] Mean corpuscular hemoglobin (MCH) determinationOrdered By: Sven Cotter on 01-27-2025 MCH (RBC) [Entitic mass] 31.0 pg 27.0-32.0 [facility] Mean corpuscular hemoglobin concentration (MCHC) determinationOrdered By: Sven Cotter on 01-27-2025 MCHC (RBC) [Mass/Vol] 32.9 g/dL 32-36 [facility] Mean platelet volume determi nationOrdered By: Sven Cotter on 01-27-2025 Platelet mean volume (Bld) [Entitic vol] 13.4 fL High 6.2-12.0 [facility] Microscopic analysis of urin e for red blood cells (RBC)Ordered By: Sven Cotter on 01-27-2025 Microscopic analysis of urine for red blood cells (RBC) 0 SEEN /hpf 0-5 [facility] Monocyte percentageOrdered B y: Sven Cotter on 01-27-2025 Monocytes/100 WBC (Bld) 7.7 % 0-10 [facility] Mucus LM Ql (Urine sed)Order ed By: Sven Cotter on 01-27-2025 Mucus Ql (Urine sed) 0 SEEN /hpf [facility] Neutrophil percentageOrdered By: Sven Cotter on 01-27-2025 Neutrophils/100 WBC (Bld) 72.3 % High 47-70 [facility] Nitrite Test strip Ql (U)Ord ered By: Sven Cotter on 01-27-2025 Nitrite Ql (U) Negative Negative [facility] Nucleated red blood cell per centageOrdered By: Sven Cotter on 01-27-2025 Nucleated RBC/100 WBC (Bld) [Ratio] 0 % 0-5 [facility] PSA,Total - Annual Screenon 01-27-2025 PSA,TOT SCREEN 2.75 ng/mL Normal 0.02-4.00 [facility] Comment on above: Order Comment: Order Date: 01/27/25 Order Info: 0786-1 - CMP Order Info: [id number] - LIPID Order Info: [id number] - PSA [...] #### L 501.9910, L500.4050, L500.4100, L100.0100 #### [facility] [address] [place], [place], [id number] Platelet countOrdered By: Jeanine Cotter on 01-27-2025 Platelets (Bld) [#/Vol] 190 10*3/uL 150-450 [facility] Potassium measurement (mass/ volume)Ordered By: Sven Cotter on 01-27-2025 Potassium (Unsp spec) [Mass/Vol] 4.6 mmol/L 3.3-5.1 [facility] Protein Test strip Ql (U)Ord ered By: Sven Cotter on 01-27-2025 Protein Ql (U) Negative Negative [facility] RBC Auto (Bld) [#/Vol]Ordere d By: Sven Cotter on 01-27-2025 RBC (Bld) [#/Vol] 4.19 10*6/uL Low 4.6-6.2 [facility] Screening total cholesterol/ high density lipoprotein (HDL) cholesterol ratioOrdered By: Sven Cotter on 01-27-2025 Cholesterol.total/Choles terol in HDL [Mass ratio] 2.11 {ratio} [facility] Serum creatinine measurement (mass/volume)Ordered By: Sven Cotter on 01-27-2025 Creatinine [Mass/Vol] 1.12 mg/dL 0.70-1.20 [facility] Serum globulin measurementOr dered By: Sven Cotter on 01-27-2025 Globulin (S) [Mass/Vol] 2.4 g/dL 2.2-4.2 [facility] Serum glucose measurement (m ass/volume)Ordered By: Sven Cotter on 01-27-2025 Glucose [Mass/Vol] 93 mg/dL 70-99 [facility] Serum or plasma alanine zayas otransferase (ALT) measurementOrdered By: Sven Cotter on 01-27-2025 ALT [Catalytic activity/Vol] 52 U/L High <47 [facility] Serum or plasma albumin elaine urement (mass/volume)Ordered By: Sven Cotter on 01-27-2025 Albumin [Mass/Vol] 4.4 g/dL 3.4-4.8 [facility] Serum or plasma albumin/glob ulin mass ratioOrdered By: Sven Cotter on 01-27-2025 Albumin/Globulin [Mass ratio] 1.8 {ratio} 0.9-2.4 [facility] Serum or plasma alkaline zaida sphatase measurementOrdered By: Sven Cotter on 01-27-2025 ALP [Catalytic activity/Vol] 43 U/L 40-129 [facility] Serum or plasma calcium elaine urement (mass/volume)Ordered By: Sven Cotter on 01-27-2025 Calcium [Mass/Vol] 10.1 mg/dL 7.6-11.0 [facility] Serum or plasma cholesterol in HDL measurement (mass/volume)Ordered By: Sven Cotter on 01-27-2025 Cholesterol in HDL [Mass/Vol] 69 mg/dL >40 [facility] Comment on above: National Cholesterol Education Program (NCEP) guidelines:<40 mg/dL: Low HDL-cholesterol (major risk factor for CHD)>= 60 mg/dL: High HDL-cholesterol (negative risk factor for CHD)HDL-cholesterol is affected by a number of factors, e.g. smoking, exercise, hormones, sex and age. Serum or plasma cholesterol measurement (mass/volume)Ordered By: Sven Cotter on 01-27-2025 Cholesterol [Mass/Vol] 145 mg/dL <201 [facility] Comment on above: Cholesterol level, D esirable <200 mg/dLBorderline high cholesterol 200-239 mg/dLHigh cholesterol >=240 mg/dLRecommendations of the NCEP Adult Treatment Panel for the following risk-cutoff thresholds for the [place] population. Serum or plasma urea nitroge n measurement (mass/volume)Ordered By: Sven Cotter on 01-27-2025 Urea nitrogen [Mass/Vol] 24 mg/dL High 4-19 [facility] Sodium levelOrdered By: Sven Cotter on 01-27-2025 Sodium [Moles/Vol] 139 mmol/L 133-145 [facility] Squamous epithelial cells de tection in urine sediment by light microscopyOrdered By: Sven Cotter on 01-27-2025 Epithelial cells.squamous LM Ql (Urine sed) 0 SEEN /hpf 0-5 [facility] Total proteinOrdered By: Sumit Cotter on 01-27-2025 Protein [Mass/Vol] 6.8 g/dL 5.9-8.4 [facility] Triglycerides measurementOrd ered By: Sven Cotter on 01-27-2025 Triglyceride [Mass/Vol] 56 mg/dL <199 [facility] Comment on above: The drugs N-Acetylcy steine and Metamizole may falsely depress this assay. Normal range: <150 mg/dLBorderline High: 150-199 mg/dLHigh: 200-499 mg/dLVery High: >500 mg/dL Urinalysis, Completeon 01-27 BACTERIA 0 SEEN Normal None Seen [facility] Comment on above: Order Comment: Order Date: 01/27/25 Order Info: 0786-1 - CMP Order Info: [id number] - LIPID Order Info: [id number] - PSA Performed By: #### L 501.9910, L500.4050, L500.4100, L100.0100 #### [facility] [address] [place], [address] EPI,SQUAMOUS 0 SEEN Normal 0-5 [facility] Comment on above: Order Comment: Order Date: 01/27/25 Order Info: [id number] - CMP Order Info: - LIPID Order Info: [id number] - PSA Performed By: #### L 501.9910, L500.4050, L500.4100, L100.0100 #### [facility] [address] [place], [address] Mucus Ql (Urine sed) 0 SEEN Normal [facility] Comment on above: Order Comment: Order Date: 01/27/25 Order Info: 785-05 - CMP Order Info: [id number] - LIPID Order Info: [id number] - PSA Performed By: #### L 501.9910, L500.4050, L500.4100, L100.0100 #### [facility] [address] [place], [address] RBC 0 SEEN Normal 0-5 [facility] Comment on above: Order Comment: Order Date: 01/27/25 Order Info: 785-05 - CMP Order Info: [id number] - LIPID Order Info: [id number] - PSA Performed By: #### L 501.9910, L500.4050, L500.4100, L100.0100 #### [facility] [address] [place], [address] WBC 0 SEEN Normal 0-5 [facility] Comment on above: Order Comment: Order Date: 01/27/25 Order Info: 07 - CMP Order Info: [id number] - LIPID Order Info: [id number] - PSA Performed By: #### L 501.9910, L500.4050, L500.4100, L100.0100 #### [facility] [address] [place], [address] Urine clarityOrdered By: Sumit Cotter on 01-27-2025 Clarity (U) Clear Clear [facility] Urine color determinationOrd ered By: Sven Cotter on 01-27-2025 Color (U) Yellow Yellow [facility] Urine glucose detectionOrder ed By: Sven Cotter on 01-27-2025 Glucose Ql (U) Normal mg/dl Normal [facility] Urine leukocyte esterase det ection by dipstickOrdered By: Sven Cotter on 01-27-2025 Leukocyte esterase Test strip Ql (U) Negative Negative [facility] Urine pHOrdered By: Sven myers on 01-27-2025 pH (U) 6.0 [pH] 5.0 - 8.0 [facility] Urine sediment bacteria coun t by microscopy (number/high power field)Ordered By: Sven Cotter on 01-27-2025 Bacteria LM.HPF (Urine sed) [#/Area] 0 /[HPF] None Seen [facility] Urine specific gravity measu rementOrdered By: Sven Cotter on 01-27-2025 Specific gravity (U) [Rel density] 1.010 1.002-1.030 [facility] Urine urobilinogen measureme ntOrdered By: Sven Cotter on 01-27-2025 Urobilinogen Ql (U) Normal mg/dl Normal [facility] Vitamin D,25 Hydroxyon 01-27 Vitamin D 25-OH 50.6 ng/mL Normal 30-100 [facility] Comment on above: Order Comment: Order Date: 01/27/25 Order Info: 0786-1 - CMP Order Info: [id number] - LIPID Order Info: [id number] - PSA Result Comment: Charmaine min D Status Deficiency: <20 ng/mL (50nmol/L) Insufficiency: 20-30 ng/mL (50-75 nmol/L) Sufficiency: 30-100 ng/mL (75-250 nmol/L) Toxicity: >100 ng/mL (>250 nmol/L) Performed By: #### L 501.9910, L500.4050, L500.4100, L100.0100 #### [facility] [address] [place], [address] White blood cell (WBC) count Ordered By: Sven Cotter on 01-27-2025 WBC (Bld) [#/Vol] 6.4 10*3/uL 4.4-11.0 [facility] White blood cell countOrdere d By: Sven Cotter on 01-27-2025 White blood cell count 0 SEEN /hpf 0-5 [facility] Echo Completeon 01-11-2025 Echo Complete [facility] [address] [place] [address] Echo Complete 01/11/25 1057 MR#: [id number] Acct: [id number] Name: KRIS MORA Rep #: [id number] : 1960 64 From: Jeremi Walters MD [...] Dictated: 01/11/25 1057 Date Transcribed: 01/11/25 125 [employer]: Signed Normal [facility] Echocardiogram study reportO rdered By: Jeremi Waletrs on 01-11-2025 Study report [facility] [address] [place] [address] Echo Complete 01/11/25 1057 MR#: [id number] Acct: [id number] Name: KRIS MORA Rep #:[id number] : 1960 64 From: Jeremi Iverson Attending [...] Dictated: 01/11/25 1057 Date Transcribed: 01/11/25 125 [employer]: Signed [facility] Work Phone: Cardiology Visit Reporton Cardiology Visit Report [facility] [address] [place] [address]. [address] [place] [address] OFFICE VISIT Date of Service: 12/15/24 MR#: [id number] Acct: [id number] Name: COOKIEKRIS CALL Rep #: [id number] : 1960 Provider: Dr. Jeremi Walters MD Age/Sex: 64/M Location: [facility] Status: Signed HPI HPI History of Present [...] Monitor Intake Visit Reasons: ABN CCTA (CYNDEE) Group Counselor Required: No Accompanied by: Self Is patient [...] chest, sy (more content not included)... Normal [facility] CT CARDIAC SCORING WO IV CON TRASTon 10-13-2024 CT CARDIAC SCORING WO IV CONTRAST Interpreted By: Delvis Osei, STUDY: CT CARDIAC SCORING WO IV CONTRAST; 10/13/2024 10:56 am INDICATION: Signs/Symptoms:FAMILY HX OF CAD. PE ,Z82.49 Family history of ischemic heart disease and other diseases of the circulatory system COMPARISON: None. ACCESSION NUMBER(S): [id number] ORDERING CLINICIAN: SVEN COTTER TECHNIQUE: Using prospective [...] coronary heart disease events. According to the [employer] [employer] Clinical Expert Consensus [...] modify other non-lipid coronary risk factors. Reference: Elsmore P et al. Circulation. 2007; 115:402-426 MACRO: None Signed by: Delvis Osei 10/14/2024 10:24 AM Dictation workstation: [id number] [facility] Surgery Visit Reporton 07-26 Surgery Visit Report [facility] [address] [place], [place] [address] OFFICE VISIT Date of Service: 07/26/24 MR#: [id number] Acct: [id number] Name: KRIS MORA Rep #: [id number] : 1960 Provider: JERROD carr Age/Sex: 64/M Location: [facility] Status: Signed Intake Vital Signs 07/12/24 09:40 Height 5 ft 7 in Intake Visit Reasons: HERNIA 2-24 Chief Complaint: rih f/u Group Counselor Required: No Is patient in pain?: No [...] Post Op Diagnoses Right inguinal hernia K40.90 [facility] Medical History Wears glasses Alcohol use Anemia [...] applicable) CC: Dr. Sven Cotter MD Normal [facility] Absolute neutrophil countOrd ered By: Sven Cotter on 07-20-2024 Neutrophils (Bld) [#/Vol] 3.8 10*3/uL 2.0-7.7 [facility] Albumin DL <= 20 mg/L (U) [M ass/Vol]Ordered By: Sven Cotter on 07-20-2024 Urine Random Microalbumin < 12.0 mg/L NO RANGE EST. [facility] Anion gap in Serum or Plasma Ordered By: Sven Cotter on 07-20-2024 Anion gap [Moles/Vol] 12 mmol/L 5-15 [facility] BUN/creatinine ratioOrdered By: Sven Cotter on 07-20-2024 Urea nitrogen/Creatinine [Mass ratio] 21.3 mg/mg High 10-20 [facility] Basophil percentageOrdered B y: Sven Cotter on 07-20-2024 Basophils/100 WBC (Bld) 1.3 % High 0-1 [facility] Bilirubin, totalOrdered By: Sven Cotter on 07-20-2024 Bilirubin [Mass/Vol] 0.41 mg/dL 0.00-1.30 [facility] CBC W/Diff, Automatedon Absolute Lymph 1.40 X10 3/uL Normal 0.83-4.51 [facility] Comment on above: Order Comment: Order Date: 01/27/25 Order Info: 0184-1 - CBCD Performed By: #### L 501.9910, L500.4050, L500.4100, L100.0100 #### [facility] [address] [place], [address] Absolute Neut 3.8 X10 3/uL Normal 2.0-7.7 [facility] Comment on above: Order Comment: Order Date: 01/27/25 Order Info: 0184-1 - CBCD Performed By: #### L 501.9910, L500.4050, L500.4100, L100.0100 #### [facility] [address] [place], [address] Basophils/100 WBC (Bld) 1.3 % High 0-1 [facility] Comment on above: Order Comment: Order Date: 01/27/25 Order Info: 0184-1 - CBCD Performed By: #### L 501.9910, L500.4050, L500.4100, L100.0100 #### [facility] [address] [place], [address] Eosinophils/100 WBC (Bld) 4.7 % Normal 0-5 [facility] Comment on above: Order Comment: Order Date: 01/27/25 Order Info: 0184-1 - CBCD Performed By: #### L 501.9910, L500.4050, L500.4100, L100.0100 #### [facility] [address] [place], [address] Erythrocyte distribution width (RBC) [Ratio] 12.5 % Normal 11.6-14.6 [facility] Comment on above: Order Comment: Order Date: 01/27/25 Order Info: 0184-1 - CBCD Performed By: #### L 501.9910, L500.4050, L500.4100, L100.0100 #### [facility] [address] [place], [address] Hematocrit (Bld) [Volume fraction] 37.5 % Low 40-54 [facility] Comment on above: Order Comment: Order Date: 01/27/25 Order Info: 0184-1 - CBCD Performed By: #### L 501.9910, L500.4050, L500.4100, L100.0100 #### [facility] [address] [place], [address] Hemoglobin (Bld) [Mass/Vol] 12.1 g/dL Low 13.0-16.5 [facility] Comment on above: Order Comment: Order Date: 01/27/25 Order Info: 018- - CBCD Performed By: #### L 501.9910, L500.4050, L500.4100, L100.0100 #### [facility] [address] [place], [address] IG% 1.100 High 0.0-0.9 [facility] Comment on above: Order Comment: Order Date: 01/27/25 Order Info: [id number] - CBCD Result Comment: IG% - Immature Granulocytes (promyelocytes, myelocytes and metamyelocytes) > 1% indicates that a LEFT SHIFT is Present. Performed By: #### L 501.9910, L500.4050, L500.4100, L100.0100 #### [facility] [address] [place], [address] Lymphocytes/100 WBC (Bld) 21.9 % Normal 19-41 [facility] Comment on above: Order Comment: Order Date: 01/27/25 Order Info: [id number] - CBCD Performed By: #### L 501.9910, L500.4050, L500.4100, L100.0100 #### [facility] [address] [place], [address] MCH (RBC) [Entitic mass] 30.0 pg Normal 27.0-32.0 [facility] Comment on above: Order Comment: Order Date: 01/27/25 Order Info: [id number] - CBCD Performed By: #### L 501.9910, L500.4050, L500.4100, L100.0100 #### [facility] [address] [place], [address] MCHC (RBC) [Mass/Vol] 32.3 g/dL Normal 32-36 [facility] Comment on above: Order Comment: Order Date: 01/27/25 Order Info: 0184-1 - CBCD Performed By: #### L 501.9910, L500.4050, L500.4100, L100.0100 #### [facility] [address] [place], [address] MCV (RBC) [Entitic vol] 92.8 fL Normal 80-94 [facility] Comment on above: Order Comment: Order Date: 01/27/25 Order Info: 0184-1 - CBCD Performed By: #### L 501.9910, L500.4050, L500.4100, L100.0100 #### [facility] [address] [place], [address] Monocytes/100 WBC (Bld) 11.4 % High 0-10 [facility] Comment on above: Order Comment: Order Date: 01/27/25 Order Info: 0184- - CBCD Performed By: #### L 501.9910, L500.4050, L500.4100, L100.0100 #### [facility] [address] [place], [address] Neutrophils/100 WBC (Bld) 59.6 % Normal 47-70 [facility] Comment on above: Order Comment: Order Date: 01/27/25 Order Info: 0184-1 - CBCD Performed By: #### L 501.9910, L500.4050, L500.4100, L100.0100 #### [facility] [address] [place], [address] Nucleated RBC (Bld) [#/Vol] 0 10*3/uL Normal 0-5 [facility] Comment on above: Order Comment: Order Date: 01/27/25 Order Info: 0184-1 - CBCD Performed By: #### L 501.9910, L500.4050, L500.4100, L100.0100 #### [facility] [address] [place], [address] Platelet mean volume (Bld) [Entitic vol] 11.8 fL Normal 6.2-12.0 [facility] Comment on above: Order Comment: Order Date: 01/27/25 Order Info: 0184-1 - CBCD Performed By: #### L 501.9910, L500.4050, L500.4100, L100.0100 #### [facility] [address] [place], [address] Platelets (Bld) [#/Vol] 318 10*3/uL Normal 150-450 [facility] Comment on above: Order Comment: Order Date: 01/27/25 Order Info: 0184- - CBCD Performed By: #### L 501.9910, L500.4050, L500.4100, L100.0100 #### [facility] [address] [place], [address] RBC (Bld) [#/Vol] 4.04 10*6/uL Low 4.6-6.2 [facility] Comment on above: Order Comment: Order Date: 01/27/25 Order Info: 0184-1 - CBCD Performed By: #### L 501.9910, L500.4050, L500.4100, L100.0100 #### [facility] [address] [place], [address] RDW SD 42.5 fl Normal 35.1-43.9 [facility] Comment on above: Order Comment: Order Date: 01/27/25 Order Info: 0184-1 - CBCD Performed By: #### L 501.9910, L500.4050, L500.4100, L100.0100 #### [facility] [address] [place], [place], [address] WBC (Bld) [#/Vol] 6.4 10*3/uL Normal 4.4-11.0 [facility] Comment on above: Order Comment: Order Date: 01/27/25 Order Info: 0184-1 - CBCD Performed By: #### L 501.9910, L500.4050, L500.4100, L100.0100 #### [facility] [address] [place], [place], [address] Calculated very low density lipoprotein (VLDL) cholesterol measurementOrdered By: Sven Cotter on 07-20-2024 VLDL Cholesterol 10 mg/dL 5-40 [facility] Carbon dioxide, total [Moles /volume] in Central venous bloodOrdered By: Sven Cotter on 07-20-2024 CO2 [Moles/Vol] 25.9 mmol/L 21.0-32.0 [facility] Chloride assayOrdered By: Jeanine Cotter on 07-20-2024 Chloride [Moles/Vol] 101 mmol/L 98-108 [facility] Comprehensive Metabolic Prof ilon 07-20-2024 Albumin [Mass/Vol] 4.1 g/dL Normal 3.4-4.8 [facility] Comment on above: Order Comment: Order Date: 01/27/25 Order Info: 0786-1 - CMP Order Info: [id number] - LIPID Order Info: [id number] - PSA Performed By: #### L 501.9910, L500.4050, L500.4100, L100.0100 #### [facility] [address] [place], [place], [address] Albumin/Globulin [Mass ratio] 1.5 {ratio} Normal 0.9-2.4 [facility] Comment on above: Order Comment: Order Date: 01/27/25 Order Info: 0786-1 - CMP Order Info: [id number] - LIPID Order Info: [id number] - PSA Performed By: #### L 501.9910, L500.4050, L500.4100, L100.0100 #### [facility] [address] [place], [address] ALK PHOS 52 U/L Normal 40-129 [facility] Comment on above: Order Comment: Order Date: 01/27/25 Order Info: 785-05 - CMP Order Info: [id number] - LIPID Order Info: [id number] - PSA Performed By: #### L 501.9910, L500.4050, L500.4100, L100.0100 #### [facility] [address] [place], [address] ALT [Catalytic activity/Vol] 35 U/L Normal <=46 [facility] Comment on above: Order Comment: Order Date: 01/27/25 Order Info: 785-05 - CMP Order Info: [id number] - LIPID Order Info: [id number] - PSA Performed By: #### L 501.9910, L500.4050, L500.4100, L100.0100 #### [facility] [address] [place], [address] AST [Catalytic activity/Vol] 24 U/L Normal <=37 [facility] Comment on above: Order Comment: Order Date: 01/27/25 Order Info: 785-05 - CMP Order Info: [id number] - LIPID Order Info: [id number] - PSA Performed By: #### L 501.9910, L500.4050, L500.4100, L100.0100 #### [facility] [address] [place], [address] Bilirubin [Mass/Vol] 0.41 mg/dL Normal 0.00-1.30 [facility] Comment on above: Order Comment: Order Date: 01/27/25 Order Info: 0786 - CMP Order Info: [id number] - LIPID Order Info: [id number] - PSA Performed By: #### L 501.9910, L500.4050, L500.4100, L100.0100 #### [facility] [address] [place], [address] BUN/CRE 21.3 RATIO High 10-20 [facility] Comment on above: Order Comment: Order Date: 01/27/25 Order Info: 0786- - CMP Order Info: [id number] - LIPID Order Info: [id number] - PSA Performed By: #### L 501.9910, L500.4050, L500.4100, L100.0100 #### [facility] [address] [place], [address] Calcium [Mass/Vol] 9.5 mg/dL Normal 7.6-11.0 [facility] Comment on above: Order Comment: Order Date: 01/27/25 Order Info: 07 - CMP Order Info: [id number] - LIPID Order Info: [id number] - PSA Performed By: #### L 501.9910, L500.4050, L500.4100, L100.0100 #### [facility] [address] [place], [address] Chloride [Moles/Vol] 101 mmol/L Normal 98-108 [facility] Comment on above: Order Comment: Order Date: 01/27/25 Order Info: 0786- - CMP Order Info: [id number] - LIPID Order Info: [id number] - PSA Performed By: #### L 501.9910, L500.4050, L500.4100, L100.0100 #### [facility] [address] [place], [address] CO2 [Moles/Vol] 25.9 mmol/L Normal 21.0-32.0 [facility] Comment on above: Order Comment: Order Date: 01/27/25 Order Info: 0786- - CMP Order Info: [id number] - LIPID Order Info: [id number] - PSA Performed By: #### L 501.9910, L500.4050, L500.4100, L100.0100 #### [facility] [address] [place], [address] Creatinine [Mass/Vol] 1.26 mg/dL High 0.70-1.20 [facility] Comment on above: Order Comment: Order Date: 01/27/25 Order Info: 785- - CMP Order Info: [id number] - LIPID Order Info: [id number] - PSA Performed By: #### L 501.9910, L500.4050, L500.4100, L100.0100 #### [facility] [address] [place], [address] GAP 12 Normal 5-15 [facility] Comment on above: Order Comment: Order Date: 01/27/25 Order Info: 785-05 - CMP Order Info: - LIPID Order Info: [id number] - PSA Performed By: #### L 501.9910, L500.4050, L500.4100, L100.0100 #### [facility] [address] [place], [address] GFR/1.73 sq M.predicted among non-blacks MDRD (S/P/Bld) [Vol rate/Area] 64 mL/min/{1.73_m2} Normal >60 [facility] Comment on above: Order Comment: Order Date: 01/27/25 Order Info: 785-05 - CMP Order Info: [id number] - LIPID Order Info: [id number] - PSA Result Comment: mL/m in/1.73m2 CKD-EPI Creatinine Equation (2020) Performed By: #### L 501.9910, L500.4050, L500.4100, L100.0100 #### [facility] [address] [place], [address] Globulin (S) [Mass/Vol] 2.8 g/dL Normal 2.2-4.2 [facility] Comment on above: Order Comment: Order Date: 01/27/25 Order Info: 785-05 - CMP Order Info: [id number] - LIPID Order Info: [id number] - PSA Performed By: #### L 501.9910, L500.4050, L500.4100, L100.0100 #### [facility] [address] [place], [address] Glucose [Mass/Vol] 90 mg/dL Normal 70-99 [facility] Comment on above: Order Comment: Order Date: 01/27/25 Order Info: 0786- - CMP Order Info: [id number] - LIPID Order Info: 2851 - PSA Performed By: #### L 501.9910, L500.4050, L500.4100, L100.0100 #### [facility] [address] [place], [address] Potassium [Moles/Vol] 4.5 mmol/L Normal 3.3-5.1 [facility] Comment on above: Order Comment: Order Date: 01/27/25 Order Info: 07 - CMP Order Info: [id number] - LIPID Order Info: [id number] - PSA Performed By: #### L 501.9910, L500.4050, L500.4100, L100.0100 #### [facility] [address] [place], [address] Sodium [Moles/Vol] 138 mmol/L Normal 133-145 [facility] Comment on above: Order Comment: Order Date: 01/27/25 Order Info: 0786 - CMP Order Info: [id number] - LIPID Order Info: [id number] - PSA Performed By: #### L 501.9910, L500.4050, L500.4100, L100.0100 #### [facility] [address] [place], [address] T PROT 6.9 g/dL Normal 5.9-8.4 [facility] Comment on above: Order Comment: Order Date: 01/27/25 Order Info: 0786- - CMP Order Info: [id number] - LIPID Order Info: [id number] - PSA Performed By: #### L 501.9910, L500.4050, L500.4100, L100.0100 #### [facility] [address] [place], [place], [address] Urea nitrogen [Mass/Vol] 27 mg/dL High 4-19 [facility] Comment on above: Order Comment: Order Date: 01/27/25 Order Info: 0786-1 - CMP Order Info: [id number] - LIPID Order Info: [id number] - PSA Performed By: #### L 501.9910, L500.4050, L500.4100, L100.0100 #### [facility] [address] [place], [place], [address] Eosinophil percentageOrdered By: Sven Cotter on 07-20-2024 Eosinophils/100 WBC (Bld) 4.7 % 0-5 [facility] Erythrocyte distribution wid th ratioOrdered By: Sven Cotter on 07-20-2024 Erythrocyte distribution width (RBC) [Ratio] 12.5 % 11.6-14.6 [facility] Erythrocyte distribution wid th standard deviationOrdered By: Sven Cotter on 07-20-2024 Erythrocyte distribution width (RBC) [Entitic vol] 42.5 fL 35.1-43.9 [facility] GFR/1.73 sq M.predicted ignacio g non-blacks MDRD (S/P/Bld) [Vol rate/Area]Ordered By: Sven Cotter on 07-20-2024 Estimated GFR (MDRD) Non-Af Amer 64 >60 [facility] Comment on above: mL/min/1.73m2 CKD-EP I Creatinine Equation (2020) Hematocrit Auto (Bld) [Volum e fraction]Ordered By: Sven Cotter on 07-20-2024 Hematocrit (Bld) [Volume fraction] 37.5 % Low 40-54 [facility] Hemoglobin measurementOrdere d By: Sven Cotter on 07-20-2024 Hemoglobin (Bld) [Mass/Vol] 12.1 g/dL Low 13.0-16.5 [facility] Immature granulocytes/100 WB C Auto (Bld)Ordered By: Sven Cotter on 07-20-2024 Immature granulocytes/100 WBC (Bld) 1.100 % High 0.0-0.9 [facility] Comment on above: IG% - Immature Granu locytes (promyelocytes, myelocytes and metamyelocytes) > 1% indicates that a LEFT SHIFT is Present. L506.1001on 07-20-2024 Vitamin D 25-OH 46.2 ng/mL Normal 30-100 [facility] Comment on above: Order Comment: Order Date: 01/27/25 Order Info: 0184-1 - CBCD Result Comment: Charmaine min D Status Deficiency: <20 ng/mL (50nmol/L) Insufficiency: 20-30 ng/mL (50-75 nmol/L) Sufficiency: 30-100 ng/mL (75-250 nmol/L) Toxicity: >100 ng/mL (>250 nmol/L) Performed By: #### L 501.9910, L500.4050, L500.4100, L100.0100 #### [facility] [address] [place], [address] LDL calc ser/plasOrdered By: Sven Cotter on 07-20-2024 LDL Cholesterol, Calculated 100 mg/dL [facility] Comment on above: Vbsijavomb=570-753 m g/dL & Higher Xgrn=503 mg/dL or greater Laboratory - Chemistry and C hemistry - challengeOrdered By: Sven Cotter on 07-20-2024 AST [Catalytic activity/Vol] 24 U/L <38 [facility] Lipid Profileon 07-20-2024 CHOL:HDL 2.83 Normal [facility] Comment on above: Order Comment: Order Date: 01/27/25 Order Info: 0786-1 - CMP Order Info: [id number] - LIPID Order Info: [id number] - PSA Performed By: #### L 501.9910, L500.4050, L500.4100, L100.0100 #### [facility] [facility] [address] [place], [address] Cholesterol [Mass/Vol] 171 mg/dL Normal <=200 [facility] Comment on above: Order Comment: Order Date: 01/27/25 Order Info: 0786- - CMP Order Info: [id number] - LIPID Order Info: [id number] - PSA Result Comment: Chol esterol level, Desirable <200 mg/dL Borderline high cholesterol 200-239 mg/dL High cholesterol >=240 mg/dL Recommendations of the NCEP Adult Treatment Panel for the following risk-cutoff thresholds for the [place]ron[place] population. Performed By: #### L 501.9910, L500.4050, L500.4100, L100.0100 #### [facility] [address] [place], [address] Cholesterol in HDL [Mass/Vol] 61 mg/dL Normal [facility] Comment on above: Order Comment: Order Date: 01/27/25 Order Info: 0786 - CMP Order Info: [id number] - LIPID Order Info: [id number] - PSA Result Comment: [place] on[place] Cholesterol Education Program (NCEP) guidelines: <40 mg/dL: Low HDL-cholesterol (major risk factor for CHD) >= 60 mg/dL: High HDL-cholesterol (negative risk factor for CHD) HDL-cholesterol is affected by a number of factors, e.g. smoking, exercise, hormones, sex and age. Performed By: #### L 501.9910, L500.4050, L500.4100, L100.0100 #### [facility] [address] [place], [address] Cholesterol in LDL [Mass/Vol] 100 mg/dL Normal [facility] Comment on above: Order Comment: Order Date: 01/27/25 Order Info: 0786- - CMP Order Info: [id number] - LIPID Order Info: [id number] - PSA Result Comment: Bord izwyra=626-966 mg/dL Higher Sihi=290 mg/dL or greater Performed By: #### L 501.9910, L500.4050, L500.4100, L100.0100 #### [facility] [address] [place], [address] Cholesterol in VLDL [Mass/Vol] 10 mg/dL Normal 5-40 [facility] Comment on above: Order Comment: Order Date: 01/27/25 Order Info: 0786- - CMP Order Info: [id number] - LIPID Order Info: [id number] - PSA Performed By: #### L 501.9910, L500.4050, L500.4100, L100.0100 #### [facility] [address] [place], [address] Triglyceride [Mass/Vol] 50 mg/dL Normal [facility] Comment on above: Order Comment: Order Date: 01/27/25 Order Info: 07 - CMP Order Info: [id number] - LIPID Order Info: [id number] - PSA Result Comment: The drugs N-Acetylcysteine and Metamizole may falsely depress this assay. Normal range: <150 mg/dL Borderline High: 150-199 mg/dL High: 200-499 mg/dL Very High: >500 mg/dL Performed By: #### L 501.9910, L500.4050, L500.4100, L100.0100 #### [facility] [address] [place], [address] Lymphocytes Auto (Unsp spec) [#/Vol]Ordered By: Sven Cotter on 07-20-2024 Lymphocytes (Bld) [#/Vol] 1.40 10*3/uL 0.83-4.51 [facility] Lymphocytes/100 WBC Auto (Un sp spec)Ordered By: Sven Cotter on 07-20-2024 Lymphocytes/100 WBC (Bld) 21.9 % 19-41 [facility] MCV (mean corpuscular volume ) determinationOrdered By: Sven Cotter on 07-20-2024 MCV (RBC) [Entitic vol] 92.8 fL 80-94 [facility] Magnesiumon 07-20-2024 Magnesium [Mass/Vol] 2.0 mg/dL Normal 1.5-2.2 [facility] Comment on above: Order Comment: Order Date: 01/27/25 Order Info: 0786- - CMP Order Info: [id number] - LIPID Order Info: [id number] - PSA Performed By: #### L 501.9910, L500.4050, L500.4100, L100.0100 #### [facility] [address] [place], [place], [id number] Magnesium (Unsp spec) [Mass/ Vol]Ordered By: Sven Cotter on 07-20-2024 Magnesium [Mass/Vol] 2.0 mg/dL 1.5-2.2 [facility] Mean corpuscular hemoglobin (MCH) determinationOrdered By: Sven Cotter on 07-20-2024 MCH (RBC) [Entitic mass] 30.0 pg 27.0-32.0 [facility] Mean corpuscular hemoglobin concentration (MCHC) determinationOrdered By: Sven Cotter on 07-20-2024 MCHC (RBC) [Mass/Vol] 32.3 g/dL 32-36 [facility] Mean platelet volume determi nationOrdered By: Sven Cotter on 07-20-2024 Platelet mean volume (Bld) [Entitic vol] 11.8 fL 6.2-12.0 [facility] Microalbumin,Random Urineon 07-20-2024 MICROALBUMIN,UR < 12.0 Normal NO RANGE EST. [facility] Comment on above: Performed By: #### L 501.9910, L500.4050, L500.4100, L100.0100 #### [facility] [address] [place], [place], [id number] Monocyte percentageOrdered B y: Sven Cotter on 07-20-2024 Monocytes/100 WBC (Bld) 11.4 % High 0-10 [facility] Neutrophil percentageOrdered By: Sven Cotter on 07-20-2024 Neutrophils/100 WBC (Bld) 59.6 % 47-70 [facility] Nucleated red blood cell per centageOrdered By: Sven Cotter on 07-20-2024 Nucleated RBC/100 WBC (Bld) [Ratio] 0 % 0-5 [facility] Platelet countOrdered By: Jeanine Cotter on 07-20-2024 Platelets (Bld) [#/Vol] 318 10*3/uL 150-450 [facility] Potassium (Unsp spec) [Mass/ Vol]Ordered By: Sven Cotter on 07-20-2024 Potassium [Moles/Vol] 4.5 mmol/L 3.3-5.1 [facility] RBC Auto (Bld) [#/Vol]Ordere d By: Sven Cotter on 07-20-2024 RBC (Bld) [#/Vol] 4.04 10*6/uL Low 4.6-6.2 [facility] Screening total cholesterol/ high density lipoprotein (HDL) cholesterol ratioOrdered By: Sven Cotter on 07-20-2024 Cholesterol.total/Choles terol in HDL [Mass ratio] 2.83 {ratio} [facility] Serum creatinine measurement (mass/volume)Ordered By: Sven Cotter on 07-20-2024 Creatinine [Mass/Vol] 1.26 mg/dL High 0.70-1.20 [facility] Serum globulin measurementOr dered By: Sven Cotter on 07-20-2024 Globulin (S) [Mass/Vol] 2.8 g/dL 2.2-4.2 [facility] Serum glucose measurement (m ass/volume)Ordered By: Sven Cotter on 07-20-2024 Glucose [Mass/Vol] 90 mg/dL 70-99 [facility] Serum or plasma alanine zayas otransferase (ALT) measurementOrdered By: Sven Cotter on 07-20-2024 ALT [Catalytic activity/Vol] 35 U/L <47 [facility] Serum or plasma albumin elaine urement (mass/volume)Ordered By: Sven Cotter on 07-20-2024 Albumin [Mass/Vol] 4.1 g/dL 3.4-4.8 [facility] Serum or plasma albumin/glob ulin mass ratioOrdered By: Sven Cotter on 07-20-2024 Albumin/Globulin [Mass ratio] 1.5 {ratio} 0.9-2.4 [facility] Serum or plasma alkaline zaida sphatase measurementOrdered By: Sven Cotter on 07-20-2024 ALP [Catalytic activity/Vol] 52 U/L 40-129 [facility] Serum or plasma calcium elaine urement (mass/volume)Ordered By: Svne Cotter on 07-20-2024 Calcium [Mass/Vol] 9.5 mg/dL 7.6-11.0 [facility] Serum or plasma cholesterol in HDL measurement (mass/volume)Ordered By: Sven Cotter on 07-20-2024 Cholesterol in HDL [Mass/Vol] 61 mg/dL >40 [facility] Comment on above: National Cholesterol Education Program (NCEP) guidelines:<40 mg/dL: Low HDL-cholesterol (major risk factor for CHD)>= 60 mg/dL: High HDL-cholesterol (negative risk factor for CHD)HDL-cholesterol is affected by a number of factors, e.g. smoking, exercise, hormones, sex and age. Serum or plasma cholesterol measurement (mass/volume)Ordered By: Sven Cotter on 07-20-2024 Cholesterol [Mass/Vol] 171 mg/dL <201 [facility] Comment on above: Cholesterol level, D esirable <200 mg/dLBorderline high cholesterol 200-239 mg/dLHigh cholesterol >=240 mg/dLRecommendations of the NCEP Adult Treatment Panel for the following risk-cutoff thresholds for the [place] population. Serum or plasma urea nitroge n measurement (mass/volume)Ordered By: Sven Cotter on 07-20-2024 Urea nitrogen [Mass/Vol] 27 mg/dL High 4-19 [facility] Sodium levelOrdered By: Sven Cotter on 07-20-2024 Sodium [Moles/Vol] 138 mmol/L 133-145 [facility] TSH DL <= 0.005 mIU/L QnOrde red By: Sven Cotter on 07-20-2024 Thyroid Stimulating Hormone (TSH) 1.410 uIU/mL 0.300-4.200 [facility] Thyroid Stim Hormone (TSH)on 07-20-2024 TSH 1.410 uIU/mL Normal 0.300-4.200 [facility] Comment on above: Order Comment: Order Date: 01/27/25 Order Info: [id number] - CMP Order Info: [id number] - LIPID Order Info: [id number] - PSA Performed By: #### L 501.9910, L500.4050, L500.4100, L100.0100 #### [facility] [address] [place], [address] Total proteinOrdered By: Sumit Cotter on 07-20-2024 Protein [Mass/Vol] 6.9 g/dL 5.9-8.4 [facility] Triglycerides measurementOrd ered By: Sven Cotter on 07-20-2024 Triglyceride [Mass/Vol] 50 mg/dL <199 [facility] Comment on above: The drugs N-Acetylcy steine and Metamizole may falsely depress this assay. Normal range: <150 mg/dLBorderline High: 150-199 mg/dLHigh: 200-499 mg/dLVery High: >500 mg/dL Vitamin D, 25-hydroxyOrdered By: Sven Cotter on 07-20-2024 Vitamin D 25-Hydroxy 46.2 ng/mL 30-100 [facility] Comment on above: Vitamin D StatusDefi ciency: <20 ng/mL (50nmol/L)Insufficiency: 20-30 ng/mL (50-75 nmol/L)Sufficiency: 30-100 ng/mL (75-250 nmol/L)Toxicity: >100 ng/mL (>250 nmol/L) White blood cell (WBC) count Ordered By: Sven Cotter on 07-20-2024 WBC (Bld) [#/Vol] 6.4 10*3/uL 4.4-11.0 [facility] Discharge Instructionon 06-20 Discharge Instruction [facility] Medical Records Department [address] [place] [address] Instructions for Home/Discharge Instructions 07/12/24 1141 MR#: [id number] Acct: [id number] Name: KRIS MORA Rep #: [id number] : 1960 64 From: Lev Sarah MD PCP: Dr. Sven Cotter MD Status:REG [facility] Discharge Instructions Procedure Hernia Diet Discharge Diet: [...] to schedule 2 week follow up appointment. [phone] Test Results: Test results from this visit will be discussed in further detail at your follow-up appointment, if applicable. Discharge Plan Admission Attending Provider: Lev Sarah Primary Care Provider: Sven Cotter Instructions Print Language: Yi Discharge Orders/Prescriptions Prescriptions: New oxycodone 5 mg [...] can be placed): Home, Self Care 07/12/24 2658 Lev Sarah MD CC: Dr. Sven Cotter MD Signed Normal [facility] MR/POSTOP.ANEon 07-12-2024 MR/POSTOP.[facility] Medical Records Department [address] [place] [address] Anesthesia Postop Eval I 07/12/24 1146 MR#: [id number] Acct: [id number] Name: KRIS MORA Rep #: [id number] : 1960 64 From: Magi Samuel CRNA PCP: Dr. Sven Cotter MD Status:[facility] Y Race: C Location: [place] [address] Anesthesia: Postop Eval I Current Vital Signs [...] Magi Frankignaguila Signature: Date CC: Signed Normal [facility] MR/[id number] 07-12-2024 [facility] Medical Records Department [facility] [place] [address] Anesthesia Postop Eval II 07/12/24 1524 MR#: [id number] Acct: [id number] Name: KRIS MORA Rep #: [id number] : 1960 64 From: Louie Dallas MD PCP: Dr. Sven Cotter MD Status:[facility] Y Race: C Location: [facility] Anesthesia Postop Eval I Sum Postop Eval Completion status Anesthesia document: Postop Eval 1 completed: Yes Anesthesia Postop Eval I Summary Anesthesia Postop Eval I Summary: Anesthesia Postop Eval I: Assessment Summary Airway patent Yes 07/12/24 11:46 [place] ATTENDANT.JHONNYOBY Spontaneous unlabored Yes 07/12/24 11:46 [place] ATTENDANT.JHONNYOBDiana respirations Mental status Awake,Calm 07/12/24 11:46 [place] ATTENDANT.SKOBY nausea No 07/12/24 11:46 [place] ATTEND[employer].SKOBY Vomiting No 07/12/24 11:46 [place] [employer]END[employer].SKOBY Anesthesia Postop Eval I: Fluid Summary Crystalloid volume administer 700 07/12/24 11:46 [place] ATTENDANT.SKOBY (ml) Colloids volume administered ( ml) Blood Product volume administered (ml) Total IV fluid infused 700 07/12/24 11:46 [place] ATTENDANT.JHONNYOBDiana Anesthesia Postop Eval I: Summary Notes Anesthesia Complication No 07/12/24 11:46 [place] ATTENDANT.JHONNYOBDiana Anesthesia Complication Comment: Post-operative progress note Anesthesia: Postop Eval II Evaluation Mental status: Awake and Calm Pain Level: 2 nausea: No Vomiting: No Complications Anesthesia Complication: No 07/12/24 1524 Date Louie Dallas MD Cosigner Signature: Date CC: Signed Normal [facility] Operative Reporton 5 Operative Report [facility] Medical Records Department [address] [place] [address] Operative Report 07/12/24 1137 MR#: [id number] Acct: [id number] Name: COOKIE,DAVID HARLAN Rep #: [id number] : 1960 64 From: Lev Sarah MD PCP: Dr. Sven Cotter MD Status:REG [facility] Location: [place] [address] Operative Report (Standard) Operative Information Date of Procedure: 07/12/24 Pre-Operative Diagnosis: Right inguinal hernia Post-Operative Diagnosis: Right inguinal hernia Surgery/Procedure Performed: Robotic assisted laparoscopic right inguinal hernia repair with mesh oncology pharmacist: Yes Obstetrics Tech: Norbert Mcgrath Tasks completed by nurse's assistant: Opening closing Type of Anesthesia: General/Regional [...] MD; Dr. Sven Cotter MD Signed Normal [facility] Surgery Visit Reporton 07-05 Surgery Visit Report [facility] [address] [place] [address] OFFICE VISIT Date of Service: 07/05/24 MR#: [id number] Acct: [id number] Name: KRIS MORA Rep #: [id number] : 1960 Provider: Dr. Lev gordon MD Age/Sex: 64/M Location: [facility] Status: Signed Intake Vital Signs 09/08/23 13:11 [...] the p (more content not included)... Normal [facility] MR/PAT.ANEon 06-30-2024 MR/PAT.ANE [facility] Medical Records Department [address] [place] [address] PAT - Anesthesia 06/30/24 1001 MR#: [id number] Acct: [id number] Name: KRIS MORA Rep #: [id number] : 1960 64 From: Leoncio Loya MD PCP: Dr. 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 History - launching pad mechanic Hx Hospitalization No 06/28/24 10:10 Any Problems [...] take am of surgery PONV PONV - launching pad mechanic: PONV - launching pad mechanic Female No 06/28/24 10:10 HX of Motion [...] 09/08/23 13:11 Respiratory Assessment Respiratory Assessment - launching pad mechanic: Respiratory Tract Infection Hx - launching pad mechanic Hx Respiratory Tract Infection No 06/28/24 10:10 STOP Sleep Apnea STOP Sleep Apnea - launching pad mechanic: STOP Sleep Apnea - launching pad mechanic Hx Hypertension Yes: CONTROLLED ON MED 06/28/24 [...] 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 Use History - launching pad mechanic: Tobacco Use History - launching pad mechanic Tobacco Use Smoking Status Never smoker 06/28/24 10:10 Hx Tobacco Use No 06/28/24 10:10 Years Smoking Packs Smoked per Day Smoking Cessation Date was within the last 15 years Hx Smoking Cessation Date Hx Smoking Cessation Counseling Hematologic Medial History Hematologic Hx - launching pad mechanic: 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 Normal [facility] 12 Lead EKGon 06-29-2024 12 Lead EKG [facility] Cardiovascular Services [address] [place] [address] 12 Lead EKG 06/29/24 1250 MR#: [id number] Acct: [id number] Name: KRIS MORA Rep #: [id number] : 1960 64 From: Rudy Pickens MD Attending Dr: Dr. Lev Sarah MD Status: PRE PAC Ordering Dr: Leoncio Loya MD Date: 06/29/24 Location: [facility] Sex: M C Admitted: Test Reason : PRE OP Blood Pressure : */* mmHG Vent. Rate : 76 BPM Atrial Rate : 76 BPM P-R Int : 190 ms QRS Dur : 98 ms QT Int : 380 ms P-R-T Axes : 67 47 30 degrees QTcB Int : 427 ms Normal sinus rhythm Normal ECG Confirmed by Rudy Pickens ([id number]), purchase request editor LAN GAMINO ([id number]) on 06/30/2024 6:56:29 AM Referred By: Lev Sarah Confirmed By: Rudy Pickens 06/30/24 0656 Date Rudy Pickens MD CC: Dr. Lev Sarah MD; Dr. Leoncio Loya MD; Dr. Sven Cotter MD Signed Normal [facility] Basic Metabolic Profile (BMP )on 06-29-2024 BUN/CRE 21.3 RATIO High 10-20 [facility] Comment on above: Performed By: #### L 500.2500 #### [facility] [address] [place], [address] CA,Total 9.6 mg/dL Normal 8.5-10.1 [facility] Comment on above: Performed By: #### L 500.2500 #### [facility] [address] [place], [address] Chloride [Moles/Vol] 104 mmol/L Normal 98-107 [facility] Comment on above: Performed By: #### L 500.2500 #### [facility] [address] [place], [address] CO2 [Moles/Vol] 27.0 mmol/L Normal 21.0-32.0 [facility] Comment on above: Performed By: #### L 500.2500 #### [facility] [address] [place], [address] Creatinine [Mass/Vol] 1.22 mg/dL Normal 0.70-1.30 [facility] Comment on above: Result Comment: The validity of the calculated GFR GFRAA in patients over 70 years has not been determined. Clinical correlation is essential. Performed By: #### L 500.2500 #### [facility] [address] [place], [address] EST GFR - AA 77 mL/min Normal >60 [facility] Comment on above: Result Comment: Afri can Micronesian GFR Calc Performed By: #### L 500.2500 #### [facility] [address] [place], [address] GAP 8 Normal 5-15 [facility] Comment on above: Performed By: #### L 500.2500 #### [facility] [address] [place], [address] GFR/1.73 sq M.predicted among non-blacks MDRD (S/P/Bld) [Vol rate/Area] 64 mL/min/{1.73_m2} Normal >60 [facility] Comment on above: Result Comment: Non- GFR Calc Performed By: #### L 500.2500 #### [facility] [address] [place], [address] Glucose [Mass/Vol] 88 mg/dL Normal 74-106 [facility] Comment on above: Performed By: #### L 500.2500 #### [facility] [address] [place], [address] Potassium [Moles/Vol] 3.5 mmol/L Normal 3.5-5.1 [facility] Comment on above: Performed By: #### L 500.2500 #### [facility] [address] [place], [address] Sodium [Moles/Vol] 138 mmol/L Normal 136-145 [facility] Comment on above: Performed By: #### L 500.2500 #### [facility] [address] [place], [address] Urea nitrogen [Mass/Vol] 26 mg/dL High 7-18 [facility] Comment on above: Performed By: #### L 500.2500 #### [facility] [address] [place], [address] Blood urea nitrogen (BUN)/cr eatinine ratioOrdered By: Lev Sarah on 06-29-2024 Urea nitrogen/Creatinine [Mass ratio] 21.3 mg/mg High 10-20 [facility] Carbon dioxide measurementOr dered By: Lev Sarah on 06-29-2024 CO2 [Moles/Vol] 27.0 mmol/L 21.0-32.0 [facility] Chloride measurementOrdered By: Lev Sarah on 06-29-2024 Chloride [Moles/Vol] 104 mmol/L 98-107 [facility] Estimated glomerular filtrat ion rate (GFR) AmericanOrdered By: Lev Sarah on 06-29-2024 Estimated GFR (MDRD) Amer 77 mL/min >60 [facility] Comment on above: GFR Calc Glomerular filtration rate ( GFR) estimationOrdered By: Lev Sarah on 06-29-2024 Estimated GFR (MDRD) Non-Af Amer 64 mL/min >60 [facility] Comment on above: Non- GFR Calc Glucose measurementOrdered B y: Lev Sarah on 06-29-2024 Glucose [Mass/Vol] 88 mg/dL 74-106 [facility] Potassium measurementOrdered By: Lev Sarah on 06-29-2024 Potassium [Moles/Vol] 3.5 mmol/L 3.5-5.1 [facility] Serum anion gap measurementO rdered By: Lev Sarah on 06-29-2024 Anion gap [Moles/Vol] 8 mmol/L 5-15 [facility] Serum or plasma calcium elaine urement (mass/volume)Ordered By: Lev Sarah on 06-29-2024 Calcium [Mass/Vol] 9.6 mg/dL 8.5-10.1 [facility] Serum or plasma creatinine m easurement (mass/volume)Ordered By: Lev Sarah on 06-29-2024 Creatinine [Mass/Vol] 1.22 mg/dL 0.70-1.30 [facility] Comment on above: The validity of the calculated GFR & GFRAA in patients over 70 years has not been determined. Clinical correlation is essential. Serum or plasma urea nitroge n measurement (mass/volume)Ordered By: Lev Sarah on 06-29-2024 Urea nitrogen [Mass/Vol] 26 mg/dL High 7-18 [facility] Sodium levelOrdered By: Greg lakshmidiana Sarah on 06-29-2024 Sodium [Moles/Vol] 138 mmol/L 136-145 [facility] Absolute lymphocyte countOrd ered By: Sven Cotter on 06-26-2023 Lymphocytes Auto (Unsp spec) [#/Vol] 1.38 10*3/uL 0.83-4.51 [facility] Automated lymphocyte count a s percentage of total leukocytesOrdered By: Sven Cotter on 06-26-2023 Lymphocytes/100 WBC Auto (Unsp spec) 31.5 % 19-41 [facility] Basophil percentageOrdered B y: Sven Cotter on 06-26-2023 Basophil percentage 0 SEEN /hpf 0-5 [facility] Basophils/100 WBC (Bld) 0.7 % 0-1 [facility] Bilirubin [Mass/Vol] 1.00 mg/dL 0.20-1.00 [facility] Comment on above: For patients on eltr ombopag therapy, use of Dimension Mazon TBIL is not recommended. Chloride [Moles/Vol] 101 mmol/L 98-107 [facility] Cholesterol [Mass/Vol] 191 mg/dL <200 [facility] Comment on above: <200 mg/dL Desirable 200-240 mg/dL Borderline >240 mg/dL High Risk Eosinophils/100 WBC (Bld) 0.7 % 0-5 [facility] Glucose [Mass/Vol] 74 mg/dL 74-106 [facility] Hemoglobin (Bld) [Mass/Vol] 12.5 g/dL 13.0-16.5 [facility] Monocytes/100 WBC (Bld) 9.6 % 0-10 [facility] Neutrophils (Bld) [#/Vol] 2.5 10*3/uL 2.0-7.7 [facility] Neutrophils/100 WBC (Bld) 57.5 % 47-70 [facility] Potassium [Moles/Vol] 4.0 mmol/L 3.5-5.1 [facility] Protein [Mass/Vol] 7.3 g/dL 6.4-8.2 [facility] Sodium [Moles/Vol] 138 mmol/L 136-145 [facility] Triglyceride [Mass/Vol] 58 mg/dL <199 [facility] Comment on above: The drugs N-Acetylcy steine and Metamizole may falsely depress this assay.Serum Triglycerides Reference Interval Normal <150 mg/dL Borderline high 150 - 199 mg/dL High 200 - 499 mg/dL Very High > or = 500 mg/dL WBC (Bld) [#/Vol] 4.4 10*3/uL 4.4-11.0 [facility] Bilirubin Test strip Ql (U)O rdered By: Sven Cotter on 06-26-2023 Bilirubin Ql (U) Negative Negative [facility] Determination of erythrocyte mean corpuscular volume (MCV)Ordered By: Sven Cotter on 06-26-2023 MCV (RBC) [Entitic vol] 93.4 fL 80-94 [facility] Erythrocyte distribution wid th ratioOrdered By: Sven Cotter on 06-26-2023 Erythrocyte distribution width (RBC) [Ratio] 12.7 % 11.6-14.6 [facility] Erythrocyte distribution wid th standard deviationOrdered By: Sven Cotter on 06-26-2023 Erythrocyte distribution width (RBC) [Entitic vol] 43.5 fL 35.1-43.9 [facility] Hematocrit Auto (Bld) [Volum e fraction]Ordered By: Sven Cotter on 06-26-2023 Hematocrit (Bld) [Volume fraction] 38.4 % 40-54 [facility] Immature granulocytes/100 WB C Auto (Bld)Ordered By: Sven Cotter on 06-26-2023 Immature granulocytes/100 WBC (Bld) 0.000 % 0.0-0.9 [facility] Comment on above: IG% - Immature Granu locytes (promyelocytes, myelocytes and metamyelocytes) > 1% indicates that a LEFT SHIFT is Present. Iron measurement (mass/mass) Ordered By: Sven Cotter on 06-26-2023 Iron (Unsp spec) [Mass/Mass] 92 ug/dL 65-175 [facility] Ketones Test strip Ql (U)Ord ered By: Sven Cotter on 06-26-2023 Ketones Ql (U) 50 mg/dl Negative [facility] - Chemistry and C hemistry - challengeOrdered By: Sven Cotter on 06-26-2023 Albumin/Globulin [Mass ratio] 1.4 {ratio} 0.9-2.4 [facility] ALP [Catalytic activity/Vol] 37 U/L 45-117 [facility] ALT [Catalytic activity/Vol] 34 U/L 16-61 [facility] Cholesterol in HDL [Mass/Vol] 76 mg/dL >40 [facility] Comment on above: The drugs N-Acetylcy steine and Metamizole may falsely depress this assay. Reference Range HDL <40 mg/dL Low HDL Cholesterol HDL >or= 60 mg/dL High HDL Cholesterol Cholesterol in LDL [Mass/Vol] 103 mg/dL 0-130 [facility] CO2 [Moles/Vol] 27.0 mmol/L 21.0-32.0 [facility] Ferritin [Mass/Vol] 287 ng/mL 26-388 [facility] [place] Globulin (S) [Mass/Vol] 3.1 g/dL 2.2-4.2 [facility] Urea nitrogen/Creatinine [Mass ratio] 14.3 mg/mg 10-20 [facility] - Hematology and Cell countsOrdered By: Sven Cotter on 06-26-2023 MCH (RBC) [Entitic mass] 30.4 pg 27.0-32.0 [facility] MCHC (RBC) [Mass/Vol] 32.6 g/dL 32-36 [facility] Nucleated RBC/100 WBC (Bld) [Ratio] 0 % 0-5 [facility] Platelet mean volume (Bld) [Entitic vol] 12.1 fL 6.2-12.0 [facility] Platelets (Bld) [#/Vol] 232 10*3/uL 150-450 [facility] Mucus LM Ql (Urine sed)Order ed By: Sven Cotter on 06-26-2023 Mucus Ql (Urine sed) 0 SEEN /hpf [facility] Nitrite Test strip Ql (U)Ord ered By: Sven Cotter on 06-26-2023 Nitrite Ql (U) Negative Negative [facility] No Panel InformationOrdered By: Sven Cotter on 06-26-2023 Urine RBC 0 SEEN /hpf 0-5 [facility] Estimated GFR (MDRD) Amer 80 mL/min >60 [facility] Comment on above: GFR Calc Estimated GFR (MDRD) Non-Af Amer 66 mL/min >60 [facility] Comment on above: Non- GFR Calc Prostate Specific Antigen Screen 3.96 ng/mL 0.00-4.00 [facility] Comment on above: This test was perfor med using the TPSA assay method for the[employer] chemistry system. Values obtained with differentassay methods cannot be used interchangably.When changing PSA assays in the course of monitoring apatient, additional sequential testing should be carriedout to confirm baseline values. Total Iron Binding Capacity 277 ug/dL 250-450 [facility] Vitamin D 25-Hydroxy 51.3 ng/mL [facility] Comment on above: Vitamin D 25(OH) Sta tus Range Deficiency <20 ng/mL (50nmol/L) Insufficiency 20 - 30 ng/mL (50 - 75 nmol/L) Sufficiency 30 - 100 ng/mL (75 - 250 nmol/L) Toxicity >100 ng/mL (>250 nmol/L) VLDL Cholesterol 12 mg/dL 5-40 [facility] Protein Test strip Ql (U)Ord ered By: Sven Cotter on 06-26-2023 Protein Ql (U) Negative Negative [facility] RBC Auto (Bld) [#/Vol]Ordere d By: Sven Cotter on 06-26-2023 RBC (Bld) [#/Vol] 4.11 10*6/uL 4.6-6.2 [facility] [place] Serum or plasma calcium elaine urement (mass/volume)Ordered By: Sven Cotter on 06-26-2023 Calcium [Mass/Vol] 9.7 mg/dL 8.5-10.1 [facility] Serum or plasma creatinine m easurement (mass/volume)Ordered By: Sven Cotter on 06-26-2023 Creatinine [Mass/Vol] 1.19 mg/dL 0.70-1.30 [facility] Comment on above: The validity of the calculated GFR & GFRAA in patients over 70 years has not been determined. Clinical correlation is essential. Serum or plasma thyroid stim ulating hormone (TSH) measurement (units/volume)Ordered By: Sven Cotter on 06-26-2023 TSH Qn 0.78 uIU/mL 0.358-3.74 [facility] Serum or plasma urea nitroge n measurement (mass/volume)Ordered By: Sven Cotter on 06-26-2023 Urea nitrogen [Mass/Vol] 17 mg/dL 7-18 [facility] Squamous epithelial cells de tection in urine sediment by light microscopyOrdered By: Sven Cotter on 06-26-2023 Epithelial cells.squamous LM Ql (Urine sed) 0 SEEN /hpf 0-5 [facility] Thin prep Papanicolaou smear with manual screeningOrdered By: Sven Cotter on 06-26-2023 Thin prep Papanicolaou smear with manual screening 4.2 g/dL 3.2-5.0 [facility] Thin prep Papanicolaou smear with manual screening 16 U/L 15-37 [facility] Thin prep Papanicolaou smear with manual screening 10 5-15 [facility] Urine blood detectionOrdered By: Sven Cotter on 06-26-2023 RBC Ql (U) Negative Negative [facility] Urine clarityOrdered By: Sumit Cotter on 06-26-2023 Clarity (U) Clear Clear [facility] Urine color determinationOrd ered By: Sven Cotter on 06-26-2023 Color (U) Yellow Yellow [facility] Urine glucose detectionOrder ed By: Sven Cotter on 06-26-2023 Glucose Ql (U) Normal mg/dl Normal [facility] Urine leukocyte esterase det ection by dipstickOrdered By: Sven Cotter on 06-26-2023 Leukocyte esterase Test strip Ql (U) Negative Negative [facility] Urine pHOrdered By: Sven myers on 06-26-2023 pH (U) 5.0 [pH] 5.0 - 8.0 [facility] Urine sediment bacteria coun t by microscopy (number/high power field)Ordered By: Sven Cotter on 06-26-2023 Bacteria LM.HPF (Urine sed) [#/Area] 0 /[HPF] None Seen [facility] Urine specific gravity measu rementOrdered By: Sven Cotter on 06-26-2023 Specific gravity (U) [Rel density] 1.020 1.002-1.030 [facility] Urine urobilinogen measureme ntOrdered By: Sven Cotter on 06-26-2023 Urobilinogen Ql (U) Normal mg/dl Normal [facility] Absolute lymphocyte countOrd ered By: Dr. Cotter on 07-02-2022 Lymphocytes Auto (Unsp spec) [#/Vol] 1.07 10*3/uL 0.83-4.51 [facility] Basophil percentageOrdered B y: Dr. Cotter on 07-02-2022 Basophils/100 WBC (Bld) 0.7 % 0-1 [facility] Eosinophils/100 WBC (Bld) 1.1 % 0-5 [facility] Neutrophils (Bld) [#/Vol] 3.0 10*3/uL 2.0-7.7 [facility] Neutrophils/100 WBC (Bld) 65.9 % 47-70 [facility] WBC (Bld) [#/Vol] 4.6 10*3/uL 4.4-11.0 [facility] Blood erythrocytes count (nu mber/volume)Ordered By: Dr. Cotter on 07-02-2022 RBC (Bld) [#/Vol] 4.24 10*6/uL 4.6-6.2 [facility] [place] Blood hemoglobin measurement (mass/volume)Ordered By: Dr. Cotter on 07-02-2022 Hemoglobin (Bld) [Mass/Vol] 12.9 g/dL 13.0-16.5 [facility] Blood lymphocytes/100 leukoc ytesOrdered By: Dr. Cotter on 07-02-2022 Lymphocytes/100 WBC (Bld) 23.2 % 19-41 [facility] Blood monocytes/100 leukocyt esOrdered By: Dr. Cotter on 07-02-2022 Monocytes/100 WBC (Bld) 8.9 % 0-10 [facility] Blood platelet mean volumeOr dered By: Dr. Cotter on 07-02-2022 Platelet mean volume (Bld) [Entitic vol] 11.5 fL 6.2-12.0 [facility] Determination of erythrocyte mean corpuscular volume (MCV)Ordered By: Dr. Cotter on 07-02-2022 MCV (RBC) [Entitic vol] 94.8 fL 80-94 [facility] Hematocrit Auto (Bld) [Volum e fraction]Ordered By: Dr. Cotter on 07-02-2022 Hematocrit (Bld) [Volume fraction] 40.2 % 40-54 [facility] - Hematology and Cell countsOrdered By: Dr. Cotter on 07-02-2022 Erythrocyte distribution width (RBC) [Entitic vol] 44.1 fL 35.1-43.9 [facility] Erythrocyte distribution width (RBC) [Ratio] 12.8 % 11.6-14.6 [facility] Immature granulocytes/100 WBC (Bld) 0.200 % 0.0-0.9 [facility] Comment on above: IG% - Immature Granu locytes (promyelocytes, myelocytes and metamyelocytes) > 1% indicates that a LEFT SHIFT is Present. MCH (RBC) [Entitic mass] 30.4 pg 27.0-32.0 [facility] Nucleated RBC/100 WBC (Bld) [Ratio] 0 % 0-5 [facility] MCHC Auto (RBC) [Mass/Vol]Or dered By: Dr. Cotter on 07-02-2022 MCHC (RBC) [Mass/Vol] 32.1 g/dL 32-36 [facility] Platelets bldOrdered By: Dr. Cotter on 07-02-2022 Platelets (Bld) [#/Vol] 234 10*3/uL 150-450 [facility] Serum or plasma ferritin ric surement (mass/volume)Ordered By: Dr. Cotter on 07-02-2022 Ferritin [Mass/Vol] 183 ng/mL 26-388 [facility] [place] Absolute lymphocyte countOrd ered By: Dr. Cotter on 2022 Lymphocytes Auto (Unsp spec) [#/Vol] 0.99 10*3/uL 0.83-4.51 [facility] Basophil percentageOrdered B y: Dr. Cotter on 2022 Basophil percentage 0 SEEN /hpf 0-5 [facility] Basophils/100 WBC (Bld) 0.9 % 0-1 [facility] Bilirubin [Mass/Vol] 0.60 mg/dL 0.20-1.00 [facility] Comment on above: For patients on eltr ombopag therapy, use of Dimension Mazon TBIL is not recommended. Chloride [Moles/Vol] 104 mmol/L 98-107 [facility] Cholesterol [Mass/Vol] 177 mg/dL <200 [facility] Comment on above: <200 mg/dL Desirable 200-240 mg/dL Borderline >240 mg/dL High Risk Eosinophils/100 WBC (Bld) 2.1 % 0-5 [facility] Glucose [Mass/Vol] 103 mg/dL 74-106 [facility] Comment on above: Fasting Glucose resu lt from 100 to 125 mg/dL suggests IMPAIRED HOMEOSTASIS per A.D.A. criteria. Neutrophils (Bld) [#/Vol] 1.8 10*3/uL 2.0-7.7 [facility] Neutrophils/100 WBC (Bld) 54.2 % 47-70 [facility] Potassium [Moles/Vol] 4.3 mmol/L 3.5-5.1 [facility] Protein [Mass/Vol] 6.8 g/dL 6.4-8.2 [facility] Sodium [Moles/Vol] 139 mmol/L 136-145 [facility] Triglyceride [Mass/Vol] 29 mg/dL <199 [facility] Comment on above: The drugs N-Acetylcy steine and Metamizole may falsely depress this assay.Serum Triglycerides Reference Interval Normal <150 mg/dL Borderline high 150 - 199 mg/dL High 200 - 499 mg/dL Very High > or = 500 mg/dL WBC (Bld) [#/Vol] 3.3 10*3/uL 4.4-11.0 [facility] Bilirubin Test strip Ql (U)O rdered By: Dr. Cotter on 2022 Bilirubin Ql (U) Negative Negative [facility] Blood erythrocytes count (nu mber/volume)Ordered By: Dr. Cotter on 2022 RBC (Bld) [#/Vol] 4.21 10*6/uL 4.6-6.2 [facility] [place] Blood hemoglobin measurement (mass/volume)Ordered By: Dr. Cotter on 2022 Hemoglobin (Bld) [Mass/Vol] 13.2 g/dL 13.0-16.5 [facility] Blood lymphocytes/100 leukoc ytesOrdered By: Dr. Cotter on 2022 Lymphocytes/100 WBC (Bld) 30.3 % 19-41 [facility] Blood monocytes/100 leukocyt esOrdered By: Dr. Cotter on 2022 Monocytes/100 WBC (Bld) 12.2 % 0-10 [facility] Blood platelet mean volumeOr dered By: Dr. Cotter on 2022 Platelet mean volume (Bld) [Entitic vol] 11.8 fL 6.2-12.0 [facility] Determination of erythrocyte mean corpuscular volume (MCV)Ordered By: Dr. Cotter on 2022 MCV (RBC) [Entitic vol] 94.1 fL 80-94 [facility] Hematocrit Auto (Bld) [Volum e fraction]Ordered By: Dr. Cotter on 2022 Hematocrit (Bld) [Volume fraction] 39.6 % 40-54 [facility] Iron measurement (mass/mass) Ordered By: Dr. Cotter on 2022 Iron (Unsp spec) [Mass/Mass] 66 ug/dL 65-175 [facility] Ketones Test strip Ql (U)Ord ered By: Dr. Cotter on 2022 Ketones Ql (U) Negative Negative [facility] - Chemistry and C hemistry - challengeOrdered By: Dr. Cotter on 2022 ALP [Catalytic activity/Vol] 39 U/L 45-117 [facility] ALT [Catalytic activity/Vol] 38 U/L 16-61 [facility] CO2 [Moles/Vol] 30.0 mmol/L 21.0-32.0 [facility] Globulin (S) [Mass/Vol] 2.9 g/dL 2.2-4.2 [facility] Urea nitrogen/Creatinine [Mass ratio] 20.5 mg/mg 10-20 [facility] - Hematology and Cell countsOrdered By: Dr. Cotter on 2022 Erythrocyte distribution width (RBC) [Entitic vol] 44.7 fL 35.1-43.9 [facility] Erythrocyte distribution width (RBC) [Ratio] 12.9 % 11.6-14.6 [facility] Immature granulocytes/100 WBC (Bld) 0.300 % 0.0-0.9 [facility] Comment on above: IG% - Immature Granu locytes (promyelocytes, myelocytes and metamyelocytes) > 1% indicates that a LEFT SHIFT is Present. MCH (RBC) [Entitic mass] 31.4 pg 27.0-32.0 [facility] Nucleated RBC/100 WBC (Bld) [Ratio] 0 % 0-5 [facility] MCHC Auto (RBC) [Mass/Vol]Or dered By: Dr. Cotter on 2022 MCHC (RBC) [Mass/Vol] 33.3 g/dL 32-36 [facility] Mucus LM Ql (Urine sed)Order ed By: Dr. Cotter on 2022 Mucus Ql (Urine sed) 0 SEEN /hpf [facility] Nitrite Test strip Ql (U)Ord ered By: Dr. Cotter on 2022 Nitrite Ql (U) Negative Negative [facility] No Panel InformationOrdered By: Dr. Cotter on 2022 Estimated GFR (MDRD) Amer 82 mL/min >60 [facility] Comment on above: GFR Calc Estimated GFR (MDRD) Non-Af Amer 67 mL/min >60 [facility] Comment on above: Non- GFR Calc Thyroid Stimulating Hormone (TSH) 1.14 uIU/mL 0.358-3.74 [facility] Total Iron Binding Capacity 296 ug/dL 250-450 [facility] Vitamin D 25-Hydroxy 50.0 ng/mL [facility] Comment on above: Vitamin D 25(OH) Sta tus Range Deficiency <20 ng/mL (50nmol/L) Insufficiency 20 - 30 ng/mL (50 - 75 nmol/L) Sufficiency 30 - 100 ng/mL (75 - 250 nmol/L) Toxicity >100 ng/mL (>250 nmol/L) Platelets bldOrdered By: Dr. Cotter on 2022 Platelets (Bld) [#/Vol] 239 10*3/uL 150-450 [facility] Protein Test strip Ql (U)Ord ered By: Dr. Cotter on 2022 Protein Ql (U) Negative Negative [facility] Serum or plasma albumin elaine urement (mass/volume)Ordered By: Dr. Cotter on 2022 Albumin [Mass/Vol] 3.9 g/dL 3.2-5.0 [facility] Serum or plasma albumin/glob ulin mass ratioOrdered By: Dr. Cotter on 2022 Albumin/Globulin [Mass ratio] 1.3 {ratio} 0.9-2.4 [facility] Serum or plasma calcium elaine urement (mass/volume)Ordered By: Dr. Cotter on 2022 Calcium [Mass/Vol] 9.3 mg/dL 8.5-10.1 [facility] Serum or plasma cholesterol in HDL measurement (mass/volume)Ordered By: Dr. Cotter on 2022 Cholesterol in HDL [Mass/Vol] 88 mg/dL >40 [facility] Comment on above: The drugs N-Acetylcy steine and Metamizole may falsely depress this assay. Reference Range HDL <40 mg/dL Low HDL Cholesterol HDL >or= 60 mg/dL High HDL Cholesterol Serum or plasma cholesterol in VLDL measurement (mass/volume)Ordered By: Dr. Cotter on 2022 Cholesterol in VLDL [Mass/Vol] 6 mg/dL 5-40 [facility] Serum or plasma creatinine m easurement (mass/volume)Ordered By: Dr. Cotter on 2022 Creatinine [Mass/Vol] 1.17 mg/dL 0.70-1.30 [facility] Comment on above: The validity of the calculated GFR & GFRAA in patients over 70 years has not been determined. Clinical correlation is essential. Serum or plasma ferritin ric surement (mass/volume)Ordered By: Dr. Cotter on 2022 Ferritin [Mass/Vol] 168 ng/mL 26-388 [facility] [place] Serum or plasma low density lipoprotein (LDL) cholesterol measurement (mass/volume)Ordered By: Dr. Cotter on 2022 Cholesterol in LDL [Mass/Vol] 83 mg/dL 0-130 [facility] Serum or plasma urea nitroge n measurement (mass/volume)Ordered By: Dr. Cotter on 2022 Urea nitrogen [Mass/Vol] 24 mg/dL 7-18 [facility] Squamous epithelial cells de tection in urine sediment by light microscopyOrdered By: Dr. Cotter on 2022 Epithelial cells.squamous LM Ql (Urine sed) 0 SEEN /hpf 0-5 [facility] Thin prep Papanicolaou smear with manual screeningOrdered By: Dr. Cotter on 2022 Thin prep Papanicolaou smear with manual screening 20 U/L 15-37 [facility] Thin prep Papanicolaou smear with manual screening 5 5-15 [facility] Urine blood detectionOrdered By: Dr. Cotter on 2022 RBC Ql (U) Negative Negative [facility] RBC Ql (U) 0 SEEN /hpf 0-5 [facility] Urine clarityOrdered By: Dr. Cotter on 2022 Clarity (U) Clear Clear [facility] Urine color determinationOrd ered By: Dr. Cotter on 2022 Color (U) Yellow Yellow [facility] Urine glucose detectionOrder ed By: Dr. Cotter on 2022 Glucose Ql (U) Normal mg/dl Normal [facility] Urine leukocyte esterase det ection by dipstickOrdered By: Dr. Cotter on 2022 Leukocyte esterase Test strip Ql (U) Negative Negative [facility] Urine pHOrdered By: Dr. William villa on 2022 pH (U) 6.0 [pH] 5.0 - 8.0 [facility] Urine sediment bacteria coun t by microscopy (number/high power field)Ordered By: Dr. Cotter on 2022 Bacteria LM.HPF (Urine sed) [#/Area] 0 /[HPF] None Seen [facility] Urine specific gravity measu rementOrdered By: Dr. Cotter on 2022 Specific gravity (U) [Rel density] 1.020 1.002-1.030 [facility] Urobilinogen Auto test strip Ql (U)Ordered By: Dr. Cotter on 2022 Urobilinogen Ql (U) Normal mg/dl Normal [facility] Absolute lymphocyte counton 01-23-2022 Lymphocytes Auto (Unsp spec) [#/Vol] 1.20 10*3/uL 0.83-4.51 [facility] Work Phone: Basophil percentageon 2021 Basophil percentage 0 SEEN /hpf 0-5 [facility] Work Phone: Basophils/100 WBC (Bld) 0.6 % 0-1 [facility] Work Phone: Bilirubin [Mass/Vol] 0.50 mg/dL 0.20-1.00 [facility] Work Phone: Comment on above: For patients on eltr ombopag therapy, use of Dimension Mazon TBIL is not recommended. Chloride [Moles/Vol] 107 mmol/L 98-107 [facility] Work Phone: Cholesterol [Mass/Vol] 185 mg/dL <200 [facility] Work Phone: Comment on above: <200 mg/dL Desirable 200-240 mg/dL Borderline >240 mg/dL High Risk Eosinophils/100 WBC (Bld) 0.8 % 0-5 [facility] Work Phone: Glucose [Mass/Vol] 101 mg/dL 74-106 [facility] Work Phone: Comment on above: Fasting Glucose resu lt from 100 to 125 mg/dL suggests IMPAIRED HOMEOSTASIS per A.D.A. criteria. Neutrophils (Bld) [#/Vol] 4.8 10*3/uL 2.0-7.7 [facility] Work Phone: Neutrophils/100 WBC (Bld) 73.1 % 47-70 [facility] Work Phone: Potassium [Moles/Vol] 4.1 mmol/L 3.5-5.1 [facility] Work Phone: Protein [Mass/Vol] 7.2 g/dL 6.4-8.2 [facility] Work Phone: Sodium [Moles/Vol] 140 mmol/L 136-145 [facility] Work Phone: Triglyceride [Mass/Vol] 50 mg/dL <199 [facility] Work Phone: Comment on above: The drugs N-Acetylcy steine and Metamizole may falsely depress this assay.Serum Triglycerides Reference Interval Normal <150 mg/dL Borderline high 150 - 199 mg/dL High 200 - 499 mg/dL Very High > or = 500 mg/dL WBC (Bld) [#/Vol] 6.5 10*3/uL 4.4-11.0 [facility] Work Phone: Bilirubin Test strip Ql (U)o n 01-23-2022 Bilirubin Ql (U) Negative Negative [facility] Work Phone: Blood erythrocytes count (nu mber/volume)on 01-23-2022 RBC (Bld) [#/Vol] 4.18 10*6/uL 4.6-6.2 [facility] [place] Work Phone: Blood hemoglobin measurement (mass/volume)on 01-23-2022 Hemoglobin (Bld) [Mass/Vol] 12.5 g/dL 13.0-16.5 [facility] Work Phone: Blood lymphocytes/100 leukoc yteson 01-23-2022 Lymphocytes/100 WBC (Bld) 18.3 % 19-41 [facility] Work Phone: Blood monocytes/100 leukocyt eson 01-23-2022 Monocytes/100 WBC (Bld) 6.9 % 0-10 [facility] Work Phone: Blood platelet mean volumeon 01-23-2022 Platelet mean volume (Bld) [Entitic vol] 11.2 fL 6.2-12.0 [facility] Work Phone: Determination of erythrocyte mean corpuscular volume (MCV)on 01-23-2022 MCV (RBC) [Entitic vol] 93.8 fL 80-94 [facility] Work Phone: Hematocrit Auto (Bld) [Volum e fraction]on 01-23-2022 Hematocrit (Bld) [Volume fraction] 39.2 % 40-54 [facility] Work Phone: Iron measurement (mass/mass) on 01-23-2022 Iron (Unsp spec) [Mass/Mass] 80 ug/dL 65-175 [facility] Work Phone: Ketones Test strip Ql (U)on 01-23-2022 Ketones Ql (U) Negative Negative [facility] Work Phone: Laboratory - Chemistry and C hemistry - challengeon 01-23-2022 ALP [Catalytic activity/Vol] 38 U/L 45-117 [facility] Work Phone: ALT [Catalytic activity/Vol] 40 U/L 16-61 [facility] Work Phone: CO2 [Moles/Vol] 27.0 mmol/L 21.0-32.0 [facility] Work Phone: Globulin (S) [Mass/Vol] 3.4 g/dL 2.2-4.2 [facility] Work Phone: Urea nitrogen/Creatinine [Mass ratio] 21.4 mg/mg 10-20 [facility] Work Phone: Laboratory - Hematology and Cell countson 01-23-2022 Erythrocyte distribution width (RBC) [Entitic vol] 50.9 fL 35.1-43.9 [facility] Work Phone: Erythrocyte distribution width (RBC) [Ratio] 14.7 % 11.6-14.6 [facility] Work Phone: Immature granulocytes/100 WBC (Bld) 0.300 % 0.0-0.9 [facility] Work Phone: Comment on above: IG% - Immature Granu locytes (promyelocytes, myelocytes and metamyelocytes) > 1% indicates that a LEFT SHIFT is Present. MCH (RBC) [Entitic mass] 29.9 pg 27.0-32.0 [facility] Work Phone: Nucleated RBC/100 WBC (Bld) [Ratio] 0 % 0-5 [facility] Work Phone: MCHC Auto (RBC) [Mass/Vol]on 01-23-2022 MCHC (RBC) [Mass/Vol] 31.9 g/dL 32-36 [facility] Work Phone: Mucus LM Ql (Urine sed)on Mucus Ql (Urine sed) 0 SEEN /hpf [facility] Work Phone: Nitrite Test strip Ql (U)on 01-23-2022 Nitrite Ql (U) Negative Negative [facility] Work Phone: No Panel Informationon 01-23 Estimated GFR (MDRD) Amer 86 mL/min >60 [facility] Work Phone: Comment on above: GFR Calc Estimated GFR (MDRD) Non-Af Amer 71 mL/min >60 [facility] Work Phone: Comment on above: Non- GFR Calc Prostate Specific Antigen Screen 2.57 ng/mL 0.00-4.00 [facility] Work Phone: Comment on above: This test was perfor med using the TPSA assay method [facility]. Values obtained with differentassay methods cannot be used interchangably.When changing PSA assays in the course of monitoring apatient, additional sequential testing should be carriedout to confirm baseline values. Total Iron Binding Capacity 323 ug/dL 250-450 [facility] Work Phone: Platelets bldon 01-23-2022 Platelets (Bld) [#/Vol] 313 10*3/uL 150-450 [facility] Work Phone: Protein Test strip Ql (U)on 01-23-2022 Protein Ql (U) Negative Negative [facility] Work Phone: Serum or plasma albumin elaine urement (mass/volume)on 01-23-2022 Albumin [Mass/Vol] 3.8 g/dL 3.2-5.0 [facility] Work Phone: Serum or plasma albumin/glob ulin mass ratioon 01-23-2022 Albumin/Globulin [Mass ratio] 1.1 {ratio} 0.9-2.4 [facility] Work Phone: Serum or plasma calcium elaine urement (mass/volume)on 01-23-2022 Calcium [Mass/Vol] 9.3 mg/dL 8.5-10.1 [facility] Work Phone: Serum or plasma cholesterol in HDL measurement (mass/volume)on 01-23-2022 Cholesterol in HDL [Mass/Vol] 74 mg/dL >40 [facility] Work Phone: Comment on above: The drugs N-Acetylcy steine and Metamizole may falsely depress this assay. Reference Range HDL <40 mg/dL Low HDL Cholesterol HDL >or= 60 mg/dL High HDL Cholesterol Serum or plasma cholesterol in VLDL measurement (mass/volume)on 01-23-2022 Cholesterol in VLDL [Mass/Vol] 10 mg/dL 5-40 [facility] Work Phone: Serum or plasma creatinine m easurement (mass/volume)on 01-23-2022 Creatinine [Mass/Vol] 1.12 mg/dL 0.70-1.30 [facility] Work Phone: Comment on above: The validity of the calculated GFR & GFRAA in patients over 70 years has not been determined. Clinical correlation is essential. Serum or plasma ferritin ric surement (mass/volume)on 01-23-2022 Ferritin [Mass/Vol] 165 ng/mL 26-388 [facility] [place] Work Phone: Serum or plasma low density lipoprotein (LDL) cholesterol measurement (mass/volume)on 01-23-2022 Cholesterol in LDL [Mass/Vol] 101 mg/dL 0-130 [facility] Work Phone: Serum or plasma urea nitroge n measurement (mass/volume)on 01-23-2022 Urea nitrogen [Mass/Vol] 24 mg/dL 7-18 [facility] Work Phone: Squamous epithelial cells de tection in urine sediment by light microscopyon 01-23-2022 Epithelial cells.squamous LM Ql (Urine sed) 0 SEEN /hpf 0-5 [facility] Work Phone: Thin prep Papanicolaou smear with manual screeningon 01-23-2022 Thin prep Papanicolaou smear with manual screening 21 U/L 15-37 [facility] Work Phone: Thin prep Papanicolaou smear with manual screening 6 5-15 [facility] Work Phone: Urine blood detectionon RBC Ql (U) Negative Negative [facility] Work Phone: RBC Ql (U) 0 SEEN /hpf 0-5 [facility] Work Phone: Urine clarityon 01-23-2022 Clarity (U) Clear Clear [facility] Work Phone: Urine color determinationon 01-23-2022 Color (U) Yellow Yellow [facility] Work Phone: Urine glucose detectionon Glucose Ql (U) Normal mg/dl Normal [facility] Work Phone: Urine leukocyte esterase det ection by dipstickon 01-23-2022 Leukocyte esterase Test strip Ql (U) Negative Negative [facility] Work Phone: Urine pHon 01-23-2022 pH (U) 5.0 [pH] 5.0 - 8.0 [facility] Work Phone: Urine sediment bacteria coun t by microscopy (number/high power field)on 01-23-2022 Bacteria LM.HPF (Urine sed) [#/Area] 0 /[HPF] None Seen [facility] Work Phone: Urine specific gravity measu rementon 01-23-2022 Specific gravity (U) [Rel density] 1.020 1.002-1.030 [facility] Work Phone: Urobilinogen Auto test strip Ql (U)on 01-23-2022 Urobilinogen Ql (U) Normal mg/dl Normal [facility] Work Phone: Absolute lymphocyte counton 12-06-2021 Lymphocytes Auto (Unsp spec) [#/Vol] 0.81 10*3/uL 0.83-4.51 [facility] Work Phone: [phone] Basophil percentageon 2021 Basophils/100 WBC (Bld) 0.4 % 0-1 [facility] Work Phone: Chloride [Moles/Vol] 103 mmol/L 98-107 [facility] Work Phone: Eosinophils/100 WBC (Bld) 1.0 % 0-5 [facility] Work Phone: Glucose [Mass/Vol] 99 mg/dL 74-106 [facility] Work Phone: [phone] Neutrophils (Bld) [#/Vol] 7.6 10*3/uL 2.0-7.7 [facility] Work Phone: Neutrophils/100 WBC (Bld) 80.5 % 47-70 [facility] Work Phone: Potassium [Moles/Vol] 3.5 mmol/L 3.5-5.1 [facility] Work Phone: Sodium [Moles/Vol] 137 mmol/L 136-145 [facility] Work Phone: [phone] WBC (Bld) [#/Vol] 9.5 10*3/uL 4.4-11.0 [facility] Work Phone: Blood erythrocytes count (nu mber/volume)on 12-06-2021 RBC (Bld) [#/Vol] 3.65 10*6/uL 4.6-6.2 [facility] Work Phone: Blood hemoglobin measurement (mass/volume)on 12-06-2021 Hemoglobin (Bld) [Mass/Vol] 10.7 g/dL 13.0-16.5 [facility] Work Phone: Blood lymphocytes/100 leukoc yteson 12-06-2021 Lymphocytes/100 WBC (Bld) 8.6 % 19-41 [facility] Work Phone: Blood monocytes/100 leukocyt eson 12-06-2021 Monocytes/100 WBC (Bld) 9.1 % 0-10 [facility] Work Phone: Blood platelet mean volumeon 12-06-2021 Platelet mean volume (Bld) [Entitic vol] 11.0 fL 6.2-12.0 [facility] Work Phone: Determination of erythrocyte mean corpuscular volume (MCV)on 12-06-2021 MCV (RBC) [Entitic vol] 92.1 fL 80-94 [facility] Work Phone: Hematocrit Auto (Bld) [Volum e fraction]on 12-06-2021 Hematocrit (Bld) [Volume fraction] 33.6 % 40-54 [facility] Work Phone: Iron measurement (mass/mass) on 12-06-2021 Iron (Unsp spec) [Mass/Mass] 30 ug/dL 65-175 [facility] Work Phone: Laboratory - Chemistry and C hemistry - challengeon 12-06-2021 CO2 [Moles/Vol] 29.0 mmol/L 21.0-32.0 [facility] Work Phone: Urea nitrogen/Creatinine [Mass ratio] 18.9 mg/mg 10-20 [facility] Work Phone: Laboratory - Hematology and Cell countson 12-06-2021 Erythrocyte distribution width (RBC) [Entitic vol] 43.5 fL 35.1-43.9 [facility] Work Phone: Erythrocyte distribution width (RBC) [Ratio] 13.0 % 11.6-14.6 [facility] Work Phone: Immature granulocytes/100 WBC (Bld) 0.400 % 0.0-0.9 [facility] Work Phone: Comment on above: IG% - Immature Granu locytes (promyelocytes, myelocytes and metamyelocytes) > 1% indicates that a LEFT SHIFT is Present. MCH (RBC) [Entitic mass] 29.3 pg 27.0-32.0 [facility] Work Phone: Nucleated RBC/100 WBC (Bld) [Ratio] 0 % 0-5 [facility] Work Phone: MCHC Auto (RBC) [Mass/Vol]on 12-06-2021 MCHC (RBC) [Mass/Vol] 31.8 g/dL 32-36 [facility] Work Phone: No Panel Informationon 12-06 Estimated GFR (MDRD) Amer 92 mL/min >60 [facility] Work Phone: Comment on above: GFR Calc Estimated GFR (MDRD) Non-Af Amer 76 mL/min >60 [facility] Work Phone: Comment on above: Non- GFR Calc Total Iron Binding Capacity 333 ug/dL 250-450 [facility] Work Phone: Platelets bldon 12-06-2021 Platelets (Bld) [#/Vol] 370 10*3/uL 150-450 [facility] Work Phone: Serum or plasma calcium elaine urement (mass/volume)on 12-06-2021 Calcium [Mass/Vol] 9.3 mg/dL 8.5-10.1 [facility] Work Phone: Serum or plasma creatinine m easurement (mass/volume)on 12-06-2021 Creatinine [Mass/Vol] 1.06 mg/dL 0.70-1.30 [facility] Work Phone: Comment on above: The validity of the calculated GFR & GFRAA in patients over 70 years has not been determined. Clinical correlation is essential. Serum or plasma ferritin ric surement (mass/volume)on 12-06-2021 Ferritin [Mass/Vol] 197 ng/mL 26-388 [facility] Work Phone: Serum or plasma urea nitroge n measurement (mass/volume)on 12-06-2021 Urea nitrogen [Mass/Vol] 20 mg/dL 7-18 [facility] Work Phone: Thin prep Papanicolaou smear with manual screeningon 12-06-2021 Thin prep Papanicolaou smear with manual screening 5 5-15 [facility] Work Phone: Basophil percentageon 2021 Cholesterol [Mass/Vol] 106 mg/dL <200 [facility] Work Phone: Comment on above: <200 mg/dL Desirable 200-240 mg/dL Borderline >240 mg/dL High Risk Glucose [Mass/Vol] 116 mg/dL 74-106 [facility] Work Phone: Comment on above: Fasting Glucose resu lt from 100 to 125 mg/dL suggests IMPAIRED HOMEOSTASIS per A.D.A. criteria. Triglyceride [Mass/Vol] 117 mg/dL <199 [facility] Work Phone: Comment on above: The drugs N-Acetylcy steine and Metamizole may falsely depress this assay.Serum Triglycerides Reference Interval Normal <150 mg/dL Borderline high 150 - 199 mg/dL High 200 - 499 mg/dL Very High > or = 500 mg/dL Serum or plasma cholesterol in HDL measurement (mass/volume)on 11-27-2021 Cholesterol in HDL [Mass/Vol] 21 mg/dL >40 [facility] Work Phone: Comment on above: The drugs N-Acetylcy steine and Metamizole may falsely depress this assay. Reference Range HDL <40 mg/dL Low HDL Cholesterol HDL >or= 60 mg/dL High HDL Cholesterol Serum or plasma cholesterol in VLDL measurement (mass/volume)on 11-27-2021 Cholesterol in VLDL [Mass/Vol] 23 mg/dL 5-40 [facility] Work Phone: Serum or plasma low density lipoprotein (LDL) cholesterol measurement (mass/volume)on 11-27-2021 Cholesterol in LDL [Mass/Vol] 62 mg/dL 0-130 [facility] Work Phone: Absolute lymphocyte counton 11-26-2021 Lymphocytes Auto (Unsp spec) [#/Vol] 0.74 10*3/uL 0.83-4.51 [facility] Work Phone: Basophil percentageon 2021 Basophils/100 WBC (Bld) 0.5 % 0-1 [facility] Work Phone: Eosinophils/100 WBC (Bld) 0.5 % 0-5 [facility] Work Phone: Neutrophils (Bld) [#/Vol] 6.3 10*3/uL 2.0-7.7 [facility] Work Phone: Neutrophils/100 WBC (Bld) 77.4 % 47-70 [facility] Work Phone: WBC (Bld) [#/Vol] 8.2 10*3/uL 4.4-11.0 [facility] Work Phone: [phone] Blood erythrocytes count (nu mber/volume)on 11-26-2021 RBC (Bld) [#/Vol] 3.43 10*6/uL 4.6-6.2 [facility] Work Phone: [phone] Blood hemoglobin measurement (mass/volume)on 11-26-2021 Hemoglobin (Bld) [Mass/Vol] 10.3 g/dL 13.0-16.5 [facility] Work Phone: Blood lymphocytes/100 leukoc yteson 11-26-2021 Lymphocytes/100 WBC (Bld) 9.1 % 19-41 [facility] Work Phone: Blood monocytes/100 leukocyt eson 11-26-2021 Monocytes/100 WBC (Bld) 12.3 % 0-10 [facility] Work Phone: Blood platelet mean volumeon 11-26-2021 Platelet mean volume (Bld) [Entitic vol] 13.2 fL 6.2-12.0 [facility] Work Phone: Determination of erythrocyte mean corpuscular volume (MCV)on 11-26-2021 MCV (RBC) [Entitic vol] 92.4 fL 80-94 [facility] Work Phone: Hematocrit Auto (Bld) [Volum e fraction]on 11-26-2021 Hematocrit (Bld) [Volume fraction] 31.7 % 40-54 [facility] Work Phone: Iron measurement (mass/mass) on 11-26-2021 Iron (Unsp spec) [Mass/Mass] 23 ug/dL 65-175 [facility] Work Phone: Laboratory - Chemistry and C hemistry - challengeon 11-26-2021 Cobalamin (Vitamin B12) [Mass/Vol] 252 pg/mL 211-911 [facility] Work Phone: Laboratory - Hematology and Cell countson 11-26-2021 Erythrocyte distribution width (RBC) [Entitic vol] 42.6 fL 35.1-43.9 [facility] Work Phone: Erythrocyte distribution width (RBC) [Ratio] 12.5 % 11.6-14.6 [facility] Work Phone: Immature granulocytes/100 WBC (Bld) 0.200 % 0.0-0.9 [facility] Work Phone: Comment on above: IG% - Immature Granu locytes (promyelocytes, myelocytes and metamyelocytes) > 1% indicates that a LEFT SHIFT is Present. MCH (RBC) [Entitic mass] 30.0 pg 27.0-32.0 [facility] Work Phone: Nucleated RBC/100 WBC (Bld) [Ratio] 0 % 0-5 [facility] Work Phone: MCHC Auto (RBC) [Mass/Vol]on 11-26-2021 MCHC (RBC) [Mass/Vol] 32.5 g/dL 32-36 [facility] No Panel Informationon 11-26 Total Iron Binding Capacity 274 ug/dL 250-450 [facility] Work Phone: Platelets bldon 11-26-2021 Platelets (Bld) [#/Vol] 303 10*3/uL 150-450 [facility] Work Phone: [phone] Serum or plasma ferritin ric surement (mass/volume)on 11-26-2021 Ferritin [Mass/Vol] 258 ng/mL 26-388 [facility] Work Phone: Serum or plasma folate measu rement (mass/volume)on 11-26-2021 Folate [Mass/Vol] 7.80 ng/mL 3.1-55.4 [facility] Work Phone: Absolute lymphocyte counton 11-20-2021 Lymphocytes Auto (Unsp spec) [#/Vol] 0.82 10*3/uL 0.83-4.51 [facility] Work Phone: Basophil percentageon 2021 Basophils/100 WBC (Bld) 0.6 % 0-1 [facility] Work Phone: Bilirubin [Mass/Vol] 0.80 mg/dL 0.20-1.00 [facility] Work Phone: Comment on above: For patients on eltr ombopag therapy, use of Dimension Mazon TBIL is not recommended. Chloride [Moles/Vol] 104 mmol/L 98-107 [facility] Work Phone: Eosinophils/100 WBC (Bld) 0.8 % 0-5 [facility] Work Phone: [phone] Glucose [Mass/Vol] 87 mg/dL 74-106 [facility] Work Phone: Neutrophils (Bld) [#/Vol] 6.2 10*3/uL 2.0-7.7 [facility] Work Phone: Neutrophils/100 WBC (Bld) 78.4 % 47-70 [facility] Work Phone: Potassium [Moles/Vol] 3.1 mmol/L 3.5-5.1 [facility] Work Phone: Protein [Mass/Vol] 7.1 g/dL 6.4-8.2 [facility] Work [facility]: [phone] Sodium [Moles/Vol] 140 mmol/L 136-145 [facility] Work Phone: WBC (Bld) [#/Vol] 7.8 10*3/uL 4.4-11.0 [facility] Work Phone: Blood erythrocytes count (nu mber/volume)on 11-20-2021 RBC (Bld) [#/Vol] 3.88 10*6/uL 4.6-6.2 [facility] Work [facility]: Blood hemoglobin measurement (mass/volume)on 11-20-2021 Hemoglobin (Bld) [Mass/Vol] 11.6 g/dL 13.0-16.5 [facility] Work Phone: Blood lymphocytes/100 leukoc yteson 11-20-2021 Lymphocytes/100 WBC (Bld) 10.5 % 19-41 [facility] Work Phone: Blood monocytes/100 leukocyt eson 11-20-2021 Monocytes/100 WBC (Bld) 9.2 % 0-10 [facility] Work Phone: [phone] Blood platelet mean volumeon 11-20-2021 Platelet mean volume (Bld) [Entitic vol] 11.8 fL 6.2-12.0 [facility] Work Phone: Determination of erythrocyte mean corpuscular volume (MCV)on 11-20-2021 MCV (RBC) [Entitic vol] 92.5 fL 80-94 [facility] Work Phone: Erythrocyte sedimentation ra ruth 11-20-2021 ESR (Bld) [Velocity] 20 mm/h 0-20 [facility] Work Phone: [phone] Hematocrit Auto (Bld) [Volum e fraction]on 11-20-2021 Hematocrit (Bld) [Volume fraction] 35.9 % 40-54 [facility] Work Phone: Interpretation of Borrelia b urgdorferi antibody assayon 11-20-2021 B. burgdorferi Ab (S) [Interp] REF LAB [facility] Work Phone: [phone] Laboratory - Chemistry and C hemistry - challengeon 11-20-2021 ALP [Catalytic activity/Vol] 55 U/L 45-117 [facility] Work Phone: [phone] ALT [Catalytic activity/Vol] 28 U/L 16-61 [facility] Work Phone: CO2 [Moles/Vol] 28.0 mmol/L 21.0-32.0 [facility] Work Phone: [phone] Globulin (S) [Mass/Vol] 3.6 g/dL 2.2-4.2 [facility] Work Phone: [phone] Magnesium [Mass/Vol] 2.0 mg/dL 1.6-2.6 [facility] Work Phone: [phone] Urea nitrogen/Creatinine [Mass ratio] 13.4 mg/mg 10-20 [facility] Work Phone: Laboratory - Hematology and Cell countson 11-20-2021 Erythrocyte distribution width (RBC) [Entitic vol] 42.3 fL 35.1-43.9 [facility] Work Phone: [phone] Erythrocyte distribution width (RBC) [Ratio] 12.4 % 11.6-14.6 [facility] Work Phone: Immature granulocytes/100 WBC (Bld) 0.500 % 0.0-0.9 [facility] Work Phone: [phone] Comment on above: IG% - Immature Granu locytes (promyelocytes, myelocytes and metamyelocytes) > 1% indicates that a LEFT SHIFT is Present. MCH (RBC) [Entitic mass] 29.9 pg 27.0-32.0 [facility] Work Phone: Nucleated RBC/100 WBC (Bld) [Ratio] 0 % 0-5 [facility] Work Phone: MCHC Auto (RBC) [Mass/Vol]on 11-20-2021 MCHC (RBC) [Mass/Vol] 32.3 g/dL 32-36 [facility] Work Phone: No Panel Informationon 11-20 Estimated GFR (MDRD) Amer 101 mL/min >60 [facility] Work Phone: Comment on above: GFR Calc Estimated GFR (MDRD) Non-Af Amer 84 mL/min >60 [facility] Work Phone: Comment on above: Non- GFR Calc Thyroid Stimulating Hormone (TSH) 1.29 uIU/mL 0.358-3.74 [facility] Work Phone: Vitamin D 25-Hydroxy 52.4 ng/mL [facility] Work Phone: Comment on above: Vitamin D 25(OH) Sta tus Range Deficiency <20 ng/mL (50nmol/L) Insufficiency 20 - 30 ng/mL (50 - 75 nmol/L) Sufficiency 30 - 100 ng/mL (75 - 250 nmol/L) Toxicity >100 ng/mL (>250 nmol/L) Platelets bldon 11-20-2021 Platelets (Bld) [#/Vol] 311 10*3/uL 150-450 [facility] Work Phone: Serum or plasma albumin elaine urement (mass/volume)on 11-20-2021 Albumin [Mass/Vol] 3.5 g/dL 3.2-5.0 [facility] Work Phone: Serum or plasma albumin/glob ulin mass ratioon 11-20-2021 Albumin/Globulin [Mass ratio] 1.0 {ratio} 0.9-2.4 [facility] Work Phone: Serum or plasma calcium elaine urement (mass/volume)on 11-20-2021 Calcium [Mass/Vol] 9.6 mg/dL 8.5-10.1 [facility] Work Phone: Serum or plasma creatinine m easurement (mass/volume)on 11-20-2021 Creatinine [Mass/Vol] 0.97 mg/dL 0.70-1.30 [facility] Work Phone: Comment on above: The validity of the calculated GFR & GFRAA in patients over 70 years has not been determined. Clinical correlation is essential. Serum or plasma urea nitroge n measurement (mass/volume)on 11-20-2021 Urea nitrogen [Mass/Vol] 13 mg/dL 7-18 [facility] Work Phone: Thin prep Papanicolaou smear with manual screeningon 11-20-2021 Thin prep Papanicolaou smear with manual screening 15 U/L 15-37 [facility] Work Phone: Thin prep Papanicolaou smear with manual screening 8 5-15 [facility] Work Phone: Thin prep Papanicolaou smear with manual screening See comment [facility] Work Phone: Comment on above: TEST RESULT [...] cm Dr. Sven Cotter MD Work Phone: [facility] 02-08-2025 09:52-0400 Body mass index (BMI) [Ratio] 28.3 kg/m2 Dr. Sven Cotter MD Work Phone: [facility] 02-08-2025 09:52-0400 Body weight 82.[address] Sven Cotter MD Work Phone: [facility] 02-08-2025 09:52-0400 Diastolic blood pressure 81 mm[Hg] Dr. Sven Cotter MD Work Phone: [facility] 02-08-2025 09:52-0400 Heart rate 68 /min Dr. Sven Cotter MD Work Phone: [facility] 02-08-2025 09:52-0400 Respiratory rate 16 /min Dr. Sven Cotter MD Work Phone: [facility] 02-08-2025 09:52-0400 Systolic blood pressure 127 mm[Hg] Dr. Sven Cotter MD Work Phone: [facility] 12-15-2024 13:02-0400 Body height 170.[address] Sven Cotter MD Work Phone: [facility] 12-15-2024 13:02-0400 Body mass index (BMI) [Ratio] 28.3 kg/m2 Dr. Sven Cotter MD Work Phone: [facility] 12-15-2024 13:02-0400 Body weight 82.[address] Sven Cotter MD Work Phone: [facility] 12-15-2024 13:02-0400 Diastolic blood pressure 65 mm[Hg] Dr. Sven Cotter MD Work Phone: [facility] 12-15-2024 13:02-0400 Heart rate 72 /min Dr. Sven Cotter MD Work Phone: [facility] 12-15-2024 13:02-0400 Respiratory rate 16 /min Dr. Sven Cotter MD Work Phone: [facility] 12-15-2024 13:02-0400 Systolic blood pressure 114 mm[Hg] Dr. Sven Cotter MD Work Phone: [phone] [address] 07-12-2024 13:58-0500 Body temperature 99.3 [degF] Dr. Sven Cotter MD Work Phone: [phone] [address] 07-12-2024 13:58-0500 Diastolic blood pressure 73 mm[Hg] Dr. Sven Cotter MD Work Phone: [facility] 07-12-2024 13:58-0500 Heart rate 73 /min Dr. Sven Cotter MD Work Phone: [phone] [place] [address] 07-12-2024 13:58-0500 Respiratory rate 16 /min Dr. Sven Cotter MD Work Phone: [phone] [place] [address] 07-12-2024 13:58-0500 SaO2% (BldA) [Mass fraction] 97 % Dr. Sven Cotter MD Work Phone: [facility] 07-12-2024 13:58-0500 Systolic blood pressure 133 mm[Hg] Dr. Sven Cotter MD Work Phone: [facility] 07-12-2024 09:40-0500 Body height 170.[address] Sven Cotter MD Work Phone: [facility] 07-12-2024 09:40-0500 Body mass index (BMI) [Ratio] 29.3 kg/m2 Dr. Sven Cotter MD Work Phone: [facility] 07-12-2024 09:40-0500 Body weight [address] Sven Cotter MD Work Phone: [facility] 07-05-2024 13:03-0500 Body mass index (BMI) [Ratio] 29.6 kg/m2 Dr. Sven Cotter MD Work Phone: [facility] 07-05-2024 13:03-0500 Body temperature 97.2 [degF] Dr. Sven Cotter MD Work Phone: [facility] 07-05-2024 13:03-0500 Body weight 85.[address] Sven Cotter MD Work Phone: [facility] 07-05-2024 13:03-0500 Diastolic blood pressure 88 mm[Hg] Dr. Sven Cotter MD Work Phone: [facility] 07-05-2024 13:03-0500 Heart rate 63 /min Dr. Sven Cotter MD Work Phone: [facility] 07-05-2024 13:03-0500 Respiratory rate 17 /min Dr. Sven Cotter MD Work Phone: [facility] 07-05-2024 13:03-0500 SaO2% (BldA) [Mass fraction] 100 % Dr. Sven Cotter MD Work Phone: [facility] 07-05-2024 13:03-0500 Systolic blood pressure 158 mm[Hg] Dr. Sven Cotter MD Work Phone: [facility] 09-17-2021 08:46-0400 Body height 170.[address] Sven Cotter Work Phone: [facility] Work Phone: 09-17-2021 08:46-0400 Body mass index (BMI) [Ratio] 28.6 kg/m2 Dr. Sven Cotter Work Phone: [facility] Work Phone: 09-17-2021 08:46-0400 Body temperature 98.2 [degF] Dr. Sven Cotter Work Phone: [facility] Work Phone: 09-17-2021 08:46-0400 Body weight [address] Sven Cotter Work Phone: [facility] Work Phone: 09-17-2021 08:46-0400 Diastolic blood pressure 77 mm[Hg] Dr. Sven Cotter Work Phone: [facility] Work Phone: 09-17-2021 08:46-0400 Heart rate 73 /min Dr. Sven Cotter Work Phone: [facility] Work Phone: 09-17-2021 08:46-0400 Respiratory rate 17 /min Dr. Sven Cotter Work Phone: [facility] Work Phone: 09-17-2021 08:46-0400 SaO2% (BldA) [Mass fraction] 99 % Dr. Sven Cotter Work Phone: [facility] Work Phone: 09-17-2021 08:46-0400 Systolic blood pressure 160 mm[Hg] Dr. Sven Cotter Work Phone: [facility] Work Phone: Encounters Encounter Date Encounter Type Care Provider Facility Start: 04-11-2025 ambulatory Jeremi Watlers Facility:[facility] Start: 02-08-2025 End: 02-08-[address] Jeremi Walters MD -[facility] Work Phone: Start: 02-08-2025 End: 02-08-[address] Sven Cotter MD Work Phone: -[facility] Start: 01-27-2025 End: 01-27-[address] Sven Cotter MD Work Phone: -Laboratory [facility] Start: 01-27-2025 End: 01-27-[address] Sven Cotter MD -Laboratory [facility] Start: 01-27-2025 End: 01-27-2025 ambulatory Sven Cotter Facility:[facility] Start: 01-11-2025 Non-patient / Non-visit Dr. Mason AGUILAR -[facility] Start: 01-11-2025 End: 01-11-[address] Sven Cotter MD Work Phone: -Cardiovascular Services Start: 01-11-2025 End: 01-11-[address] Jeremi Walters MD -[facility] Services Work Phone: Start: 01-11-2025 End: 01-11-2025 ambulatory Jeremi Walters Facility:[facility] Start: 12-15-2024 End: 12-15-[address] Jermei Walters MD -[facility] Work Phone: Start: 12-15-2024 End: 12-15-[address] Sven Cotter MD Work Phone: -[facility] Start: 10-13-2024 End: 10-13-2024 Subsequent hospital visit by physician [address] Comment on above: Family history of is chemic heart disease and other diseases of the circulatory system Start: 10-13-2024 End: 10-13-[address] [facility] Start: 09-07-2024 ambulatory Sven Cotter Facilit y:[facility] Start: 07-26-2024 End: 07-26-2024 Patient encounter procedure Lan Lama PA-C -[facility] Work Phone: Start: 07-26-2024 End: 07-26-2024 ambulatory Lan KRISHNAN Facility:[facility] Start: 07-20-2024 Encounter for other preprocedural examination Lev Sarah [facility] Start: 07-20-2024 End: 07-20-[address] Sven Cotter MD Work Phone: [facility] Work Phone: Start: 07-20-2024 End: 07-20-[address] Sven Cotter MD -Laboratory, [facility] Start: 07-20-2024 End: 07-20-2024 ambulatory Sven Cotter Facility:[facility] Start: 07-12-2024 Non-patient / Non-visit Dr. Ana Sarah MD -[facility] Start: 07-12-2024 End: 07-12-2024 Admission to same day surgery center Dr. Lev Sarah MD -[facility] Start: 07-12-2024 End: 07-12-2024 ambulatory Sven Cotter Facility:[facility] Start: 07-05-2024 End: 07-05-[address] Lev Sarah MD -[facility] Work Phone: Start: 07-05-2024 End: 07-05-2024 ambulatory Sven Cotter Facility:[facility] Start: 06-29-2024 End: 06-29-2024 ambulatory Sven Cotter Facility:[facility] Start: 06-29-2024 End: 06-29-2024 Non-patient / Non-visit Dr. Rudy Pickens MD -[facility] Work Phone: Start: 08-08-2023 Non-patient / Non-visit Dr. Jeanine Cotter Work Phone: [facility] Start: 08-08-2023 End: 08-08-[address] Sven Cotter Work Phone: [facility] Work Phone: Start: 08-08-2023 End: 08-08-[address] Sven Cotter Work Phone: [facility] Work Phone: Start: 06-26-2023 End: 06-26-2023 ambulatory [facility] Work Phone: Start: 06-26-2023 End: 06-26-2023 Patient encounter procedure [facility] Start: 07-02-2022 End: 07-02-[address] Sven Cotter Work Phone: [facility] Work Phone: Start: 07-02-2022 End: 07-02-[address] Sven Cotter Work Phone: [facility] Start: 05-28-2022 Non-patient / Non-visit Dr. Jeanine Cotter Work Phone: [facility] Start: 05-28-2022 End: 05-28-[address] Sven Cotter Work Phone: [facility] Work Phone: Start: 05-28-2022 End: 05-28-[address] Sven Cotter Work Phone: [facility] Start: 2022 End: [address] Sven Cotter Work Phone: [facility] Work Phone: Start: 2022 End: [address] Sven Cotter Work Phone: [facility] Start: 01-23-2022 End: 01-23-2022 ambulatory [facility] Work Phone: Start: 01-23-2022 End: 01-23-2022 Patient encounter procedure [facility] Start: 12-06-2021 End: 12-06-[address] Sven Cotter Work Phone: [facility] Start: 11-27-[address] Sven quintero Work Phone: [facility] Start: 11-26-2021 End: 11-26-[address] [facility] Start: 11-20-2021 End: 11-20-[address] Sven Cotter Work Phone: [facility] Start: 09-17-2021 End: 09-17-[address] Sven Cotter Work Phone: [facility] Procedures Date Procedure Procedure Detail Performing Clinician [...] or Population) (1 - 1-dose 75+ series) [facility] Start: 05-18-2029 DTaP/Tdap/Td Vaccine s (2 - Td or Tdap) DTaP/Tdap/Td Vaccines (2 - Td or Tdap) [facility] Start: 04-11-2025 Catheterization of l eft heart [facility] Start: 01-17-2025 Influenza vaccination Influenz a Vaccine (Season Ended) [facility] Start: 12-15-2024 End: 12-15-2024 Evaluation of diagnostic study results [facility] Start: 07-12-2024 Anesthesia intraperitoneal lower abd w/laps nos ANESTH SURG LOWER ABDOMEN [facility] Start: 07-12-2024 Laparoscopy surg rpr initial inguinal hernia LAP ING HERNIA REPAIR INIT [facility] Start: 07-12-2024 Patient discharge [facility] Start: 01-18-2024 COVID-19 Vaccine ( season) COVID-19 Vaccine ( season) [facility] Start: 2011 Pneumococcal vaccination Pneum ococcal Vaccine (1 of 1 - PCV) [facility] Start: 05-25-2007 IPV Vaccines (2 of 3 - Adult catch-up series) IPV Vaccines (2 of 3 - Adult catch-up series) [facility] Start: 1979 Hepatitis C screening Hepatitis C Sc [facility] Start: 1962 MMR Vaccines (1 of 1 - Standard series) MMR Vaccines (1 of 1 - Standard series) [facility] Start: 1961 HIV screening HIV Screening [facility] Start: 1961 Lipid panel Lipid Panel [facility] Start: 1961 Screening for malign ant neoplasm of colon [facility] Start: 1961 Yearly Adult Physical Yearly Adult P hysical [facility] Basic metabolic 2008 panel with ionized calcium - Serum or Plasma [facility] CBC W Auto Different ial panel - Blood [facility] End: 10-13-2024 CT for calcium scoring WO contrast and CTA W contrast IV Heart and coronary arteries [facility] Service Area Work Phone: Comment on above: Once for 1 Occurrenc es starting 10/13/2024 until 10/13/2024 Laboratory data interpretation [facility] Work Phone: Measurement of Borre zhou burgdorferi antibody [facility] Work Phone: Patient referral [facility] Work Phone: Immunizations Immunization Date Immunization Notes Care Provider Jamar dueñas 05-10-2021 influenza virus vaccine, unspecified formulation [address] Work Phone: 08-22-2020 Covid (Pfizer) Dr. Sven Thomas [facility] Work Phone: [facility] 08-01-2020 Covid (Pfizer) Dr. Sven Thomas [facility] Work Phone: [facility] 04-27-2007 poliovirus vaccine, unspecified formulation [address] Work Phone: Payers Date Payer Category Payer Unknown [id number] 2024 Managed Care (Private) [facility] H[facility] [id number] 2024 Unknown [id number] 2024 Self-pay [id number] 2014 Unknown [id number] 1961 Unknown [id number]. 1243 Unknown [id number] 2.16.840.1.398871.3.579.2. 462 Unknown [id number] 2.16.840.1.631793.3.579.2. 462 Unknown [id number] 2.16.840.1.038407.3.579.2. 462 Unknown [id number] 2.16.840.1.901835.3.579.2. 462 Unknown [id number] 2.16.840.1.541788.3.579.2. 462 Unknown [id number] 2.16.840.1.062588.3.579.2. 462 Unknown 1960 2.16.840.1.185951.3.579.2. 462 Unknown [id number] 2.16.840.1.451670.3.579.2. 462 Unknown [id number] 2.16.840.1.161310.3.579.2. 462 Unknown [id number] 2.16.840.1.453472.3.579.2. 462 Unknown [id number] 2.16.840.1.450030.3.579.2. 462 Unknown [id number] 2.16.840.1.631257.3.579.2. 462 Unknown [id number] 2.16.840.1.402358.3.579.2. 462 Social History Date Type Detail Facility Start: 09-17-2021 End: 09-17-2021 Tobacco smoking status NHIS Unknown if ever smoked [facility] Start: 1960 Sex Assigned At Male [facility] Start: 06-28-2024 End: 11-26-2024 Tobacco smoking status NHIS Never smoked tobacco (finding) [facility] Start: 07-30-2024 Sex Male (finding) [facility] Start: 1960 Sex assigned at Not on file [facility] Work Phone: Gender identity Not on file [facility] Start: 10-03-2024 End: 10-13-2024 Exposure to SARS-CoV-2 (event) Not sure [facility] Medical Equipment Procedure Code Equipment Code Equipment Origin al Text Equipment Identifier Dates Extra-gynaecolog ical surgical mesh, composite-polymer [id number] FDA Start: 07-12-2024 Goals Date Patient Goal Desired Activity /State Mental Status Date Assessment Result Facility 07-12-2024 Cognitive function Voice/Name [facility] Work Phone: Clinical Notes 07-05-2024 to 02-08-2025 Note Date & Type Note Facility 02-08-2025 Progress note [facility] 12-15-2024 Evaluation note Diagnosis Onset Date Resolution Abnormal findings diagnostic imaging of heart and coronary circulation acute December 15, 2024 12:57pm Mitral valve prolapse acute Nov 12:57pm [facility] Work Phone: 1(720) 444-191607-30-2025 Evaluation note* Diagnosis Onset Date Resolution Status Admit Date Abnormal findings diagnostic imaging of heart and coronary circulation acute December 15, 2024 12:57pm Mitral valve prolapse acute Nov 12:57pm Abnormal findings diagnostic imaging of heart and coronary circulation acute February 08, 2025 9:42am Mitral valve prolapse acute Jan 9:42am [facility] Work Phone: 1([phone]) 642-241202-24-2025 [facility] Medical Records Department [address] [place] [address] History Physical Exam 07/12/24 0940 MR#: [id number] Acct: [id number] Name: KRIS MORA Rep #: [id number] : 1960 64 From: Lev Sarah MD PCP: Dr. Sven Cotter MD [facility] Location: [place] [address] History and Physical Date of Admission: 07/12/24 [...] with mesh. I juan (more content not included)...[facility] 07-05-2024 Evaluation note* Diagnosis Onset Date Resolution Status Admit Date Right inguinal hernia acute Feb ruary 2024 12:55pm Right inguinal hernia acute Mar ch 2024 1:59pm [facility] Work Phone: Evaluation note* Diagnosis Onset Date Resolution Status Chronic cough chronic [facility] Work Phone: Evaluation noteNo assessment information available [facility] Work Phone: Evaluation note* Diagnosis Family history of ischemic heart disease and other diseases of the circulatory system documented in this encounter [facility] Work Phone: Progress note Author Jeremi Walters [facility] Services Note Date/Time February 08, 2025 10:19am [facility] [address] [place] [address] OFFICE VISIT Date of Service: 02/08/25 MR#: [id number] Acct: [id number] Name: KRIS MORA Rep #: [id number] : 1960 Provider: Dr. Clarence Walters MD Age/Sex: 64/M Location: [facility] Status: Signed HPI HPI History of Present [...] Monitor Intake Visit Reasons: 6-8 W FU Group Counselor Required: No Accompanied by: Self Is patient [...] applicable) CC: Dr. Sven Cotter MD ~ [facility] Work Phone: Reason for referral (narrative)[facility] for [facility] Work [facility]: Reason for visit Narrative* Imaging (Routine) - Pending Review Specialty Diagnoses / Procedures Referred By Brad jones Referred To Contact Radiology Diagnoses Family history of ischemic heart disease and other diseases of the circulatory system Procedures CT cardiac scoring wo IV contrast [address] [address] Phone: tel: fax: Referral ID Status Reason Start Date Expiration Date Visits Requested Visits Authorized [id number] Pending Review Perform Procedure 09/07/2024 09/07/2025 1 1 [facility] Work Phone: Chief Complaint and Reason for [...] No June 28 025 11:10am [employer]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 [facility] [employer] [facility]. provides no warranty or guarantee of the accuracy or completeness of information in this document.
[2025-04-22 15:22] LABS: AST(SGOT) 22 U/L (<=37); Alanine Aminotransfer ALT/SGPT 19 U/L (<=46); Albumin, Serum 4.5 g/dL (3.4-4.8); Alkaline Phosphatase 40 U/L (40-129); Anion Gap 11 (5-15); BUN 28 mg/dL (4-19); BUN/Creat Ratio 26.4 RATIO (10-20); Calcium,Total 9.8 mg/dL (7.6-11.0); Carbon Dioxide 25.0 mmol/L (21.0-32.0); Chloride 102 mmol/L (98-108); Cholesterol 151 mg/dL (<=200); Globulin 2.4 g/dL (2.2-4.2); Glucose 90 mg/dL (70-99); Low Density Lipoprotein Calc. 77 mg/dL; Potassium 4.3 mmol/L (3.3-5.1); Triglycerides 38 mg/dL; Very Low Density Lipoprotein 8 mg/dL (5-40); cholesterol:hdl ratio screen 2.32
== END | disposition home or self-care (01) ==
LOC: MFPLAB 12:25
PROVIDERS: PCP Family Medicine; Visit Provider Family Medicine
DX: I25.10 Atherosclerotic heart disease of native coronary artery without angina pectoris (principal)
CPT/HCPCS: 36415; 80053; 80061